=== PATIENT | female | born 1955 | race American Indian/Alaskan Native ===

== ENCOUNTER 2017-12-17 06:50 | Emergency (ER) | payer MEDICAID ==
[2017-12-17] MEDS: D50W (25GM) Vial IV ONE (07:12)
[2017-12-17 07:39] LABS: Basophils # (Auto) 0.1 K/mm3 (0.0-0.1); Basophils % (Auto) 0.5 % (0.0-1.8); Eosinophils # (Auto) 0.1 K/mm3 (0.0-0.4); Eosinophils % (Auto) 1.1 % (0.0-4.3); Hematocrit 32.3 % (30.3-42.9); Hemoglobin 10.4 gm/dl (10.1-14.3); Lymphocytes % (Auto) 25.9 % (13.4-35.0); Mean Corpuscular HGB Conc 32 % (30-34); Mean Corpuscular Hemoglobin 28 pg (28-32); Mean Corpuscular Volume 88 fl (79-97); Monocytes # (Auto) 0.8 K/mm3 (0.0-0.8); Monocytes % (Auto) 7.1 % (0.0-7.3); Platelet Count 159 K/mm3 (140-440); Red Blood Count 3.69 M/mm3 (3.65-5.03); Red Cell Distribution Width 14.5 % (13.2-15.2)
[2017-12-17 07:48] LABS: Calcium 8.7 mg/dL (8.4-10.2)
--- NOTE | 2017-12-17 07:58 | Emergency Department Report ---
ED General Adult HPI - General Chief complaint: Hypoglycemia Stated complaint: LOW BLOOD SUGAR Time Seen by Provider: 12/17/17 07:55 Source: patient, EMS Mode of arrival: Stretcher Limitations: Altered Mental Status - History of Present Illness Initial comments: Patient presents with history of low blood sugar, having been brought in by EMS , after family member reports that patient awakened family members with need for aren't to use, with symptoms of lightheadedness typical of low blood sugar. Patient is insulin-dependent diabetic, typically takes 50 units of 70/30 Levemir twice daily, and had her usual dose last evening, reports that she has not been taking her usual amount of food, primarily due to lack of appetite. She also reports that she was recently hospitalized for high blood sugar, as well as breathing difficulties, which was reported to be COPD exacerbation, at [facility] in [place], and was discharged home just 2 days ago. She has been eating fruit primarily, but has not been eating much else, and this is much left than she normally eats, but does not have any regimen for decreasing her insulin when she has decreased food intake. Past medical history significant for COPD, she has had prior use of home nebulizers, and is chronically short of breath, but has been stable since she was discharged, although with a minor residual shortness of breath. She says her heart has been checked out and was stable. She has not had any fever chills or diaphoresis, and no urinary symptoms. Patient was given intravenous glucose by EMS, with blood sugar reported in the 20s, and blood sugar was 111 on arrival, and 87 on recheck by nurse in emergency department. Patient is asymptomatic at time of examination, awake and oriented, and having no residual symptoms. She denies chest pain, has stable residual shortness of breath, no abdominal pain, no nausea or vomiting, no diaphoresis. - Related Data Previous Rx's Medication Instructions Recorded Last Taken Type Docusate Sodium [Colace] 100 mg PO BID PRN #30 capsule 04/15/14 Unknown Rx HYDROcodone/APAP 5-325 [[place] 1 each PO Q6HR PRN #20 tablet 04/15/14 Unknown Rx 5/325] Polyethylene Glycol 3350 [Miralax] 17 gm PO DAILY PRN #1 bottle 04/15/14 Unknown Rx HYDROcodone/APAP 5-325 [[place] 1 - 2 each PO Q6HR PRN #14 tablet 12/05/14 Unknown Rx 5/325] Allergies Allergy/AdvReac Type Severity Reaction Status Date / Time No Known Allergies Allergy Verified 04/15/14 15:50 ED Review of Systems ROS: Stated complaint: LOW BLOOD SUGAR Other details as noted in HPI Comment: All other systems reviewed and negative Constitutional: denies: chills, diaphoresis, fever, malaise, weakness ENT: denies: throat pain Respiratory: shortness of breath (chronic, unchanged). denies: cough, orthopnea Cardiovascular: denies: chest pain, edema, syncope Endocrine: denies: excessive sweating, flushing, intolerance to cold, intolerance to heat Gastrointestinal: denies: abdominal pain, nausea, vomiting Genitourinary: denies: urgency, dysuria, discharge Musculoskeletal: denies: back pain, joint swelling, arthralgia Skin: denies: rash, lesions Neurological: denies: headache, weakness, paresthesias Psychiatric: denies: anxiety, depression ED Past Medical Hx - Past Medical History Hx Hypertension: Yes Hx Diabetes: Yes Hx GERD: Yes Hx Asthma: Yes Hx COPD: Yes Additional medical history: sleep apnea - Surgical History Hx Cholecystectomy: Yes Additional Surgical History: c section - Social History Smoking Status: Current Every Day Smoker (1/2 pack per day) Substance Use Type: None (denies illicit drug use), Alcohol (occasional), Prescribed - Medications Home Medications: Home Medications Medication Instructions Recorded Confirmed Last Taken Type Docusate Sodium [Colace] 100 mg PO BID PRN #30 capsule 04/15/14 12/05/14 Unknown Rx HYDROcodone/APAP 5-325 [[place] 1 each PO Q6HR PRN #20 tablet 04/15/14 12/05/14 Unknown Rx 5/325] Polyethylene Glycol 3350 [Miralax] 17 gm PO DAILY PRN #1 bottle 04/15/14 Unknown Rx HYDROcodone/APAP 5-325 [[place] 1 - 2 each PO Q6HR PRN #14 tablet 12/05/14 Unknown Rx 5/325] ED Physical Exam - General Limitations: Altered Mental Status General appearance: alert, in no apparent distress - Head Head exam: Present: atraumatic - Eye Eye exam: Present: PERRL - ENT ENT exam: Present: normal exam, mucous membranes moist - Neck Neck exam: Present: normal inspection, full ROM. Absent: tenderness - Respiratory Respiratory exam: Present: normal lung sounds bilaterally. Absent: respiratory distress, wheezes, rales, rhonchi - Cardiovascular Cardiovascular Exam: Present: regular rate, normal heart sounds. Absent: systolic murmur, diastolic murmur - GI/Abdominal GI/Abdominal exam: Present: soft, normal bowel sounds. Absent: tenderness - Rectal Rectal exam: Present: deferred - Extremities Exam Extremities exam: Present: normal inspection - Neurological Exam Neurological exam: Present: alert, oriented X3, CN II-XII intact. Absent: motor sensory deficit - Psychiatric Psychiatric exam: Present: normal affect, normal mood - Skin Skin exam: Present: warm, dry ED Course Vital Signs 12/17/17 12/17/17 12/17/17 06:58 07:00 07:03 Temperature 36.4 C Pulse Rate 74 74 74 Respiratory 11 L 11 L 16 Rate Blood Pressure 170/73 170/73 O2 Sat by Pulse 99 Oximetry 12/17/17 12/17/17 12/17/17 07:16 07:30 08:38 Temperature Pulse Rate 74 76 Respiratory 11 L 13 24 Rate Blood Pressure 173/81 162/94 O2 Sat by Pulse 100 Oximetry - Reevaluation(s) Reevaluation #1: 12/17/17 09:42 Repeat glucose 89, which is unchanged, but is not declining. Patient has had snack as well as juice in emergency department. ED Medical Decision Making - Lab Data Result diagrams: 12/17/17 07:14 12/17/17 07:14 - Medical Decision Making Patient has had a hypoglycemic episode secondary to inadequate nutritional intake, while maintaining usual dose of insulin. She clearly needs to be able to decrease insulin dose when she is not getting adequate nutrition, and I will have her skip this morning's dose, and if her glucose is 150-200 at bedtime, and I will have her take one half of a dose, 25 units of 7030 insulin, and take usual doses blood sugars over 200. She should continue this by checking sugars every day, skipping insulin if her blood glucose is under 150, taking half dose in the morning for sugars between 150 and 200, then normal dose over 200, and to continue this until she can see her doctor, at which time she can discuss how to alter insulin levels or whether her insulin needs to be changed. Critical Care Time: No Critical care attestation.: If time is entered above; I have spent that time in minutes in the direct care of this critically ill patient, excluding procedure time. ED Disposition Clinical Impression: Hypoglycemia due to insulin, Diabetes mellitus Disposition: DC-01 TO HOME OR SELFCARE Is pt being admited?: No Does the pt Need Aspirin: No Condition: Stable Instructions: Diabetes Mellitus Type 2 in Adults (ED), Diabetic Hypoglycemia ( ED) Additional Instructions: We have treated you for low blood sugar today, which was caused by taking regular doses of insulin, but having decreased food intake, which leads to much insulin and her system, and causing the blood sugar to go to low. Your blood sugar is stable, and urinary stable for discharge home. If you're not eating regularly, he will need to decrease your insulin in the meantime. Skip your morning dose of insulin today, Be sure to eat regularly over the course of the day. Try to eat normal amounts of food, as your insulin dose is based on the amount of carbohydrates that you taken every day. If you don't take in adequate amounts of carbohydrates, this leads to much insulin and your system, and can drive your blood sugar too low again. Check blood glucose levels this evening, and if blood sugar is less than 150, Skip your Evening dose. If blood sugar is between 150 and 200, take one half of your insulin dose, 25 units of 70/30 R insulin If blood sugar tonight is over 200, take regular dose of insulin. Continue this with each dose until you can follow with your doctor and discuss alternative methods of controlling her blood sugar and insulin program Try to see her primary care doctor tomorrow if possible. Referrals: PRIMARY CARE [Primary Care Provider] - 3-5 Days Time of Disposition: 09:48
[2017-12-17 10:33] VITALS: BP 126/73
== END 2017-12-17 10:33 | disposition home or self-care (01) ==
LOC: ED 06:50
DX: E11.649 Type 2 diabetes mellitus with hypoglycemia without coma (principal); Z79.4 Long term (current) use of insulin; I10 Essential (primary) hypertension; K21.9 Gastro-esophageal reflux disease without esophagitis; J44.9 Chronic obstructive pulmonary disease, unspecified; F17.200 Nicotine dependence, unspecified, uncomplicated; Z90.49 Acquired absence of other specified parts of digestive tract
CPT/HCPCS: 36415; 80048; 82962; 85025; 96374

== ENCOUNTER 2018-11-09 15:22 | Inpatient (IN) | payer MEDICAID ==
[2018-11-09] MEDS ORDERED: NACL 0.9% 500 ML 500 ML IV ONE (15:37)
--- NOTE | 2018-11-09 16:09 | Emergency Department Report ---
HPI - General Time Seen by Provider: 11/09/18 15:35 - HPI HPI: 63-year-old female presents to the emergency department with a few different issues. The patient says that she is here secondary to severe generalized abdominal pain. Overall the patient says that she has pain "everywhere" but is worse today in the abdomen and the left arm. The patient's sister is currently at bedside and giving most of the information. The patient has been to [facility] and [facility] and was admitted to each over the past month secondary to his intractable pain. Patient and her sister said that they have not received any type of diagnosis. She has a past medical history of diabetes, hypertension and stage IV chronic kidney disease. The patient's sister also says that about 20 minutes prior to arrival, the patient started having slurred speech and a "twisting of her mouth." She still says that the speech is change from baseline but is improved from prior to arrival. She has not taken or received anything for her symptoms prior to arrival. ED Past Medical Hx - Past Medical History Previous Medical History?: Yes Hx Hypertension: Yes Hx Diabetes: Yes Hx GERD: Yes Hx Renal Disease: Yes (stage 4) Hx Asthma: Yes Hx COPD: Yes Additional medical history: sleep apnea - Surgical History Past Surgical History?: No Hx Cholecystectomy: Yes Additional Surgical History: c section - Social History Smoking Status: Former Smoker Substance Use Type: None - Medications Home Medications: Home Medications Medication Instructions Recorded Confirmed Last Taken Type Docusate Sodium [Colace] 100 mg PO BID PRN #30 capsule 04/15/14 12/05/14 Unknown Rx HYDROcodone/APAP 5-325 [[place] 1 each PO Q6HR PRN #20 tablet 04/15/14 12/05/14 Unknown Rx 5/325] Polyethylene Glycol 3350 [Miralax] 17 gm PO DAILY PRN #1 bottle 04/15/14 12/05/14 Unknown Rx HYDROcodone/APAP 5-325 [[place] 1 - 2 each PO Q6HR PRN #14 tablet 12/05/14 Unknown Rx 5/325] ED Review of Systems ROS: Stated complaint: ABD PAIN/SLURRED SPEECH Other details as noted in HPI Constitutional: chills, fever Eyes: denies: eye pain, vision change ENT: denies: ear pain, throat pain Respiratory: denies: cough, shortness of breath Cardiovascular: denies: chest pain, palpitations Gastrointestinal: abdominal pain. denies: vomiting Genitourinary: denies: dysuria, discharge Musculoskeletal: arthralgia, myalgia Skin: denies: rash, lesions Neurological: denies: numbness, paresthesias Physical Exam - Physical Exam Vital Signs: Vital Signs 11/09/18 15:34 Temperature 103.2 F H Pulse Rate 109 H Respiratory 15 Rate Blood Pressure 141/68 O2 Sat by Pulse 98 Oximetry Physical Exam: GENERAL: Patient is ill-appearing. HENT: Normocephalic. Atraumatic. Patient has moist mucous membranes. EYES: Extraocular motions are intact. Pupils equal reactive to light bilaterally. NECK: Supple. Trachea is midline. CHEST/LUNGS: Clear to auscultation. There is no respiratory distress noted. HEART/CARDIOVASCULAR: Regular. There is mild tachycardia. There is no murmur. ABDOMEN: Abdomen is soft. There is generalized tenderness to palpation of the abdomen. No guarding. Patient has normal bowel sounds. There is no abdominal distention. SKIN: Skin is skin is hot but dry. NEURO: The patient is awake, alert, and oriented. The patient is cooperative. The patient has no focal neurologic deficits. The patient has normal speech. MUSCULOSKELETAL: Patient appears to have some tenderness to palpation to all extremities but no obvious deformity. There is no limitation range of motion. There is no evidence of acute injury. ED Course Vital Signs 11/09/18 15:34 Temperature 103.2 F H Pulse Rate 109 H Respiratory 15 Rate Blood Pressure 141/68 O2 Sat by Pulse 98 Oximetry - Consultations Consultation #1: Just after the patient's presentation to the emergency department, and given the description of her acute slurred speech, a code stroke was called. The patient was seen by the telemedicine neurologist, Dr. Diane. The patient was seen by Dr. Diane via sheep farm worker and he felt that the patient's symptoms have resolved and that she is not a TPA candidate, but he recommends admission for brain MRI and further workup. 11/09/18 19:32 ED Medical Decision Making - Lab Data Result diagrams: 11/09/18 16:16 11/09/18 16:16 - EKG Data -: EKG Interpreted by Sd EKG shows normal: sinus rhythm, axis, intervals, QRS complexes, ST-T waves Rate: tachycardia (107 bpm) - EKG Data When compared to previous EKG there are: no significant change Interpretation: unchanged when compared t (02/16/18) - Radiology Data Radiology results: report reviewed, image reviewed interpreted by me: Abdominal x-ray shows nonspecific nonobstructive bowel gas PROCEDURE: CT ABDOMEN PELVIS WO CON TECHNIQUE: Computerized axial tomography of the abdomen and pelvis was performed without intravenous contrast. This study is performed without intravascular contrast material and its sensitivity for abdominal and pelvic pathology, including neoplasms, inflammation, abscess, free fluid, thrombosis, arterial dissection and infarction, is reduced compared with a contrast enhanced study. CT DOSE LENGTH PRODUCT: 1239.6 mGycm HISTORY: Abd pain COMPARISONS: None . FINDINGS: Visualized lower thorax: No significant abnormality. Liver: Normal size and attenuation. Spleen: Normal size and attenuation. Gallbladder and biliary system: There has been cholecystectomy. Pancreas: There is diffuse pancreatic calcification, compatible with chronic pancreatitis. There is mild pancreatic ductal dilatation. Adrenals: Normal. Kidneys: Normal. GI tract: No appendiceal inflammation. Moderate volume of stool seen in the distal colon. No bowel obstruction or inflammation . Lymph nodes and mesentery: Normal. Vasculature: Aortic atherosclerotic calcification. Bladder: Normal. Reproductive organs: Normal. Peritoneum: No free fluid. Musculoskeletal structures: There are facet arthritic changes of the lumbar spine. Other: None. IMPRESSION: Evidence of chronic pancreatitis. No acute inflammatory process is seen. No bowel obstruction. There is moderate volume of stool in the distal colon . PROCEDURE: CT HEAD/BRAIN WO CON TECHNIQUE: Computerized tomography of the head was performed without contrast material. CT DOSE LENGTH PRODUCT: 920.5 mGycm HISTORY: Stroke symptoms COMPARISONS: None . FINDINGS: There is no evidence of an acute intracranial process, intracranial hemorrhage or mass effect. The ventricles are normal size. There is atherosclerotic vascular calcification of the internal carotid arteries bilaterally and right vertebral artery at the skull base. The visualized portions of the orbits, paranasal and mastoid sinuses are unremarkable. The bony structures are unremarkable. IMPRESSION: 1. No evidence of an acute intracranial process, intracranial hemorrhage or mass effect. If there is a clinical suspicion of an acute intracranial process, MRI brain would be helpful. - Medical Decision Making This patient presented with 2 different complaints. First, the patient has some chronic generalized body pains but it is worst in the abdomen and left arm. She is tender to palpation but the abdomen is soft, nondistended, nontoxic in appearance. Abdominal x-ray was done that does not show any acute process. Patient's labs show some mild hyponatremia, mild hyperkalemia, elevated AST level and significant renal insufficiency/failure. The patient says that she is a known stage IV chronic kidney disease patient and she also has some anemia of chronic kidney disease.CT of the abdomen and pelvis without contrast was done that shows signs of chronic pancreatitis. The patient also presented after having some transient but acute slurred speech. A code stroke was called and the patient was seen by telemedicine neurology who agrees that the patient has shown some improvement or resolution and therefore does not appear to be a candidate for TPA. However she would benefit from further workup for possible TIA. Patient presents with some tachycardia and a fever. This fits the SIRS criteria but no source of infection has been found. She has been given some Tylenol for treatment of her fever and is unable to receive NSAIDs as she is non dialysis chronic kidney disease. The patient will be admitted to the hospital for further evaluation and treatment was except for admission by the hospitalist, Dr. Alvarado. - Differential Diagnosis TIA, CVA, Sepsis, COlitis, Pancreatitis Critical Care Time: No Critical care attestation.: If time is entered above; I have spent that time in minutes in the direct care of this critically ill patient, excluding procedure time. ED Disposition Clinical Impression: Slurring of speech, SIRS (systemic inflammatory response syndrome), TIA (transient ischemic attack) Renal failure (ARF), acute on chronic Qualifiers: Acute renal failure type: unspecified Chronic kidney disease stage: stage 1 Qualified Code(s): N17.9 - Acute kidney failure, unspecified Disposition: -09 OP ADMIT IP TO THIS HOSP Is pt being admited?: Yes Condition: Serious Time of Disposition: 19:52
--- NOTE | 2018-11-09 16:12 | Cat Scan Report ---
PROCEDURE: CT HEAD/BRAIN WO CON TECHNIQUE: Computerized tomography of the head was performed without contrast material. CT DOSE LENGTH PRODUCT: 920.5 mGycm HISTORY: Stroke symptoms COMPARISONS: None . FINDINGS: There is no evidence of an acute intracranial process, intracranial hemorrhage or mass effect. The ventricles are normal size. There is atherosclerotic vascular calcification of the internal carotid arteries bilaterally and righ t vertebral artery at the skull base. The visualized portions of the orbits, paranasal and mastoid sinuses are unremarkable. The bony structures are unremarkable. IMPRESSION: 1. No evidence of an acute intracranial process, intracranial hemorrhage or mass effect. If there is a clinical suspicion of an acute intracranial process, MRI brain would be helpful. The findings of absence of evidence of acute infarct or intracranial hemorrhage were relayed to Dr. Alex weaver at 4:07 PM November 09, 2018. This document is electronically signed by Elisa Nash MD., November 09 2018 04:10:13 PM ET
--- NOTE | 2018-11-09 16:22 | Emergency Department Report ---
ED Neuro Deficit HPI - General Chief Complaint: Neuro Symptoms/Deficit Stated Complaint: ABD PAIN/SLURRED SPEECH Time Seen by Provider: 11/09/18 15:35 Source: patient, family Mode of arrival: Ambulatory Limitations: Other - History of Present Illness Initial Comments: [facility] TeleNeurology Consult Services Impression: speech difficulties. Unclear of etiology, suspect toxic metabolic, but cannot r/o tia at this time Not a tpa candidate due to: resolved Does not meet LVO screening criteria (no aphasia, neglect, gaze deviation, dense hemiparesis, visual field deficits on exam); therefore, advanced imaging not recommended. Comments: [facility] contacted: [phone] [facility] at bedside: 2220 Recommendations: Activate telemetry floor Neuro checks Bedside swallow eval Dvt prophylaxis IV fluids, normal saline ASA if no contraindications Head of bed below 30 degrees inpatient neurology consultation Inpatient stroke evaluation as per Neurology/ Internal Medicine Discussed with ED MD --------- CC slurred speech History of Present Illness Patient is a 63 year old woman who comes to the hospital for pain and an episode of slurred speech on her way to the hospital. The slurred speech was noticed around 1500 and did not last long per family member. She has been having pains for the past month, but family is unaware of the cause. No focal weakness or numbness noticed. Has a 103.2 fever on the ED. Diagnostic: Ct head without contrast: no acute findings per rad read Exam: NIHSS score: Asterixis on exam 1A: Level of Consciousness - Alert; keenly responsive 0 1B: Ask Month and Age - Both Questions Right 0 1C: 'Blink Eyes' & 'Squeeze Hands' - Performs Both Tasks 0 2: Test Horizontal Extraocular Movements - Normal 0 3: Test Visual Saleh - No Visual Loss 0 4: Test Facial Palsy - Normal symmetry 0 5A: Test Left Arm Motor Drift - No Drift for 10 Seconds 0 5B: Test Right Arm Motor Drift - No Drift for 10 Seconds 0 6A: Test Left Leg Motor Drift - No Drift for 5 Seconds 0 6B: Test Right Leg Motor Drift - No Drift for 5 Seconds 0 7: Test Limb Ataxia - No Ataxia 0 8: Test Sensation - Normal; No sensory loss 0 9: Test Language/Aphasia - Normal; No aphasia 0 10: Test Dysarthria - Normal 0 11: Test Extinction/Inattention - No abnormality 0 Medical Decision Making: - Extensive number of diagnosis or management options are considered above. - Extensive amount of complex data reviewed. - High risk of complication and/or morbidity or mortality are associated with differential diagnostic considerations above. - There may be Uncertain outcome and increased probability of prolonged functional impairment or high probability of severe prolonged functional impairment associated with some of these differential diagnosis. Medical Data Reviewed: 1.Data reviewed include clinical labs, radiology, Medical Tests; 2.Tests results discussed w/performing or interpreting physician; 3.Obtaining/reviewing old medical records; 4.Obtaining case history from another source; 5.Independent review of image, tracing or specimen. Patient was informed the Neurology Consult would happen via telehealth (remote video) and consented to receiving care in this manner. - Related Data Home Medications: Previous Rx's Medication Instructions Recorded Last Taken Type Docusate Sodium [Colace] 100 mg PO BID PRN #30 capsule 04/15/14 Unknown Rx HYDROcodone/APAP 5-325 [[place] 1 each PO Q6HR PRN #20 tablet 04/15/14 Unknown Rx 5/325] Polyethylene Glycol 3350 [Miralax] 17 gm PO DAILY PRN #1 bottle 04/15/14 Unknown Rx HYDROcodone/APAP 5-325 [[place] 1 - 2 each PO Q6HR PRN #14 tablet 12/05/14 Unknown Rx 5/325] Allergies/Adverse Reactions: Allergies Allergy/AdvReac Type Severity Reaction Status Date / Time No Known Allergies Allergy Verified 04/15/14 15:50 ED Review of Systems ROS: Stated complaint: ABD PAIN/SLURRED SPEECH Other details as noted in HPI Constitutional: chills, fever Eyes: denies: eye pain, vision change ENT: denies: ear pain, throat pain Respiratory: denies: cough, shortness of breath Cardiovascular: denies: chest pain, palpitations Gastrointestinal: abdominal pain. denies: vomiting Genitourinary: denies: dysuria, discharge Musculoskeletal: arthralgia, myalgia Skin: denies: rash, lesions Neurological: denies: numbness, paresthesias ED Past Medical Hx - Past Medical History Previous Medical History?: Yes Hx Hypertension: Yes Hx Diabetes: Yes Hx GERD: Yes Hx Renal Disease: Yes (stage 4) Hx Asthma: Yes Hx COPD: Yes Additional medical history: sleep apnea - Surgical History Past Surgical History?: No Hx Cholecystectomy: Yes Additional Surgical History: c section - Social History Smoking Status: Former Smoker Substance Use Type: None - Medications Home Medications: Home Medications Medication Instructions Recorded Confirmed Last Taken Type Docusate Sodium [Colace] 100 mg PO BID PRN #30 capsule 04/15/14 12/05/14 Unknown Rx HYDROcodone/APAP 5-325 [[place] 1 each PO Q6HR PRN #20 tablet 04/15/14 12/05/14 Unknown Rx 5/325] Polyethylene Glycol 3350 [Miralax] 17 gm PO DAILY PRN #1 bottle 04/15/14 12/05/14 Unknown Rx HYDROcodone/APAP 5-325 [[place] 1 - 2 each PO Q6HR PRN #14 tablet 12/05/14 Unknown Rx 5/325] ED Neuro Physical Exam - General Limitations: Other Suspected Stroke: No ED Course Vital Signs 11/09/18 15:34 Temperature 103.2 F H Pulse Rate 109 H Respiratory 15 Rate Blood Pressure 141/68 O2 Sat by Pulse 98 Oximetry - Lab Data Lab Results 11/09/18 Range/Units 15:32 POC Glucose 157 H (70-105) Critical care attestation.: If time is entered above; I have spent that time in minutes in the direct care of this critically ill patient, excluding procedure time. ED Disposition Clinical Impression: Slurring of speech Disposition: OP ADMIT IP TO THIS HOSP Is pt being admited?: Yes Condition: Stable
[2018-11-09 16:39] LABS: INR 1.09 (0.87-1.13)
[2018-11-09 16:40] LABS: Partial Thromboplastin Time 44.5 Sec. (24.2-36.6)
[2018-11-09 16:42] LABS: Basophils % (Auto) 0.2 % (0.0-1.8); Eosinophils # (Auto) 0.2 K/mm3 (0.0-0.4); Eosinophils % (Auto) 3.7 % (0.0-4.3); Hematocrit 23.8 % (30.3-42.9); Hemoglobin 7.6 gm/dl (10.1-14.3); Lymphocytes # (Auto) 0.9 K/mm3 (1.2-5.4); Lymphocytes % (Auto) 13.2 % (13.4-35.0); Mean Corpuscular HGB Conc 32 % (30-34); Mean Corpuscular Volume 86 fl (79-97); Monocytes # (Auto) 0.4 K/mm3 (0.0-0.8); Monocytes % (Auto) 6.4 % (0.0-7.3); Platelet Count 125 K/mm3 (140-440); Red Blood Count 2.77 M/mm3 (3.65-5.03); Red Cell Distribution Width 16.7 % (13.2-15.2)
[2018-11-09 16:47] LABS: Albumin 2.6 g/dL (3.9-5); Calcium 9.1 mg/dL (8.4-10.2); Hemolysis Index 6; Thrombin Time 21.3 Sec. (15.1-19.6)
[2018-11-09 16:48] LABS: Creatine Kinase MB < 1.0 ng/mL (0.0-4.0)
[2018-11-09 16:59] LABS: Alanine Aminotransferase 14 units/L (7-56); BUN/Creatinine Ratio 10; Blood Urea Nitrogen 52 mg/dL (7-17)
[2018-11-09] MEDS ORDERED: TYLENOL PO ONE (17:38)
--- NOTE | 2018-11-09 17:51 | Cat Scan Report ---
PROCEDURE: CT ABDOMEN PELVIS WO CON TECHNIQUE: Computerized axial tomography of the abdomen and pelvis was performed without intravenous contrast. This study is performed without intravascular contrast material and its sensitivity for ab dominal and pelvic pathology, including neoplasms, inflammation, abscess, free fluid, thrombosis, art erial dissection and infarction, is reduced compared with a contrast enhanced study. CT DOSE LENGTH PRODUCT: 1239.6 mGycm HISTORY: Abd pain COMPARISONS: None . FINDINGS: Visualized lower thorax: No significant abnormality. Liver: Normal size and attenuation. Spleen: Normal size and attenuation. Gallbladder and biliary system: There has been cholecystectomy. Pancreas: There is diffuse pancreatic calcification, compatible with chronic pancreatitis. There is mild pancreatic ductal dilatation. Adrenals: Normal. Kidneys: Normal. GI tract: No appendiceal inflammation. Moderate volume of stool seen in the distal colon. No bowel o bstruction or inflammation . Lymph nodes and mesentery: Normal. Vasculature: Aortic atherosclerotic calcification. Bladder: Normal. Reproductive organs: Normal. Peritoneum: No free fluid. Musculoskeletal structures: There are facet arthritic changes of the lumbar spine. Other: None. IMPRESSION: Evidence of chronic pancreatitis. No acute inflammatory process is seen. No bowel obstruction. There is moderate volume of stool in the distal colon . This document is electronically signed by Mary Ann Valero MD., November 09 2018 05:49:26 PM ET
--- NOTE | 2018-11-09 18:54 | XRay Report ---
EXAM: XR ABDOMEN 2V HISTORY: abd pain on hold TECHNIQUE: Supine views (4 images) COMPARISON: None available. FINDINGS: Abundant fecal material is seen within the large bowel loops and approximately 7.9 cm dilated rectum in keeping with constipation and possible fecal impaction. Clinical correlation is advised. The gabriela l gas pattern is otherwise nonspecific and nonobstructive. No gross organomegaly, free intraperitoneal air, or suspicious calcifications seen. There are multipl e bilateral pelvic calcifications consistent with phleboliths. Surgical clips are seen in the right upper quadrant in keeping with prior cholecystectomy. Multilevel degenerative disease is seen in the middle and distal lumbar spine. IMPRESSION: 1. Abundant fecal material is seen within the large bowel loops and approximately 7.9 cm dilated rec roly in keeping with constipation and possible fecal impaction. Clinical correlation is advised. 2. No gross organomegaly, free intraperitoneal air, or suspicious calcifications seen. This document is electronically signed by Magi Mojica MD., November 09 2018 06:51:54 PM ET
[2018-11-09] MEDS ORDERED: COLACE PO PRN (19:32)
[2018-11-09] MEDS ORDERED: NON-FORMULARY (Polyethylene Glycol 3350 [Miralax] 17 GM) PO PRN (19:32)
[2018-11-09] MEDS ORDERED: NORCO 5/325 PO PRN (19:32)
--- NOTE | 2018-11-09 19:32 | History and Physical Report ---
History of Present Illness Date of examination: 11/09/18 Medications and Allergies Allergies Allergy/AdvReac Type Severity Reaction Status Date / Time No Known Allergies Allergy Verified 04/15/14 15:50 Home Medications Medication Instructions Recorded Confirmed Last Taken Type Docusate Sodium [Colace] 100 mg PO BID PRN #30 capsule 04/15/14 12/05/14 Unknown Rx HYDROcodone/APAP 5-325 [[place] 1 each PO Q6HR PRN #20 tablet 04/15/14 12/05/14 Unknown Rx 5/325] Polyethylene Glycol 3350 [Miralax] 17 gm PO DAILY PRN #1 bottle 04/15/14 12/05/14 Unknown Rx HYDROcodone/APAP 5-325 [[place] 1 - 2 each PO Q6HR PRN #14 tablet 12/05/14 Unknown Rx 5/325] Exam - Constitutional Vitals: Temp Pulse Resp BP Pulse Ox 100 F H 100 H 15 137/87 100 11/09/18 18:23 11/09/18 18:23 11/09/18 18:23 11/09/18 18:23 11/09/18 18:23 Results - Labs CBC & Chem 7: 11/09/18 16:16 11/09/18 16:16 Labs: Laboratory Last Values WBC 6.7 K/mm3 (4.5-11.0) 11/09/18 16:16 RBC 2.77 M/mm3 (3.65-5.03) L 11/09/18 16:16 Hgb 7.6 gm/dl (10.1-14.3) L 11/09/18 16:16 Hct 23.8 % (30.3-42.9) L 11/09/18 16:16 MCV 86 fl (79-97) 11/09/18 16:16 MCH 27 pg (28-32) L 11/09/18 16:16 MCHC 32 % (30-34) 11/09/18 16:16 RDW 16.7 % (13.2-15.2) H 11/09/18 16:16 Plt Count 125 K/mm3 (140-440) L 11/09/18 16:16 Lymph % (Auto) 13.2 % (13.4-35.0) L 11/09/18 16:16 [place] % (Auto) 6.4 % (0.0-7.3) 11/09/18 16:16 Eos % (Auto) 3.7 % (0.0-4.3) 11/09/18 16:16 Baso % (Auto) 0.2 % (0.0-1.8) 11/09/18 16:16 Lymph # 0.9 K/mm3 (1.2-5.4) L 11/09/18 16:16 [place] # 0.4 K/mm3 (0.0-0.8) 11/09/18 16:16 Eos # 0.2 K/mm3 (0.0-0.4) 11/09/18 16:16 Baso # 0.0 K/mm3 (0.0-0.1) 11/09/18 16:16 Seg Neutrophils % 76.5 % (40.0-70.0) H 11/09/18 16:16 Seg Neutrophils # 5.1 K/mm3 (1.8-7.7) 11/09/18 16:16 PT 14.8 Sec. (12.2-14.9) 11/09/18 16:16 INR 1.09 (0.87-1.13) 11/09/18 16:16 APTT 44.5 Sec. (24.2-36.6) H 11/09/18 16:16 21.3 Sec. (15.1-19.6) H 11/09/18 16:16 Sodium 130 mmol/L (137-145) L 11/09/18 16:16 Potassium 5.3 mmol/L (3.6-5.0) H 11/09/18 16:16 Chloride 103.2 mmol/L (98-107) 11/09/18 16:16 Carbon Dioxide 13 mmol/L (22-30) L 11/09/18 16:16 19 mmol/L 11/09/18 16:16 BUN 52 mg/dL (7-17) H 11/09/18 16:16 5.4 mg/dL (0.7-1.2) H 11/09/18 16:16 Estimated GFR 10 ml/min 11/09/18 16:16 10 % 11/09/18 16:16 Glucose 135 mg/dL (65-100) H 11/09/18 16:16 POC Glucose 157 (70-105) H 11/09/18 15:32 Lactic Acid 1.30 mmol/L (0.7-2.0) 11/09/18 16:16 Calcium 9.1 mg/dL (8.4-10.2) 11/09/18 16:16 0.30 mg/dL (0.1-1.2) 11/09/18 16:16 AST 68 units/L (5-40) H 11/09/18 16:16 ALT 14 units/L (7-56) 11/09/18 16:16 102 units/L (35-129) 11/09/18 16:16 19.0 umol/L (25-60) L 11/09/18 16:16 93 units/L (30-135) 11/09/18 16:16 CK-MB (CK-2) < 1.0 ng/mL (0.0-4.0) 11/09/18 16:16 CK-MB (CK-2) Rel Index 1.0 (0-4) 11/09/18 16:16 0.017 ng/mL (0.00-0.029) 11/09/18 16:16 7.6 g/dL (6.3-8.2) 11/09/18 16:16 2.6 g/dL (3.9-5) L 11/09/18 16:16 0.5 % 11/09/18 16:16 13 units/L (13-60) 11/09/18 16:16 Plasma/Serum Alcohol < 0.01 % (0-0.07) 11/09/18 16:16
[2018-11-09] MEDS ORDERED: MIRALAX 3350 PO PRN (19:38)
[2018-11-09] MEDS ORDERED: KIONEX PO ONE (19:48)
[2018-11-09] MEDS ORDERED: CALCIUM GLUCONATE 2,000 MG in NACL 0.9% 100 ML IV ONE (20:00)
[2018-11-09 20:42] LABS: % Iron Saturation 21.3 %
[2018-11-09] MEDS: HEPARIN SUB-Q SCH (22:54)
[2018-11-09] MEDS: NACL 0.9% 1000 ML 1,000 ML IV SCH (22:55)
[2018-11-09] MEDS: SODIUM CHLORIDE FLUSH SYRINGE 10 ML IV SCH (22:55)
--- NOTE | 2018-11-10 00:42 | Event Note ---
Date: 11/10/18 SHELLEY Palafox called to report pt has temp of 103.1. No evidence of leukocytosis and Lactic Acid WNL. Ordered CXR, BC, UC, and UA. Empirically started on Zosyn.
[2018-11-10] MEDS: TYLENOL PO PRN ×3 (00:52→15:17)
[2018-11-10 01:36] LABS: Bacteria,Urine 1+ /HPF (Negative); Hyaline Casts,Urine 1 /LPF
[2018-11-10 01:37] LABS: Bilirubin,Urine NEG (Negative); Blood,Urine SM (Negative); Color,Urine Yellow (Yellow); Protein,Urine >500 mg/dL (Negative); Urobilinogen,Urine < 2.0 mg/dL (<2.0)
[2018-11-10 01:40] LABS: Amphetamine Screen,Urine PRESUMPTIVE NEGATIVE; Benzodiazepines Screen,Urine PRESUMPTIVE NEGATIVE; Cannabinoid Screen,Urine PRESUMPTIVE NEGATIVE; Cocaine Screen,Urine PRESUMPTIVE NEGATIVE; Methadone Screen,Urine PRESUMPTIVE NEGATIVE; Opiate Screen,Urine PRESUMPTIVE NEGATIVE
[2018-11-10] MEDS ORDERED: ZOSYN/NS 2.25 GM/50ML 2.25 GM/50 ML BAG IV ONE (02:00)
--- NOTE | 2018-11-10 02:04 | XRay Report ---
PROCEDURE: XR CHEST ROUTINE 2V TECHNIQUE: PA and lateral chest radiographs were obtained. HISTORY: Fever unknown origin COMPARISONS: None. FINDINGS: Heart: Normal. Mediastinum/Vessels: Normal. Lungs/Pleural space: Normal. Bony thorax: No acute osseous abnormality. IMPRESSION: There is no evidence of acute cardiopulmonary process. This document is electronically signed by Ciarra Diamond DO., November 10 2018 02:02:52 AM ET
[2018-11-10] MEDS ORDERED: ZOSYN/NS 3.375GM/50ML 3.375 GM/50 ML BAG IV SCH (06:00)
[2018-11-10] MEDS: ZOSYN/NS 2.25 GM/50ML 2.25 GM/50 ML BAG IV SCH ×2 (06:20→15:11)
--- NOTE | 2018-11-10 06:25 | Event Note ---
Date: 11/09/18 See H/p in reports SIRS Anemia CKD/ESRD Rt arm numbness--Cervical radiculopathy-CT C spine and MR brain ordered
[2018-11-10] MEDS ORDERED: VANCOMYCIN PHARMACY TO DOSE IV SCH (07:00)
--- NOTE | 2018-11-10 07:08 | History and Physical Report ---
CHIEF COMPLAINT: 1. Fever. 2. Right-sided upper extremity numbness. 3. Abdominal pain. HISTORY OF PRESENT ILLNESS: A 63-year-old female with past medical history of diabetes, hypertension, gastroesophageal reflux disease, stage IV chronic kidney disease, COPD and sleep apnea, comes in for high fevers. Also right upper extremity numbness, which is intermittent. Also, abdominal pain off and on. The patient is a very poor historian. The patient states that she was admitted at [facility] for 2 weeks and had extensive workup, which was negative for acute CVA, etc. The patient is unable to give any other history. 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 As per the sister, the patient apparently has slurred speech and twisting of the mouth, but during my examination, she had a normal speech and able to answer questions. Very poor historian. No cough. No dysuria. No chills. Has high temperatures. No exacerbating or precipitating factors. PAST MEDICAL HISTORY: As mentioned, hypertension, diabetes, gastroesophageal reflux disease, chronic kidney disease, asthma, COPD, sleep apnea. PAST SURGICAL HISTORY: . SOCIAL HISTORY: Former smoker, no alcohol, no recreational drugs. FAMILY HISTORY: Hypertension. CURRENT MEDICATIONS: MiraLax and Kyle. REVIEW OF SYSTEMS: Significant for high fever, right upper extremity numbness and abdominal pain. No cough. No dysuria. A 14-point review of systems done. PHYSICAL EXAMINATION: GENERAL: Young elderly female, cooperative during examination. VITAL SIGNS: Temperature 103.2, pulse is 109, respiratory rate is 15, blood pressure 141/68. HEENT: Unremarkable. Pupils equal and reactive. NECK: Supple, no lymphadenopathy, no thyromegaly. LUNGS: Clear to auscultation and percussion. Good air entry. CARDIOVASCULAR SYSTEM: S1, S2 heard. No gallop, no murmur, no rub. Apical impulse in left fifth intercostal space in midclavicular line. ABDOMEN: Soft and benign. No hepatosplenomegaly. No guarding, no rigidity. Hernial orifices are normal. EXTREMITIES: Good pedal pulses. No pedal edema. CENTRAL NERVOUS SYSTEM: Nonfocal exam. Strength is 5/5 in all 4 extremities. Sensory system is normal. No focal deficits. SKIN: Normal. LABORATORY DATA: Significant for white count of 6700, H and H of 7.6 and 23.8, MCV is 86, MCH is low 27, RDW is 16.7. Platelet count is 125,000, slightly low. Sodium is 130, potassium is 5.3, bicarbonate is 13, BUN and creatinine is 52 and 5.4, glucose is 157. Serum iron is 36, TIBC is 169, transferrin is 128. Urine shows 7 white cells. Drug screen was essentially negative. DIAGNOSTIC DATA: Abdominal CT shows chronic pancreatitis and no bowel obstruction. Abdominal x-ray shows excessive fecal material in the colon. Head CT shows no evidence of any acute intracranial process. No intracranial hemorrhage. Chest x-ray shows no acute cardiopulmonary process. ASSESSMENT AND PLAN: 1. Systemic inflammatory response syndrome. The patient has high fever of 103 consistently. The patient started on empiric antibiotics. No focus of infection identified. There are 7 white cells in the urine. Abdominal x-ray was negative. Chest x-ray was negative. We will treat empirically with Zosyn and vancomycin. 2. Right arm numbness, probably secondary to cervical spondylosis. The patient is a very poor historian. We will get records from [place], but in the meantime, we will get CT C-spine and MRI brain. No extensive workup for stroke. 3. Chronic kidney disease, bordering on end-stage renal disease, Nephrology consult requested. The patient may end up needing dialysis. 4. Type 2 diabetes. Her hemoglobin A1c is 6.9. Will do coverage for now. 5. Constipation. Will get MiraLax 17 grams p.o. daily. 6. Deep venous thrombosis prophylaxis, heparin 5000 q. 12. In summary, the patient has systemic inflammatory response syndrome, chronic kidney disease, bordering on end-stage renal disease, high fevers and right arm numbness. Rule out cervical spondylosis and cervical radiculopathy. MRI of brain even though TIA is a remote possibility. JOB# [id number] ANNALISA/DEVAN TEJADA
[2018-11-10] MEDS ORDERED: VANCOMYCIN 1,750 MG in NACL 0.9% 500 ML 500 ML IV ONE (08:00)
[2018-11-10] MEDS: ZOFRAN IV PRN ×3 (08:17→22:43)
[2018-11-10] MEDS: DILAUDID IV PRN (08:17)
[2018-11-10 08:39] LABS: Basophils % (Auto) 0.2 % (0.0-1.8); Eosinophils # (Auto) 0.4 K/mm3 (0.0-0.4); Eosinophils % (Auto) 4.2 % (0.0-4.3); Hematocrit 21.6 % (30.3-42.9); Hemoglobin 7.2 gm/dl (10.1-14.3); Lymphocytes # (Auto) 0.8 K/mm3 (1.2-5.4); Lymphocytes % (Auto) 8.9 % (13.4-35.0); Mean Corpuscular HGB Conc 33 % (30-34); Mean Corpuscular Volume 85 fl (79-97); Monocytes # (Auto) 0.4 K/mm3 (0.0-0.8); Monocytes % (Auto) 4.3 % (0.0-7.3); Red Blood Count 2.54 M/mm3 (3.65-5.03); Red Cell Distribution Width 16.7 % (13.2-15.2)
[2018-11-10 08:42] LABS: Platelet Count 94 K/mm3 (140-440)
[2018-11-10 09:06] LABS: Calcium 8.7 mg/dL (8.4-10.2)
--- NOTE | 2018-11-10 09:44 | Consultation ---
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 CT A/P showed evidence of chronic pancreatitis, otherwise no acute findings, CT head showed no acute intracranial findings. Labs showed elevated BUN/Cr at 57/5.4mg/dl along with hyponatremia/hyperkalemia with K at 5.3 and metabolic acidosis. pt was being evaluated for future HD given progressive CKD. Renal consult is requested for management of progressive CKD and initiation of HD. Past History Past Medical History: anemia, diabetes, ESRD, hypertension, renal failure Past Surgical History: cholecystectomy, Social history: denies: smoking, alcohol abuse, prescription drug abuse, IV drug use Family history: diabetes, hypertension Medications and Allergies Allergies Allergy/AdvReac Type Severity Reaction Status Date / Time No Known Allergies Allergy Verified 04/15/14 15:50 Home Medications Medication Instructions Recorded Confirmed Last Taken Type Docusate Sodium [Colace] 100 mg PO BID PRN #30 capsule 04/15/14 12/05/14 Unknown Rx HYDROcodone/APAP 5-325 [[place] 1 each PO Q6HR PRN #20 tablet 04/15/14 12/05/14 Unknown Rx 5/325] Polyethylene Glycol 3350 [Miralax] 17 gm PO DAILY PRN #1 bottle 04/15/14 12/05/14 Unknown Rx HYDROcodone/APAP 5-325 [[place] 1 - 2 each PO Q6HR PRN #14 tablet 12/05/14 Unknown Rx 5/325] Active Meds: Active Medications Acetaminophen (Tylenol) 650 mg PO Q4H PRN PRN Reason: Pain MILD(1-3)/Fever >100.5/FLORES Last Admin: 11/10/18 00:52 Dose: 650 mg Documented by: Acetaminophen/Hydrocodone Bitart ([place] 5/325) 1 each PO Q6HR PRN PRN Reason: Pain Docusate Sodium (Colace) 100 mg PO BID PRN PRN Reason: Constipation Heparin Sodium (Porcine) (Heparin) 5,000 unit SUB-Q Q12HR [facility] Last Admin: 11/09/18 22:54 Dose: 5,000 unit Documented by: Hydromorphone HCl (Dilaudid) 0.25 mg IV Q3H PRN PRN Reason: Pain, Moderate (4-6) Last Admin: 11/10/18 08:17 Dose: 0.25 mg Documented by: Sodium Chloride (Nacl 0.9% 1000 Ml) 1,000 mls @ 75 mls/hr IV DIRECT [facility] Last Admin: 11/09/18 22:55 Dose: 75 mls/hr Documented by: Piperacillin Sod/Tazobactam Sod (Zosyn/Ns 2.25 Gm/50ml) 2.25 gm in 50 mls @ 100 mls/hr IV Q8HR [facility] Last Admin: 11/10/18 06:20 Dose: 100 mls/hr Documented by: Ondansetron HCl (Zofran) 4 mg IV Q8H PRN PRN Reason: Nausea And Vomiting Last Admin: 11/10/18 08:17 Dose: 4 mg Documented by: Polyethylene Glycol (Miralax 3350) 17 gm PO QDAY PRN PRN Reason: Constipation Sodium Chloride (Sodium Chloride Flush Syringe 10 Ml) 10 ml IV BID [facility] Last Admin: 11/09/18 22:55 Dose: 10 ml Documented by: Sodium Chloride (Sodium Chloride Flush Syringe 10 Ml) 10 ml IV PRN PRN PRN Reason: LINE FLUSH Review of Systems All systems: negative Constitutional: fatigue, weakness, malaise, poor appetite Cardiovascular: shortness of breath, dyspnea on exertion Gastrointestinal: abdominal pain, nausea, vomiting Exam - Vital Signs Vital signs: Vital Signs Pulse Resp Pulse Ox 106 H 16 99 11/09/18 15:31 11/09/18 15:31 11/09/18 15:31 - General Appearance General appearance: well-developed, appears stated age, chronically ill EENT: ATNC, PERRL, mucous membranes moist Neck: Present: neck supple Respiratory: Clear to Ascultation Heart: regular, S1S2 Gastrointestinal: Present: normoactive bowel sounds Integumentary: no rash, other (+ edema b/l LE ) Neurologic: no focal deficit, alert and oriented x3, strength 5/5, CN 3-12 intact Psychiatric: mood/affect appropriate, cooperative Results - Lab Results 11/10/18 08:05 11/10/18 08:05 Most recent lab results Calcium 8.7 mg/dL (8.4-10.2) 11/10/18 08:05 Laboratory Tests 11/09/18 11/09/18 11/09/18 15:32 16:16 16:16 PT 14.8 INR 1.09 APTT 44.5 H Thrombin Time 21.3 H POC Glucose 157 H Hemoglobin A1c Lactic Acid Iron TIBC % Saturation Transferrin Total Bilirubin 0.30 AST 68 H ALT 14 Alkaline Phosphatase 102 Ammonia Total Creatine Kinase 93 Troponin T 0.017 Total Protein 7.6 Albumin 2.6 L Urine Color Urine Turbidity Urine pH Ur Specific [place] Urine Protein Urine Glucose (UA) Urine Ketones Urine Blood Urine Nitrite Ur Reducing Substances 11/09/18 11/09/18 11/09/18 16:16 16:16 16:16 PT INR APTT Thrombin Time POC Glucose Hemoglobin A1c Lactic Acid 1.30 Iron 36 L TIBC 169 L % Saturation 21.30 Transferrin 128 L Total Bilirubin AST ALT Alkaline Phosphatase Ammonia 19.0 L Total Creatine Kinase Troponin T Total Protein Albumin Urine Color Urine Turbidity Urine pH Ur Specific [place] Urine Protein Urine Glucose (UA) Urine Ketones Urine Blood Urine Nitrite Ur Reducing Substances 11/09/18 11/10/18 11/10/18 22:00 01:08 08:10 PT INR APTT Thrombin Time POC Glucose Hemoglobin A1c 6.9 H Lactic Acid 0.80 Iron TIBC % Saturation Transferrin Total Bilirubin AST ALT Alkaline Phosphatase Ammonia Total Creatine Kinase Troponin T Total Protein Albumin Urine Color Yellow Urine Turbidity Cloudy Urine pH 5.0 Ur Specific [place] 1.016 Urine Protein >500 Urine Glucose (UA) Neg Urine Ketones Neg Urine Blood Sm Urine Nitrite Neg Ur Reducing Substances Not Reportable Assessment and Plan - Patient Problems (1) Hyperkalemia Current Visit: Yes Status: Acute Plan to address problem: secondary to advanced CKD, will initiate HD today using 2 K bath. cont 2gk renal diet. (2) ESRD (end stage renal disease) Current Visit: Yes Status: Acute Plan to address problem: progressive renal failure secondary to diabetic nephropathy/hypertensive nephrosclerosis, now with uremic complications, electrolyte imblanace and worsening acidosis. discussed benefits and risks of HD with patient, who understand and agrees to procedure. vascular surgery consulted for vascath placement (likely not a candidate for permcath given SIRS/high degree fever). Once vascular access established will initate HD. Case management to guide with outpatient HD placement. Further management depending on clinical course of the patient. (3) Type 2 diabetes mellitus with diabetic chronic kidney disease Current Visit: Yes Status: Chronic Qualifiers: Chronic kidney disease stage: stage 5, not on chronic dialysis Plan to address problem: glucose control as per primary attending (4) Hypertensive chronic kidney disease with stage 1 through stage 4 chronic kidney disease, or unspecified chronic kidney disease Current Visit: Yes Status: Acute Plan to address problem: monitor BP on pt's home BP regimen. Will adjust UF as indicated for further volume/BP control (5) Anemia in chronic illness Current Visit: Yes Status: Acute Plan to address problem: start EPO with HD for anemia of CKD (6) SIRS (systemic inflammatory response syndrome) Current Visit: Yes Status: Acute Plan to address problem: follow BCx/UCx, on empiric ABXs with vanco and zosyn.
[2018-11-10] MEDS: HEPARIN SUB-Q SCH ×3 (10:18→22:27)
[2018-11-10] MEDS: BABY ASPIRIN PO SCH (10:18)
[2018-11-10] MEDS: SODIUM CHLORIDE FLUSH SYRINGE 10 ML IV SCH (10:19)
[2018-11-10 10:21] LABS: Chol/HDL Ratio 10.5 %
[2018-11-10] MEDS ORDERED: NACL 0.9% 100 ML IV PRN (12:00)
--- NOTE | 2018-11-10 12:03 | Consultation ---
History of Present Illness - Reason for Consult Consult date: 11/10/18 Evaluation for Perma-cath Requesting physician: ROBIN HERNÁNDEZ - History of Present Illness This pt is a 63yo AAF admitted via the ER on 11/09/18 due to AMS/Slurred speech with fever. Her temp was reported as high as ~103. She apparently has CKD, and has been evaluated by Nephrology who are recommending initiation of HD. A vascular surgery consult was requested to evaluate for temporary hemodialysis catheter access. The pt is a poor historian and the history has from the medical record, and supplemented by the medical staff. Past History Past Medical History: COPD (and asthma), diabetes, GERD, hypertension, renal failure, other (MOOSE). denies: dialysis Past Surgical History: Social history: denies: smoking (h/o tobacco use), alcohol abuse, prescription drug abuse, IV drug use Family history: hypertension Medications and Allergies Allergies Allergy/AdvReac Type Severity Reaction Status Date / Time No Known Allergies Allergy Verified 04/15/14 15:50 Home Medications Medication Instructions Recorded Confirmed Last Taken Type Docusate Sodium [Colace] 100 mg PO BID PRN #30 capsule 04/15/14 12/05/14 Unknown Rx HYDROcodone/APAP 5-325 [[place] 1 each PO Q6HR PRN #20 tablet 04/15/14 12/05/14 Unknown Rx 5/325] Polyethylene Glycol 3350 [Miralax] 17 gm PO DAILY PRN #1 bottle 04/15/14 12/05/14 Unknown Rx HYDROcodone/APAP 5-325 [[place] 1 - 2 each PO Q6HR PRN #14 tablet 12/05/14 Unknown Rx 5/325] Active Meds: Active Medications Acetaminophen (Tylenol) 650 mg PO Q4H PRN PRN Reason: Pain MILD(1-3)/Fever >100.5/FLORES Last Admin: 11/10/18 10:17 Dose: 650 mg Documented by: Acetaminophen/Hydrocodone Bitart ([place] 5/325) 1 each PO Q6HR PRN PRN Reason: Pain Aspirin (Baby Aspirin) 81 mg PO QDAY PRIYA Last Admin: 11/10/18 10:18 Dose: 81 mg Documented by: Atorvastatin Calcium (Lipitor) 40 mg PO QHS PRIYA Docusate Sodium (Colace) 100 mg PO BID PRN PRN Reason: Constipation Heparin Sodium (Porcine) (Heparin) 5,000 unit SUB-Q Q12HR [facility] Last Admin: 11/10/18 10:28 Dose: Not Given Documented by: Hydromorphone HCl (Dilaudid) 0.25 mg IV Q3H PRN PRN Reason: Pain, Moderate (4-6) Last Admin: 11/10/18 08:17 Dose: 0.25 mg Documented by: Sodium Chloride (Nacl 0.9% 1000 Ml) 1,000 mls @ 75 mls/hr IV DIRECT [facility] Last Admin: 11/09/18 22:55 Dose: 75 mls/hr Documented by: Piperacillin Sod/Tazobactam Sod (Zosyn/Ns 2.25 Gm/50ml) 2.25 gm in 50 mls @ 100 mls/hr IV Q8HR [facility] Last Admin: 11/10/18 06:20 Dose: 100 mls/hr Documented by: Sodium Chloride (Nacl 0.9%) 100 mls @ 999 mls/hr IV CONSTANTINO PRN PRN Reason: Hypotension Ondansetron HCl (Zofran) 4 mg IV Q8H PRN PRN Reason: Nausea And Vomiting Last Admin: 11/10/18 08:17 Dose: 4 mg Documented by: Polyethylene Glycol (Miralax 3350) 17 gm PO QDAY PRN PRN Reason: Constipation Sodium Chloride (Sodium Chloride Flush Syringe 10 Ml) 10 ml IV BID [facility] Last Admin: 11/10/18 10:19 Dose: 10 ml Documented by: Sodium Chloride (Sodium Chloride Flush Syringe 10 Ml) 10 ml IV PRN PRN PRN Reason: LINE FLUSH Review of Systems All systems: negative Exam - Constitutional Vitals: Temp Pulse Resp BP Pulse Ox 99.7 F H 111 H 18 168/80 100 11/10/18 04:38 11/10/18 07:34 11/10/18 04:37 11/10/18 07:34 11/10/18 07:34 General appearance: Present: mild distress (rigors) - EENT Eyes: Present: EOM intact ENT: hearing intact - Neck Neck: Present: supple - Respiratory Respiratory effort: pursed lips - Cardiovascular Rhythm: other (Tachy) - Psychiatric Psychiatric: no appropriate mood/affect, no intact judgment & insight, no cooperative Results - Labs CBC & Chem 7: 11/10/18 08:05 11/10/18 08:05 Labs: Abnormal lab results 11/09/18 11/09/18 11/09/18 Range/Units 15:32 16:16 16:16 RBC 2.77 L (3.65-5.03) M/mm3 Hgb 7.6 L (10.1-14.3) gm/dl Hct 23.8 L (30.3-42.9) % MCH 27 L (28-32) pg RDW 16.7 H (13.2-15.2) % Plt Count 125 L (140-440) K/mm3 Lymph % (Auto) 13.2 L (13.4-35.0) % Lymph # 0.9 L (1.2-5.4) K/mm3 Seg Neutrophils % 76.5 H (40.0-70.0) % APTT 44.5 H (24.2-36.6) Sec. Thrombin Time 21.3 H (15.1-19.6) Sec. Sodium (137-145) mmol/L Potassium (3.6-5.0) mmol/L Carbon Dioxide (22-30) mmol/L BUN (7-17) mg/dL Creatinine (0.7-1.2) mg/dL Glucose (65-100) mg/dL POC Glucose 157 H (70-105) Hemoglobin A1c (4-6) % Iron (37-170) ug/dL TIBC (250-450) mcg/dL Transferrin (192-382) mg/dl AST (5-40) units/L Ammonia (25-60) umol/L Albumin (3.9-5) g/dL Triglycerides (2-149) mg/dL LDL Cholesterol Direct (50-130) mg/dL HDL Cholesterol (40-59) mg/dL Urine WBC (Auto) (0.0-6.0) /HPF 11/09/18 11/09/18 11/09/18 Range/Units 16:16 16:16 16:16 RBC (3.65-5.03) M/mm3 Hgb (10.1-14.3) gm/dl Hct (30.3-42.9) % MCH (28-32) pg RDW (13.2-15.2) % Plt Count (140-440) K/mm3 Lymph % (Auto) (13.4-35.0) % Lymph # (1.2-5.4) K/mm3 Seg Neutrophils % (40.0-70.0) % APTT (24.2-36.6) Sec. Thrombin Time (15.1-19.6) Sec. Sodium 130 L (137-145) mmol/L Potassium 5.3 H (3.6-5.0) mmol/L Carbon Dioxide 13 L (22-30) mmol/L BUN 52 H (7-17) mg/dL Creatinine 5.4 H (0.7-1.2) mg/dL Glucose 135 H (65-100) mg/dL POC Glucose (70-105) Hemoglobin A1c (4-6) % Iron 36 L (37-170) ug/dL TIBC 169 L (250-450) mcg/dL Transferrin 128 L (192-382) mg/dl AST 68 H (5-40) units/L Ammonia 19.0 L (25-60) umol/L Albumin 2.6 L (3.9-5) g/dL Triglycerides (2-149) mg/dL LDL Cholesterol Direct (50-130) mg/dL HDL Cholesterol (40-59) mg/dL Urine WBC (Auto) (0.0-6.0) /HPF 11/09/18 11/09/18 11/10/18 Range/Units 21:37 22:00 01:08 RBC (3.65-5.03) M/mm3 Hgb (10.1-14.3) gm/dl Hct (30.3-42.9) % MCH (28-32) pg RDW (13.2-15.2) % Plt Count (140-440) K/mm3 Lymph % (Auto) (13.4-35.0) % Lymph # (1.2-5.4) K/mm3 Seg Neutrophils % (40.0-70.0) % APTT (24.2-36.6) Sec. Thrombin Time (15.1-19.6) Sec. Sodium (137-145) mmol/L Potassium (3.6-5.0) mmol/L Carbon Dioxide (22-30) mmol/L BUN (7-17) mg/dL Creatinine (0.7-1.2) mg/dL Glucose (65-100) mg/dL POC Glucose 118 H (70-105) Hemoglobin A1c 6.9 H (4-6) % Iron (37-170) ug/dL TIBC (250-450) mcg/dL Transferrin (192-382) mg/dl AST (5-40) units/L Ammonia (25-60) umol/L Albumin (3.9-5) g/dL Triglycerides (2-149) mg/dL LDL Cholesterol Direct (50-130) mg/dL HDL Cholesterol (40-59) mg/dL Urine WBC (Auto) 7.0 H (0.0-6.0) /HPF 11/10/18 11/10/18 11/10/18 Range/Units 07:22 08:05 08:05 RBC 2.54 L (3.65-5.03) M/mm3 Hgb 7.2 L (10.1-14.3) gm/dl Hct 21.6 L (30.3-42.9) % MCH (28-32) pg RDW 16.7 H (13.2-15.2) % Plt Count 94 L (140-440) K/mm3 Lymph % (Auto) 8.9 L (13.4-35.0) % Lymph # 0.8 L (1.2-5.4) K/mm3 Seg Neutrophils % 82.4 H (40.0-70.0) % APTT (24.2-36.6) Sec. Thrombin Time (15.1-19.6) Sec. Sodium 134 L (137-145) mmol/L Potassium 5.1 H (3.6-5.0) mmol/L Carbon Dioxide 13 L (22-30) mmol/L BUN 57 H (7-17) mg/dL Creatinine 5.4 H (0.7-1.2) mg/dL Glucose 123 H (65-100) mg/dL POC Glucose 128 H (70-105) Hemoglobin A1c (4-6) % Iron (37-170) ug/dL TIBC (250-450) mcg/dL Transferrin (192-382) mg/dl AST (5-40) units/L Ammonia (25-60) umol/L Albumin (3.9-5) g/dL Triglycerides (2-149) mg/dL LDL Cholesterol Direct (50-130) mg/dL HDL Cholesterol (40-59) mg/dL Urine WBC (Auto) (0.0-6.0) /HPF 11/10/ Range/Units 08:05 RBC (3.65-5.03) M/mm3 Hgb (10.1-14.3) gm/dl Hct (30.3-42.9) % MCH (28-32) pg RDW (13.2-15.2) % Plt Count (140-440) K/mm3 Lymph % (Auto) (13.4-35.0) % Lymph # (1.2-5.4) K/mm3 Seg Neutrophils % (40.0-70.0) % APTT (24.2-36.6) Sec. Thrombin Time (15.1-19.6) Sec. Sodium (137-145) mmol/L Potassium (3.6-5.0) mmol/L Carbon Dioxide (22-30) mmol/L BUN (7-17) mg/dL Creatinine (0.7-1.2) mg/dL Glucose (65-100) mg/dL POC Glucose (70-105) Hemoglobin A1c (4-6) % Iron (37-170) ug/dL TIBC (250-450) mcg/dL Transferrin (192-382) mg/dl AST (5-40) units/L Ammonia (25-60) umol/L Albumin (3.9-5) g/dL Triglycerides 298 H (2-149) mg/dL LDL Cholesterol Direct 7 L (50-130) mg/dL HDL Cholesterol 8 L (40-59) mg/dL Urine WBC (Auto) (0.0-6.0) /HPF Assessment and Plan This pt was admitted with AMS and fever. She is noted to be in acute on chronic renal failure requiring initiation of HD per nephrology. When I went to evaluate the pt, she was confused, non-responsive, and tachy. This was a reported change from earlier this morning. Arrangements to transfer the pt to the ICU were in progress. We will attempt to contact her NOK to obtain consent for Vas cath placement. Discussed with the Hospitalist and Spot Welder. - Patient Problems (1) Renal failure (ARF), acute on chronic Current Visit: Yes Status: Acute Qualifiers: Acute renal failure type: unspecified Chronic kidney disease stage: stage 1 Qualified Code(s): N17.9 - Acute kidney failure, unspecified; N18.1 - Chronic kidney disease, stage 1 (2) Altered mental status Current Visit: Yes Status: Acute (3) COPD (chronic obstructive pulmonary disease) Current Visit: Yes Status: Acute (4) Diabetes Current Visit: No Status: Acute Qualifiers: Diabetes mellitus complication status: with kidney complications Chronic kidney disease stage: stage 3 (moderate) (5) HTN (hypertension) Current Visit: No Status: Acute Qualifiers: Hypertension type: essential hypertension Qualified Code(s): I10 - Essential (primary) hypertension
[2018-11-10] MEDS ORDERED: HEPARIN ONE ×2 (14:20→16:13)
--- NOTE | 2018-11-10 14:42 | Consultation ---
History of Present Illness - Reason for Consult Consult date: 11/10/18 Fever Requesting physician: MALIA ANGEL - History of Present Illness The patient is a 63-year-old female with insulin-requiring diabetes, hypertension, COPD who has had 2 recent hospitalizations at [facility] the month of October 2018, admitted there due to generalized r donnie, body aches as well as fevers, along with a myriad of other complaints including right upper extremity weakness, chest pain. She was seen by infectious diseases, nephrology, neurology, cardiology as well as rheumatology. CT chest showed no acute findings, CT abdomen and pelvis showed findings of chronic pancreatitis. HIV was negative, echocardiogram showed no vegetations. Extensive workup for infectious process was negative, apparently as per the ID consult at [facility] her fevers were attributed to a possible drug reaction secondary to calcitriol or tartrazine. She was subsequently discharged home with recommendations to follow-up with her nephrology. Now presented to the emergency room showed at [facility] yesterday with complaints of fever, abdominal pain and right upper extremity numbness. Again, she was noted to have high fevers up to 103F and infectious diseases was consulted. He also had some speech difficulties which apparently resolved. Was evaluated by neurology. Due to worsening creatinine, nephrology was consulted who recommended initiation of hemodialysis. She just underwent an HD catheter placement. Patient is a poor historian, currently having shaking chills due to fevers. COPD by chart review, outside record review as well as by talking to the patient's sister at bedside. Patient lives with her daughter. She has been bothered and brought up in [place]. No history of international travel. No animal or boat exposure. No recent travel within the last 6 months. No family history of any autoimmune condition. Family history history is positive for diabetes and hypertension. Review of Systems: General: + for high fevers HEENT: no new visual disturbance Respiratory: No cough, sputum, hemoptysis or shortness of breath Cardiovascular: No chest pain, syncope Gastrointestinal: No nausea, vomiting or diarrhea Genitourinary: No dysuria or hematuria. Doesnt make much urine Musculoskeletal: No new or worsening back pain or joint pain Neurologic: No headaches, seizures Hematologic: No easy bruising or bleeding Endocrine: No night sweats or acute weight loss Skin: negative for rash, jaundice Psychiatric: No suicidal or homicidal ideation Past History Past Medical History: anemia, diabetes, ESRD, hypertension, renal failure Past Surgical History: cholecystectomy, Social history: denies: smoking, alcohol abuse, prescription drug abuse, IV drug use Family history: diabetes, hypertension Medications and Allergies Allergies Allergy/AdvReac Type Severity Reaction Status Date / Time No Known Allergies Allergy Verified 04/15/14 15:50 Home Medications Medication Instructions Recorded Confirmed Last Taken Type Docusate Sodium [Colace] 100 mg PO BID PRN #30 capsule 04/15/14 12/05/14 Unknown Rx HYDROcodone/APAP 5-325 [[place] 1 each PO Q6HR PRN #20 tablet 04/15/14 12/05/14 Unknown Rx 5/325] Polyethylene Glycol 3350 [Miralax] 17 gm PO DAILY PRN #1 bottle 04/15/14 12/05/14 Unknown Rx HYDROcodone/APAP 5-325 [[place] 1 - 2 each PO Q6HR PRN #14 tablet 12/05/14 Unknown Rx 5/325] Active Meds: Active Medications Acetaminophen (Tylenol) 650 mg PO Q4H PRN PRN Reason: Pain MILD(1-3)/Fever >100.5/FLORES Last Admin: 11/10/18 10:17 Dose: 650 mg Documented by: Acetaminophen/Hydrocodone Bitart ([place] 5/325) 1 each PO Q6HR PRN PRN Reason: Pain Aspirin (Baby Aspirin) 81 mg PO QDAY [facility] Last Admin: 11/10/18 10:18 Dose: 81 mg Documented by: Atorvastatin Calcium (Lipitor) 40 mg PO QHS PRIYA Docusate Sodium (Colace) 100 mg PO BID PRN PRN Reason: Constipation Epoetin Adonis (Procrit) 10,000 unit SUB-Q [place] PRIYA Heparin Sodium (Porcine) (Heparin) 5,000 unit SUB-Q Q12HR [facility] Last Admin: 11/10/18 10:28 Dose: Not Given Documented by: Hydromorphone HCl (Dilaudid) 0.25 mg IV Q3H PRN PRN Reason: Pain, Moderate (4-6) Last Admin: 11/10/18 08:17 Dose: 0.25 mg Documented by: Sodium Chloride (Nacl 0.9% 1000 Ml) 1,000 mls @ 75 mls/hr IV DIRECT [facility] Last Admin: 11/09/18 22:55 Dose: 75 mls/hr Documented by: Piperacillin Sod/Tazobactam Sod (Zosyn/Ns 2.25 Gm/50ml) 2.25 gm in 50 mls @ 100 mls/hr IV Q8HR [facility] Last Admin: 11/10/18 06:20 Dose: 100 mls/hr Documented by: Sodium Chloride (Nacl 0.9%) 100 mls @ 999 mls/hr IV [place] PRN PRN Reason: Hypotension Ondansetron HCl (Zofran) 4 mg IV Q8H PRN PRN Reason: Nausea And Vomiting Last Admin: 11/10/18 08:17 Dose: 4 mg Documented by: Polyethylene Glycol (Miralax 3350) 17 gm PO QDAY PRN PRN Reason: Constipation Sodium Chloride (Sodium Chloride Flush Syringe 10 Ml) 10 ml IV BID [facility] Last Admin: 11/10/18 10:19 Dose: 10 ml Documented by: Sodium Chloride (Sodium Chloride Flush Syringe 10 Ml) 10 ml IV PRN PRN PRN Reason: LINE FLUSH Physical Examination - Physical Exam Narrative exam: Physical Exam: Constitutional: awake, but shaking with chills Head, Ears, Nose: Normocephalic, atraumatic. External ears, nose normal Eyes: Conjunctivae/corneas clear. No icterus. No ptosis. Neck: Supple, no meningeal signs Oral: no thrush or ulcers Cardiovascular: S1, S2 normal. Respiratory: Good air entry, clear to auscultation bilaterally GI: Soft, non-tender; bowel sounds normal. No peritoneal signs Musculoskeletal: No pedal edema, no cyanosis. Skin: No rash or abscess Hem/Lymphatic: No palpable cervical or supraclavicular nodes. No lymphangitis Psych: Mood ok. Affect normal Neurological: Awake, alert, answering basic questions but slow - Constitutional Vitals: Vital Signs Temp Pulse Resp BP Pulse Ox 103.2 F H 111 H 18 168/80 100 11/10/18 12:00 11/10/18 07:34 11/10/18 04:37 11/10/18 07:34 11/10/18 07:34 Temperature -Last 24 Hours Temperature 103.2 F Temperature 99.7 F Temperature 98.7 F Temperature 103 F Temperature 103.1 F Temperature 98.7 F Temperature 100.6 F Temperature 101.7 F Temperature 100 F Temperature 102.6 F Temperature 103.2 F Results - Labs CBC & Chem 7: 11/10/18 08:05 11/10/18 08:05 Labs: Abnormal lab results 11/09/18 11/09/18 11/09/18 Range/Units 15:32 16:16 16:16 RBC 2.77 L (3.65-5.03) M/mm3 Hgb 7.6 L (10.1-14.3) gm/dl Hct 23.8 L (30.3-42.9) % MCH 27 L (28-32) pg RDW 16.7 H (13.2-15.2) % Plt Count 125 L (140-440) K/mm3 Lymph % (Auto) 13.2 L (13.4-35.0) % Lymph # 0.9 L (1.2-5.4) K/mm3 Seg Neutrophils % 76.5 H (40.0-70.0) % APTT 44.5 H (24.2-36.6) Sec. Thrombin Time 21.3 H (15.1-19.6) Sec. Sodium (137-145) mmol/L Potassium (3.6-5.0) mmol/L Carbon Dioxide (22-30) mmol/L BUN (7-17) mg/dL Creatinine (0.7-1.2) mg/dL Glucose (65-100) mg/dL POC Glucose 157 H (70-105) Hemoglobin A1c (4-6) % Iron (37-170) ug/dL TIBC (250-450) mcg/dL Transferrin (192-382) mg/dl AST (5-40) units/L Ammonia (25-60) umol/L Albumin (3.9-5) g/dL Triglycerides (2-149) mg/dL LDL Cholesterol Direct (50-130) mg/dL HDL Cholesterol (40-59) mg/dL Urine WBC (Auto) (0.0-6.0) /HPF 11/09/18 11/09/18 11/09/18 Range/Units 16:16 16:16 16:16 RBC (3.65-5.03) M/mm3 Hgb (10.1-14.3) gm/dl Hct (30.3-42.9) % MCH (28-32) pg RDW (13.2-15.2) % Plt Count (140-440) K/mm3 Lymph % (Auto) (13.4-35.0) % Lymph # (1.2-5.4) K/mm3 Seg Neutrophils % (40.0-70.0) % APTT (24.2-36.6) Sec. Thrombin Time (15.1-19.6) Sec. Sodium 130 L (137-145) mmol/L Potassium 5.3 H (3.6-5.0) mmol/L Carbon Dioxide 13 L (22-30) mmol/L BUN 52 H (7-17) mg/dL Creatinine 5.4 H (0.7-1.2) mg/dL Glucose 135 H (65-100) mg/dL POC Glucose (70-105) Hemoglobin A1c (4-6) % Iron 36 L (37-170) ug/dL TIBC 169 L (250-450) mcg/dL Transferrin 128 L (192-382) mg/dl AST 68 H (5-40) units/L Ammonia 19.0 L (25-60) umol/L Albumin 2.6 L (3.9-5) g/dL Triglycerides (2-149) mg/dL LDL Cholesterol Direct (50-130) mg/dL HDL Cholesterol (40-59) mg/dL Urine WBC (Auto) (0.0-6.0) /HPF 11/09/18 11/09/18/10/24 Range/Units 21:37 22:00 01:08 RBC (3.65-5.03) M/mm3 Hgb (10.1-14.3) gm/dl Hct (30.3-42.9) % MCH (28-32) pg RDW (13.2-15.2) % Plt Count (140-440) K/mm3 Lymph % (Auto) (13.4-35.0) % Lymph # (1.2-5.4) K/mm3 Seg Neutrophils % (40.0-70.0) % APTT (24.2-36.6) Sec. Thrombin Time (15.1-19.6) Sec. Sodium (137-145) mmol/L Potassium (3.6-5.0) mmol/L Carbon Dioxide (22-30) mmol/L BUN (7-17) mg/dL Creatinine (0.7-1.2) mg/dL Glucose (65-100) mg/dL POC Glucose 118 H (70-105) Hemoglobin A1c 6.9 H (4-6) % Iron (37-170) ug/dL TIBC (250-450) mcg/dL Transferrin (192-382) mg/dl AST (5-40) units/L Ammonia (25-60) umol/L Albumin (3.9-5) g/dL Triglycerides (2-149) mg/dL LDL Cholesterol Direct (50-130) mg/dL HDL Cholesterol (40-59) mg/dL Urine WBC (Auto) 7.0 H (0.0-6.0) /HPF 11/10/18 11/10/18 11/10/18 Range/Units 07:22 08:05 08:05 RBC 2.54 L (3.65-5.03) M/mm3 Hgb 7.2 L (10.1-14.3) gm/dl Hct 21.6 L (30.3-42.9) % MCH (28-32) pg RDW 16.7 H (13.2-15.2) % Plt Count 94 L (140-440) K/mm3 Lymph % (Auto) 8.9 L (13.4-35.0) % Lymph # 0.8 L (1.2-5.4) K/mm3 Seg Neutrophils % 82.4 H (40.0-70.0) % APTT (24.2-36.6) Sec. Thrombin Time (15.1-19.6) Sec. Sodium 134 L (137-145) mmol/L Potassium 5.1 H (3.6-5.0) mmol/L Carbon Dioxide 13 L (22-30) mmol/L BUN 57 H (7-17) mg/dL Creatinine 5.4 H (0.7-1.2) mg/dL Glucose 123 H (65-100) mg/dL POC Glucose 128 H (70-105) Hemoglobin A1c (4-6) % Iron (37-170) ug/dL TIBC (250-450) mcg/dL Transferrin (192-382) mg/dl AST (5-40) units/L Ammonia (25-60) umol/L Albumin (3.9-5) g/dL Triglycerides (2-149) mg/dL LDL Cholesterol Direct (50-130) mg/dL HDL Cholesterol (40-59) mg/dL Urine WBC (Auto) (0.0-6.0) /HPF 11/10/18 11/10/18 Range/Units 08:05 12:05 RBC (3.65-5.03) M/mm3 Hgb (10.1-14.3) gm/dl Hct (30.3-42.9) % MCH (28-32) pg RDW (13.2-15.2) % Plt Count (140-440) K/mm3 Lymph % (Auto) (13.4-35.0) % Lymph # (1.2-5.4) K/mm3 Seg Neutrophils % (40.0-70.0) % APTT (24.2-36.6) Sec. Thrombin Time (15.1-19.6) Sec. Sodium (137-145) mmol/L Potassium (3.6-5.0) mmol/L Carbon Dioxide (22-30) mmol/L BUN (7-17) mg/dL Creatinine (0.7-1.2) mg/dL Glucose (65-100) mg/dL POC Glucose 195 H (70-105) Hemoglobin A1c (4-6) % Iron (37-170) ug/dL TIBC (250-450) mcg/dL Transferrin (192-382) mg/dl AST (5-40) units/L Ammonia (25-60) umol/L Albumin (3.9-5) g/dL Triglycerides 298 H (2-149) mg/dL LDL Cholesterol Direct 7 L (50-130) mg/dL HDL Cholesterol 8 L (40-59) mg/dL Urine WBC (Auto) (0.0-6.0) /HPF - Imaging and Cardiology Chest x-ray: report reviewed, image reviewed (Chest x-ray does not show any evidence of pneumonia.) Abdominal x-ray: report reviewed, image reviewed (X-ray abdomen shows nonspecific bowel gas pattern.) CT scan - abdomen: report reviewed, image reviewed (CT abdomen pelvis shows no evidence of pneumonia and lower lung cuts. Evidence of chronic pancreatitis.) Assessment and Plan Outside records reviewed. Cultures: 11/09/2018 blood culture: In progress 11/10/2018 blood culture: In progress A/P: 1) Sepsis / FUO: unclear etiology. Going on for the last 1 month with extensive infectious work up negative thus far at [place]. No evidence of infection on CT chest, abdomen pelvis. HIV negative. TTE negative for vegetations. Blood cultures at [place] were negative. Fevers have been quite high. No significant eosinophilia. Per records at [place], ANCA screen negative. Procalcitonin was moderately elevated: but difficult to interpret in the setting of renal failure. Leucocytosis at [place] was mainly neutrophilic. Apparently as per the ID consult at [facility] her fevers were attributed to a possible drug reaction secondary to calcitriol or tartrazine. ESR elevated at 124, CRP also elevated at 19.60. GRACE negative, RF <15. Here, she has no leucocytosis. 2) CKD4 / now ARF/ESRD: requiring dialysis. Nephrology following. 3) DM-2: insulin requiring. 4) Mild thrombocytopenia: monitor Recs: - etiology of FUO is unclear - for now, treat empirically with IV Cefepime, Vancomycin renally adjusted - will also add therapeutic Doxycycline trial - check serologies for tick borne illnesses - ?some kind of vasculitic process / autoimmune etiology is possible. discussed with Neurology - also add fungal blood culture - check ferritin Simone Bagley MD [facility] [place] [facility] C: [phone] O: [phone] F: [phone]
--- NOTE | 2018-11-10 15:18 | Operative Report ---
Operative Report Operative Report: Operative Note Pre-operative Dx: Acute on Chronic Kidney failure Post-operative Dx: Same Procedure: 1. U/sg access of the Right Femoral vein 2. Insertion of Right Femoral Vas Cath (30cm 13Fr Trialysis) Provider: Berlin Ruiz PA-C Supervising Physician: Henry Osman MD Indication: This pt is a 63yo AAF admitted with AMS and fever. She is noted to have an acute on chronic kidney failure and needs to initiate HD per her tobacco dipper. A vascular surgery consult was requested to evaluate for access. Findings: Patent Right femoral Vein. Successful placement of right femoral vas cath under U/s guidance. Anesthesia: Local Ebl: Min Complications: None Procedure: The pt was placed in the supine position in the intensive care unit. The area over the right groin was cleaned and prepped in the typical fashion. The right groin was anesthetized using 1% lidocaine. Using real time u/s guidance the right femoral vein was accessed. Dark non-pulsatile blood was witnessed from the access needle. A J-tip wire was advanced into the central circulation. Both dilators were individually advanced and subsequently removed over the wire easily. The Trialysis femoral vas cath was advanced into the central circulation to the hub. Dark blood was aspirated easily. The catheter was sewn into place with the supplied nylon suture. All three ports were flushed with saline initially and locked out with Heparin 1,000 units/ml to the stated volume. The pt tolerated the procedure without issue.
--- NOTE | 2018-11-10 15:43 | Consultation ---
Past History Past Medical History: anemia, diabetes, ESRD, hypertension, renal failure Past Surgical History: cholecystectomy, Social history: denies: smoking, alcohol abuse, prescription drug abuse, IV drug use Family history: diabetes, hypertension Medications and Allergies Allergies Allergy/AdvReac Type Severity Reaction Status Date / Time No Known Allergies Allergy Verified 04/15/14 15:50 Home Medications Medication Instructions Recorded Confirmed Last Taken Type Docusate Sodium [Colace] 100 mg PO BID PRN #30 capsule 04/15/14 12/05/14 Unknown Rx HYDROcodone/APAP 5-325 [[place] 1 each PO Q6HR PRN #20 tablet 04/15/14 12/05/14 Unknown Rx 5/325] Polyethylene Glycol 3350 [Miralax] 17 gm PO DAILY PRN #1 bottle 04/15/14 12/05/14 Unknown Rx HYDROcodone/APAP 5-325 [[place] 1 - 2 each PO Q6HR PRN #14 tablet 12/05/14 Unknown Rx 5/325] Active Meds: Active Medications Acetaminophen (Tylenol) 650 mg PO Q4H PRN PRN Reason: Pain MILD(1-3)/Fever >100.5/FLORES Last Admin: 11/10/18 15:17 Dose: 650 mg Documented by: Acetaminophen/Hydrocodone Bitart ([place] 5/325) 1 each PO Q6HR PRN PRN Reason: Pain Aspirin (Baby Aspirin) 81 mg PO QDAY [facility] Last Admin: 11/10/18 10:18 Dose: 81 mg Documented by: Atorvastatin Calcium (Lipitor) 40 mg PO QHS PRIYA Docusate Sodium (Colace) 100 mg PO BID PRN PRN Reason: Constipation Epoetin Adonis (Procrit) 10,000 unit SUB-Q CONSTANTINO PRIYA Heparin Sodium (Porcine) (Heparin) 5,000 unit SUB-Q Q12HR [facility] Last Admin: 11/10/18 10:28 Dose: Not Given Documented by: Hydromorphone HCl (Dilaudid) 0.25 mg IV Q3H PRN PRN Reason: Pain, Moderate (4-6) Last Admin: 11/10/18 08:17 Dose: 0.25 mg Documented by: Sodium Chloride (Nacl 0.9% 1000 Ml) 1,000 mls @ 75 mls/hr IV DIRECT [facility] Last Admin: 11/09/18 22:55 Dose: 75 mls/hr Documented by: Piperacillin Sod/Tazobactam Sod (Zosyn/Ns 2.25 Gm/50ml) 2.25 gm in 50 mls @ 100 mls/hr IV Q8HR [facility] Last Admin: 11/10/18 15:11 Dose: 100 mls/hr Documented by: Sodium Chloride (Nacl 0.9%) 100 mls @ 999 mls/hr IV CONSTANTINO PRN PRN Reason: Hypotension Ondansetron HCl (Zofran) 4 mg IV Q8H PRN PRN Reason: Nausea And Vomiting Last Admin: 11/10/18 13:20 Dose: 4 mg Documented by: Polyethylene Glycol (Miralax 3350) 17 gm PO QDAY PRN PRN Reason: Constipation Sodium Chloride (Sodium Chloride Flush Syringe 10 Ml) 10 ml IV BID [facility] Last Admin: 11/10/18 10:19 Dose: 10 ml Documented by: Sodium Chloride (Sodium Chloride Flush Syringe 10 Ml) 10 ml IV PRN PRN PRN Reason: LINE FLUSH Physical Examination - Vital Signs Vital Signs: Vital Signs Pulse Resp Pulse Ox 106 H 16 99 11/09/18 15:31 11/09/18 15:31 11/09/18 15:31 Results - Laboratory Findings CBC and BMP: 11/10/18 08:05 11/10/18 08:05 Abnormal Lab Findings: Abnormal Labs 11/09/18 11/09/18 11/09/18 15:32 16:16 16:16 RBC 2.77 L Hgb 7.6 L Hct 23.8 L MCH 27 L RDW 16.7 H Plt Count 125 L Lymph % (Auto) 13.2 L Lymph # 0.9 L Seg Neutrophils % 76.5 H APTT 44.5 H Thrombin Time 21.3 H Sodium Potassium Carbon Dioxide BUN Creatinine Glucose POC Glucose 157 H Hemoglobin A1c Iron TIBC Transferrin AST Ammonia Albumin Triglycerides LDL Cholesterol Direct HDL Cholesterol Urine WBC (Auto) 11/09/18 11/09/18 11/09/18 16:16 16:16 16:16 RBC Hgb Hct MCH RDW Plt Count Lymph % (Auto) Lymph # Seg Neutrophils % APTT Thrombin Time Sodium 130 L Potassium 5.3 H Carbon Dioxide 13 L BUN 52 H Creatinine 5.4 H Glucose 135 H POC Glucose Hemoglobin A1c Iron 36 L TIBC 169 L Transferrin 128 L AST 68 H Ammonia 19.0 L Albumin 2.6 L Triglycerides LDL Cholesterol Direct HDL Cholesterol Urine WBC (Auto) 11/09/18 11/09/18 11/10/18 21:37 22:00 01:08 RBC Hgb Hct MCH RDW Plt Count Lymph % (Auto) Lymph # Seg Neutrophils % APTT Thrombin Time Sodium Potassium Carbon Dioxide BUN Creatinine Glucose POC Glucose 118 H Hemoglobin A1c 6.9 H Iron TIBC Transferrin AST Ammonia Albumin Triglycerides LDL Cholesterol Direct HDL Cholesterol Urine WBC (Auto) 7.0 H 11/10/18 11/10/18 11/10/18 07:22 08:05 08:05 RBC 2.54 L Hgb 7.2 L Hct 21.6 L MCH RDW 16.7 H Plt Count 94 L Lymph % (Auto) 8.9 L Lymph # 0.8 L Seg Neutrophils % 82.4 H APTT Thrombin Time Sodium 134 L Potassium 5.1 H Carbon Dioxide 13 L BUN 57 H Creatinine 5.4 H Glucose 123 H POC Glucose 128 H Hemoglobin A1c Iron TIBC Transferrin AST Ammonia Albumin Triglycerides LDL Cholesterol Direct HDL Cholesterol Urine WBC (Auto) 11/10/18 11/10/18 08:05 12:05 RBC Hgb Hct MCH RDW Plt Count Lymph % (Auto) Lymph # Seg Neutrophils % APTT Thrombin Time Sodium Potassium Carbon Dioxide BUN Creatinine Glucose POC Glucose 195 H Hemoglobin A1c Iron TIBC Transferrin AST Ammonia Albumin Triglycerides 298 H LDL Cholesterol Direct 7 L HDL Cholesterol 8 L Urine WBC (Auto) Assessment and Plan This is a Dr. Marilyn Nugent dictating the consult report on Randi Emery. Ms. Emery is a 63-year-old female with a history of chronic kidney disease, COPD, GERD, hypertension and diabetes who came in with feve,slurred speech and n umbness on the left upper extremity on 11/09/2018. Patient was admitted with a suspicion for stroke,however workup did not indicate any evidence of acute stroke. Patient was found to have very high fever about 103F and she was also admitted in [facility] for high fever and had extensive workup which did not show any evidence of bacterial infection about a month ago. History was given by the sister who lives with the patient and the sister stated that her slurred speech was for very short period. The sister did deny any weakness of the extremities. However patient also reported discomfort in the neck, Prior to coming to the hospital. Currently she is being worked up for FUO or fever of unknown origin. Physical examination. Patient is shivering due to high fever however answers questions appropriately with the face movement or sometimes answers questions verbally.. Heart. Normal rate and rhythm Cranial nerves. All cranial nerves are within normal limits. Motor patient was noted to have tenderness in the cervical paraspinal muscles on the left side. Patient had weak left hand feeder/folder and with the limitation of examination seemed to have some weakness of the left-sided biceps and triceps muscles. Sensory. Sensory examination revealed patient had decreased sensation to pinprick on left C5-C6 and C7 dermatomes as compared to the right. Reflexes. With limitation of examination due to patient's position and lack of cooperation it seemed patient had weak left biceps,left deltoid and left triceps muscles. Impression #1 patient seems to have multiple cervical radiculopathy involving C5,C6 and C7 nerve roots contributing to her numbness on the left upper extre mity. No evidence of stroke. Recommendations. #[address] scan of the cervical spine when patient more stable #2. Further recommendation to follow after the resul t of the CT scan of the cervical spine is available.
--- NOTE | 2018-11-10 16:00 | Progress Note ---
Assessment and Plan Assessment and plan: Patient was admitted to [facility], extensive workup was done, was evaluated by neurology, ID, rheumatology and nephrology Metabolic encephalopathy, likely due to uremia -Nephrology consulted, Vas-Cath is doing and will get dialysis Upper extremity numbness - Patient is chronic symptoms that - She was previously worked up for CVA and was negative - Neurology consult placed Sepsis; fever of unknown origin; and has fever of 103 - Patient is placed on IV vancomycin cefepime and doxycycline - ID consulted ESRD on HD - Nephrology is following - Will have hemodialysis Anemia - Likely anemia of chronic illness - We'll follow H&H - Transfuse if hemoglobin is below 7 DVT prophylaxis - On heparin Disposition - Transferred to ICU History Interval history: Patient was seen and evaluated this morning, initially patient was oriented to self and place, but later the patient become more confused and transferred to ICU for close F/U. Hospitalist Physical - Physical exam Narrative exam: Not in cardiopulmonary distress. The patient appeared well nourished and normally developed. Vital signs as documented. Head exam is unremarkable. No scleral icterus . Neck is without jugular venous distension, thyromegaly, or carotid bruits. Lungs are clear to auscultation. Cardiac exam reveals regular rate and Rhythm. Abdominal exam reveals normal bowel sounds. Extremities are nonedematous. 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 - Constitutional Vitals: Temp Pulse Resp BP Pulse Ox 103.2 F H 132 H 19 143/63 99 11/10/18 12:00 11/10/18 15:31 11/10/18 15:31 11/10/18 15:31 11/10/18 15:31 General appearance: Present: mild distress (rigors) Results - Labs CBC & Chem 7: 11/10/18 08:05 11/10/18 08:05 Labs: Laboratory Last Values WBC 8.5 K/mm3 (4.5-11.0) 11/10/18 08:05 RBC 2.54 M/mm3 (3.65-5.03) L 11/10/18 08:05 Hgb 7.2 gm/dl (10.1-14.3) L 11/10/18 08:05 Hct 21.6 % (30.3-42.9) L 11/10/18 08:05 MCV 85 fl (79-97) 11/10/18 08:05 MCH 28 pg (28-32) 11/10/18 08:05 MCHC 33 % (30-34) 11/10/18 08:05 RDW 16.7 % (13.2-15.2) H 11/10/18 08:05 Plt Count 94 K/mm3 (140-440) L 11/10/18 08:05 Lymph % (Auto) 8.9 % (13.4-35.0) L 11/10/18 08:05 [place] % (Auto) 4.3 % (0.0-7.3) 11/10/18 08:05 Eos % (Auto) 4.2 % (0.0-4.3) 11/10/18 08:05 Baso % (Auto) 0.2 % (0.0-1.8) 11/10/18 08:05 Lymph # 0.8 K/mm3 (1.2-5.4) L 11/10/18 08:05 [place] # 0.4 K/mm3 (0.0-0.8) 11/10/18 08:05 Eos # 0.4 K/mm3 (0.0-0.4) 11/10/18 08:05 Baso # 0.0 K/mm3 (0.0-0.1) 11/10/18 08:05 Seg Neutrophils % 82.4 % (40.0-70.0) H 11/10/18 08:05 Seg Neutrophils # 7.0 K/mm3 (1.8-7.7) 11/10/18 08:05 PT 14.8 Sec. (12.2-14.9) 11/09/18 16:16 INR 1.09 (0.87-1.13) 11/09/18 16:16 APTT 44.5 Sec. (24.2-36.6) H 11/09/18 16:16 21.3 Sec. (15.1-19.6) H 11/09/18 16:16 Sodium 134 mmol/L (137-145) L 11/10/18 08:05 Potassium 5.1 mmol/L (3.6-5.0) H 11/10/18 08:05 Chloride 102.6 mmol/L (98-107) 11/10/18 08:05 Carbon Dioxide 13 mmol/L (22-30) L 11/10/18 08:05 24 mmol/L 11/10/18 08:05 BUN 57 mg/dL (7-17) H 11/10/18 08:05 5.4 mg/dL (0.7-1.2) H 11/10/18 08:05 Estimated GFR 10 ml/min 11/10/18 08:05 11 % 11/10/18 08:05 Glucose 123 mg/dL (65-100) H 11/10/18 08:05 POC Glucose 195 (70-105) H 11/10/18 12:05 6.9 % (4-6) H 11/09/18 22:00 Lactic Acid 0.80 mmol/L (0.7-2.0) 11/10/18 08:10 Calcium 8.7 mg/dL (8.4-10.2) 11/10/18 08:05 Iron 36 ug/dL (37-170) L 11/09/18 16:16 TIBC 169 mcg/dL (250-450) L 11/09/18 16:16 % Saturation 21.30 % 11/09/18 16:16 128 mg/dl (192-382) L 11/09/18 16:16 0.30 mg/dL (0.1-1.2) 11/09/18 16:16 AST 68 units/L (5-40) H 11/09/18 16:16 ALT 14 units/L (7-56) 11/09/18 16:16 102 units/L (35-129) 11/09/18 16:16 19.0 umol/L (25-60) L 11/09/18 16:16 93 units/L (30-135) 11/09/18 16:16 CK-MB (CK-2) < 1.0 ng/mL (0.0-4.0) 11/09/18 16:16 CK-MB (CK-2) Rel Index 1.0 (0-4) 11/09/18 16:16 0.017 ng/mL (0.00-0.029) 11/09/18 16:16 7.6 g/dL (6.3-8.2) 11/09/18 16:16 2.6 g/dL (3.9-5) L 11/09/18 16:16 0.5 % 11/09/18 16:16 Triglycerides 298 mg/dL (2-149) H 11/10/18 08:05 Cholesterol 84 mg/dL (50-199) 11/10/18 08:05 7 mg/dL (50-130) L 11/10/18 08:05 8 mg/dL (40-59) L 11/10/18 08:05 10.50 % 11/10/18 08:05 13 units/L (13-60) 11/09/18 16:16 Yellow (Yellow) 11/10/18 01:08 Cloudy (Clear) 11/10/18 01:08 5.0 (5.0-7.0) 11/10/18 01:08 Ur Specific [place] 1.016 (1.003-1.030) 11/10/18 01:08 >500 mg/dL (Negative) 11/10/18 01:08 Neg mg/dL (Negative) 11/10/18 01:08 Neg mg/dL (Negative) 11/10/18 01:08 Sm (Negative) 11/10/18 01:08 Neg (Negative) 11/10/18 01:08 Ur Reducing Substances Not Reportable 11/10/18 01:08 Neg (Negative) 11/10/18 01:08 Not Reportable 11/10/18 01:08 < 2.0 mg/dL (<2.0) 11/10/18 01:08 Ur Leukocyte Esterase Neg (Negative) 11/10/18 01:08 7.0 /HPF (0.0-6.0) H 11/10/18 01:08 6.0 /HPF (0.0-6.0) 11/10/18 01:08 U Epithel Cells (Auto) 1.0 /HPF (0-13.0) 11/10/18 01:08 1+ /HPF (Negative) 11/10/18 01:08 2+ /HPF 11/10/18 01:08 Hyaline Casts 1 /LPF 11/10/18 01:08 3+ /HPF 11/10/18 01:08 Presumptive negative 11/10/18 01:08 Presumptive negative 11/10/18 01:08 Ur Barbiturates Screen Presumptive negative 11/10/18 01:08 Ur Phencyclidine Scrn Presumptive negative 11/10/18 01:08 Ur Amphetamines Screen Presumptive negative 11/10/18 01:08 U Benzodiazepines Scrn Presumptive negative 11/10/18 01:08 Presumptive negative 11/10/18 01:08 U Marijuana (THC) Screen Presumptive negative 11/10/18 01:08 Disclamer 11/10/18 01:08 Plasma/Serum Alcohol < 0.01 % (0-0.07) 11/09/18 16:16 Active Medications - Current Medications Current Medications: Generic Name Dose Route Start Last Admin Trade Name Freq PRN Reason Stop Dose Admin Acetaminophen 650 mg 11/09/18 19:38 11/10/18 15:17 Tylenol PO 650 mg Q4H PRN Administration Pain MILD(1-3)/Fever >100.5/FLORES Acetaminophen/Hydrocodone [place] 1 each 11/09/18 19:32 [place] 5/325 PO Q6HR PRN Pain Aspirin 81 mg 11/10/18 10:00 11/10/18 10:18 Baby Aspirin PO 81 mg QDAY PRIYA Administration Atorvastatin Calcium 40 mg 11/10/18 22:00 Lipitor PO QHS PRIYA Docusate Sodium 100 mg 11/09/18 19:32 Colace PO BID PRN Constipation Epoetin Adonis 10,000 unit 11/11/18 08:00 Procrit SUB-Q [facility] Heparin Sodium (Porcine) 5,000 unit 11/09/18 22:00 11/10/18 10:28 Heparin SUB-Q Not Given Q12HR [facility] Hydromorphone HCl 0.25 mg 11/09/18 19:38 11/10/18 08:17 Dilaudid IV 0.25 mg Q3H PRN Administration Pain, Moderate (4-6) Sodium Chloride 1,000 mls @ 75 mls/hr 11/09/18 20:00 11/09/18 22:55 Nacl 0.9% 1000 Ml IV 75 mls/hr DIRECT PRIYA Administration Sodium Chloride 100 mls @ 999 mls/hr 11/10/18 12:00 Nacl 0.9% IV CONSTANTINO PRN Hypotension Cefepime HCl 1 gm in 100 mls @ 200 mls/hr 11/10/18 18:00 Maxipime/Ns 1 Gm/100 Ml IV QPM [facility] Protocol Doxycycline Hyclate 100 mg/ 250 mls @ 250 mls/hr 11/10/18 16:00 Sodium Chloride IV Q12HR [facility] Protocol Ondansetron HCl 4 mg 11/09/18 19:38 11/10/18 13:20 Zofran IV 4 mg Q8H PRN Administration Nausea And Vomiting Polyethylene Glycol 17 gm 11/09/18 19:38 Miralax 3350 PO QDAY PRN Constipation Sodium Chloride 10 ml 11/09/18 22:00 11/10/18 10:19 Sodium Chloride Flush Syringe 10 Ml IV 10 ml BID PRIYA Administration Sodium Chloride 10 ml 11/09/18 19:38 Sodium Chloride Flush Syringe 10 Ml IV PRN PRN LINE FLUSH
[2018-11-10] MEDS ORDERED: NS 0.9% IV ONE (16:13)
[2018-11-10] MEDS: DOXYCYCLINE HYCLATE 100 MG in NACL 0.9% 250ML 250 ML IV SCH ×2 (16:16→22:43)
[2018-11-10] MEDS: NACL 0.9% 1000 ML 1,000 ML IV SCH (17:36)
[2018-11-10] MEDS: MAXIPIME/NS 1 GM/100 ML 1 GM/100 ML BAG IV SCH (17:43)
[2018-11-11] MEDS: TYLENOL PR PRN ×3 (03:08→17:29)
[2018-11-11] MEDS: SODIUM CHLORIDE FLUSH SYRINGE 10 ML IV SCH ×3 (03:17→22:54)
[2018-11-11 05:29] LABS: Hemoglobin 6.2 gm/dl (10.1-14.3); Mean Corpuscular HGB Conc 32 % (30-34); Mean Corpuscular Volume 86 fl (79-97); Red Blood Count 2.26 M/mm3 (3.65-5.03); Red Cell Distribution Width 16.7 % (13.2-15.2)
[2018-11-11 05:38] LABS: Hematocrit 19.5 % (30.3-42.9); Platelet Count 68 K/mm3 (140-440)
[2018-11-11 05:50] LABS: Calcium 7.5 mg/dL (8.4-10.2)
[2018-11-11 06:47] LABS: Band Neutrophils # (Manual) 0.5 K/mm3; Basophils % (Manual) 0 % (0.0-1.8); Total Cells Counted 100
[2018-11-11 06:48] LABS: Anisocytosis 1+; Platelet Estimate Consistent w Auto
[2018-11-11] MEDS ORDERED: NACL 0.9% 500 ML 500 ML IV ONE (06:53)
[2018-11-11] MEDS: DOXYCYCLINE HYCLATE 100 MG in NACL 0.9% 250ML 250 ML IV SCH ×2 (10:08→22:52)
[2018-11-11] MEDS: NACL 0.9% 1000 ML 1,000 ML IV SCH (10:08)
[2018-11-11] MEDS: BABY ASPIRIN PO SCH (10:08)
[2018-11-11] MEDS: HEPARIN SUB-Q SCH (10:08)
[2018-11-11] MEDS ORDERED: NACL 0.9% 100 ML IV PRN ×2 (11:09→17:07)
--- NOTE | 2018-11-11 11:34 | Consultation ---
History of Present Illness - Reason for Consult Consult date: 11/11/18 Altered Mental State and Hyperkalemia Requesting physician: CHELLY CREWS - History of Present Illness 63 y/o obese female, transferred from the floor with altered mental state and worsening renal function. 1. HD per renal, had vascath placed yesterday with HD yesterday and scheduled for HD today. 2. Anemia is slightly worse this am, going to give blood with HD 3. Now has this diffuse maculopapular rash that is noted on upper arm and other extremities. No derm here. May ask surgery about biopsy 4. Also need to consider TTP with fever, anemia, thrombocytopenia, renal dysfunction and now neurologic disorder. Spoke with ID and Rheum did see her at [facility] as well. Her Ferritin is >2000 so will need to rule out HLH. We are going to consult Heme/Onc as well patient may need bone marrow. 5. Continue supportive care. Past History Past Medical History: anemia, diabetes, ESRD, hypertension, renal failure Past Surgical History: cholecystectomy, Social history: denies: smoking, alcohol abuse, prescription drug abuse, IV drug use Family history: diabetes, hypertension Medications and Allergies Allergies Allergy/AdvReac Type Severity Reaction Status Date / Time No Known Allergies Allergy Verified 04/15/14 15:50 Home Medications Medication Instructions Recorded Confirmed Last Taken Type Docusate Sodium [Colace] 100 mg PO BID PRN #30 capsule 04/15/14 12/05/14 Unknown Rx HYDROcodone/APAP 5-325 [[place] 1 each PO Q6HR PRN #20 tablet 04/15/14 12/05/14 Unknown Rx 5/325] Polyethylene Glycol 3350 [Miralax] 17 gm PO DAILY PRN #1 bottle 04/15/14 12/05/14 Unknown Rx HYDROcodone/APAP 5-325 [[place] 1 - 2 each PO Q6HR PRN #14 tablet 12/05/14 Unknown Rx 5/325] Active Meds: Active Medications Acetaminophen (Tylenol) 650 mg PO Q4H PRN PRN Reason: Pain MILD(1-3)/Fever >100.5/FLORES Last Admin: 11/10/18 15:17 Dose: 650 mg Documented by: Acetaminophen (Tylenol) [address] Q4H PRN PRN Reason: Fever >101; Mild Pain (1-3) Last Admin: 11/11/18 03:08 Dose: 650 mg Documented by: Atorvastatin Calcium (Lipitor) 40 mg PO QHS [facility] Last Admin: 11/10/18 22:28 Dose: 40 mg Documented by: Docusate Sodium (Colace) 100 mg PO BID PRN PRN Reason: Constipation Epoetin Adonis (Procrit) 10,000 unit SUB-Q [place] Hydromorphone HCl (Dilaudid) 0.25 mg IV Q3H PRN PRN Reason: Pain, Moderate (4-6) Last Admin: 11/10/18 08:17 Dose: 0.25 mg Documented by: Sodium Chloride (Nacl 0.9%) 100 mls @ 999 mls/hr IV [facility]ST[facility]INO PRN PRN Reason: Hypotension Cefepime HCl (Maxipime/Ns 1 Gm/100 Ml) 1 gm in 100 mls @ 200 mls/hr IV QPM [facility]; Protocol Last Admin: 11/10/18 17:43 Dose: 200 mls/hr Documented by: Doxycycline Hyclate 100 mg/ (Sodium Chloride) 250 mls @ 250 mls/hr IV Q12HR [facility]; Protocol Last Admin: 11/11/18 10:08 Dose: 250 mls/hr Documented by: Sodium Chloride (Nacl 0.9%) 100 mls @ 999 mls/hr IV [facility] PRN PRN Reason: Hypotension Ondansetron HCl (Zofran) 4 mg IV Q8H PRN PRN Reason: Nausea And Vomiting Last Admin: 11/10/18 22:43 Dose: 4 mg Documented by: Polyethylene Glycol (Miralax 3350) 17 gm PO QDAY PRN PRN Reason: Constipation Sodium Chloride (Sodium Chloride Flush Syringe 10 Ml) 10 ml IV BID [facility] Last Admin: 11/11/18 03:17 Dose: 10 ml Documented by: Sodium Chloride (Sodium Chloride Flush Syringe 10 Ml) 10 ml IV PRN PRN PRN Reason: LINE FLUSH Exam - Constitutional Vitals: Temp Pulse Resp BP Pulse Ox 101.3 F H 120 H 23 150/55 100 11/11/18 07:44 11/11/18 08:41 11/11/18 08:41 11/11/18 08:41 11/11/18 08:41 Results - Labs CBC & Chem 7: 11/11/18 04:31 11/11/18 04:31 Labs: Abnormal lab results 11/10/18 11/10/18 11/10/18 Range/Units 12:05 17:17 17:25 RBC (3.65-5.03) M/mm3 Hgb (10.1-14.3) gm/dl Hct (30.3-42.9) % RDW (13.2-15.2) % Plt Count (140-440) K/mm3 Seg Neuts % (Manual) (40.0-70.0) % Lymphocytes % (Manual) (13.4-35.0) % Lymphocytes # (Manual) (1.2-5.4) K/mm3 Carbon Dioxide (22-30) mmol/L BUN (7-17) mg/dL Creatinine (0.7-1.2) mg/dL Glucose (65-100) mg/dL POC Glucose 195 H 198 H (70-105) Calcium (8.4-10.2) mg/dL Ferritin > 2000.0 H (13.0-400.0) ng/mL Crossmatch 11/10/18 11/11/18 11/11/18 Range/Units 21:23 04:31 04:31 RBC 2.26 L (3.65-5.03) M/mm3 Hgb 6.2 L (10.1-14.3) gm/dl Hct 19.5 L* (30.3-42.9) % RDW 16.7 H (13.2-15.2) % Plt Count 68 L (140-440) K/mm3 Seg Neuts % (Manual) 80.0 H (40.0-70.0) % Lymphocytes % (Manual) 7.0 L (13.4-35.0) % Lymphocytes # (Manual) 0.4 L (1.2-5.4) K/mm3 Carbon Dioxide 17 L (22-30) mmol/L BUN 38 H (7-17) mg/dL Creatinine 4.4 H (0.7-1.2) mg/dL Glucose 185 H (65-100) mg/dL POC Glucose 214 H (70-105) Calcium 7.5 L (8.4-10.2) mg/dL Ferritin (13.0-400.0) ng/mL Crossmatch 11/11/18 11/11/18 Range/Units 07:27 07:29 RBC (3.65-5.03) M/mm3 Hgb (10.1-14.3) gm/dl Hct (30.3-42.9) % RDW (13.2-15.2) % Plt Count (140-440) K/mm3 Seg Neuts % (Manual) (40.0-70.0) % Lymphocytes % (Manual) (13.4-35.0) % Lymphocytes # (Manual) (1.2-5.4) K/mm3 Carbon Dioxide (22-30) mmol/L BUN (7-17) mg/dL Creatinine (0.7-1.2) mg/dL Glucose (65-100) mg/dL POC Glucose 212 H (70-105) Calcium (8.4-10.2) mg/dL Ferritin (13.0-400.0) ng/mL Crossmatch See Detail
--- NOTE | 2018-11-11 12:07 | Progress Note ---
Assessment and Plan Outside records reviewed. Cultures: 11/09/2018 blood culture: In progress 11/10/2018 blood culture: In progress Ferritin: >2000. A/P: 1) Sepsis / FUO: unclear etiology. Going on for the last 1 month with extensive infectious work up negative thus far at [place]. No evidence of infection on CT chest, abdomen pelvis. HIV negative. TTE negative for vegetations. Blood cultures at [place] were negative. Fevers have been quite high. No significant eosinophilia. Per records at [place], ANCA screen negative. Procalcitonin was moderately elevated: but difficult to interpret in the setting of renal failure. Leucocytosis at [place] was mainly neutrophilic. Apparently as per the ID consult at [facility] her fevers were attributed to a possible drug reac tion secondary to calcitriol or tartrazine. ESR elevated at 124, CRP also elevated at 19.60. GRACE negative, RF <15. Here, she has no leucocytosis. Ferritin is high. Rash + for about a month. 2) CKD4 / now ARF/ESRD: requiring dialysis. Nephrology following. 3) DM-2: insulin requiring. 4) Thrombocytopenia: worsening. Recs: - Hematology consult, discussed with Dr. Jacques on phone. Also d/w Dr. Valero. Given high ferritin, HLH and Adult Still's Disease are a possibility. Question of TTP was also raised, will send [id number]. ?may need a bone marrow biopsy - continue empirically with IV Cefepime, Vancomycin renally adjusted and therapeutic Doxycycline trial - f/u serologies for tick borne illnesses - monitor fever Will follow. Simone Bagley MD [facility] C: [phone] O: [phone] F: [phone] Subjective Date of service: 11/11/18 Interval history: Remains febrile. Getting dialysis. Faint maculopapular rash on extremities. Shaking chills + Objective - Exam Narrative Exam: Physical Exam: Constitutional: awake, but shaking with chills Head, Ears, Nose: Normocephalic, atraumatic. External ears, nose normal Eyes: Conjunctivae/corneas clear. No icterus. No ptosis. Neck: Supple, no meningeal signs Oral: no thrush or ulcers Cardiovascular: S1, S2 normal. Respiratory: Good air entry, clear to auscultation bilaterally GI: Soft, non-tender; bowel sounds normal. No peritoneal signs Musculoskeletal: No pedal edema, no cyanosis. Skin: faint maculopapular rash Hem/Lymphatic: No palpable cervical or supraclavicular nodes. No lymphangitis Psych: no agitation Neurological: Awake, alert, answering basic questions but slow - Constitutional Vitals: Vital Signs Temp Pulse Resp BP Pulse Ox 101.3 F H 128 H 21 126/83 100 11/11/18 10:45 11/11/18 11:45 11/11/18 10:45 11/11/18 11:45 11/11/18 08:41 Temperature -Last 24 Hours Temperature [Pre-Procedure] 103.2 F Temperature 101.3 F Temperature 101.3 F Temperature 102.4 F Temperature 101 F Temperature 102.9 F Temperature 102.9 F Temperature 103.2 F - Labs CBC & Chem 7: 11/11/18 04:31 11/11/18 04:31 Labs: Abnormal lab results 11/10/18 11/10/18 11/10/18 Range/Units 12:05 17:17 17:25 RBC (3.65-5.03) M/mm3 Hgb (10.1-14.3) gm/dl Hct (30.3-42.9) % RDW (13.2-15.2) % Plt Count (140-440) K/mm3 Seg Neuts % (Manual) (40.0-70.0) % Lymphocytes % (Manual) (13.4-35.0) % Lymphocytes # (Manual) (1.2-5.4) K/mm3 Carbon Dioxide (22-30) mmol/L BUN (7-17) mg/dL Creatinine (0.7-1.2) mg/dL Glucose (65-100) mg/dL POC Glucose 195 H 198 H (70-105) Calcium (8.4-10.2) mg/dL Ferritin > 2000.0 H (13.0-400.0) ng/mL Crossmatch 11/10/18 11/11/18 11/11/18 Range/Units 21:23 04:31 04:31 RBC 2.26 L (3.65-5.03) M/mm3 Hgb 6.2 L (10.1-14.3) gm/dl Hct 19.5 L* (30.3-42.9) % RDW 16.7 H (13.2-15.2) % Plt Count 68 L (140-440) K/mm3 Seg Neuts % (Manual) 80.0 H (40.0-70.0) % Lymphocytes % (Manual) 7.0 L (13.4-35.0) % Lymphocytes # (Manual) 0.4 L (1.2-5.4) K/mm3 Carbon Dioxide 17 L (22-30) mmol/L BUN 38 H (7-17) mg/dL Creatinine 4.4 H (0.7-1.2) mg/dL Glucose 185 H (65-100) mg/dL POC Glucose 214 H (70-105) Calcium 7.5 L (8.4-10.2) mg/dL Ferritin (13.0-400.0) ng/mL Crossmatch 11/11/18 11/11/18 Range/Units 07:27 07:29 RBC (3.65-5.03) M/mm3 Hgb (10.1-14.3) gm/dl Hct (30.3-42.9) % RDW (13.2-15.2) % Plt Count (140-440) K/mm3 Seg Neuts % (Manual) (40.0-70.0) % Lymphocytes % (Manual) (13.4-35.0) % Lymphocytes # (Manual) (1.2-5.4) K/mm3 Carbon Dioxide (22-30) mmol/L BUN (7-17) mg/dL Creatinine (0.7-1.2) mg/dL Glucose (65-100) mg/dL POC Glucose 212 H (70-105) Calcium (8.4-10.2) mg/dL Ferritin (13.0-400.0) ng/mL Crossmatch See Detail
[2018-11-11] MEDS: HumaLOG SUB-Q SCH ×2 (16:00→17:31)
--- NOTE | 2018-11-11 17:12 | Vascular Lab Report ---
PROCEDURE: VL CAROTID DUPLEX BILAT TECHNIQUE: Duplex Doppler ultrasound of the common, internal and external carotid arteries and the v ertebral arteries was performed bilaterally. Royal scale imaging, velocity spectral waveform analysis, and color flow Doppler were employed. HISTORY: tia COMPARISONS: None . Note: Measurement of carotid stenosis is based on flow velocity values that correlate with the [place] Symptomatic Carotid Endarterectomy Trial (NASCET) based stenosis criteria using the internal carotid artery diameter as the denominator for stenosis calculation. FINDINGS: RIGHT carotid artery: Velocities: ICA PSV: 79.5 cm/sec ICA End diastolic: 21.7 cm/sec CCA PSV: 100.9 cm/sec IC/CC rati o: 0.79 Plaque/color flow: Mild heterogeneous plaque without significant spectral broadening or abnormal col or flow . RIGHT vertebral artery: Antegrade systolic and diastolic flow LEFT carotid artery: Velocities: ICA PSV: 85.3 cm/sec ICA End diastolic: 29.6 cm/sec CCA PSV: 122.2 cm/sec IC/CC rati o: 0.7 Plaque/color flow: Mild heterogeneous plaque without significant spectral broadening or abnormal col or flow . LEFT vertebral artery: Antegrade systolic and diastolic flow. Other: 1.4 x 1.4 cm cystic lesion with internal septations which appears to be within or adjacent to the left thyroid gland, which was present on the previous study, and may represent a colloid cyst. Th ere is no internal flow. IMPRESSION: 1. RIGHT carotid: No hemodynamically significant (less than 50 percent) internal carotid artery remington nosis. 2. LEFT carotid: No hemodynamically significant (less than 50 percent) internal carotid artery sten osis. 3. Vertebral arteries: Bilaterally antegrade. This document is electronically signed by Blanca Ross MD., November 11 2018 05:10:53 PM ET
--- NOTE | 2018-11-11 17:16 | Progress Note ---
Assessment and Plan - Patient Problems (1) Hyperkalemia Current Visit: Yes Status: Acute Plan to address problem: secondary to advanced CKD, corrected with HD. cont 2gk renal diet. (2) ESRD (end stage renal disease) Current Visit: Yes Status: Acute Plan to address problem: progressive renal failure secondary to diabetic nephropathy/hypertensive nephrosclerosis, now with uremic complications, electrolyte imblanace and worsening acidosis. initiated on HD on 11/10/18. Case management to guide with outpatient HD placement. Further management depending on clinical course of the patient. (3) Type 2 diabetes mellitus with diabetic chronic kidney disease Current Visit: Yes Status: Chronic Qualifiers: Chronic kidney disease stage: stage 5, not on chronic dialysis Plan to address problem: glucose control as per primary attending (4) Hypertensive chronic kidney disease with stage 1 through stage 4 chronic kidney disease, or unspecified chronic kidney disease Current Visit: Yes Status: Acute Plan to address problem: monitor BP on pt's home BP regimen. Will adjust UF as indicated for further volume/BP control (5) Anemia in chronic illness Current Visit: Yes Status: Acute Plan to address problem: started EPO with HD for anemia of CKD (6) SIRS (systemic inflammatory response syndrome) Current Visit: Yes Status: Acute Plan to address problem: follow BCx/UCx, on empiric ABXs with vanco and zosyn. (7) Thrombocytopenia Current Visit: Yes Status: Acute Plan to address problem: likely secondary to sepsis. to rule out HUS/TTP, [id number] pending. check c3/c4. Subjective Date of service: 11/11/18 Principal diagnosis: ESRD Interval history: pt seen and examined during HD, confused, disoriented, body shaking noted in the setting of persistent fever. However hemodynamically stable. Objective - Vital Signs Vital signs: Vital Signs - 12hr 11/11/18 11/11/18 11/11/18 05:21 05:31 05:41 Temperature Pulse Rate 113 H 114 H 113 H Pulse Rate [ From Monitor] Respiratory 21 23 14 Rate Blood Pressure 100/32 105/66 105/66 O2 Sat by Pulse 97 97 99 Oximetry O2 Sat by Pulse Oximetry [ Anterior Bilateral Throughout] 11/11/18 11/11/18 11/11/18 05:51 06:01 06:11 Temperature Pulse Rate 109 H 114 H 118 H Pulse Rate [ From Monitor] Respiratory 27 H 15 18 Rate Blood Pressure 105/66 108/67 108/67 O2 Sat by Pulse 97 100 97 Oximetry O2 Sat by Pulse Oximetry [ Anterior Bilateral Throughout] 11/11/18 11/11/18 11/11/18 06:21 06:31 06:41 Temperature Pulse Rate 118 H 120 H 119 H Pulse Rate [ From Monitor] Respiratory 23 15 17 Rate Blood Pressure 108/67 99/57 99/57 O2 Sat by Pulse 97 94 96 Oximetry O2 Sat by Pulse Oximetry [ Anterior Bilateral Throughout] 11/11/18 11/11/18 11/11/18 06:51 07:01 07:11 Temperature Pulse Rate 119 H 116 H 124 H Pulse Rate [ From Monitor] Respiratory 26 H 18 15 Rate Blood Pressure 99/57 99/57 119/53 O2 Sat by Pulse 97 95 98 Oximetry O2 Sat by Pulse Oximetry [ Anterior Bilateral Throughout] 11/11/18 11/11/18 11/11/18 07:21 07:31 07:41 Temperature Pulse Rate 120 H 122 H 124 H Pulse Rate [ From Monitor] Respiratory 20 18 13 Rate Blood Pressure 119/53 119/53 148/66 O2 Sat by Pulse 99 98 95 Oximetry O2 Sat by Pulse Oximetry [ Anterior Bilateral Throughout] 11/11/18 11/11/18 11/11/18 07:44 07:51 08:01 Temperature 101.3 F H Pulse Rate 119 H 118 H Pulse Rate [ From Monitor] Respiratory 22 16 Rate Blood Pressure 148/66 103/41 O2 Sat by Pulse 98 97 Oximetry O2 Sat by Pulse Oximetry [ Anterior Bilateral Throughout] 11/11/18 11/11/18 11/11/18 08:11 08:15 08:21 Temperature Pulse Rate 116 H 123 H Pulse Rate [ 118 H From Monitor] Respiratory 29 H 22 Rate Blood Pressure 103/41 103/41 O2 Sat by Pulse 99 99 Oximetry O2 Sat by Pulse Oximetry [ Anterior Bilateral Throughout] 11/11/18 11/11/18 11/11/18 08:31 08:41 08:51 Temperature Pulse Rate 119 H 120 H 120 H Pulse Rate [ From Monitor] Respiratory 25 H 23 23 Rate Blood Pressure 150/55 150/55 150/55 O2 Sat by Pulse 99 100 97 Oximetry O2 Sat by Pulse Oximetry [ Anterior Bilateral Throughout] 11/11/18 11/11/18 11/11/18 09:00 09:11 09:21 Temperature Pulse Rate 118 H 122 H 121 H Pulse Rate [ From Monitor] Respiratory 22 22 14 Rate Blood Pressure 138/52 138/52 138/52 O2 Sat by Pulse 97 100 100 Oximetry O2 Sat by Pulse Oximetry [ Anterior Bilateral Throughout] 11/11/18 11/11/18 11/11/18 09:30 09:41 09:51 Temperature Pulse Rate 117 H 118 H 122 H Pulse Rate [ From Monitor] Respiratory 18 11 L 18 Rate Blood Pressure 144/59 144/59 144/59 O2 Sat by Pulse 98 100 99 Oximetry O2 Sat by Pulse Oximetry [ Anterior Bilateral Throughout] 11/11/18 11/11/18 11/11/18 10:01 10:11 10:21 Temperature Pulse Rate 121 H 122 H 121 H Pulse Rate [ From Monitor] Respiratory 22 21 15 Rate Blood Pressure 149/68 149/68 149/68 O2 Sat by Pulse 96 97 98 Oximetry O2 Sat by Pulse Oximetry [ Anterior Bilateral Throughout] 11/11/18 11/11/18 11/11/18 10:30 10:41 10:45 Temperature 101.3 F H Pulse Rate 121 H 122 H 124 H Pulse Rate [ From Monitor] Respiratory 23 17 21 Rate Blood Pressure 125/52 125/52 131/67 O2 Sat by Pulse 99 99 Oximetry O2 Sat by Pulse Oximetry [ Anterior Bilateral Throughout] 11/11/18 11/11/18 11/11/18 10:51 11:00 11:11 Temperature Pulse Rate 121 H 122 H 127 H Pulse Rate [ From Monitor] Respiratory 22 24 18 Rate Blood Pressure 126/54 131/67 125/52 O2 Sat by Pulse 98 88 91 Oximetry O2 Sat by Pulse Oximetry [ Anterior Bilateral Throughout] 11/11/18 11/11/18 11/11/18 11:15 11:21 11:31 Temperature Pulse Rate 129 H 135 H 130 H Pulse Rate [ From Monitor] Respiratory 19 19 Rate Blood Pressure 135/65 135/65 127/84 O2 Sat by Pulse 97 77 L Oximetry O2 Sat by Pulse Oximetry [ Anterior Bilateral Throughout] 11/11/18 11/11/18 11/11/18 11:41 11:45 11:51 Temperature Pulse Rate 130 H 128 H 128 H Pulse Rate [ From Monitor] Respiratory 17 25 H Rate Blood Pressure 127/84 126/83 126/83 O2 Sat by Pulse 90 87 Oximetry O2 Sat by Pulse Oximetry [ Anterior Bilateral Throughout] 11/11/18 11/11/18 11/11/18 12:00 12:01 12:07 Temperature 100.7 F H 101.2 F H Pulse Rate 128 H 127 H 128 H Pulse Rate [ From Monitor] Respiratory 21 17 Rate Blood Pressure 92/47 126/83 92/47 O2 Sat by Pulse 98 95 Oximetry O2 Sat by Pulse Oximetry [ Anterior Bilateral Throughout] 11/11/18 11/11/18 11/11/18 12:10 12:11 12:16 Temperature Pulse Rate 132 H 127 H Pulse Rate [ 130 H From Monitor] Respiratory 13 Rate Blood Pressure 127/84 113/88 O2 Sat by Pulse 96 Oximetry O2 Sat by Pulse Oximetry [ Anterior Bilateral Throughout] 11/11/18 11/11/18 11/11/18 12:17 12:21 12:22 Temperature 101.2 F H 101.3 F H Pulse Rate 127 H 125 H 129 H Pulse Rate [ From Monitor] Respiratory 17 16 17 Rate Blood Pressure 113/88 113/88 106/74 O2 Sat by Pulse 98 94 96 Oximetry O2 Sat by Pulse Oximetry [ Anterior Bilateral Throughout] 11/11/18 11/11/18 11/11/18 12:30 12:31 12:32 Temperature 100.5 F H Pulse Rate 127 H 126 H 129 H Pulse Rate [ From Monitor] Respiratory 18 12 Rate Blood Pressure 106/74 106/74 106/74 O2 Sat by Pulse 94 96 Oximetry O2 Sat by Pulse Oximetry [ Anterior Bilateral Throughout] 11/11/18 11/11/18 11/11/18 12:38 12:41 12:43 Temperature 100.4 F H Pulse Rate 127 H 132 H 128 H Pulse Rate [ From Monitor] Respiratory 20 15 Rate Blood Pressure 125/49 106/74 106/74 O2 Sat by Pulse 100 45 L Oximetry O2 Sat by Pulse Oximetry [ Anterior Bilateral Throughout] 11/11/18 11/11/18 11/11/18 12:51 12:53 12:58 Temperature 100.4 F H Pulse Rate 123 H 125 H 126 H Pulse Rate [ From Monitor] Respiratory 20 19 Rate Blood Pressure 125/49 127/66 125/49 O2 Sat by Pulse 99 100 Oximetry O2 Sat by Pulse Oximetry [ Anterior Bilateral Throughout] 11/11/18 11/11/18 11/11/18 13:01 13:11 13:14 Temperature Pulse Rate 127 H 123 H 127 H Pulse Rate [ From Monitor] Respiratory 19 14 Rate Blood Pressure 127/106 127/106 127/66 O2 Sat by Pulse 96 99 Oximetry O2 Sat by Pulse Oximetry [ Anterior Bilateral Throughout] 11/11/18 11/11/18 11/11/18 13:21 13:31 13:41 Temperature Pulse Rate 126 H 131 H 123 H Pulse Rate [ From Monitor] Respiratory 20 17 20 Rate Blood Pressure 127/106 94/62 94/62 O2 Sat by Pulse Oximetry O2 Sat by Pulse Oximetry [ Anterior Bilateral Throughout] 11/11/18 11/11/18 11/11/18 13:48 13:51 14:00 Temperature Pulse Rate 128 H 126 H 125 H Pulse Rate [ From Monitor] Respiratory 22 Rate Blood Pressure 124/74 124/74 132/84 O2 Sat by Pulse Oximetry O2 Sat by Pulse Oximetry [ Anterior Bilateral Throughout] 11/11/18 11/11/18 11/11/18 14:01 14:11 14:17 Temperature 100.7 F H Pulse Rate 122 H 124 H 126 H Pulse Rate [ From Monitor] Respiratory 23 21 22 Rate Blood Pressure 132/84 132/84 125/65 O2 Sat by Pulse 99 Oximetry O2 Sat by Pulse 94 Oximetry [ Anterior Bilateral Throughout] 11/11/18 11/11/18 11/11/18 14:21 14:31 14:40 Temperature Pulse Rate 123 H 124 H 121 H Pulse Rate [ From Monitor] Respiratory 22 21 23 Rate Blood Pressure 125/65 125/65 127/84 O2 Sat by Pulse 91 86 97 Oximetry O2 Sat by Pulse Oximetry [ Anterior Bilateral Throughout] 11/11/18 11/11/18 11/11/18 14:51 15:01 15:11 Temperature Pulse Rate 120 H 122 H 122 H Pulse Rate [ From Monitor] Respiratory 22 19 21 Rate Blood Pressure 129/61 147/69 135/66 O2 Sat by Pulse 91 100 Oximetry O2 Sat by Pulse Oximetry [ Anterior Bilateral Throughout] 11/11/18 11/11/18 15:21 15:54 Temperature 102.3 F H Pulse Rate 123 H Pulse Rate [ From Monitor] Respiratory 22 Rate Blood Pressure 149/72 O2 Sat by Pulse 96 Oximetry O2 Sat by Pulse Oximetry [ Anterior Bilateral Throughout] - General Appearance General appearance: well-developed, appears stated age, chronically ill EENT: ATNC, PERRL, mucous membranes moist Neck: no JVD Respiratory: Present: Clear to Ascultation Cardiology: regular, S1S2 Gastrointestinal: normoactive bowel sounds Integumentary: no rash, other (+ edema b/l LE ) Neurologic: confused, disoriented - Lab 11/11/18 04:31 11/11/18 04:31 Most recent lab results Calcium 7.5 mg/dL (8.4-10.2) L 11/11/18 04:31 Medications & Allergies - Medications Allergies/Adverse Reactions: Allergies No Known Allergies Allergy (Verified 04/15/14 15:50) Home Medications: Home Medications Medication Instructions Recorded Confirmed Last Taken Type Docusate Sodium [Colace] 100 mg PO BID PRN #30 capsule 04/15/14 12/05/14 Unknown Rx HYDROcodone/APAP 5-325 [[place] 1 each PO Q6HR PRN #20 tablet 04/15/14 12/05/14 Un known Rx 5/325] Polyethylene Glycol 3350 [Miralax] 17 gm PO DAILY PRN #1 bottle 04/15/14 Unknown Rx HYDROcodone/APAP 5-325 [[place] 1 - 2 each PO Q6HR PRN #14 tablet 12/05/14 Unknown Rx 5/325] Atorvastatin [Lipitor Tab] 20 mg PO QHS 11/11/18 11/11/18 Unknown History Gabapentin [Neurontin] 300 mg PO TID PRN 11/11/18 11/11/18 Unknown History Nystatin [Nystatin SUSP] 5 ml PO QID 11/11/18 11/11/18 Unknown History Pantoprazole [Protonix] 40 mg PO QDAY 11/11/18 11/11/18 Unknown History Promethazine [Phenergan] 25 mg PO Q6HR PRN 11/11/18 11/11/18 Unknown History Sodium Bicarbonate 325 mg PO BID 11/11/18 11/11/18 Unknown History amLODIPine 10 mg PO DAILY 11/11/18 11/11/18 Unknown History Active Medications: Generic Name Dose Route Start Last Admin Trade Name Freq PRN Reason Stop Dose Admin Acetaminophen 650 mg 11/09/18 19:38 11/10/18 15:17 Tylenol PO 650 mg Q4H PRN Administration Pain MILD(1-3)/Fever >100.5/FLORES Acetaminophen 650 mg 11/11/18 00:04 11/11/18 03:08 Tylenol NC 650 mg Q4H PRN Administration Fever >101; Mild Pain (1-3) Atorvastatin Calcium 40 mg 11/10/18 22:00 11/10/18 22:28 Lipitor PO 40 mg QHS PRIYA Administration Docusate Sodium 100 mg 11/09/18 19:32 Colace PO BID PRN Constipation Epoetin Adonis 10,000 unit 11/11/18 08:00 Procrit SUB-Q CONSTANTINO PRIYA Hydromorphone HCl 0.25 mg 11/09/18 19:38 11/10/18 08:17 Dilaudid IV 0.25 mg Q3H PRN Administration Pain, Moderate (4-6) Sodium Chloride 100 mls @ 999 mls/hr 11/10/18 12:00 Nacl 0.9% IV CONSTANTINO PRN Hypotension Cefepime HCl 1 gm in 100 mls @ 200 mls/hr 11/10/18 18:00 11/10/18 17:43 Maxipime/Ns 1 Gm/100 Ml IV 200 mls/hr QPM PRIYA Administration Protocol Doxycycline Hyclate 100 mg/ 250 mls @ 250 mls/hr 11/10/18 16:00 11/11/18 10:08 Sodium Chloride IV 250 mls/hr Q12HR PRIYA Administration Protocol Sodium Chloride 100 mls @ 999 mls/hr 11/11/18 11:09 Nacl 0.9% IV CONSTANTINO PRN Hypotension Insulin Human Lispro 0 unit 11/11/18 15:00 Humalog SUB-Q Q6HR [facility] Protocol Ondansetron HCl 4 mg 11/09/18 19:38 11/10/18 22:43 Zofran IV 4 mg Q8H PRN Administration Nausea And Vomiting Polyethylene Glycol 17 gm 11/09/18 19:38 Miralax 3350 PO QDAY PRN Constipation Sodium Chloride 10 ml 11/09/18 22:00 11/11/18 03:17 Sodium Chloride Flush Syringe 10 Ml IV 10 ml BID PRIYA Administration Sodium Chloride 10 ml 11/09/18 19:38 Sodium Chloride Flush Syringe 10 Ml IV PRN PRN LINE FLUSH
[2018-11-11] MEDS: MAXIPIME/NS 1 GM/100 ML 1 GM/100 ML BAG IV SCH (17:26)
--- NOTE | 2018-11-11 17:57 | Progress Note ---
Assessment and Plan Assessment and plan: Patient was admitted to [facility], extensive workup was done, was evaluated by neurology, ID, rheumatology and nephrology Metabolic encephalopathy, likely due to uremia -Nephrology consulted, Vas-Cath is doing and will get dialysis Upper extremity numbness - Patient is chronic symptoms that - She was previously worked up for CVA and was negative - Neurology consult appreciated Sepsis; fever of unknown origin; and has fever of 103 - Patient is placed on IV vancomycin cefepime and doxycycline - Patient is still febrile at cardiac - ID consulted ESRD on HD - Nephrology is following - Will have hemodialysis Severe Anemia - Hemoglobin this morning was 5.9 and was transfused 2 units of blood - Post transfusion H&H DVT prophylaxis - On heparin Disposition -Continue ICU care The high probability of a clinically significant, sudden or life threatening deterioration of the [renal, neurology, hematology] system(s) required my full and direct attention, intervention and personal management. The aggregate critical care time was [32] minutes. This time is in addition to time spent performing reported procedures but includes the following: [x] Data Review and interpretation [x] Patient assessment and monitoring of vital signs [x] Documentation [x] Medication orders and management History Interval history: Patient was seen and evaluated this morning, initially patient was confused. Patient was febrile and tachycardic. Hospitalist Physical - Physical exam Narrative exam: Not in cardiopulmonary distress. The patient appeared well nourished and normally developed. Vital signs as documented. Head exam is unremarkable. No scleral icterus . Neck is without jugular venous distension, thyromegaly, or carotid bruits. Lungs are clear to auscultation. Cardiac exam reveals regular rate and Rhythm. Abdominal exam reveals normal bowel sounds. Extremities are nonedematous. LACE MENDER: Confused. - Constitutional Vitals: Temp Pulse Resp BP Pulse Ox 102.3 F H 123 H 22 149/72 96 11/11/18 15:54 11/11/18 15:21 11/11/18 15:21 11/11/18 15:21 11/11/18 15:21 General appearance: Present: mild distress (rigors) Results - Labs CBC & Chem 7: 11/11/18 04:31 11/11/18 04:31 Labs: Laboratory Last Values WBC 5.5 K/mm3 (4.5-11.0) 11/11/18 04:31 RBC 2.26 M/mm3 (3.65-5.03) L 11/11/18 04:31 Hgb 6.2 gm/dl (10.1-14.3) L 11/11/18 04:31 Hct 19.5 % (30.3-42.9) L* 11/11/18 04:31 MCV 86 fl (79-97) 11/11/18 04:31 MCH 28 pg (28-32) 11/11/18 04:31 MCHC 32 % (30-34) 11/11/18 04:31 RDW 16.7 % (13.2-15.2) H 11/11/18 04:31 Plt Count 68 K/mm3 (140-440) L 11/11/18 04:31 Lymph % (Auto) 8.9 % (13.4-35.0) L 11/10/18 08:05 [place] % (Auto) 4.3 % (0.0-7.3) 11/10/18 08:05 Eos % (Auto) 4.2 % (0.0-4.3) 11/10/18 08:05 Baso % (Auto) 0.2 % (0.0-1.8) 11/10/18 08:05 Lymph # 0.8 K/mm3 (1.2-5.4) L 11/10/18 08:05 [place] # 0.4 K/mm3 (0.0-0.8) 11/10/18 08:05 Eos # 0.4 K/mm3 (0.0-0.4) 11/10/18 08:05 Baso # 0.0 K/mm3 (0.0-0.1) 11/10/18 08:05 Add Manual Diff Complete 11/11/18 04:31 Total Counted 100 11/11/18 04:31 Seg Neutrophils % 82.4 % (40.0-70.0) H 11/10/18 08:05 Seg Neuts % (Manual) 80.0 % (40.0-70.0) H 11/11/18 04:31 9.0 % 11/11/18 04:31 7.0 % (13.4-35.0) L 11/11/18 04:31 Reactive Lymphs % (Man) 0 % 11/11/18 04:31 2.0 % (0.0-7.3) 11/11/18 04:31 1.0 % (0.0-4.3) 11/11/18 04:31 0 % (0.0-1.8) 11/11/18 04:31 1.0 % 11/11/18 04:31 0 % 11/11/18 04:31 0 % 11/11/18 04:31 0 % 11/11/18 04:31 Nucleated RBC % Not Reportable 11/11/18 04:31 Seg Neutrophils # 7.0 K/mm3 (1.8-7.7) 11/10/18 08:05 Seg Neutrophils # Man 4.4 K/mm3 (1.8-7.7) 11/11/18 04:31 Band Neutrophils # 0.5 K/mm3 11/11/18 04:31 0.4 K/mm3 (1.2-5.4) L 11/11/18 04:31 Abs React Lymphs (Man) 0.0 K/mm3 11/11/18 04:31 0.1 K/mm3 (0.0-0.8) 11/11/18 04:31 0.1 K/mm3 (0.0-0.4) 11/11/18 04:31 0.0 K/mm3 (0.0-0.1) 11/11/18 04:31 0.1 K/mm3 11/11/18 04:31 0.0 K/mm3 11/11/18 04:31 0.0 K/mm3 11/11/18 04:31 Blast Cells # 0.0 K/mm3 11/11/18 04:31 WBC Morphology Not Reportable 11/11/18 04:31 Hypersegmented Neuts Not Reportable 11/11/18 04:31 Hyposegmented Neuts Not Reportable 11/11/18 04:31 Hypogranular Neuts Not Reportable 11/11/18 04:31 Not Reportable 11/11/18 04:31 Not Reportable 11/11/18 04:31 Not Reportable 11/11/18 04:31 Not Reportable 11/11/18 04:31 Not Reportable 11/11/18 04:31 Not Reportable 11/11/18 04:31 Consistent w auto 11/11/18 04:31 Not Reportable 11/11/18 04:31 Plt Clumps, EDTA Not Reportable 11/11/18 04:31 Not Reportable 11/11/18 04:31 Not Reportable 11/11/18 04:31 Not Reportable 11/11/18 04:31 Plt Morphology Comment Not Reportable 11/11/18 04:31 RBC Morphology Not Reportable 11/11/18 04:31 Dimorphic RBCs Not Reportable 11/11/18 04:31 Not Reportable 11/11/18 04:31 Not Reportable 11/11/18 04:31 Not Reportable 11/11/18 04:31 1+ 11/11/18 04:31 Not Reportable 11/11/18 04:31 Not Reportable 11/11/18 04:31 Not Reportable 11/11/18 04:31 Not Reportable 11/11/18 04:31 Not Reportable 11/11/18 04:31 Not Reportable 11/11/18 04:31 Not Reportable 11/11/18 04:31 Not Reportable 11/11/18 04:31 Not Reportable 11/11/18 04:31 Not Reportable 11/11/18 04:31 Not Reportable 11/11/18 04:31 Not Reportable 11/11/18 04:31 Not Reportable 11/11/18 04:31 Not Reportable 11/11/18 04:31 Not Reportable 11/11/18 04:31 Acanthocytes (Spur) Not Reportable 11/11/18 04:31 Rouleaux Not Reportable 11/11/18 04:31 Not Reportable 11/11/18 04:31 Not Reportable 11/11/18 04:31 Not Reportable 11/11/18 04:31 Not Reportable 11/11/18 04:31 Hem Pathologist Commnt No 11/11/18 04:31 PT 14.8 Sec. (12.2-14.9) 11/09/18 16:16 INR 1.09 (0.87-1.13) 11/09/18 16:16 APTT 44.5 Sec. (24.2-36.6) H 11/09/18 16:16 21.3 Sec. (15.1-19.6) H 11/09/18 16:16 Sodium 140 mmol/L (137-145) 11/11/18 04:31 Potassium 4.0 mmol/L (3.6-5.0) D 11/11/18 04:31 Chloride 105.4 mmol/L (98-107) 11/11/18 04:31 Carbon Dioxide 17 mmol/L (22-30) L 11/11/18 04:31 22 mmol/L 11/11/18 04:31 BUN 38 mg/dL (7-17) H 11/11/18 04:31 4.4 mg/dL (0.7-1.2) H 11/11/18 04:31 Estimated GFR 12 ml/min 11/11/18 04:31 9 % 11/11/18 04:31 Glucose 185 mg/dL (65-100) H 11/11/18 04:31 POC Glucose 199 (70-105) H 11/11/18 17:18 6.9 % (4-6) H 11/09/18 22:00 Lactic Acid 0.80 mmol/L (0.7-2.0) 11/10/18 08:10 Calcium 7.5 mg/dL (8.4-10.2) L 11/11/18 04:31 Iron 36 ug/dL (37-170) L 11/09/18 16:16 TIBC 169 mcg/dL (250-450) L 11/09/18 16:16 % Saturation 21.30 % 11/09/18 16:16 128 mg/dl (192-382) L 11/09/18 16:16 > 2000.0 ng/mL (13.0-400.0) H 11/10/18 17:17 0.30 mg/dL (0.1-1.2) 11/09/18 16:16 AST 68 units/L (5-40) H 11/09/18 16:16 ALT 14 units/L (7-56) 11/09/18 16:16 102 units/L (35-129) 11/09/18 16:16 19.0 umol/L (25-60) L 11/09/18 16:16 93 units/L (30-135) 11/09/18 16:16 CK-MB (CK-2) < 1.0 ng/mL (0.0-4.0) 11/09/18 16:16 CK-MB (CK-2) Rel Index 1.0 (0-4) 11/09/18 16:16 0.017 ng/mL (0.00-0.029) 11/09/18 16:16 7.6 g/dL (6.3-8.2) 11/09/18 16:16 2.6 g/dL (3.9-5) L 11/09/18 16:16 0.5 % 11/09/18 16:16 Triglycerides 298 mg/dL (2-149) H 11/10/18 08:05 Cholesterol 84 mg/dL (50-199) 11/10/18 08:05 7 mg/dL (50-130) L 11/10/18 08:05 8 mg/dL (40-59) L 11/10/18 08:05 10.50 % 11/10/18 08:05 13 units/L (13-60) 11/09/18 16:16 Yellow (Yellow) 11/10/18 01:08 Cloudy (Clear) 11/10/18 01:08 5.0 (5.0-7.0) 11/10/18 01:08 Ur Specific [place] 1.016 (1.003-1.030) 11/10/18 01:08 >500 mg/dL (Negative) 11/10/18 01:08 Neg mg/dL (Negative) 11/10/18 01:08 Neg mg/dL (Negative) 11/10/18 01:08 Sm (Negative) 11/10/18 01:08 Neg (Negative) 11/10/18 01:08 Ur Reducing Substances Not Reportable 11/10/18 01:08 Neg (Negative) 11/10/18 01:08 Not Reportable 11/10/18 01:08 < 2.0 mg/dL (<2.0) 11/10/18 01:08 Ur Leukocyte Esterase Neg (Negative) 11/10/18 01:08 7.0 /HPF (0.0-6.0) H 11/10/18 01:08 6.0 /HPF (0.0-6.0) 11/10/18 01:08 U Epithel Cells (Auto) 1.0 /HPF (0-13.0) 11/10/18 01:08 1+ /HPF (Negative) 11/10/18 01:08 2+ /HPF 11/10/18 01:08 Hyaline Casts 1 /LPF 11/10/18 01:08 3+ /HPF 11/10/18 01:08 Presumptive negative 11/10/18 01:08 Presumptive negative 11/10/18 01:08 Ur Barbiturates Screen Presumptive negative 11/10/18 01:08 Ur Phencyclidine Scrn Presumptive negative 11/10/18 01:08 Ur Amphetamines Screen Presumptive negative 11/10/18 01:08 U Benzodiazepines Scrn Presumptive negative 11/10/18 01:08 Presumptive negative 11/10/18 01:08 U Marijuana (THC) Screen Presumptive negative 11/10/18 01:08 Disclamer 11/10/18 01:08 Plasma/Serum Alcohol < 0.01 % (0-0.07) 11/09/18 16:16 Blood Type A POSITIVE 11/11/18 07:29 Antibody Screen TNR 11/11/18 07:29 QUIANA Antibody Screen Negative 11/11/18 07:29 Crossmatch See Detail 11/11/18 07:29 Active Medications - Current Medications Current Medications: Generic Name Dose Route Start Last Admin Trade Name Freq PRN Reason Stop Dose Admin Acetaminophen 650 mg 11/09/18 19:38 11/10/18 15:17 Tylenol PO 650 mg Q4H PRN Administration Pain MILD(1-3)/Fever >100.5/FLORES Acetaminophen 650 mg 11/11/18 00:04 11/11/18 17:29 Tylenol [place] 650 mg Q4H PRN Administration Fever >101; Mild Pain (1-3) Atorvastatin Calcium 40 mg 11/10/18 22:00 11/10/18 22:28 Lipitor PO 40 mg QHS PRIYA Administration Docusate Sodium 100 mg 11/09/18 19:32 Colace PO BID PRN Constipation Epoetin Adonis 10,000 unit 11/11/18 08:00 Procrit SUB-Q CONSTANTINO PRIYA Hydromorphone HCl 0.25 mg 11/09/18 19:38 11/10/18 08:17 Dilaudid IV 0.25 mg Q3H PRN Administration Pain, Moderate (4-6) Sodium Chloride 100 mls @ 999 mls/hr 11/10/18 12:00 Nacl 0.9% IV CONSTANTINO PRN Hypotension Cefepime HCl 1 gm in 100 mls @ 200 mls/hr 11/10/18 18:00 11/11/18 17:26 Maxipime/Ns 1 Gm/100 Ml IV 200 mls/hr QPM [facility] Administration Protocol Doxycycline Hyclate 100 mg/ 250 mls @ 250 mls/hr 11/10/18 16:00 11/11/18 10:08 Sodium Chloride IV 250 mls/hr Q12HR [facility] Administration Protocol Sodium Chloride 100 mls @ 999 mls/hr 11/11/18 11:09 Nacl 0.9% IV CONSTANTINO PRN Hypotension Insulin Human Lispro 0 unit 11/11/18 15:00 11/11/18 17:31 Humalog SUB-Q Not Given Q6HR [facility] Protocol Ondansetron HCl 4 mg 11/09/18 19:38 11/10/18 22:43 Zofran IV 4 mg Q8H PRN Administration Nausea And Vomiting Polyethylene Glycol 17 gm 11/09/18 19:38 Miralax 3350 PO QDAY PRN Constipation Sodium Chloride 10 ml 11/09/18 22:00 11/11/18 17:30 Sodium Chloride Flush Syringe 10 Ml IV 10 ml BID PRIYA Administration Sodium Chloride 10 ml 11/09/18 19:38 Sodium Chloride Flush Syringe 10 Ml IV PRN PRN LINE FLUSH
[2018-11-11 20:28] LABS: Hematocrit 25.8 % (30.3-42.9); Hemoglobin 8.6 gm/dl (10.1-14.3)
[2018-11-11] MEDS: DILAUDID IV PRN (22:52)
[2018-11-12] MEDS: HumaLOG SUB-Q SCH ×3 (00:38→13:05)
[2018-11-12] MEDS: DILAUDID IV PRN (03:04)
[2018-11-12 05:14] LABS: Basophils % (Auto) 0.5 % (0.0-1.8); Eosinophils # (Auto) 0.1 K/mm3 (0.0-0.4); Eosinophils % (Auto) 2.1 % (0.0-4.3); Hematocrit 25.4 % (30.3-42.9); Hemoglobin 8.5 gm/dl (10.1-14.3); Lymphocytes # (Auto) 0.9 K/mm3 (1.2-5.4); Lymphocytes % (Auto) 15.9 % (13.4-35.0); Mean Corpuscular HGB Conc 33 % (30-34); Mean Corpuscular Volume 85 fl (79-97); Monocytes # (Auto) 0.4 K/mm3 (0.0-0.8); Monocytes % (Auto) 7.4 % (0.0-7.3); Red Blood Count 3.01 M/mm3 (3.65-5.03); Red Cell Distribution Width 15.7 % (13.2-15.2)
[2018-11-12 05:19] LABS: Platelet Count 55 K/mm3 (140-440)
[2018-11-12 05:41] LABS: Calcium 6.6 mg/dL (8.4-10.2)
--- NOTE | 2018-11-12 09:34 | Progress Note ---
Assessment and Plan 63 y/o female with worsening renal function now HD dependent, altered mental state, fevers of unknown origin and anemia. 1. As stated in ID note from yesterday, several thoughts now about unique disease, AOSD, HLH as well as TTP. Await Heme eval and recs. 2. Patient with persistent diarrhea and questionable coffee ground emesis. Had CT on arrival but without contrast. Nursing will attempt DH again today and if so, would like to obtain CT abdomen pelvis with contrast (PO and IV). Continue NPO status 3. HD per renal 4. Agree with ID with empiric abx therapy 5. Follow up send out labs. 6. Patient does not currently meet ICU criteria. Discussed this with primary team and have asked for transfer. If she does have any of the above diagnosis and requires higher level of care we can transfer back. Suggest step down. Subjective Date of service: 11/12/18 Principal diagnosis: ESRD Interval history: Patient remains on room air. Still not responsive but awake (nonverbal). Hemodynamically stable. had HD on yesterday and tolerated well. Still continues to spike fevers. Objective - Constitutional Vitals: Vital Signs - 12hr 11/11/18 11/11/18 11/11/18 21:30 21:41 21:51 Temperature Pulse Rate 117 H 116 H 114 H Pulse Rate [ From Monitor] Pulse Rate [ Right Radial] Respiratory 23 20 24 Rate Blood Pressure 130/58 130/58 130/58 O2 Sat by Pulse 89 100 98 Oximetry 11/11/18 11/11/18 11/11/18 22:00 22:11 22:21 Temperature Pulse Rate 116 H 115 H 117 H Pulse Rate [ From Monitor] Pulse Rate [ Right Radial] Respiratory 22 20 21 Rate Blood Pressure 136/75 136/75 136/75 O2 Sat by Pulse 94 97 97 Oximetry 11/11/18 11/11/18 11/11/18 22:30 22:41 22:51 Temperature Pulse Rate 115 H 114 H 113 H Pulse Rate [ From Monitor] Pulse Rate [ Right Radial] Respiratory 22 26 H 23 Rate Blood Pressure 142/70 142/70 142/70 O2 Sat by Pulse 93 97 99 Oximetry 11/11/18 11/11/18 11/11/18 23:00 23:11 23:16 Temperature 102 F H Pulse Rate 113 H 113 H Pulse Rate [ From Monitor] Pulse Rate [ Right Radial] Respiratory 24 22 Rate Blood Pressure 130/64 130/64 O2 Sat by Pulse 92 96 Oximetry 11/11/18 11/11/18 11/11/18 23:21 23:31 23:41 Temperature Pulse Rate 114 H 114 H 115 H Pulse Rate [ From Monitor] Pulse Rate [ Right Radial] Respiratory 24 20 22 Rate Blood Pressure 130/64 100/53 100/53 O2 Sat by Pulse 96 94 97 Oximetry 11/11/18 11/11/18 11/12/18 23:47 23:51 00:00 Temperature Pulse Rate 114 H 114 H 114 H Pulse Rate [ 116 H From Monitor] Pulse Rate [ 116 H Right Radial] Respiratory 19 22 22 Rate Blood Pressure 100/53 100/53 106/61 O2 Sat by Pulse 94 96 95 Oximetry 11/12/18 11/12/18 11/12/18 00:11 00:21 00:30 Temperature Pulse Rate 113 H 114 H 116 H Pulse Rate [ From Monitor] Pulse Rate [ Right Radial] Respiratory 24 24 22 Rate Blood Pressure 106/61 100/53 122/65 O2 Sat by Pulse 100 97 96 Oximetry 11/12/18 11/12/18 11/12/18 00:41 00:51 01:01 Temperature Pulse Rate 114 H 114 H 115 H Pulse Rate [ From Monitor] Pulse Rate [ Right Radial] Respiratory 21 25 H 22 Rate Blood Pressure 122/65 122/65 130/58 O2 Sat by Pulse 98 97 93 Oximetry 11/12/18 11/12/18 11/12/18 01:11 01:21 01:30 Temperature Pulse Rate 116 H 117 H 118 H Pulse Rate [ From Monitor] Pulse Rate [ Right Radial] Respiratory 23 11 L 16 Rate Blood Pressure 130/58 130/58 138/66 O2 Sat by Pulse 97 96 99 Oximetry 11/12/18 11/12/18 11/12/18 01:41 01:51 02:01 Temperature Pulse Rate 112 H 113 H 111 H Pulse Rate [ From Monitor] Pulse Rate [ Right Radial] Respiratory 21 20 24 Rate Blood Pressure 138/66 138/66 114/90 O2 Sat by Pulse 100 99 100 Oximetry 11/12/18 11/12/18 11/12/18 02:10 02:21 02:30 Temperature Pulse Rate 112 H 114 H 114 H Pulse Rate [ From Monitor] Pulse Rate [ Right Radial] Respiratory 22 22 17 Rate Blood Pressure 114/90 114/90 131/66 O2 Sat by Pulse 98 96 94 Oximetry 11/12/18 11/12/18 11/12/18 02:40 02:50 03:01 Temperature Pulse Rate 111 H 113 H 110 H Pulse Rate [ From Monitor] Pulse Rate [ Right Radial] Respiratory 21 16 24 Rate Blood Pressure 131/66 131/66 136/101 O2 Sat by Pulse 97 100 92 Oximetry 11/12/18 11/12/18 11/12/18 03:11 03:20 03:35 Temperature Pulse Rate 110 H 110 H 116 H Pulse Rate [ From Monitor] Pulse Rate [ Right Radial] Respiratory 20 19 16 Rate Blood Pressure 136/101 136/101 136/101 O2 Sat by Pulse 98 99 98 Oximetry 11/12/18 11/12/18 11/12/18 03:41 03:51 04:00 Temperature 101.5 F H Pulse Rate 114 H 117 H 118 H Pulse Rate [ 112 H From Monitor] Pulse Rate [ 112 H Right Radial] Respiratory 26 H 22 17 Rate Blood Pressure 136/101 148/76 140/81 O2 Sat by Pulse 100 96 95 Oximetry 11/12/18 11/12/18 11/12/18 04:11 04:21 04:30 Temperature Pulse Rate 117 H 113 H 113 H Pulse Rate [ From Monitor] Pulse Rate [ Right Radial] Respiratory 16 19 15 Rate Blood Pressure 140/81 140/81 162/78 O2 Sat by Pulse 90 99 100 Oximetry 11/12/18 11/12/18 11/12/18 04:41 04:51 05:00 Temperature Pulse Rate 114 H 110 H 114 H Pulse Rate [ From Monitor] Pulse Rate [ Right Radial] Respiratory 18 15 20 Rate Blood Pressure 162/78 162/78 153/72 O2 Sat by Pulse 90 100 Oximetry 11/12/18 11/12/18 11/12/18 05:11 05:21 05:30 Temperature Pulse Rate 108 H 114 H 116 H Pulse Rate [ From Monitor] Pulse Rate [ Right Radial] Respiratory 20 21 22 Rate Blood Pressure 153/72 153/72 157/66 O2 Sat by Pulse 99 86 Oximetry 11/12/18 11/12/18 11/12/18 05:41 05:51 06:00 Temperature Pulse Rate 113 H 109 H 112 H Pulse Rate [ From Monitor] Pulse Rate [ Right Radial] Respiratory 15 18 15 Rate Blood Pressure 157/66 157/66 147/78 O2 Sat by Pulse Oximetry 11/12/18 11/12/18 11/12/18 06:11 06:21 06:30 Temperature Pulse Rate 106 H 110 H 109 H Pulse Rate [ From Monitor] Pulse Rate [ Right Radial] Respiratory 20 18 26 H Rate Blood Pressure 147/78 147/78 145/72 O2 Sat by Pulse 100 100 98 Oximetry 11/12/18 11/12/18 11/12/18 06:41 06:51 07:00 Temperature Pulse Rate 108 H 104 H 107 H Pulse Rate [ From Monitor] Pulse Rate [ Right Radial] Respiratory 17 19 14 Rate Blood Pressure 145/72 145/72 141/72 O2 Sat by Pulse 100 Oximetry 11/12/18 11/12/18 11/12/18 07:11 07:21 07:30 Temperature Pulse Rate 107 H 111 H 107 H Pulse Rate [ From Monitor] Pulse Rate [ Right Radial] Respiratory 18 25 H 25 H Rate Blood Pressure 141/72 141/72 152/75 O2 Sat by Pulse 97 96 Oximetry 11/12/18 11/12/18 11/12/18 07:41 07:51 08:00 Temperature Pulse Rate 109 H 110 H 110 H Pulse Rate [ From Monitor] Pulse Rate [ Right Radial] Respiratory 19 25 H 14 Rate Blood Pressure 152/75 152/75 155/75 O2 Sat by Pulse 100 95 94 Oximetry 11/12/18 11/12/18 11/12/18 08:11 08:21 08:31 Temperature Pulse Rate 108 H 107 H 107 H Pulse Rate [ From Monitor] Pulse Rate [ Right Radial] Respiratory 14 17 16 Rate Blood Pressure 155/75 155/75 164/75 O2 Sat by Pulse 92 100 98 Oximetry 11/12/18 11/12/18 11/12/18 08:41 08:51 09:01 Temperature Pulse Rate 109 H 104 H 107 H Pulse Rate [ From Monitor] Pulse Rate [ Right Radial] Respiratory 17 21 16 Rate Blood Pressure 164/75 164/75 158/77 O2 Sat by Pulse 96 99 97 Oximetry 11/12/18 09:11 Temperature Pulse Rate 105 H Pulse Rate [ From Monitor] Pulse Rate [ Right Radial] Respiratory 13 Rate Blood Pressure 164/75 O2 Sat by Pulse Oximetry General appearance: Present: no acute distress, well-nourished, obese, disheveled - EENT ENT: hearing intact - Neck Neck: supple, normal ROM - Respiratory Respiratory effort: normal Respiratory: bilateral: CTA - Breasts Breasts: deferred - Cardiovascular Rhythm: regular Heart Sounds: Present: S1 & S2 Extremities: No edema - Gastrointestinal General gastrointestinal: Present: soft, non-tender Rectal Exam: deferred - Genitourinary Female genitourinary: deferred - Integumentary Integumentary: rash (maculopapular rash nonblanching) - Musculoskeletal Musculoskeletal: strength equal bilaterally - Neurologic Neurologic: other (unable to assess as patient will not follow commands) - Labs CBC & Chem 7: 11/12/18 04:45 11/12/18 04:45 Labs: Abnormal lab results 11/11/18 11/11/18 11/11/18 Range/Units 07:29 12:42 15:25 RBC (3.65-5.03) M/mm3 Hgb (10.1-14.3) gm/dl Hct (30.3-42.9) % RDW (13.2-15.2) % Plt Count (140-440) K/mm3 [place] % (Auto) (0.0-7.3) % Lymph # (1.2-5.4) K/mm3 Seg Neutrophils % (40.0-70.0) % Potassium (3.6-5.0) mmol/L BUN (7-17) mg/dL Creatinine (0.7-1.2) mg/dL Glucose (65-100) mg/dL POC Glucose 211 H 186 H (70-105) Calcium (8.4-10.2) mg/dL Crossmatch See Detail 11/11/18 11/11/18 11/11/18 Range/Units 17:18 19:55 21:31 RBC (3.65-5.03) M/mm3 Hgb 8.6 L (10.1-14.3) gm/dl Hct 25.8 L D (30.3-42.9) % RDW (13.2-15.2) % Plt Count (140-440) K/mm3 [place] % (Auto) (0.0-7.3) % Lymph # (1.2-5.4) K/mm3 Seg Neutrophils % (40.0-70.0) % Potassium (3.6-5.0) mmol/L BUN (7-17) mg/dL Creatinine (0.7-1.2) mg/dL Glucose (65-100) mg/dL POC Glucose 199 H 169 H (70-105) Calcium (8.4-10.2) mg/dL Crossmatch 11/12/18 11/12/18 Range/Units 04:45 04:45 RBC 3.01 L (3.65-5.03) M/mm3 Hgb 8.5 L (10.1-14.3) gm/dl Hct 25.4 L (30.3-42.9) % RDW 15.7 H (13.2-15.2) % Plt Count 55 L (140-440) K/mm3 [place] % (Auto) 7.4 H (0.0-7.3) % Lymph # 0.9 L (1.2-5.4) K/mm3 Seg Neutrophils % 74.1 H (40.0-70.0) % Potassium 3.5 L (3.6-5.0) mmol/L BUN 32 H (7-17) mg/dL Creatinine 4.4 H (0.7-1.2) mg/dL Glucose 161 H (65-100) mg/dL POC Glucose (70-105) Calcium 6.6 L (8.4-10.2) mg/dL Crossmatch Medications & Allergies - Medications Allergies/Adverse Reactions: Allergies No Known Allergies Allergy (Verified 04/15/14 15:50) Home Medications: Home Medications Medication Instructions Recorded Confirmed Last Taken Type Docusate Sodium [Colace] 100 mg PO BID PRN #30 capsule 04/15/14 12/05/14 Unknown Rx HYDROcodone/APAP 5-325 [[place] 1 each PO Q6HR PRN #20 tablet 04/15/14 12/05/14 Unknown Rx 5/325] Polyethylene Glycol 3350 [Miralax] 17 gm PO DAILY PRN #1 bottle 04/15/14 12/05/14 Unknown Rx HYDROcodone/APAP 5-325 [[place] 1 - 2 each PO Q6HR PRN #14 tablet 12/05/14 Unknown Rx 5/325] Atorvastatin [Lipitor Tab] 20 mg PO QHS 11/11/18 11/11/18 Unknown History Gabapentin [Neurontin] 300 mg PO TID PRN 11/11/18 11/11/18 Unknown History Nystatin [Nystatin SUSP] 5 ml PO QID 11/11/18 11/11/18 Unknown History Pantoprazole [Protonix] 40 mg PO QDAY 11/11/18 11/11/18 Unknown History Promethazine [Phenergan] 25 mg PO Q6HR PRN 11/11/18 11/11/18 Unknown History Sodium Bicarbonate 325 mg PO BID 11/11/18 11/11/18 Unknown History amLODIPine 10 mg PO DAILY 11/11/18 11/11/18 Unknown History Active Medications: Generic Name Dose Route Start Last Admin Trade Name Freq PRN Reason Stop Dose Admin Acetaminophen 650 mg 11/09/18 19:38 11/10/18 15:17 Tylenol PO 650 mg Q4H PRN Administration Pain MILD(1-3)/Fever >100.5/FLORES Acetaminophen 650 mg 11/11/18 00:04 11/11/18 17:29 Tylenol [place] 650 mg Q4H PRN Administration Fever >101; Mild Pain (1-3) Atorvastatin Calcium 40 mg 11/10/18 22:00 11/11/18 22:53 Lipitor PO Not Given QHS PRIYA Docusate Sodium 100 mg 11/09/18 19:32 Colace PO BID PRN Constipation Epoetin Adonis 10,000 unit 11/11/18 08:00 Procrit SUB-Q CONSTANTINO PRIYA Hydromorphone HCl 0.25 mg 11/09/18 19:38 11/12/18 03:04 Dilaudid IV 0.25 mg Q3H PRN Administration Pain, Moderate (4-6) Cefepime HCl 1 gm in 100 mls @ 200 mls/hr 11/10/18 18:00 11/11/18 17:26 Maxipime/Ns 1 Gm/100 Ml IV 200 mls/hr QPM PRIYA Administration Protocol Doxycycline Hyclate 100 mg/ 250 mls @ 250 mls/hr 11/10/18 16:00 11/11/18 22:52 Sodium Chloride IV 250 mls/hr Q12HR PRIYA Administration Protocol Sodium Chloride 100 mls @ 999 mls/hr 11/11/18 11:09 Nacl 0.9% IV CONSTANTINO PRN Hypotension Insulin Human Lispro 0 unit 11/11/18 15:00 11/12/18 06:21 Humalog SUB-Q Not Given Q6HR [facility] Protocol Ondansetron HCl 4 mg 11/09/18 19:38 11/10/18 22:43 Zofran IV 4 mg Q8H PRN Administration Nausea And Vomiting Polyethylene Glycol 17 gm 11/09/18 19:38 Miralax 3350 PO QDAY PRN Constipation Sodium Chloride 10 ml 11/09/18 22:00 11/11/18 22:54 Sodium Chloride Flush Syringe 10 Ml IV 10 ml BID PRIYA Administration Sodium Chloride 10 ml 11/09/18 19:38 Sodium Chloride Flush Syringe 10 Ml IV PRN PRN LINE FLUSH
[2018-11-12] MEDS: DOXYCYCLINE HYCLATE 100 MG in NACL 0.9% 250ML 250 ML IV SCH ×2 (09:55→22:24)
[2018-11-12] MEDS: SODIUM CHLORIDE FLUSH SYRINGE 10 ML IV SCH ×2 (09:58→22:32)
--- NOTE | 2018-11-12 10:57 | XRay Report ---
KUB: 11/12/18 10:12 CLINICAL: Feeding tube placement. FINDINGS: A feeding tube has been placed since the 11/09/18 exam. The tube is curled in the stomach with the tip directed toward the EG junction. Status post cholecystectomy and extensive pancreatic calcifications. Normal gas pattern. IMPRESSION: Satisfactory placement of the feeding tube in the stomach. I would expect the tube tip to advance to more distal position without further manipulation.
--- NOTE | 2018-11-12 11:37 | Progress Note ---
Assessment and Plan Outside records reviewed. Cultures: 11/09/2018 blood culture: no growth thus far 11/10/2018 blood culture: no growth thus far 11/10/2018 Fungal blood culture: in progress 11/10/2018 urine culture: no growth Ferritin: >2000. A/P: 1) Sepsis / FUO: unclear etiology. Going on for the last 1 month with extensive infectious work up negative thus far at [place]. No evidence of infection on CT chest, abdomen pelvis. HIV negative. TTE negative for vegetations. Blood cultures at [place] were negative. Fevers have been quite high. No significant eosinophilia. Per records at [place], ANCA screen negative. Procalcitonin was moderately elevated: but difficult to interpret in the setting of renal failure. Leucocytosis at [place] was mainly neutrophilic. Apparently as per the ID consult at [facility] her fevers were attributed to a possible drug reaction secondary to calcitriol or tartrazine. ESR elevated at 124, CRP also elevated at 19.60. GRACE negative, RF <15. Here, she has no leucocytosis. Ferritin is high. Rash + for about a month. 2) CKD4 / now ARF/ESRD: requiring dialysis. Nephrology following. 3) DM-2: insulin requiring. 4) Anemia, thrombocytopenia: worsening. Awaiting hematology consult. Recs: - Awaiting hematology consult. Given high ferritin, HLH and Adult Still's Disease are a possibility. Question of TTP was also raised, f/u [id number]. ?may need a bone marrow biopsy - continue empirically with IV Cefepime, Vancomycin renally adjusted and therapeutic Doxycycline trial - f/u serologies for tick borne illnesses - monitor fever Dr. Robert glynn tomorrow. MD [facility] C: [phone] O: [phone] F: [phone] Subjective Date of service: 11/12/18 Principal diagnosis: ESRD Interval history: Still febrile. confused. got transfusions for anemia. Sister at bedside. Objective - Exam Narrative Exam: Physical Exam: Constitutional: drowsy but can be awakened Head, Ears, Nose: Normocephalic, atraumatic. External ears, nose normal Eyes: Conjunctivae/corneas clear. No icterus. No ptosis. Neck: Supple, no meningeal signs Oral: no thrush or ulcers Cardiovascular: S1, S2 normal. Respiratory: Good air entry, clear to auscultation bilaterally GI: Soft, non-tender; bowel sounds normal. No peritoneal signs Musculoskeletal: No pedal edema, no cyanosis. Skin: faint maculopapular rash Hem/Lymphatic: No palpable cervical or supraclavicular nodes. No lymphangitis Psych: no agitation Neurological: drowsy but can be awakened - Constitutional Vitals: Vital Signs Temp Pulse Resp BP Pulse Ox 101.5 F H 105 H 13 164/75 97 11/12/18 04:00 11/12/18 09:11 11/12/18 09:11 11/12/18 09:11 11/12/18 09:01 Temperature -Last 24 Hours Temperature 101.5 F Temperature 102 F Temperature 98.3 F Temperature 102.3 F Temperature 100.7 F Temperature 100.4 F Temperature 100.4 F Temperature 100.5 F Temperature 101.3 F Temperature 101.2 F Temperature 101.2 F Temperature 100.7 F - Labs CBC & Chem 7: 11/12/18 04:45 11/12/18 04:45 Labs: Abnormal lab results 11/11/18 11/11/18 11/11/18 Range/Units 07:29 12:42 15:25 RBC (3.65-5.03) M/mm3 Hgb (10.1-14.3) gm/dl Hct (30.3-42.9) % RDW (13.2-15.2) % Plt Count (140-440) K/mm3 [place] % (Auto) (0.0-7.3) % Lymph # (1.2-5.4) K/mm3 Seg Neutrophils % (40.0-70.0) % Potassium (3.6-5.0) mmol/L BUN (7-17) mg/dL Creatinine (0.7-1.2) mg/dL Glucose (65-100) mg/dL POC Glucose 211 H 186 H (70-105) Calcium (8.4-10.2) mg/dL Crossmatch See Detail 11/11/18 11/11/18 11/11/18 Range/Units 17:18 19:55 21:31 RBC (3.65-5.03) M/mm3 Hgb 8.6 L (10.1-14.3) gm/dl Hct 25.8 L D (30.3-42.9) % RDW (13.2-15.2) % Plt Count (140-440) K/mm3 [place] % (Auto) (0.0-7.3) % Lymph # (1.2-5.4) K/mm3 Seg Neutrophils % (40.0-70.0) % Potassium (3.6-5.0) mmol/L BUN (7-17) mg/dL Creatinine (0.7-1.2) mg/dL Glucose (65-100) mg/dL POC Glucose 199 H 169 H (70-105) Calcium (8.4-10.2) mg/dL Crossmatch 11/12/18 11/12/18 11/12/18 Range/Units 04:45 04:45 09:34 RBC 3.01 L (3.65-5.03) M/mm3 Hgb 8.5 L (10.1-14.3) gm/dl Hct 25.4 L (30.3-42.9) % RDW 15.7 H (13.2-15.2) % Plt Count 55 L (140-440) K/mm3 [place] % (Auto) 7.4 H (0.0-7.3) % Lymph # 0.9 L (1.2-5.4) K/mm3 Seg Neutrophils % 74.1 H (40.0-70.0) % Potassium 3.5 L (3.6-5.0) mmol/L BUN 32 H (7-17) mg/dL Creatinine 4.4 H (0.7-1.2) mg/dL Glucose 161 H (65-100) mg/dL POC Glucose 161 H (70-105) Calcium 6.6 L (8.4-10.2) mg/dL Crossmatch
--- NOTE | 2018-11-12 13:11 | Progress Note ---
Assessment and Plan Assessment and plan: Patient was admitted to [facility], extensive workup was done, was evaluated by neurology, ID, rheumatology and nephrology Metabolic encephalopathy, likely due to uremia -Nephrology consulted, Vas-Cath is doing and will get dialysis Upper extremity numbness - Patient is chronic symptoms that - She was previously worked up for CVA and was negative - Neurology consult appreciated Sepsis; fever of unknown origin; and has fever of 103 - Patient is placed on IV vancomycin cefepime and doxycycline - Patient is still febrile at cardiac - ID consult appreciated ?Still disease - Patient has fever, rash and high ferritin level TTP - Thrombocytopenia, fever, confusion and anemia - Hematology is consulted ESRD on HD - Nephrology is following - Will have hemodialysis Severe Anemia - Hemoglobin was 5.9 and was transfused 2 units of blood and post transfusion Hgb is 8 Thrombocytopenia - Due to subjective DVT prophylaxis - SCDs because of severe thrombocytopenia Disposition -Transferred to MICU The high probability of a clinically significant, sudden or life threatening deterioration of the [renal, neurology, hematology] system(s) required my full and direct attention, intervention and personal management. The aggregate critical care time was [32] minutes. This time is in addition to time spent performing reported procedures but includes the following: [x] Data Review and interpretation [x] Patient assessment and monitoring of vital signs [x] Documentation [x] Medication orders and management History Interval history: Patient was seen and evaluated this morning, patient was confused, persistently tachycardic and febrile. Hospitalist Physical - Physical exam Narrative exam: Not in cardiopulmonary distress. The patient appeared well nourished and normally developed. Vital signs as documented. Head exam is unremarkable. No scleral icterus . Neck is without jugular venous distension, thyromegaly, or carotid bruits. Lungs are clear to auscultation. Cardiac exam reveals regular rate and Rhythm. Abdominal exam reveals normal bowel sounds. Extremities are nonedematous. PROJECT INTERN: Confused. - Constitutional Vitals: Temp Pulse Resp BP Pulse Ox 101.5 F H 97 H 20 140/73 100 11/12/18 04:00 11/12/18 13:00 11/12/18 13:00 11/12/18 13:00 11/12/18 13:00 General appearance: Present: no acute distress, well-nourished, obese, dish eveled Results - Labs CBC & Chem 7: 11/12/18 04:45 11/12/18 04:45 Labs: Laboratory Last Values WBC 5.8 K/mm3 (4.5-11.0) 11/12/18 04:45 RBC 3.01 M/mm3 (3.65-5.03) L 11/12/18 04:45 Hgb 8.5 gm/dl (10.1-14.3) L 11/12/18 04:45 Hct 25.4 % (30.3-42.9) L 11/12/18 04:45 MCV 85 fl (79-97) 11/12/18 04:45 MCH 28 pg (28-32) 11/12/18 04:45 MCHC 33 % (30-34) 11/12/18 04:45 RDW 15.7 % (13.2-15.2) H 11/12/18 04:45 Plt Count 55 K/mm3 (140-440) L 11/12/18 04:45 Lymph % (Auto) 15.9 % (13.4-35.0) 11/12/18 04:45 [place] % (Auto) 7.4 % (0.0-7.3) H 11/12/18 04:45 Eos % (Auto) 2.1 % (0.0-4.3) 11/12/18 04:45 Baso % (Auto) 0.5 % (0.0-1.8) 11/12/18 04:45 Lymph # 0.9 K/mm3 (1.2-5.4) L 11/12/18 04:45 [place] # 0.4 K/mm3 (0.0-0.8) 11/12/18 04:45 Eos # 0.1 K/mm3 (0.0-0.4) 11/12/18 04:45 Baso # 0.0 K/mm3 (0.0-0.1) 11/12/18 04:45 Add Manual Diff Complete 11/11/18 04:31 Total Counted 100 11/11/18 04:31 Seg Neutrophils % 74.1 % (40.0-70.0) H 11/12/18 04:45 Seg Neuts % (Manual) 80.0 % (40.0-70.0) H 11/11/18 04:31 9.0 % 11/11/18 04:31 7.0 % (13.4-35.0) L 11/11/18 04:31 Reactive Lymphs % (Man) 0 % 11/11/18 04:31 2.0 % (0.0-7.3) 11/11/18 04:31 1.0 % (0.0-4.3) 11/11/18 04:31 0 % (0.0-1.8) 11/11/18 04:31 1.0 % 11/11/18 04:31 0 % 11/11/18 04:31 0 % 11/11/18 04:31 0 % 11/11/18 04:31 Nucleated RBC % Not Reportable 11/11/18 04:31 Seg Neutrophils # 4.3 K/mm3 (1.8-7.7) 11/12/18 04:45 Seg Neutrophils # Man 4.4 K/mm3 (1.8-7.7) 11/11/18 04:31 Band Neutrophils # 0.5 K/mm3 11/11/18 04:31 0.4 K/mm3 (1.2-5.4) L 11/11/18 04:31 Abs React Lymphs (Man) 0.0 K/mm3 11/11/18 04:31 0.1 K/mm3 (0.0-0.8) 11/11/18 04:31 0.1 K/mm3 (0.0-0.4) 11/11/18 04:31 0.0 K/mm3 (0.0-0.1) 11/11/18 04:31 0.1 K/mm3 11/11/18 04:31 0.0 K/mm3 11/11/18 04:31 0.0 K/mm3 11/11/18 04:31 Blast Cells # 0.0 K/mm3 11/11/18 04:31 WBC Morphology Not Reportable 11/11/18 04:31 Hypersegmented Neuts Not Reportable 11/11/18 04:31 Hyposegmented Neuts Not Reportable 11/11/18 04:31 Hypogranular Neuts Not Reportable 11/11/18 04:31 Not Reportable 11/11/18 04:31 Not Reportable 11/11/18 04:31 Not Reportable 11/11/18 04:31 Not Reportable 11/11/18 04:31 Not Reportable 11/11/18 04:31 Not Reportable 11/11/18 04:31 Consistent w auto 11/11/18 04:31 Not Reportable 11/11/18 04:31 Plt Clumps, EDTA Not Reportable 11/11/18 04:31 Not Reportable 11/11/18 04:31 Not Reportable 11/11/18 04:31 Not Reportable 11/11/18 04:31 Plt Morphology Comment Not Reportable 11/11/18 04:31 RBC Morphology Not Reportable 11/11/18 04:31 Dimorphic RBCs Not Reportable 11/11/18 04:31 Not Reportable 11/11/18 04:31 Not Reportable 11/11/18 04:31 Not Reportable 11/11/18 04:31 1+ 11/11/18 04:31 Not Reportable 11/11/18 04:31 Not Reportable 11/11/18 04:31 Not Reportable 11/11/18 04:31 Not Reportable 11/11/18 04:31 Not Reportable 11/11/18 04:31 Not Reportable 11/11/18 04:31 Not Reportable 11/11/18 04:31 Not Reportable 11/11/18 04:31 Not Reportable 11/11/18 04:31 Not Reportable 11/11/18 04:31 Not Reportable 11/11/18 04:31 Not Reportable 11/11/18 04:31 Not Reportable 11/11/18 04:31 Not Reportable 11/11/18 04:31 Not Reportable 11/11/18 04:31 Acanthocytes (Spur) Not Reportable 11/11/18 04:31 Rouleaux Not Reportable 11/11/18 04:31 Not Reportable 11/11/18 04:31 Not Reportable 11/11/18 04:31 Not Reportable 11/11/18 04:31 Not Reportable 11/11/18 04:31 Hem Pathologist Commnt No 11/11/18 04:31 PT 14.8 Sec. (12.2-14.9) 11/09/18 16:16 INR 1.09 (0.87-1.13) 11/09/18 16:16 APTT 44.5 Sec. (24.2-36.6) H 11/09/18 16:16 21.3 Sec. (15.1-19.6) H 11/09/18 16:16 Sodium 141 mmol/L (137-145) 11/12/18 04:45 Potassium 3.5 mmol/L (3.6-5.0) L 11/12/18 04:45 Chloride 101.6 mmol/L (98-107) 11/12/18 04:45 Carbon Dioxide 22 mmol/L (22-30) 11/12/18 04:45 21 mmol/L 11/12/18 04:45 BUN 32 mg/dL (7-17) H 11/12/18 04:45 4.4 mg/dL (0.7-1.2) H 11/12/18 04:45 Estimated GFR 12 ml/min 11/12/18 04:45 7 % 11/12/18 04:45 Glucose 161 mg/dL (65-100) H 11/12/18 04:45 POC Glucose 183 (70-105) H 11/12/18 12:47 6.9 % (4-6) H 11/09/18 22:00 Lactic Acid 0.80 mmol/L (0.7-2.0) 11/10/18 08:10 Calcium 6.6 mg/dL (8.4-10.2) L 11/12/18 04:45 Iron 36 ug/dL (37-170) L 11/09/18 16:16 TIBC 169 mcg/dL (250-450) L 11/09/18 16:16 % Saturation 21.30 % 11/09/18 16:16 128 mg/dl (192-382) L 11/09/18 16:16 > 2000.0 ng/mL (13.0-400.0) H 11/10/18 17:17 0.30 mg/dL (0.1-1.2) 11/09/18 16:16 AST 68 units/L (5-40) H 11/09/18 16:16 ALT 14 units/L (7-56) 11/09/18 16:16 102 units/L (35-129) 11/09/18 16:16 19.0 umol/L (25-60) L 11/09/18 16:16 93 units/L (30-135) 11/09/18 16:16 CK-MB (CK-2) < 1.0 ng/mL (0.0-4.0) 11/09/18 16:16 CK-MB (CK-2) Rel Index 1.0 (0-4) 11/09/18 16:16 0.017 ng/mL (0.00-0.029) 11/09/18 16:16 7.6 g/dL (6.3-8.2) 11/09/18 16:16 2.6 g/dL (3.9-5) L 11/09/18 16:16 0.5 % 11/09/18 16:16 Triglycerides 298 mg/dL (2-149) H 11/10/18 08:05 Cholesterol 84 mg/dL (50-199) 11/10/18 08:05 7 mg/dL (50-130) L 11/10/18 08:05 8 mg/dL (40-59) L 11/10/18 08:05 10.50 % 11/10/18 08:05 13 units/L (13-60) 11/09/18 16:16 Yellow (Yellow) 11/10/18 01:08 Cloudy (Clear) 11/10/18 01:08 5.0 (5.0-7.0) 11/10/18 01:08 Ur Specific [place] 1.016 (1.003-1.030) 11/10/18 01:08 >500 mg/dL (Negative) 11/10/18 01:08 Neg mg/dL (Negative) 11/10/18 01:08 Neg mg/dL (Negative) 11/10/18 01:08 Sm (Negative) 11/10/18 01:08 Neg (Negative) 11/10/18 01:08 Ur Reducing Substances Not Reportable 11/10/18 01:08 Neg (Negative) 11/10/18 01:08 Not Reportable 11/10/18 01:08 < 2.0 mg/dL (<2.0) 11/10/18 01:08 Ur Leukocyte Esterase Neg (Negative) 11/10/18 01:08 7.0 /HPF (0.0-6.0) H 11/10/18 01:08 6.0 /HPF (0.0-6.0) 11/10/18 01:08 U Epithel Cells (Auto) 1.0 /HPF (0-13.0) 11/10/18 01:08 1+ /HPF (Negative) 11/10/18 01:08 2+ /HPF 11/10/18 01:08 Hyaline Casts 1 /LPF 11/10/18 01:08 3+ /HPF 11/10/18 01:08 Random Vancomycin 12.3 ug/mL (0-40.0) 11/12/18 04:45 Presumptive negative 11/10/18 01:08 Presumptive negative 11/10/18 01:08 Ur Barbiturates Screen Presumptive negative 11/10/18 01:08 Ur Phencyclidine Scrn Presumptive negative 11/10/18 01:08 Ur Amphetamines Screen Presumptive negative 11/10/18 01:08 U Benzodiazepines Scrn Presumptive negative 11/10/18 01:08 Presumptive negative 11/10/18 01:08 U Marijuana (THC) Screen Presumptive negative 11/10/18 01:08 Disclamer 11/10/18 01:08 Plasma/Serum Alcohol < 0.01 % (0-0.07) 11/09/18 16:16 Blood Type A POSITIVE 11/11/18 07:29 Antibody Screen TNR 11/11/18 07:29 QUIANA Antibody Screen Negative 11/11/18 07:29 Crossmatch See Detail 11/11/18 07:29 Active Medications - Current Medications Current Medications: Generic Name Dose Route Start Last Admin Trade Name Freq PRN Reason Stop Dose Admin Acetaminophen 650 mg 11/09/18 19:38 11/10/18 15:17 Tylenol PO 650 mg Q4H PRN Administration Pain MILD(1-3)/Fever >100.5/FLORES Acetaminophen 650 mg 11/11/18 00:04 11/11/18 17:[address] 650 mg Q4H PRN Administration Fever >101; Mild Pain (1-3) Atorvastatin Calcium 40 mg 11/10/18 22:00 11/11/18 22:53 Lipitor PO Not Given QHS PRIYA Docusate Sodium 100 mg 11/09/18 19:32 Colace PO BID PRN Constipation Epoetin Adonis 10,000 unit 11/11/18 08:00 Procrit SUB-Q CONSTANTINO PRIYA Hydromorphone HCl 0.25 mg 11/09/18 19:38 11/12/18 03:04 Dilaudid IV 0.25 mg Q3H PRN Administration Pain, Moderate (4-6) Cefepime HCl 1 gm in 100 mls @ 200 mls/hr 11/10/18 18:00 11/11/18 17:26 Maxipime/Ns 1 Gm/100 Ml IV 200 mls/hr QPM PRIYA Administration Protocol Doxycycline Hyclate 100 mg/ 250 mls @ 250 mls/hr 11/10/18 16:00 11/12/18 09:55 Sodium Chloride IV 250 mls/hr Q12HR PRIYA Administration Protocol Sodium Chloride 100 mls @ 999 mls/hr 11/11/18 11:09 Nacl 0.9% IV CONSTANTINO PRN Hypotension Insulin Human Lispro 0 unit 11/11/18 15:00 11/12/18 13:05 Humalog SUB-Q 2 unit Q6HR PRIYA Administration Protocol Ondansetron HCl 4 mg 11/09/18 19:38 11/10/18 22:43 Zofran IV 4 mg Q8H PRN Administration Nausea And Vomiting Polyethylene Glycol 17 gm 11/09/18 19:38 Miralax 3350 PO QDAY PRN Constipation Sodium Chloride 10 ml 11/09/18 22:00 11/12/18 09:58 Sodium Chloride Flush Syringe 10 Ml IV 10 ml BID PRIYA Administration Sodium Chloride 10 ml 11/09/18 19:38 Sodium Chloride Flush Syringe 10 Ml IV PRN PRN LINE FLUSH
--- NOTE | 2018-11-12 14:53 | Progress Note ---
Assessment and Plan - Patient Problems (1) Hyperkalemia Current Visit: Yes Status: Acute Plan to address problem: secondary to advanced CKD, corrected with HD. cont 2gk renal diet. (2) ESRD (end stage renal disease) Current Visit: Yes Status: Acute Plan to address problem: progressive renal failure secondary to diabetic nephropathy/hypertensive nephrosclerosis, now with uremic complications, electrolyte imblanace and worsening acidosis. initiated on HD on 11/10/18, cont HD on TTS schedule. Case management to guide with outpatient HD placement. Further management depending on clinical course of the patient. (3) Type 2 diabetes mellitus with diabetic chronic kidney disease Current Visit: Yes Status: Chronic Qualifiers: Chronic kidney disease stage: stage 5, not on chronic dialysis Plan to address problem: glucose control as per primary attending (4) Hypertensive chronic kidney disease with stage 1 through stage 4 chronic kidney disease, or unspecified chronic kidney disease Current Visit: Yes Status: Acute Plan to address problem: monitor BP on pt's home BP regimen. Will adjust UF as indicated for further volume/BP control (5) Anemia in chronic illness Current Visit: Yes Status: Acute Plan to address problem: s/p 2PRBC transfusion Hb improved to 8.5, started EPO with HD for anemia of CKD (6) SIRS (systemic inflammatory response syndrome) Current Visit: Yes Status: Acute Plan to address problem: follow BCx/UCx, on empiric ABXs with vanco and zosyn. still dz/TTP on differential, follow ID recommendations. (7) Thrombocytopenia Current Visit: Yes Status: Acute Plan to address problem: likely secondary to sepsis. to rule out HUS/TTP, [id number] pending. Subjective Date of service: 11/12/18 Principal diagnosis: ESRD Interval history: pt seen and examined in the CCU, pt remains lethargic, confused, disoriented. in no acute respiratory distress. Objective - Vital Signs Vital signs: Vital Signs - 12hr 11/12/18 11/12/18 11/12/18 03:01 03:11 03:20 Temperature Pulse Rate 110 H 110 H 110 H Pulse Rate [ Apical] Pulse Rate [ From Monitor] Pulse Rate [ Right Radial] Respiratory 24 20 19 Rate Blood Pressure 136/101 136/101 136/101 O2 Sat by Pulse 92 98 99 Oximetry 11/12/18 11/12/18 11/12/18 03:35 03:41 03:51 Temperature Pulse Rate 116 H 114 H 117 H Pulse Rate [ Apical] Pulse Rate [ From Monitor] Pulse Rate [ Right Radial] Respiratory 16 26 H 22 Rate Blood Pressure 136/101 136/101 148/76 O2 Sat by Pulse 98 100 96 Oximetry 11/12/18 11/12/18 11/12/18 04:00 04:11 04:21 Temperature 101.5 F H Pulse Rate 118 H 117 H 113 H Pulse Rate [ Apical] Pulse Rate [ 112 H From Monitor] Pulse Rate [ 112 H Right Radial] Respiratory 17 16 19 Rate Blood Pressure 140/81 140/81 140/81 O2 Sat by Pulse 95 90 99 Oximetry 11/12/18 11/12/18 11/12/18 04:30 04:41 04:51 Temperature Pulse Rate 113 H 114 H 110 H Pulse Rate [ Apical] Pulse Rate [ From Monitor] Pulse Rate [ Right Radial] Respiratory 15 18 15 Rate Blood Pressure 162/78 162/78 162/78 O2 Sat by Pulse 100 90 Oximetry 11/12/18 11/12/18 11/12/18 05:00 05:11 05:21 Temperature Pulse Rate 114 H 108 H 114 H Pulse Rate [ Apical] Pulse Rate [ From Monitor] Pulse Rate [ Right Radial] Respiratory 20 20 21 Rate Blood Pressure 153/72 153/72 153/72 O2 Sat by Pulse 100 99 86 Oximetry 11/12/18 11/12/18 11/12/18 05:30 05:41 05:51 Temperature Pulse Rate 116 H 113 H 109 H Pulse Rate [ Apical] Pulse Rate [ From Monitor] Pulse Rate [ Right Radial] Respiratory 22 15 18 Rate Blood Pressure 157/66 157/66 157/66 O2 Sat by Pulse Oximetry 11/12/18 11/12/18 11/12/18 06:00 06:11 06:21 Temperature Pulse Rate 112 H 106 H 110 H Pulse Rate [ Apical] Pulse Rate [ From Monitor] Pulse Rate [ Right Radial] Respiratory 15 20 18 Rate Blood Pressure 147/78 147/78 147/78 O2 Sat by Pulse 100 100 Oximetry 11/12/18 11/12/18 11/12/18 06:30 06:41 06:51 Temperature Pulse Rate 109 H 108 H 104 H Pulse Rate [ Apical] Pulse Rate [ From Monitor] Pulse Rate [ Right Radial] Respiratory 26 H 17 19 Rate Blood Pressure 145/72 145/72 145/72 O2 Sat by Pulse 98 100 Oximetry 11/12/18 11/12/18 11/12/18 07:00 07:11 07:21 Temperature Pulse Rate 107 H 107 H 111 H Pulse Rate [ Apical] Pulse Rate [ From Monitor] Pulse Rate [ Right Radial] Respiratory 14 18 25 H Rate Blood Pressure 141/72 141/72 141/72 O2 Sat by Pulse 97 Oximetry 11/12/18 11/12/18 11/12/18 07:30 07:41 07:51 Temperature Pulse Rate 107 H 109 H 110 H Pulse Rate [ Apical] Pulse Rate [ From Monitor] Pulse Rate [ Right Radial] Respiratory 25 H 19 25 H Rate Blood Pressure 152/75 152/75 152/75 O2 Sat by Pulse 96 100 95 Oximetry 11/12/18 11/12/18 11/12/18 08:00 08:11 08:21 Temperature Pulse Rate 110 H 108 H 107 H Pulse Rate [ 110 H Apical] Pulse Rate [ 110 H From Monitor] Pulse Rate [ Right Radial] Respiratory 14 14 17 Rate Blood Pressure 155/75 155/75 155/75 O2 Sat by Pulse 100 92 100 Oximetry 11/12/18 11/12/18 11/12/18 08:31 08:41 08:51 Temperature Pulse Rate 107 H 109 H 104 H Pulse Rate [ Apical] Pulse Rate [ From Monitor] Pulse Rate [ Right Radial] Respiratory 16 17 21 Rate Blood Pressure 164/75 164/75 164/75 O2 Sat by Pulse 98 96 99 Oximetry 11/12/18 11/12/18 11/12/18 09:01 09:11 09:21 Temperature Pulse Rate 107 H 105 H 107 H Pulse Rate [ Apical] Pulse Rate [ From Monitor] Pulse Rate [ Right Radial] Respiratory 16 13 22 Rate Blood Pressure 158/77 164/75 164/75 O2 Sat by Pulse 97 100 Oximetry 11/12/18 11/12/18 11/12/18 09:31 09:41 09:51 Temperature Pulse Rate 106 H 108 H 108 H Pulse Rate [ Apical] Pulse Rate [ From Monitor] Pulse Rate [ Right Radial] Respiratory 19 19 25 H Rate Blood Pressure 154/76 158/77 158/77 O2 Sat by Pulse 96 100 98 Oximetry 11/12/18 11/12/18 11/12/18 10:00 10:01 10:11 Temperature Pulse Rate 102 H 105 H 105 H Pulse Rate [ Apical] Pulse Rate [ From Monitor] Pulse Rate [ Right Radial] Respiratory 24 22 Rate Blood Pressure 158/77 154/76 O2 Sat by Pulse 98 Oximetry 11/12/18 11/12/18 11/12/18 10:21 10:30 10:41 Temperature Pulse Rate 105 H 106 H 107 H Pulse Rate [ Apical] Pulse Rate [ From Monitor] Pulse Rate [ Right Radial] Respiratory 20 19 25 H Rate Blood Pressure 154/76 152/83 152/83 O2 Sat by Pulse 80 L Oximetry 11/12/18 11/12/18 11/12/18 10:51 11:01 11:11 Temperature Pulse Rate 105 H 105 H 105 H Pulse Rate [ Apical] Pulse Rate [ From Monitor] Pulse Rate [ Right Radial] Respiratory 25 H 21 25 H Rate Blood Pressure 152/83 149/76 149/76 O2 Sat by Pulse 95 99 100 Oximetry 11/12/18 11/12/18 11/12/18 11:21 11:31 11:41 Temperature Pulse Rate 106 H 105 H 107 H Pulse Rate [ Apical] Pulse Rate [ From Monitor] Pulse Rate [ Right Radial] Respiratory 19 20 20 Rate Blood Pressure 149/76 155/77 155/77 O2 Sat by Pulse 100 100 97 Oximetry 11/12/18 11/12/18 11/12/18 11:51 12:00 12:01 Temperature Pulse Rate 105 H 103 H Pulse Rate [ 96 H Apical] Pulse Rate [ 96 H From Monitor] Pulse Rate [ Right Radial] Respiratory 18 14 20 Rate Blood Pressure 155/77 157/70 O2 Sat by Pulse 100 100 99 Oximetry 11/12/18 11/12/18 11/12/18 12:11 12:21 12:31 Temperature Pulse Rate 102 H 101 H 105 H Pulse Rate [ Apical] Pulse Rate [ From Monitor] Pulse Rate [ Right Radial] Respiratory 20 19 21 Rate Blood Pressure 155/77 155/77 137/80 O2 Sat by Pulse 100 97 98 Oximetry 11/12/18 11/12/18 11/12/18 12:41 12:51 13:00 Temperature Pulse Rate 101 H 105 H 97 H Pulse Rate [ Apical] Pulse Rate [ From Monitor] Pulse Rate [ Right Radial] Respiratory 18 24 20 Rate Blood Pressure 137/80 137/80 140/73 O2 Sat by Pulse 100 99 100 Oximetry - General Appearance General appearance: well-developed, appears stated age, chronically ill EENT: ATNC, PERRL, mucous membranes moist Neck: no JVD Respiratory: Present: Clear to Ascultation Cardiology: regular, S1S2 Gastrointestinal: normoactive bowel sounds Integumentary: no rash, other (+ edema b/l LE ) Neurologic: confused, disoriented - Lab 11/12/18 04:45 11/12/18 04:45 Most recent lab results Calcium 6.6 mg/dL (8.4-10.2) L 11/12/18 04:45 Medications & Allergies - Medications Allergies/Adverse Reactions: Allergies No Known Allergies Allergy (Verified 04/15/14 15:50) Home Medications: Home Medications Medication Instructions Recorded Confirmed Last Taken Type Docusate Sodium [Colace] 100 mg PO BID PRN #30 capsule 04/15/14 12/05/14 Unknown Rx HYDROcodone/APAP 5-325 [[place] 1 each PO Q6HR PRN #20 tablet 04/15/14 12/05/14 Unknown Rx 5/325] Polyethylene Glycol 3350 [Miralax] 17 gm PO DAILY PRN #1 bottle 04/15/14 12/05/14 Unknown Rx HYDROcodone/APAP 5-325 [[place] 1 - 2 each PO Q6HR PRN #14 tablet 12/05/14 Unknown Rx 5/325] Atorvastatin [Lipitor Tab] 20 mg PO QHS 11/11/18 11/11/18 Unknown History Gabapentin [Neurontin] 300 mg PO TID PRN 11/11/18 11/11/18 Unknown History Nystatin [Nystatin SUSP] 5 ml PO QID 11/11/18 11/11/18 Unknown History Pantoprazole [Protonix] 40 mg PO QDAY 11/11/18 11/11/18 Unknown History Promethazine [Phenergan] 25 mg PO Q6HR PRN 11/11/18 11/11/18 Unknown History Sodium Bicarbonate 325 mg PO BID 11/11/18 11/11/18 Unknown History amLODIPine 10 mg PO DAILY 11/11/18 11/11/18 Unknown History Active Medications: Generic Name Dose Route Start Last Admin Trade Name Freq PRN Reason Stop Dose Admin Acetaminophen 650 mg 11/09/18 19:38 11/10/18 15:17 Tylenol PO 650 mg Q4H PRN Administration Pain MILD(1-3)/Fever >100.5/FLORES Acetaminophen 650 mg 11/11/18 00:04 11/11/18 17:29 Tylenol [place] 650 mg Q4H PRN Administration Fever >101; Mild Pain (1-3) Atorvastatin Calcium 40 mg 11/10/18 22:00 11/11/18 22:53 Lipitor PO Not Given QHS [facility] Docusate Sodium 100 mg 11/09/18 19:32 Colace PO BID PRN Constipation Epoetin Adonis 10,000 unit 11/11/18 08:00 Procrit SUB-Q CONSTANTINO PRIYA Hydromorphone HCl 0.25 mg 11/09/18 19:38 11/12/18 03:04 Dilaudid IV 0.25 mg Q3H PRN Administration Pain, Moderate (4-6) Cefepime HCl 1 gm in 100 mls @ 200 mls/hr 11/10/18 18:00 11/11/18 17:26 Maxipime/Ns 1 Gm/100 Ml IV 200 mls/hr QPM PRIYA Administration Protocol Doxycycline Hyclate 100 mg/ 250 mls @ 250 mls/hr 11/10/18 16:00 11/12/18 09:55 Sodium Chloride IV 250 mls/hr Q12HR [facility] Administration Protocol Sodium Chloride 100 mls @ 999 mls/hr 11/11/18 11:09 Nacl 0.9% IV CONSTANTINO PRN Hypotension Insulin Human Lispro 0 unit 11/12/18 18:00 Humalog SUB-Q Q6HR [facility] Protocol Ondansetron HCl 4 mg 11/09/18 19:38 11/10/18 22:43 Zofran IV 4 mg Q8H PRN Administration Nausea And Vomiting Polyethylene Glycol 17 gm 11/09/18 19:38 Miralax 3350 PO QDAY PRN Constipation Sodium Chloride 10 ml 11/09/18 22:00 11/12/18 09:58 Sodium Chloride Flush Syringe 10 Ml IV 10 ml BID PRIYA Administration Sodium Chloride 10 ml 11/09/18 19:38 Sodium Chloride Flush Syringe 10 Ml IV PRN PRN LINE FLUSH
--- NOTE | 2018-11-12 16:57 | Event Note ---
Date: 11/12/18 [id number]
[2018-11-13 05:25] LABS: Basophils # (Auto) 0.1 K/mm3 (0.0-0.1); Basophils % (Auto) 1.1 % (0.0-1.8); Eosinophils # (Auto) 0.3 K/mm3 (0.0-0.4); Eosinophils % (Auto) 3.7 % (0.0-4.3); Hemoglobin 8.7 gm/dl (10.1-14.3); Lymphocytes # (Auto) 1.5 K/mm3 (1.2-5.4); Lymphocytes % (Auto) 19.3 % (13.4-35.0); Mean Corpuscular HGB Conc 33 % (30-34); Mean Corpuscular Volume 85 fl (79-97); Monocytes # (Auto) 0.8 K/mm3 (0.0-0.8); Monocytes % (Auto) 10.4 % (0.0-7.3); Red Blood Count 3.07 M/mm3 (3.65-5.03); Red Cell Distribution Width 16.2 % (13.2-15.2)
[2018-11-13 05:43] LABS: Calcium 6.5 mg/dL (8.4-10.2)
[2018-11-13] MEDS: HumaLOG SUB-Q SCH ×5 (06:00→18:00)
[2018-11-13 06:46] LABS: Platelet Count 45 K/mm3 (140-440)
--- NOTE | 2018-11-13 07:35 | Progress Note ---
Assessment and Plan - Patient Problems (1) Hyperkalemia Current Visit: Yes Status: Acute Plan to address problem: Potassium improved postdialysis and is actually low today. We will dialyze on a high potassium bath. (2) ESRD (end stage renal disease) Current Visit: Yes Status: Acute Plan to address problem: Hemodialysis today and then continue on a Thursday, and Thursday schedule (3) Hypertensive chronic kidney disease with stage 1 through stage 4 chronic kidney disease, or unspecified chronic kidney disease Current Visit: Yes Status: Acute Plan to address problem: Follow-up blood pressure on current medications (4) SIRS (systemic inflammatory response syndrome) Current Visit: Yes Status: Acute Plan to address problem: Fever of undetermined origin. Being followed up by infectious disease. (5) Thrombocytopenia Current Visit: Yes Status: Acute Plan to address problem: Etiology uncertain. [id number] pending. Hematology has been consulted. (6) Anemia in chronic illness Current Visit: Yes Status: Acute Plan to address problem: Give Erythropoetin on dialysis and follow-up hemoglobin (7) Type 2 diabetes mellitus with diabetic chronic kidney disease Current Visit: Yes Status: Chronic Qualifiers: Chronic kidney disease stage: stage 5, not on chronic dialysis Plan to address problem: Blood sugar management by primary attending Subjective Date of service: 11/13/18 Principal diagnosis: ESRD Interval history: Patient seen lying in bed. She is confused. No family at bedside Objective - Exam Narrative Exam: Middle-aged -[place] female lying in bed in no acute distress HEENT: NCAT, pink oral mucous membrane Neck: Supple, no venous distention CVS: S1S2 RRR with no murmur, rub or gallop Chest: Faint rhonchi Abdomen: Protuberant, soft, nontender, no organomegaly, bowel sounds are present Extremities: No edema Neuro: Drowsy, awakens but not answering questions and following commands - Vital Signs Vital signs: Vital Signs - 12hr 11/12/18 11/12/18 11/12/18 19:40 19:41 19:51 Temperature 98.9 F Pulse Rate 97 H 97 H Respiratory 24 21 Rate Blood Pressure 147/72 147/72 O2 Sat by Pulse 100 100 Oximetry 11/12/18 11/12/18 11/12/18 20:00 20:11 20:21 Temperature Pulse Rate 96 H 97 H 96 H Respiratory 14 19 23 Rate Blood Pressure 136/70 136/70 147/72 O2 Sat by Pulse 100 100 100 Oximetry 11/12/18 11/12/18 11/12/18 20:30 20:41 20:51 Temperature Pulse Rate 94 H 99 H 96 H Respiratory 36 H 19 22 Rate Blood Pressure 127/63 127/63 127/63 O2 Sat by Pulse 100 100 100 Oximetry 11/12/18 11/12/18 11/12/18 21:01 21:11 21:20 Temperature Pulse Rate 93 H 97 H 98 H Respiratory 13 26 H 21 Rate Blood Pressure 139/67 139/67 139/67 O2 Sat by Pulse 100 100 100 Oximetry 11/12/18 11/12/18 11/12/18 21:30 21:40 21:50 Temperature Pulse Rate 94 H 94 H 95 H Respiratory 18 22 18 Rate Blood Pressure 125/68 139/67 139/67 O2 Sat by Pulse 100 100 100 Oximetry 11/12/18 11/12/18 11/12/18 22:00 22:10 22:20 Temperature Pulse Rate 98 H 96 H 92 H Respiratory 15 20 22 Rate Blood Pressure 138/69 125/68 125/68 O2 Sat by Pulse 97 93 90 Oximetry 11/12/18 11/12/18 11/12/18 22:30 22:40 22:50 Temperature Pulse Rate 92 H 92 H 89 Respiratory 18 13 16 Rate Blood Pressure 135/69 135/69 138/69 O2 Sat by Pulse 99 89 92 Oximetry 11/12/18 11/12/18 11/12/18 23:00 23:09 23:10 Temperature 98.1 F Pulse Rate 92 H 89 Respiratory 13 14 Rate Blood Pressure 142/77 142/77 O2 Sat by Pulse 93 93 Oximetry 11/12/18 11/12/18 11/12/18 23:20 23:30 23:40 Temperature Pulse Rate 92 H 93 H 91 H Respiratory 22 22 18 Rate Blood Pressure 135/69 135/69 153/72 O2 Sat by Pulse 92 93 100 Oximetry 11/12/18 11/13/18 11/13/18 23:50 00:00 00:10 Temperature Pulse Rate 92 H 91 H 92 H Respiratory 17 20 19 Rate Blood Pressure 142/77 149/74 149/74 O2 Sat by Pulse 91 94 94 Oximetry 11/13/18 11/13/18 11/13/18 00:20 00:30 00:40 Temperature Pulse Rate 92 H 91 H 88 Respiratory 17 20 13 Rate Blood Pressure 153/72 153/75 153/75 O2 Sat by Pulse 99 100 100 Oximetry 11/13/18 11/13/18 11/13/18 00:50 01:00 01:10 Temperature Pulse Rate 85 89 89 Respiratory 13 13 17 Rate Blood Pressure 153/75 148/78 148/78 O2 Sat by Pulse 100 97 100 Oximetry 11/13/18 11/13/18 11/13/18 01:20 01:30 01:40 Temperature Pulse Rate 91 H 89 94 H Respiratory 17 14 9 L Rate Blood Pressure 148/78 150/78 150/78 O2 Sat by Pulse 93 100 100 Oximetry 11/13/18 11/13/18 11/13/18 01:50 02:00 02:10 Temperature Pulse Rate 89 88 88 Respiratory 19 18 17 Rate Blood Pressure 150/78 146/75 146/75 O2 Sat by Pulse Oximetry 11/13/18 11/13/18 11/13/18 02:20 02:30 02:40 Temperature Pulse Rate 85 91 H 87 Respiratory 15 20 18 Rate Blood Pressure 150/78 159/78 159/78 O2 Sat by Pulse Oximetry 11/13/18 11/13/18 11/13/18 02:50 03:00 03:10 Temperature Pulse Rate 87 87 90 Respiratory 18 13 10 L Rate Blood Pressure 146/75 159/78 146/84 O2 Sat by Pulse 100 100 Oximetry 11/13/18 11/13/18 11/13/18 03:20 03:30 03:40 Temperature Pulse Rate 84 88 82 Respiratory 19 13 13 Rate Blood Pressure 159/78 152/79 152/79 O2 Sat by Pulse 100 99 100 Oximetry 11/13/18 11/13/18 11/13/18 03:46 03:50 04:00 Temperature 98.8 F Pulse Rate 85 87 Respiratory 16 13 Rate Blood Pressure 152/79 151/81 O2 Sat by Pulse 100 100 Oximetry 11/13/18 11/13/18 11/13/18 04:10 04:20 04:30 Temperature Pulse Rate 87 87 85 Respiratory 17 16 16 Rate Blood Pressure 151/81 151/81 142/72 O2 Sat by Pulse 100 100 100 Oximetry 11/13/18 11/13/18 11/13/18 04:40 04:50 05:00 Temperature Pulse Rate 85 86 85 Respiratory 16 15 18 Rate Blood Pressure 142/72 151/81 142/72 O2 Sat by Pulse 100 100 100 Oximetry 11/13/18 11/13/18 11/13/18 05:10 05:20 05:30 Temperature Pulse Rate 83 83 86 Respiratory 19 18 15 Rate Blood Pressure 156/81 156/81 156/81 O2 Sat by Pulse 100 100 100 Oximetry 11/13/18 11/13/18 11/13/18 05:40 05:50 06:00 Temperature Pulse Rate 87 79 84 Respiratory 14 18 16 Rate Blood Pressure 146/82 146/82 156/81 O2 Sat by Pulse 100 100 100 Oximetry - Lab 11/13/18 04:33 11/13/18 04:33 Most recent lab results Calcium 6.5 mg/dL (8.4-10.2) L 11/13/18 04:33 Medications & Allergies - Medications Allergies/Adverse Reactions: Allergies No Known Allergies Allergy (Verified 04/15/14 15:50) Home Medications: Home Medications Medication Instructions Recorded Confirmed Last Taken Type Docusate Sodium [Colace] 100 mg PO BID PRN #30 capsule 04/15/14 12/05/14 Unknown Rx HYDROcodone/APAP 5-325 [[place] 1 each PO Q6HR PRN #20 tablet 04/15/14 12/05/14 Unknown Rx 5/325] Polyethylene Glycol 3350 [Miralax] 17 gm PO DAILY PRN #1 bottle 04/15/14 12/05/14 Unknown Rx HYDROcodone/APAP 5-325 [[place] 1 - 2 each PO Q6HR PRN #14 tablet 12/05/14 Unknown Rx 5/325] Atorvastatin [Lipitor Tab] 20 mg PO QHS 11/11/18 11/11/18 Unknown History Gabapentin [Neurontin] 300 mg PO TID PRN 11/11/18 11/11/18 Unknown History Nystatin [Nystatin SUSP] 5 ml PO QID 11/11/18 11/11/18 Unknown History Pantoprazole [Protonix] 40 mg PO QDAY 11/11/18 11/11/18 Unknown History Promethazine [Phenergan] 25 mg PO Q6HR PRN 11/11/18 11/11/18 Unknown History Sodium Bicarbonate 325 mg PO BID 11/11/18 11/11/18 Unknown History amLODIPine 10 mg PO DAILY 11/11/18 11/11/18 Unknown History Active Medications: Generic Name Dose Route Start Last Admin Trade Name Freq PRN Reason Stop Dose Admin Acetaminophen 650 mg 11/09/18 19:38 11/10/18 15:17 Tylenol PO 650 mg Q4H PRN Administration Pain MILD(1-3)/Fever >100.5/FLORES Acetaminophen 650 mg 11/11/18 00:04 11/11/18 17:29 Tylenol [place] 650 mg Q4H PRN Administration Fever >101; Mild Pain (1-3) Atorvastatin Calcium 40 mg 11/10/18 22:00 11/12/18 22:32 Lipitor PO Not Given QHS PRIYA Docusate Sodium 100 mg 11/09/18 19:32 Colace PO BID PRN Constipation Epoetin Adonis 10,000 unit 11/11/18 08:00 Procrit SUB-Q CONSTANTINO PRIYA Hydromorphone HCl 0.25 mg 11/09/18 19:38 11/12/18 03:04 Dilaudid IV 0.25 mg Q3H PRN Administration Pain, Moderate (4-6) Cefepime HCl 1 gm in 100 mls @ 200 mls/hr 11/10/18 18:00 11/11/18 17:26 Maxipime/Ns 1 Gm/100 Ml IV 200 mls/hr QPM PRIYA Administration Protocol Doxycycline Hyclate 100 mg/ 250 mls @ 250 mls/hr 11/10/18 16:00 11/12/18 22:24 Sodium Chloride IV 250 mls/hr Q12HR PRIYA Administration Protocol Sodium Chloride 100 mls @ 999 mls/hr 11/11/18 11:09 Nacl 0.9% IV CONSTANTINO PRN Hypotension Insulin Human Lispro 0 unit 11/12/18 18:00 Humalog SUB-Q Q6HR PRIYA Protocol Ondansetron HCl 4 mg 11/09/18 19:38 11/10/18 22:43 Zofran IV 4 mg Q8H PRN Administration Nausea And Vomiting Polyethylene Glycol 17 gm 11/09/18 19:38 Miralax 3350 PO QDAY PRN Constipation Sodium Chloride 10 ml 11/09/18 22:00 11/12/18 22:32 Sodium Chloride Flush Syringe 10 Ml IV 10 ml BID PRIYA Administration Sodium Chloride 10 ml 11/09/18 19:38 Sodium Chloride Flush Syringe 10 Ml IV PRN PRN LINE FLUSH
[2018-11-13] MEDS: MAXIPIME/NS 1 GM/100 ML 1 GM/100 ML BAG IV SCH ×2 (08:24→18:00)
[2018-11-13] MEDS: DILAUDID IV PRN ×2 (09:24→14:05)
[2018-11-13] MEDS: APRESOLINE IV PRN ×2 (09:24→14:05)
[2018-11-13] MEDS: DOXYCYCLINE HYCLATE 100 MG in NACL 0.9% 250ML 250 ML IV SCH ×2 (09:29→23:57)
[2018-11-13] MEDS: SODIUM CHLORIDE FLUSH SYRINGE 10 ML IV SCH (09:30)
--- NOTE | 2018-11-13 13:52 | Progress Note ---
Assessment and Plan Assessment and plan: The patient is a 63-year-old female with insulin-requiring diabetes, hypertension, COPD who has had 2 recent hospitalizations at [facility] and [facility] in the month of October 2018, admitted there due to generalized rash, body aches as well as fevers, along with a myriad of other complaints in cluding right upper extremity weakness, chest pain. She was seen by infectious diseases, nephrology, neurology, cardiology as well as rheumatology. CT chest showed no acute findings, CT abdomen and pelvis showed findings of chronic pancreatitis. HIV was negative, echocardiogram showed no vegetations. Extensive workup for infectious process was negative, apparently as per the ID consult at [facility] her fevers were attributed to a possible drug reaction secondary to calcitriol or tartrazine. She was subsequently discharged home with recommendations to follow-up with her nephrology. Now presented to the emergency room showed at [facility] yesterday with complaints of fever, abdominal pain and right upper extremity numbness. Again, she was noted to have high fevers up to 103F. she also had some speech difficulties which apparently resolved. Was evaluated by neurology. Due to worsening creatinine, nephrology was consulted who recommended initiation of hemodialysis. Patient is a poor historian, currently having shaking chills due to fevers. Metabolic encephalopathy, likely due to uremia -Nephrology consulted, and currently on dialysis Upper extremity numbness - Patient had similar problems previously, worked up for CVA and was negative - Neurology consult appreciated Sepsis; fever of unknown origin; and has fever of 103 - Patient is placed on IV vancomycin cefepime and doxycycline - Patient's fever subsided - ID consult appreciated ?Still disease - Patient has fever, rash and high ferritin level TTP - Thrombocytopenia, fever, confusion and anemia - Hematology is consulted ESRD on HD - Nephrology is following Severe Anemia - transfused 2 units of blood and hemoglobin is stable Thrombocytopenia - Due to above DVT prophylaxis - SCDs because of severe thrombocytopenia Disposition - Transfer to the floor History Interval history: Patient was seen and evaluated this morning, patient was confused, she said she is hungry and wants to eat. She said yes when asked if she has abdominal pain. Hospitalist Physical - Physical exam Narrative exam: Not in cardiopulmonary distress. The patient appeared well nourished and normally developed. Vital signs as documented. Head exam is unremarkable. No scleral icterus . Neck is without jugular venous distension, thyromegaly, or carotid bruits. Lungs are clear to auscultation. Cardiac exam reveals regular rate and Rhythm. Abdominal exam reveals normal bowel sounds. Extremities are nonedematous. 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 stated her name asked to eat . - Constitutional Vitals: Temp Pulse Resp BP Pulse Ox 98.1 F 88 14 179/81 100 11/13/18 12:00 11/13/18 13:00 11/13/18 13:00 11/13/18 13:00 11/13/18 13:00 General appearance: Present: no acute distress, well-nourished, obese, disheveled Results - Labs CBC & Chem 7: 11/13/18 04:33 11/13/18 04:33 Labs: Laboratory Last Values WBC 7.6 K/mm3 (4.5-11.0) 11/13/18 04:33 RBC 3.07 M/mm3 (3.65-5.03) L 11/13/18 04:33 Hgb 8.7 gm/dl (10.1-14.3) L 11/13/18 04:33 Hct 26.0 % (30.3-42.9) L 11/13/18 04:33 MCV 85 fl (79-97) 11/13/18 04:33 MCH 28 pg (28-32) 11/13/18 04:33 MCHC 33 % (30-34) 11/13/18 04:33 RDW 16.2 % (13.2-15.2) H 11/13/18 04:33 Plt Count 45 K/mm3 (140-440) L 11/13/18 04:33 Lymph % (Auto) 19.3 % (13.4-35.0) 11/13/18 04:33 [place] % (Auto) 10.4 % (0.0-7.3) H 11/13/18 04:33 Eos % (Auto) 3.7 % (0.0-4.3) 11/13/18 04:33 Baso % (Auto) 1.1 % (0.0-1.8) 11/13/18 04:33 Lymph # 1.5 K/mm3 (1.2-5.4) 11/13/18 04:33 [place] # 0.8 K/mm3 (0.0-0.8) 11/13/18 04:33 Eos # 0.3 K/mm3 (0.0-0.4) 11/13/18 04:33 Baso # 0.1 K/mm3 (0.0-0.1) 11/13/18 04:33 Add Manual Diff Complete 11/11/18 04:31 Total Counted 100 11/11/18 04:31 Seg Neutrophils % 65.5 % (40.0-70.0) 11/13/18 04:33 Seg Neuts % (Manual) 80.0 % (40.0-70.0) H 11/11/18 04:31 9.0 % 11/11/18 04:31 7.0 % (13.4-35.0) L 11/11/18 04:31 Reactive Lymphs % (Man) 0 % 11/11/18 04:31 2.0 % (0.0-7.3) 11/11/18 04:31 1.0 % (0.0-4.3) 11/11/18 04:31 0 % (0.0-1.8) 11/11/18 04:31 1.0 % 11/11/18 04:31 0 % 11/11/18 04:31 0 % 11/11/18 04:31 0 % 11/11/18 04:31 Nucleated RBC % Not Reportable 11/11/18 04:31 Seg Neutrophils # 5.0 K/mm3 (1.8-7.7) 11/13/18 04:33 Seg Neutrophils # Man 4.4 K/mm3 (1.8-7.7) 11/11/18 04:31 Band Neutrophils # 0.5 K/mm3 11/11/18 04:31 0.4 K/mm3 (1.2-5.4) L 11/11/18 04:31 Abs React Lymphs (Man) 0.0 K/mm3 11/11/18 04:31 0.1 K/mm3 (0.0-0.8) 11/11/18 04:31 0.1 K/mm3 (0.0-0.4) 11/11/18 04:31 0.0 K/mm3 (0.0-0.1) 11/11/18 04:31 0.1 K/mm3 11/11/18 04:31 0.0 K/mm3 11/11/18 04:31 0.0 K/mm3 11/11/18 04:31 Blast Cells # 0.0 K/mm3 11/11/18 04:31 WBC Morphology Not Reportable 11/11/18 04:31 Hypersegmented Neuts Not Reportable 11/11/18 04:31 Hyposegmented Neuts Not Reportable 11/11/18 04:31 Hypogranular Neuts Not Reportable 11/11/18 04:31 Not Reportable 11/11/18 04:31 Not Reportable 11/11/18 04:31 Not Reportable 11/11/18 04:31 Not Reportable 11/11/18 04:31 Not Reportable 11/11/18 04:31 Not Reportable 11/11/18 04:31 Consistent w auto 11/11/18 04:31 Not Reportable 11/11/18 04:31 Plt Clumps, EDTA Not Reportable 11/11/18 04:31 Not Reportable 11/11/18 04:31 Not Reportable 11/11/18 04:31 Not Reportable 11/11/18 04:31 Plt Morphology Comment Not Reportable 11/11/18 04:31 RBC Morphology Not Reportable 11/11/18 04:31 Dimorphic RBCs Not Reportable 11/11/18 04:31 Not Reportable 11/11/18 04:31 Not Reportable 11/11/18 04:31 Not Reportable 11/11/18 04:31 1+ 11/11/18 04:31 Not Reportable 11/11/18 04:31 Not Reportable 11/11/18 04:31 Not Reportable 11/11/18 04:31 Not Reportable 11/11/18 04:31 Not Reportable 11/11/18 04:31 Not Reportable 11/11/18 04:31 Not Reportable 11/11/18 04:31 Not Reportable 11/11/18 04:31 Not Reportable 11/11/18 04:31 Not Reportable 11/11/18 04:31 Not Reportable 11/11/18 04:31 Not Reportable 11/11/18 04:31 Not Reportable 11/11/18 04:31 Not Reportable 11/11/18 04:31 Not Reportable 11/11/18 04:31 Acanthocytes (Spur) Not Reportable 11/11/18 04:31 Rouleaux Not Reportable 11/11/18 04:31 Not Reportable 11/11/18 04:31 Not Reportable 11/11/18 04:31 Not Reportable 11/11/18 04:31 Not Reportable 11/11/18 04:31 Hem Pathologist Commnt No 11/11/18 04:31 PT 14.8 Sec. (12.2-14.9) 11/09/18 16:16 INR 1.09 (0.87-1.13) 11/09/18 16:16 APTT 44.5 Sec. (24.2-36.6) H 11/09/18 16:16 21.3 Sec. (15.1-19.6) H 11/09/18 16:16 Sodium 143 mmol/L (137-145) 11/13/18 04:33 Potassium 3.4 mmol/L (3.6-5.0) L 11/13/18 04:33 Chloride 105.5 mmol/L (98-107) 11/13/18 04:33 Carbon Dioxide 21 mmol/L (22-30) L 11/13/18 04:33 20 mmol/L 11/13/18 04:33 BUN 54 mg/dL (7-17) H 11/13/18 04:33 6.6 mg/dL (0.7-1.2) H 11/13/18 04:33 Estimated GFR 8 ml/min 11/13/18 04:33 8 % 11/13/18 04:33 Glucose 125 mg/dL (65-100) H 11/13/18 04:33 POC Glucose 265 (70-105) H 11/13/18 11:31 6.9 % (4-6) H 11/09/18 22:00 Lactic Acid 0.80 mmol/L (0.7-2.0) 11/10/18 08:10 Calcium 6.5 mg/dL (8.4-10.2) L 11/13/18 04:33 Iron 36 ug/dL (37-170) L 11/09/18 16:16 TIBC 169 mcg/dL (250-450) L 11/09/18 16:16 % Saturation 21.30 % 11/09/18 16:16 128 mg/dl (192-382) L 11/09/18 16:16 > 2000.0 ng/mL (13.0-400.0) H 11/10/18 17:17 0.30 mg/dL (0.1-1.2) 11/09/18 16:16 AST 68 units/L (5-40) H 11/09/18 16:16 ALT 14 units/L (7-56) 11/09/18 16:16 102 units/L (35-129) 11/09/18 16:16 19.0 umol/L (25-60) L 11/09/18 16:16 93 units/L (30-135) 11/09/18 16:16 CK-MB (CK-2) < 1.0 ng/mL (0.0-4.0) 11/09/18 16:16 CK-MB (CK-2) Rel Index 1.0 (0-4) 11/09/18 16:16 0.017 ng/mL (0.00-0.029) 11/09/18 16:16 7.6 g/dL (6.3-8.2) 11/09/18 16:16 2.6 g/dL (3.9-5) L 11/09/18 16:16 0.5 % 11/09/18 16:16 Triglycerides 298 mg/dL (2-149) H 11/10/18 08:05 Cholesterol 84 mg/dL (50-199) 11/10/18 08:05 7 mg/dL (50-130) L 11/10/18 08:05 8 mg/dL (40-59) L 11/10/18 08:05 10.50 % 11/10/18 08:05 13 units/L (13-60) 11/09/18 16:16 Vitamin B12 1628 pg/mL (211-911) H 11/13/18 04:33 Yellow (Yellow) 11/10/18 01:08 Cloudy (Clear) 11/10/18 01:08 5.0 (5.0-7.0) 11/10/18 01:08 Ur Specific [place] 1.016 (1.003-1.030) 11/10/18 01:08 >500 mg/dL (Negative) 11/10/18 01:08 Neg mg/dL (Negative) 11/10/18 01:08 Neg mg/dL (Negative) 11/10/18 01:08 Sm (Negative) 11/10/18 01:08 Neg (Negative) 11/10/18 01:08 Ur Reducing Substances Not Reportable 11/10/18 01:08 Neg (Negative) 11/10/18 01:08 Not Reportable 11/10/18 01:08 < 2.0 mg/dL (<2.0) 11/10/18 01:08 Ur Leukocyte Esterase Neg (Negative) 11/10/18 01:08 7.0 /HPF (0.0-6.0) H 11/10/18 01:08 6.0 /HPF (0.0-6.0) 11/10/18 01:08 U Epithel Cells (Auto) 1.0 /HPF (0-13.0) 11/10/18 01:08 1+ /HPF (Negative) 11/10/18 01:08 2+ /HPF 11/10/18 01:08 Hyaline Casts 1 /LPF 11/10/18 01:08 3+ /HPF 11/10/18 01:08 Random Vancomycin 12.3 ug/mL (0-40.0) 11/12/18 04:45 Presumptive negative 11/10/18 01:08 Presumptive negative 11/10/18 01:08 Ur Barbiturates Screen Presumptive negative 11/10/18 01:08 Ur Phencyclidine Scrn Presumptive negative 11/10/18 01:08 Ur Amphetamines Screen Presumptive negative 11/10/18 01:08 U Benzodiazepines Scrn Presumptive negative 11/10/18 01:08 Presumptive negative 11/10/18 01:08 U Marijuana (THC) Screen Presumptive negative 11/10/18 01:08 Disclamer 11/10/18 01:08 Plasma/Serum Alcohol < 0.01 % (0-0.07) 11/09/18 16:16 Blood Type A POSITIVE 11/11/18 07:29 Antibody Screen TNR 11/11/18 07:29 QUIANA Antibody Screen Negative 11/11/18 07:29 Crossmatch See Detail 11/11/18 07:29 Active Medications - Current Medications Current Medications: Generic Name Dose Route Start Last Admin Trade Name Freq PRN Reason Stop Dose Admin Acetaminophen 650 mg 11/09/18 19:38 11/10/18 15:17 Tylenol PO 650 mg Q4H PRN Administration Pain MILD(1-3)/Fever >100.5/FLORES Acetaminophen 650 mg 11/11/18 00:04 11/11/18 17:29 Tylenol [place] 650 mg Q4H PRN Administration Fever >101; Mild Pain (1-3) Atorvastatin Calcium 40 mg 11/10/18 22:00 11/12/18 22:32 Lipitor PO Not Given QHS [facility] Docusate Sodium 100 mg 11/09/18 19:32 Colace PO BID PRN Constipation Epoetin Adon[place] 10,000 unit 11/11/18 08:00 Procrit SUB-Q [place] [facility] Hydralazine HCl 10 mg 11/13/18 08:56 11/13/18 09:24 Apresoline IV 10 mg Q4H PRN Administration BP > 160/105 Hydromorphone HCl 0.25 mg 11/09/18 19:38 11/13/18 09:24 Dilaudid IV 0.25 mg Q3H PRN Administration Pain, Moderate (4-6) Cefepime HCl 1 gm in 100 mls @ 200 mls/hr 11/10/18 18:00 11/13/18 08:24 Maxipime/Ns 1 Gm/100 Ml IV Not Given QPM [facility] Protocol Doxycycline Hyclate 100 mg/ 250 mls @ 250 mls/hr 11/10/18 16:00 11/13/18 09:29 Sodium Chloride IV 250 mls/hr Q12HR [facility] Administration Protocol Sodium Chloride 100 mls @ 999 mls/hr 11/11/18 11:09 Nacl 0.9% IV CONSTANTINO PRN Hypotension Insulin Human Lispro 0 unit 11/12/18 18:00 11/13/18 11:56 Humalog SUB-Q 4 unit Q6HR [facility] Administration Protocol Ondansetron HCl 4 mg 11/09/18 19:38 11/10/18 22:43 Zofran IV 4 mg Q8H PRN Administration Nausea And Vomiting Polyethylene Glycol 17 gm 11/09/18 19:38 Miralax 3350 PO QDAY PRN Constipation Sodium Chloride 10 ml 11/09/18 22:00 11/13/18 09:30 Sodium Chloride Flush Syringe 10 Ml IV Not Given BID [facility] Sodium Chloride 10 ml 11/09/18 19:38 Sodium Chloride Flush Syringe 10 Ml IV PRN PRN LINE FLUSH
--- NOTE | 2018-11-13 13:59 | Progress Note ---
Assessment and Plan 63 y/o female with worsening renal function now HD dependent, altered mental state, fevers of unknown origin and anemia. 1. As stated in ID note from yesterday, several thoughts now about unique disease, AOSD, HLH as well as TTP. Heme has seen but note not up yet. 2. Patient with persistent diarrhea and questionable coffee ground emesis. Had CT on arrival but without contrast. Nursing will attempt DH again today and if so, would like to obtain CT abdomen pelvis with contrast (PO and IV). HgB has been stable and now mentals are slightly better. Can hold on CT/ABD/PELV but would continue feeds via DH until mental state is more clear. 3. HD per renal 4. Agree with ID with empiric abx therapy 5. Follow up send out labs. 6. Patient does not currently meet ICU criteria. Discussed this with primary team and have asked for transfer. If she does have any of the above diagnosis and requires higher level of care we can transfer back. Will change transfer order to Med/Surge Subjective Date of service: 11/13/18 Principal diagnosis: ESRD Interval history: More awake today. Can answer some questions and give some appropriate answers. DH in place. BP's have been elevated Objective - Constitutional Vitals: Vital Signs - 12hr 11/13/18 11/13/18 11/13/18 02:00 02:10 02:20 Temperature Pulse Rate 88 88 85 Pulse Rate [ Apical] Pulse Rate [ From Monitor] Respiratory 18 17 15 Rate Blood Pressure 146/75 146/75 150/78 O2 Sat by Pulse Oximetry 11/13/18 11/13/18 11/13/18 02:30 02:40 02:50 Temperature Pulse Rate 91 H 87 87 Pulse Rate [ Apical] Pulse Rate [ From Monitor] Respiratory 20 18 18 Rate Blood Pressure 159/78 159/78 146/75 O2 Sat by Pulse Oximetry 11/13/18 11/13/18 11/13/18 03:00 03:10 03:20 Temperature Pulse Rate 87 90 84 Pulse Rate [ Apical] Pulse Rate [ From Monitor] Respiratory 13 10 L 19 Rate Blood Pressure 159/78 146/84 159/78 O2 Sat by Pulse 100 100 100 Oximetry 11/13/18 11/13/18 11/13/18 03:30 03:40 03:46 Temperature 98.8 F Pulse Rate 88 82 Pulse Rate [ Apical] Pulse Rate [ From Monitor] Respiratory 13 13 Rate Blood Pressure 152/79 152/79 O2 Sat by Pulse 99 100 Oximetry 11/13/18 11/13/18 11/13/18 03:50 04:00 04:10 Temperature Pulse Rate 85 87 87 Pulse Rate [ Apical] Pulse Rate [ From Monitor] Respiratory 16 13 17 Rate Blood Pressure 152/79 151/81 151/81 O2 Sat by Pulse 100 100 100 Oximetry 11/13/18 11/13/18 11/13/18 04:20 04:30 04:40 Temperature Pulse Rate 87 85 85 Pulse Rate [ Apical] Pulse Rate [ From Monitor] Respiratory 16 16 16 Rate Blood Pressure 151/81 142/72 142/72 O2 Sat by Pulse 100 100 100 Oximetry 11/13/18 11/13/18 11/13/18 04:50 05:00 05:10 Temperature Pulse Rate 86 85 83 Pulse Rate [ Apical] Pulse Rate [ From Monitor] Respiratory 15 18 19 Rate Blood Pressure 151/81 142/72 156/81 O2 Sat by Pulse 100 100 100 Oximetry 11/13/18 11/13/18 11/13/18 05:20 05:30 05:40 Temperature Pulse Rate 83 86 87 Pulse Rate [ Apical] Pulse Rate [ From Monitor] Respiratory 18 15 14 Rate Blood Pressure 156/81 156/81 146/82 O2 Sat by Pulse 100 100 100 Oximetry 11/13/18 11/13/18 11/13/18 05:50 06:00 06:10 Temperature Pulse Rate 79 84 85 Pulse Rate [ Apical] Pulse Rate [ From Monitor] Respiratory 18 16 13 Rate Blood Pressure 146/82 156/81 160/80 O2 Sat by Pulse 100 100 100 Oximetry 11/13/18 11/13/18 11/13/18 06:20 06:30 06:40 Temperature Pulse Rate 81 86 87 Pulse Rate [ Apical] Pulse Rate [ From Monitor] Respiratory 12 13 15 Rate Blood Pressure 160/80 161/88 161/88 O2 Sat by Pulse 100 100 100 Oximetry 11/13/18 11/13/18 11/13/18 06:50 07:00 07:10 Temperature Pulse Rate 88 84 81 Pulse Rate [ Apical] Pulse Rate [ From Monitor] Respiratory 13 13 20 Rate Blood Pressure 161/88 156/87 156/87 O2 Sat by Pulse 100 100 100 Oximetry 11/13/18 11/13/18 11/13/18 07:20 07:30 07:40 Temperature Pulse Rate 83 89 84 Pulse Rate [ Apical] Pulse Rate [ From Monitor] Respiratory 19 14 13 Rate Blood Pressure 156/87 159/85 159/85 O2 Sat by Pulse 98 100 99 Oximetry 11/13/18 11/13/18 11/13/18 07:50 08:00 08:10 Temperature 97.3 F L Pulse Rate 86 82 85 Pulse Rate [ Apical] Pulse Rate [ 82 From Monitor] Respiratory 14 16 16 Rate Blood Pressure 159/85 165/82 165/82 O2 Sat by Pulse 100 100 100 Oximetry 11/13/18 11/13/18 11/13/18 08:20 08:30 08:40 Temperature Pulse Rate 84 81 83 Pulse Rate [ Apical] Pulse Rate [ From Monitor] Respiratory 19 17 15 Rate Blood Pressure 165/82 175/76 175/76 O2 Sat by Pulse 100 100 100 Oximetry 11/13/18 11/13/18 11/13/18 08:50 09:00 09:10 Temperature Pulse Rate 82 83 85 Pulse Rate [ Apical] Pulse Rate [ From Monitor] Respiratory 16 18 15 Rate Blood Pressure 175/76 182/99 182/99 O2 Sat by Pulse 99 89 100 Oximetry 11/13/18 11/13/18 11/13/18 09:20 09:24 09:30 Temperature Pulse Rate 86 87 88 Pulse Rate [ Apical] Pulse Rate [ From Monitor] Respiratory 19 16 15 Rate Blood Pressure 182/99 182/99 167/83 O2 Sat by Pulse 97 100 Oximetry 11/13/18 11/13/18 11/13/18 09:40 09:50 09:54 Temperature Pulse Rate 91 H 89 Pulse Rate [ Apical] Pulse Rate [ From Monitor] Respiratory 16 15 16 Rate Blood Pressure 167/83 167/83 O2 Sat by Pulse 100 Oximetry 11/13/18 11/13/18 11/13/18 10:00 10:10 10:20 Temperature Pulse Rate 91 H 90 90 Pulse Rate [ Apical] Pulse Rate [ From Monitor] Respiratory 17 15 15 Rate Blood Pressure 177/84 177/84 177/84 O2 Sat by Pulse 100 100 100 Oximetry 11/13/18 11/13/18 11/13/18 10:30 10:40 10:50 Temperature Pulse Rate 87 91 H 92 H Pulse Rate [ Apical] Pulse Rate [ From Monitor] Respiratory 16 17 15 Rate Blood Pressure 179/83 179/83 179/83 O2 Sat by Pulse 100 100 100 Oximetry 11/13/18 11/13/18 11/13/18 11:00 11:10 11:20 Temperature Pulse Rate 91 H 89 89 Pulse Rate [ Apical] Pulse Rate [ From Monitor] Respiratory 15 15 15 Rate Blood Pressure 166/82 166/82 166/82 O2 Sat by Pulse 100 100 100 Oximetry 11/13/18 11/13/18 11/13/18 11:30 11:40 11:50 Temperature Pulse Rate 89 95 H 88 Pulse Rate [ Apical] Pulse Rate [ From Monitor] Respiratory 15 17 15 Rate Blood Pressure 166/78 166/78 166/78 O2 Sat by Pulse 100 100 100 Oximetry 11/13/18 11/13/18 11/13/18 12:00 12:10 12:20 Temperature 98.1 F Pulse Rate 88 88 90 Pulse Rate [ 88 Apical] Pulse Rate [ 88 From Monitor] Respiratory 16 16 18 Rate Blood Pressure 159/81 159/81 159/81 O2 Sat by Pulse 98 100 100 Oximetry 11/13/18 11/13/18 11/13/18 12:30 12:40 12:50 Temperature Pulse Rate 89 87 87 Pulse Rate [ Apical] Pulse Rate [ From Monitor] Respiratory 17 16 15 Rate Blood Pressure 173/80 173/80 173/80 O2 Sat by Pulse 100 100 100 Oximetry 11/13/18 13:00 Temperature Pulse Rate 88 Pulse Rate [ Apical] Pulse Rate [ From Monitor] Respiratory 14 Rate Blood Pressure 179/81 O2 Sat by Pulse 100 Oximetry - Labs CBC & Chem 7: 11/13/18 04:33 11/13/18 04:33 Labs: Abnormal lab results 11/12/18 11/13/18 11/13/18 Range/Units 23:53 04:33 04:33 RBC 3.07 L (3.65-5.03) M/mm3 Hgb 8.7 L (10.1-14.3) gm/dl Hct 26.0 L (30.3-42.9) % RDW 16.2 H (13.2-15.2) % Plt Count 45 L (140-440) K/mm3 [place] % (Auto) 10.4 H (0.0-7.3) % Potassium 3.4 L (3.6-5.0) mmol/L Carbon Dioxide 21 L (22-30) mmol/L BUN 54 H (7-17) mg/dL Creatinine 6.6 H (0.7-1.2) mg/dL Glucose 125 H (65-100) mg/dL POC Glucose 134 H (70-105) Calcium 6.5 L (8.4-10.2) mg/dL Vitamin B12 (211-911) pg/mL 11/13/18 11/13/18 11/13/18 Range/Units 04:33 05:31 11:31 RBC (3.65-5.03) M/mm3 Hgb (10.1-14.3) gm/dl Hct (30.3-42.9) % RDW (13.2-15.2) % Plt Count (140-440) K/mm3 [place] % (Auto) (0.0-7.3) % Potassium (3.6-5.0) mmol/L Carbon Dioxide (22-30) mmol/L BUN (7-17) mg/dL Creatinine (0.7-1.2) mg/dL Glucose (65-100) mg/dL POC Glucose 151 H 265 H (70-105) Calcium (8.4-10.2) mg/dL Vitamin B12 1628 H (211-911) pg/mL Medications & Allergies - Medications Allergies/Adverse Reactions: Allergies No Known Allergies Allergy (Verified 04/15/14 15:50) Home Medications: Home Medications Medication Instructions Recorded Confirmed Last Taken Type Docusate Sodium [Colace] 100 mg PO BID PRN #30 capsule 04/15/14 12/05/14 Unknown Rx HYDROcodone/APAP 5-325 [[place] 1 each PO Q6HR PRN #20 tablet 04/15/14 12/05/14 Unknown Rx 5/325] Polyethylene Glycol 3350 [Miralax] 17 gm PO DAILY PRN #1 bottle 04/15/14 12/05/14 Unknown Rx HYDROcodone/APAP 5-325 [[place] 1 - 2 each PO Q6HR PRN #14 tablet 12/05/14 Unknown Rx 5/325] Atorvastatin [Lipitor Tab] 20 mg PO QHS 11/11/18 11/11/18 Unknown History Gabapentin [Neurontin] 300 mg PO TID PRN 11/11/18 11/11/18 Unknown History Nystatin [Nystatin SUSP] 5 ml PO QID 11/11/18 11/11/18 Unknown History Pantoprazole [Protonix] 40 mg PO QDAY 11/11/18 11/11/18 Unknown History Promethazine [Phenergan] 25 mg PO Q6HR PRN 11/11/18 11/11/18 Unknown History Sodium Bicarbonate 325 mg PO BID 11/11/18 11/11/18 Unknown History amLODIPine 10 mg PO DAILY 11/11/18 11/11/18 Unknown History Active Medications: Generic Name Dose Route Start Last Admin Trade Name Freq PRN Reason Stop Dose Admin Acetaminophen 650 mg 11/09/18 19:38 11/10/18 15:17 Tylenol PO 650 mg Q4H PRN Administration Pain MILD(1-3)/Fever >100.5/FLORES Acetaminophen 650 mg 11/11/18 00:04 11/11/18 17:29 Tylenol [place] 650 mg Q4H PRN Administration Fever >101; Mild Pain (1-3) Atorvastatin Calcium 40 mg 11/10/18 22:00 11/12/18 22:32 Lipitor PO Not Given QHS [facility] Docusate Sodium 100 mg 11/09/18 19:32 Colace PO BID PRN Constipation Epoetin Adonis 10,000 unit 11/11/18 08:00 Procrit SUB-Q CONSTANTINO [facility] Hydralazine HCl 10 mg 11/13/18 08:56 11/13/18 09:24 Apresoline IV 10 mg Q4H PRN Administration BP > 160/105 Hydromorphone HCl 0.25 mg 11/09/18 19:38 11/13/18 09:24 Dilaudid IV 0.25 mg Q3H PRN Administration Pain, Moderate (4-6) Cefepime HCl 1 gm in 100 mls @ 200 mls/hr 11/10/18 18:00 11/13/18 08:24 Maxipime/Ns 1 Gm/100 Ml IV Not Given QPM [facility] Protocol Doxycycline Hyclate 100 mg/ 250 mls @ 250 mls/hr 11/10/18 16:00 11/13/18 09:29 Sodium Chloride IV 250 mls/hr Q12HR [facility] Administration Protocol Sodium Chloride 100 mls @ 999 mls/hr 11/11/18 11:09 Nacl 0.9% IV CONSTANTINO PRN Hypotension Insulin Human Lispro 0 unit 11/12/18 18:00 11/13/18 11:56 Humalog SUB-Q 4 unit Q6HR [facility] Administration Protocol Ondansetron HCl 4 mg 11/09/18 19:38 11/10/18 22:43 Zofran IV 4 mg Q8H PRN Administration Nausea And Vomiting Polyethylene Glycol 17 gm 11/09/18 19:38 Miralax 3350 PO QDAY PRN Constipation Sodium Chloride 10 ml 11/09/18 22:00 11/13/18 09:30 Sodium Chloride Flush Syringe 10 Ml IV Not Given BID [facility] Sodium Chloride 10 ml 11/09/18 19:38 Sodium Chloride Flush Syringe 10 Ml IV PRN PRN LINE FLUSH
[2018-11-13] MEDS ORDERED: SODIUM BICARBONATE FEEDTUBE PRN (15:36)
[2018-11-13] MEDS ORDERED: SIMPLE SYRUP FEEDTUBE PRN ×2 (15:36)
[2018-11-13] MEDS ORDERED: PANCREAZE DR 10,500 UNIT FEEDTUBE PRN (15:36)
[2018-11-13] MEDS ORDERED: NACL 0.9 (PRIMING MACHINE ONLY DIALYSIS) MC ONE (19:36)
--- NOTE | 2018-11-13 19:46 | Consultation ---
REFERRED BY: Dr. Simone Bagley. REASON FOR CONSULTATION: Thrombocytopenia and anemia, TTP versus HLH or other causes. HISTORY OF PRESENT ILLNESS: I saw the patient, a 63-year-old female, in the ICU. The patient's son was present. The patient has been to [facility] in the month of October and was admitted there because of rash, body ache and fever. As per the information for the fever issues, the patient had extensive evaluation by ID team. The patient was also seen by the Nephrology, Neurology, Cardiology as well as Rheumatology. The patient has had CT abdomen and pelvis, which showed suggestive of chronic pancreatitis. HIV test was negative. Echocardiogram did not show any vegetation. The fever was attributed to possible drug reaction either secondary to calcitriol or tartrazine. She was discharged with a recommendation to follow up with Nephrology. She came to the hospital because of fever, abdominal pain and right upper extremity numbness. For the high fever, ID was consulted and because of anemia and thrombocytopenia hematology has been consulted. There is a question if this is TTP or HLH or other etiology. For the renal impairment, hemodialysis was suggested. The rash is predominant in the forearms, but at this time it is becoming faint. During this admission, lab test showed ferritin to be high. The patient has had transfusion, the hemoglobin was 6.2 at one time. REVIEW OF SYSTEMS: Not reliable as patient is a poor historian. PAST MEDICAL HISTORY: Anemia, diabetes, ESRD, hypertension, renal impairment. PAST SURGICAL HISTORY: Cholecystectomy and . SOCIAL HISTORY: No history of smoking or alcohol usage. FAMILY HISTORY: Diabetes, hypertension. ALLERGIES: None. HOME MEDICATIONS: Include Colace, hydrocodone, PEG. ALLERGIES: None. MEDICATIONS: At this time include atorvastatin, cefepime, Procrit, Dilaudid, insulin. PHYSICAL EXAMINATION: VITAL SIGNS: Temperature 98.9, pulse 96, respirations 17, BP 147/72. HEENT: Pallor present, no icterus. NECK: No neck lymph nodes. Dialysis catheter in groin. HEART: S1, S2. LUNGS: Clear to auscultation anteriorly. ABDOMEN: Soft, rash in forearm with some dryness and skin peeling. LABORATORY DATA: White cell 5, hemoglobin 8.5, MCV 85, platelet 55. At admission, platelet was 100. At one time, hemoglobin was 6.2 and transfusion was given. Potassium 3.5, creatinine 4.4, calcium 6.6, bilirubin not elevated. RADIOLOGY: Abdomen and pelvis CT, evidence of chronic pancreatitis. ASSESSMENT: Fever, rash, anemia, thrombocytopenia. The patient's bilirubin is not elevated. We will do LDH. Ferritin is elevated, that may be secondary to fever or inflammation. It was suspected that calcitriol or tartrazine may have a role in drug allergy. She was extensively investigated at [facility] and [facility]. History of fever, history of abdominal pain. Radiology mentioned chronic pancreatitis. As per the information, extensive investigation for fever has been done including echocardiogram, which was negative. Renal impairment, on hemodialysis. I discussed with pathologist regarding the smear, which shows bandemia. For HLH, bone marrow biopsy may help. The patient's white cell count is not low. [id number] has been ordered to evaluate for TTP in view of anemia and renal impairment; however, the smear did not have significant schistocytes. We will follow the trend and review. At this time based on information, the fever it appears that may not be infective in etiology, drug reaction is still a possibility. We will discuss with other specialists. JOB# [id number] ALEX/DEVAN
[2018-11-13] MEDS: PROCRIT SUB-Q SCH (19:50)
[2018-11-14] MEDS: SODIUM CHLORIDE FLUSH SYRINGE 10 ML IV SCH ×3 (00:06→22:00)
[2018-11-14] MEDS: DILAUDID IV PRN ×2 (00:23→18:17)
[2018-11-14] MEDS: SODIUM CHLORIDE FLUSH SYRINGE 10 ML IV PRN (00:26)
[2018-11-14 05:26] LABS: Hematocrit 25.3 % (30.3-42.9); Hemoglobin 8.6 gm/dl (10.1-14.3); Mean Corpuscular HGB Conc 34 % (30-34); Mean Corpuscular Volume 84 fl (79-97); Red Blood Count 3.03 M/mm3 (3.65-5.03); Red Cell Distribution Width 16.1 % (13.2-15.2)
[2018-11-14 05:27] LABS: Platelet Count 40 K/mm3 (140-440)
[2018-11-14 05:45] LABS: Calcium 6.8 mg/dL (8.4-10.2)
[2018-11-14] MEDS: HumaLOG SUB-Q SCH ×4 (06:00→17:28)
[2018-11-14 06:20] LABS: Basophils % (Manual) 0 % (0.0-1.8); Total Cells Counted 100
[2018-11-14 06:21] LABS: Anisocytosis 1+; Large Platelets 1+; Platelet Estimate Appe; Poikilocytosis 1+
--- NOTE | 2018-11-14 08:33 | Hem/Onc Progress Note ---
Assessment and Plan # Fever, rash, anemia, thrombocytopenia. # The patient's bilirubin is not elevated. We will do LDH. Ferritin is elevated, that may be secondary to fever or inflammation. It was suspected that calcitriol or tartrazine may have a role in drug allergy. She was extensively investigated at [facility] and [facility]. # History of fever, history of abdominal pain. Radiology mentioned chronic pancreatitis. # As per the information, extensive investigation for fever has been done including echocardiogram, which was negative. # Renal impairment, on hemodialysis. # I had discussed with pathologist regarding the smear, which shows bandemia. For HLH, bone marrow biopsy may help. The patient's white cell count is not low. # [id number] has been ordered to evaluate for TTP in view of anemia and renal impairment; however, the smear did not have significant schistocytes. We will follow the trend and review. At this time based on information, the fever it appears that may not be infective in etiology, drug reaction is still a possibility. We will discuss with other specialists. 11/14 [facility] thursday - d/w pt - d/w RN reg same. plt lower - transfusion support as needed - Patient Problems (1) Thrombocytopenia Current Visit: Yes Status: Acute Subjective Date of service: 11/14/18 Principal diagnosis: anemia - low plt Interval history: transferred to medical floor Objective - Constitutional Vitals: Last Vital Signs Temp 98.4 F 11/14/18 05:12 Pulse 86 11/14/18 08:00 Resp 20 11/14/18 05:12 BP 121/73 11/14/18 05:12 Pulse Ox 99 11/14/18 05:12 Pain Intensity (0-10): denies any pain General appearance: no acute distress Performance status: 4-completely disabled - EENT Eyes: EOM intact ENT: hearing intact Lymph node exam: negative cervical - Respiratory Respiratory effort: Positive: normal Respiratory: bilateral: diminished - Cardiovascular Heart Sounds: Present: S1 & S2 Extremities: normal temperature - Gastrointestinal General gastrointestinal: Present: soft, non-tender Rectal Exam: deferred - Genitourinary Female genitourinary: Present: deferred - Integumentary Integumentary: warm, rash (dry scaly rash - peeling of skin) - Musculoskeletal Musculoskeletal: generalized weakness - Labs Lab Results: Laboratory Results - last 24 hr 11/13/18 11/13/18 11/14/18 04:33 11:31 00:11 WBC RBC Hgb Hct MCV MCH MCHC RDW Plt Count Add Manual Diff Total Counted Seg Neuts % (Manual) Band Neutrophils % Lymphocytes % (Manual) Reactive Lymphs % (Man) Monocytes % (Manual) Eosinophils % (Manual) Basophils % (Manual) Metamyelocytes % Myelocytes % Promyelocytes % Blast Cells % Nucleated RBC % Seg Neutrophils # Man Band Neutrophils # Lymphocytes # (Manual) Abs React Lymphs (Man) Monocytes # (Manual) Eosinophils # (Manual) Basophils # (Manual) Metamyelocytes # Myelocytes # Promyelocytes # Blast Cells # WBC Morphology Hypersegmented Neuts Hyposegmented Neuts Hypogranular Neuts Smudge Cells Toxic Granulation Toxic Vacuolation Dohle Bodies Pelger-Huet Anomaly Page Rods Platelet Estimate Clumped Platelets Plt Clumps, EDTA Large Platelets Giant Platelets Platelet Satelliting Plt Morphology Comment RBC Morphology Dimorphic RBCs Polychromasia Hypochromasia Poikilocytosis Anisocytosis Microcytosis Macrocytosis Spherocytes Pappenheimer Bodies Sickle Cells Target Cells Tear Drop Cells Ovalocytes Helmet Cells [place] Bodies [place] Rings [place]oenc[place] Cells Bite Cells Crenated Cell Elliptocytes Acanthocytes (Spur) Rouleaux Hemoglobin C Crystals Schistocytes Malaria parasites Edilberto Bodies Hem Pathologist Commnt Sodium Potassium Chloride Carbon Dioxide Anion Gap BUN Creatinine Estimated GFR BUN/Creatinine Ratio Glucose POC Glucose 265 H 151 H Calcium Folate 9.97 11/14/18 11/14/18 11/14/18 05:10 05:10 06:12 WBC 7.4 RBC 3.03 L Hgb 8.6 L Hct 25.3 L MCV 84 MCH 29 MCHC 34 RDW 16.1 H Plt Count 40 L Add Manual Diff Complete Total Counted 100 Seg Neuts % (Manual) 71.0 H Band Neutrophils % 0 Lymphocytes % (Manual) 16.0 Reactive Lymphs % (Man) 0 Monocytes % (Manual) 10.0 H Eosinophils % (Manual) 3.0 Basophils % (Manual) 0 Metamyelocytes % 0 Myelocytes % 0 Promyelocytes % 0 Blast Cells % 0 Nucleated RBC % Not Reportable Seg Neutrophils # Man 5.3 Band Neutrophils # 0.0 Lymphocytes # (Manual) 1.2 Abs React Lymphs (Man) 0.0 Monocytes # (Manual) 0.7 Eosinophils # (Manual) 0.2 Basophils # (Manual) 0.0 Metamyelocytes # 0.0 Myelocytes # 0.0 Promyelocytes # 0.0 Blast Cells # 0.0 WBC Morphology Not Reportable Hypersegmented Neuts Not Reportable Hyposegmented Neuts Not Reportable Hypogranular Neuts Not Reportable Smudge Cells Not Reportable Toxic Granulation Not Reportable Toxic Vacuolation Not Reportable Dohle Bodies Not Reportable Pelger-Huet Anomaly Not Reportable Page Rods Not Reportable Platelet Estimate Appe Clumped Platelets Not Reportable Plt Clumps, EDTA Not Reportable Large Platelets 1+ Giant Platelets Not Reportable Platelet Satelliting Not Reportable Plt Morphology Comment Not Reportable RBC Morphology Not Reportable Dimorphic RBCs Not Reportable Polychromasia Not Reportable Hypochromasia Not Reportable Poikilocytosis 1+ Anisocytosis 1+ Microcytosis Not Reportable Macrocytosis Not Reportable Spherocytes Not Reportable Pappenheimer Bodies Not Reportable Sickle Cells Not Reportable Target Cells Not Reportable Tear Drop Cells Not Reportable Ovalocytes Not Reportable Helmet Cells Not Reportable [place] Bodies Not Reportable [place] Rings Not Reportable [place] Cells Not Reportable Bite Cells Not Reportable Crenated Cell Not Reportable Elliptocytes Not Reportable Acanthocytes (Spur) Not Reportable Rouleaux Not Reportable Hemoglobin C Crystals Not Reportable Schistocytes Not Reportable Malaria parasites Not Reportable Edilberto Bodies Not Reportable Hem Pathologist Commnt No Sodium 139 Potassium 3.3 L Chloride 96.4 L Carbon Dioxide 24 Anion Gap 22 BUN 29 H Creatinine 4.3 H Estimated GFR 13 BUN/Creatinine Ratio 7 Glucose 131 H POC Glucose 147 H Calcium 6.8 L Folate 11/14/18 08:01 WBC RBC Hgb Hct MCV MCH MCHC RDW Plt Count Add Manual Diff Total Counted Seg Neuts % (Manual) Band Neutrophils % Lymphocytes % (Manual) Reactive Lymphs % (Man) Monocytes % (Manual) Eosinophils % (Manual) Basophils % (Manual) Metamyelocytes % Myelocytes % Promyelocytes % Blast Cells % Nucleated RBC % Seg Neutrophils # Man Band Neutrophils # Lymphocytes # (Manual) Abs React Lymphs (Man) Monocytes # (Manual) Eosinophils # (Manual) Basophils # (Manual) Metamyelocytes # Myelocytes # Promyelocytes # Blast Cells # WBC Morphology Hypersegmented Neuts Hyposegmented Neuts Hypogranular Neuts Smudge Cells Toxic Granulation Toxic Vacuolation Dohle Bodies Pelger-Huet Anomaly Page Rods Platelet Estimate Clumped Platelets Plt Clumps, EDTA Large Platelets Giant Platelets Platelet Satelliting Plt Morphology Comment RBC Morphology Dimorphic RBCs Polychromasia Hypochromasia Poikilocytosis Anisocytosis Microcytosis Macrocytosis Spherocytes Pappenheimer Bodies Sickle Cells Target Cells Tear Drop Cells Ovalocytes Helmet Cells [place] Bodies [place] Rings Karis Cells Bite Cells Crenated Cell Elliptocytes Acanthocytes (Spur) Rouleaux Hemoglobin C Crystals Schistocytes Malaria parasites Edilberto Bodies Hem Pathologist Commnt Sodium Potassium Chloride Carbon Dioxide Anion Gap BUN Creatinine Estimated GFR BUN/Creatinine Ratio Glucose POC Glucose 134 H Calcium Folate Medications & Allergies - Medications Allergies/Adverse Reactions: Allergies No Known Allergies Allergy (Verified 04/15/14 15:50) Home Medications: Home Medications Medication Instructions Recorded Confirmed Last Taken Type Docusate Sodium [Colace] 100 mg PO BID PRN #30 capsule 04/15/14 12/05/14 Unknown Rx HYDROcodone/APAP 5-325 [[place] 1 each PO Q6HR PRN #20 tablet 04/15/14 12/05/14 Unknown Rx 5/325] Polyethylene Glycol 3350 [Miralax] 17 gm PO DAILY PRN #1 bottle 04/15/14 12/05/14 Unknown Rx HYDROcodone/APAP 5-325 [[place] 1 - 2 each PO Q6HR PRN #14 tablet 12/05/14 Unknown Rx 5/325] Atorvastatin [Lipitor Tab] 20 mg PO QHS 11/11/18 11/11/18 Unknown History Gabapentin [Neurontin] 300 mg PO TID PRN 11/11/18 11/11/18 Unknown History Nystatin [Nystatin SUSP] 5 ml PO QID 11/11/18 11/11/18 Unknown History Pantoprazole [Protonix] 40 mg PO QDAY 11/11/18 11/11/18 Unknown History Promethazine [Phenergan] 25 mg PO Q6HR PRN 11/11/18 11/11/18 Unknown History Sodium Bicarbonate 325 mg PO BID 11/11/18 11/11/18 Unknown History amLODIPine 10 mg PO DAILY 11/11/18 11/11/18 Unknown History Active Medications: Generic Name Dose Route Start Last Admin Trade Name Freq PRN Reason Stop Dose Admin Acetaminophen 650 mg 11/09/18 19:38 11/10/18 15:17 Tylenol PO 650 mg Q4H PRN Administration Pain MILD(1-3)/Fever >100.5/FLORES Acetaminophen 650 mg 11/11/18 00:04 11/11/18 17:29 Tylenol [place] 650 mg Q4H PRN Administration Fever >101; Mild Pain (1-3) Lipase/Protease/Amylase 1 each 11/13/18 15:[address] 10,500 Unit FEEDTUBE PRN PRN For Clogged Feeding Tube Atorvastatin Calcium 40 mg 11/10/18 22:00 11/14/18 00:11 Lipitor PO 40 mg QHS PRIYA Administration Docusate Sodium 100 mg 11/09/18 19:32 Colace PO BID PRN Constipation Epoetin Adonis 10,000 unit 11/11/18 08:00 11/13/18 19:50 Procrit SUB-Q 10,000 unit CONSTANTINO PRIYA Administration Hydralazine HCl 10 mg 11/13/18 08:56 11/13/18 14:05 Apresoline IV 10 mg Q4H PRN Administration BP > 160/105 Hydromorphone HCl 0.25 mg 11/09/18 19:38 11/14/18 00:23 Dilaudid IV 0.25 mg Q3H PRN Administration Pain, Moderate (4-6) Cefepime HCl 1 gm in 100 mls @ 200 mls/hr 11/10/18 18:00 11/13/18 18:00 Maxipime/Ns 1 Gm/100 Ml IV Not Given QPM [facility] Protocol Doxycycline Hyclate 100 mg/ 250 mls @ 250 mls/hr 11/10/18 16:00 11/13/18 23:57 Sodium Chloride IV 250 mls/hr Q12HR PRIYA Administration Protocol Sodium Chloride 100 mls @ 999 mls/hr 11/11/18 11:09 Nacl 0.9% IV CONSTANTINO PRN Hypotension Insulin Human Lispro 0 unit 11/12/18 18:00 11/14/18 06:00 Humalog SUB-Q Not Given Q6HR [facility] Protocol Ondansetron HCl 4 mg 11/09/18 19:38 11/10/18 22:43 Zofran IV 4 mg Q8H PRN Administration Nausea And Vomiting Polyethylene Glycol 17 gm 11/09/18 19:38 Miralax 3350 PO QDAY PRN Constipation Simple Syrup 15 ml 11/13/18 15:36 Simple Syrup FEEDTUBE PRN PRN Hypoglycemia Simple Syrup 30 ml 11/13/18 15:36 Simple Syrup FEEDTUBE PRN PRN Hypoglycemia Sodium Bicarbonate 325 mg 11/13/18 15:36 Sodium Bicarbonate FEEDTUBE PRN PRN For Clogged Feeding Tube Sodium Chloride 10 ml 11/09/18 22:00 11/14/18 00:06 Sodium Chloride Flush Syringe 10 Ml IV 10 ml BID PRIYA Administration Sodium Chloride 10 ml 11/09/18 19:38 11/14/18 00:26 Sodium Chloride Flush Syringe 10 Ml IV 10 ml PRN PRN Administration LINE FLUSH
--- NOTE | 2018-11-14 08:49 | Progress Note ---
Assessment and Plan Assessment and plan: The patient is a 63-year-old female with insulin-requiring diabetes, hypertension, COPD who has had 2 recent hospitalizations at [facility] and [facility] in the month of October 2018, admitted there due to generalized rash, body aches as well as fevers, along with a myriad of other complaints i ncluding right upper extremity weakness, chest pain. She was seen by infectious diseases, nephrology, neurology, cardiology as well as rheumatology. CT chest showed no acute findings, CT abdomen and pelvis showed findings of chronic pancreatitis. HIV was negative, echocardiogram showed no vegetations. Extensive workup for infectious process was negative, apparently as per the ID consult at [facility] her fevers were attributed to a possible drug reaction secondary to calcitriol or tartrazine. She was subsequently discharged home with recommendations to follow-up with her nephrology. Now presented to the emergency room showed at [facility] yesterday with complaints of fever, abdominal pain and right upper extremity numbness. Again, she was noted to have high fevers up to 103F. she also had some speech difficulties which apparently resolved. Was evaluated by neurology. Due to worsening creatinine, nephrology was consulted who recommended initiation of hemodialysis. Patient is a poor historian, currently having shaking chills due to fevers. Metabolic encephalopathy, likely due to uremia -Nephrology consulted, and currently on dialysis Upper extremity numbness - Patient had similar problems previously, worked up for CVA and was negative - Neurology consult appreciated Sepsis; fever of unknown origin; and has fever of 103 cont abx per ID ?Still disease - Patient has fever, rash and high ferritin level TTP - Thrombocytopenia, fever, confusion and anemia - Hematology is consulted ESRD on HD - Nephrology is following Severe Anemia - transfused 2 units of blood and hemoglobin is stable Thrombocytopenia - Due to above DVT prophylaxis - SCDs because of severe thrombocytopenia Disposition - Transfer to the floor History Interval history: Review of systems Constitutional: No fevers, no malaise, no joint pains CVS: No chest pain, no orthopnea, no dyspnea on exertion, no pedal edema GI: No abdominal pain, no diarrhea, no vomiting, no constipation Respiratory: No shortness of breath, no wheezing, no coughing Hospitalist Physical - Physical exam Narrative exam: General.: Appears well, no distress, nontoxic HEENT: Moist mucous membranes, extraocular muscles intact, no lymphadenopathy Neck: supple Cardiac: S1-S2 heard Lungs: clear to auscultation bilaterally Abdomen: soft , nontender, nondistended, bowel sounds positive Extremities: no edema clubbing or cyanosis Skin: no rash or lesions Neurologic: no gross focal deficits Psych: calm, and cooperative - Constitutional Vitals: Temp Pulse Resp BP Pulse Ox 98.4 F 86 20 121/73 99 11/14/18 05:12 11/14/18 08:39 11/14/18 05:12 11/14/18 05:12 11/14/18 05:12 General appearance: Present: no acute distress, well-nourished, obese, disheve led Results - Labs CBC & Chem 7: 11/20/18 04:25 11/21/18 05:20 Labs: Laboratory Last Values WBC 7.4 K/mm3 (4.5-11.0) 11/14/18 05:10 RBC 3.03 M/mm3 (3.65-5.03) L 11/14/18 05:10 Hgb 8.6 gm/dl (10.1-14.3) L 11/14/18 05:10 Hct 25.3 % (30.3-42.9) L 11/14/18 05:10 MCV 84 fl (79-97) 11/14/18 05:10 MCH 29 pg (28-32) 11/14/18 05:10 MCHC 34 % (30-34) 11/14/18 05:10 RDW 16.1 % (13.2-15.2) H 11/14/18 05:10 Plt Count 40 K/mm3 (140-440) L 11/14/18 05:10 Lymph % (Auto) 19.3 % (13.4-35.0) 11/13/18 04:33 Metcalfe % (Auto) 10.4 % (0.0-7.3) H 11/13/18 04:33 Eos % (Auto) 3.7 % (0.0-4.3) 11/13/18 04:33 Baso % (Auto) 1.1 % (0.0-1.8) 11/13/18 04:33 Lymph # 1.5 K/mm3 (1.2-5.4) 11/13/18 04:33 Metcalfe # 0.8 K/mm3 (0.0-0.8) 11/13/18 04:33 Eos # 0.3 K/mm3 (0.0-0.4) 11/13/18 04:33 Baso # 0.1 K/mm3 (0.0-0.1) 11/13/18 04:33 Add Manual Diff Complete 11/14/18 05:10 Total Counted 100 11/14/18 05:10 Seg Neutrophils % 65.5 % (40.0-70.0) 11/13/18 04:33 Seg Neuts % (Manual) 71.0 % (40.0-70.0) H 11/14/18 05:10 0 % 11/14/18 05:10 16.0 % (13.4-35.0) 11/14/18 05:10 Reactive Lymphs % (Man) 0 % 11/14/18 05:10 10.0 % (0.0-7.3) H 11/14/18 05:10 3.0 % (0.0-4.3) 11/14/18 05:10 0 % (0.0-1.8) 11/14/18 05:10 0 % 11/14/18 05:10 0 % 11/14/18 05:10 0 % 11/14/18 05:10 0 % 11/14/18 05:10 Nucleated RBC % Not Reportable 11/14/18 05:10 Seg Neutrophils # 5.0 K/mm3 (1.8-7.7) 11/13/18 04:33 Seg Neutrophils # Man 5.3 K/mm3 (1.8-7.7) 11/14/18 05:10 Band Neutrophils # 0.0 K/mm3 11/14/18 05:10 1.2 K/mm3 (1.2-5.4) 11/14/18 05:10 Abs React Lymphs (Man) 0.0 K/mm3 11/14/18 05:10 0.7 K/mm3 (0.0-0.8) 11/14/18 05:10 0.2 K/mm3 (0.0-0.4) 11/14/18 05:10 0.0 K/mm3 (0.0-0.1) 11/14/18 05:10 0.0 K/mm3 11/14/18 05:10 0.0 K/mm3 11/14/18 05:10 0.0 K/mm3 11/14/18 05:10 Blast Cells # 0.0 K/mm3 11/14/18 05:10 WBC Morphology Not Reportable 11/14/18 05:10 Hypersegmented Neuts Not Reportable 11/14/18 05:10 Hyposegmented Neuts Not Reportable 11/14/18 05:10 Hypogranular Neuts Not Reportable 11/14/18 05:10 Not Reportable 11/14/18 05:10 Not Reportable 11/14/18 05:10 Not Reportable 11/14/18 05:10 Not Reportable 11/14/18 05:10 Not Reportable 11/14/18 05:10 Not Reportable 11/14/18 05:10 Appe 11/14/18 05:10 Not Reportable 11/14/18 05:10 Plt Clumps, EDTA Not Reportable 11/14/18 05:10 1+ 11/14/18 05:10 Not Reportable 11/14/18 05:10 Not Reportable 11/14/18 05:10 Plt Morphology Comment Not Reportable 11/14/18 05:10 RBC Morphology Not Reportable 11/14/18 05:10 Dimorphic RBCs Not Reportable 11/14/18 05:10 Not Reportable 11/14/18 05:10 Not Reportable 11/14/18 05:10 1+ 11/14/18 05:10 1+ 11/14/18 05:10 Not Reportable 11/14/18 05:10 Not Reportable 11/14/18 05:10 Not Reportable 11/14/18 05:10 Not Reportable 11/14/18 05:10 Not Reportable 11/14/18 05:10 Not Reportable 11/14/18 05:10 Not Reportable 11/14/18 05:10 Not Reportable 11/14/18 05:10 Not Reportable 11/14/18 05:10 Not Reportable 11/14/18 05:10 Not Reportable 11/14/18 05:10 Not Reportable 11/14/18 05:10 Not Reportable 11/14/18 05:10 Not Reportable 11/14/18 05:10 Not Reportable 11/14/18 05:10 Acanthocytes (Spur) Not Reportable 11/14/18 05:10 Rouleaux Not Reportable 11/14/18 05:10 Not Reportable 11/14/18 05:10 Not Reportable 11/14/18 05:10 Not Reportable 11/14/18 05:10 Not Reportable 11/14/18 05:10 Hem Pathologist Commnt No 11/14/18 05:10 PT 14.8 Sec. (12.2-14.9) 11/09/18 16:16 INR 1.09 (0.87-1.13) 11/09/18 16:16 APTT 44.5 Sec. (24.2-36.6) H 11/09/18 16:16 21.3 Sec. (15.1-19.6) H 11/09/18 16:16 Sodium 139 mmol/L (137-145) 11/14/18 05:10 Potassium 3.3 mmol/L (3.6-5.0) L 11/14/18 05:10 Chloride 96.4 mmol/L (98-107) L 11/14/18 05:10 Carbon Dioxide 24 mmol/L (22-30) 11/14/18 05:10 22 mmol/L 11/14/18 05:10 BUN 29 mg/dL (7-17) H 11/14/18 05:10 4.3 mg/dL (0.7-1.2) H 11/14/18 05:10 Estimated GFR 13 ml/min 11/14/18 05:10 7 % 11/14/18 05:10 Glucose 131 mg/dL (65-100) H 11/14/18 05:10 POC Glucose 134 (70-105) H 11/14/18 08:01 6.9 % (4-6) H 11/09/18 22:00 Lactic Acid 0.80 mmol/L (0.7-2.0) 11/10/18 08:10 Calcium 6.8 mg/dL (8.4-10.2) L 11/14/18 05:10 Iron 36 ug/dL (37-170) L 11/09/18 16:16 TIBC 169 mcg/dL (250-450) L 11/09/18 16:16 % Saturation 21.30 % 11/09/18 16:16 128 mg/dl (192-382) L 11/09/18 16:16 > 2000.0 ng/mL (13.0-400.0) H 11/10/18 17:17 0.30 mg/dL (0.1-1.2) 11/09/18 16:16 AST 68 units/L (5-40) H 11/09/18 16:16 ALT 14 units/L (7-56) 11/09/18 16:16 102 units/L (35-129) 11/09/18 16:16 19.0 umol/L (25-60) L 11/09/18 16:16 93 units/L (30-135) 11/09/18 16:16 CK-MB (CK-2) < 1.0 ng/mL (0.0-4.0) 11/09/18 16:16 CK-MB (CK-2) Rel Index 1.0 (0-4) 11/09/18 16:16 0.017 ng/mL (0.00-0.029) 11/09/18 16:16 7.6 g/dL (6.3-8.2) 11/09/18 16:16 2.6 g/dL (3.9-5) L 11/09/18 16:16 0.5 % 11/09/18 16:16 Triglycerides 298 mg/dL (2-149) H 11/10/18 08:05 Cholesterol 84 mg/dL (50-199) 11/10/18 08:05 7 mg/dL (50-130) L 11/10/18 08:05 8 mg/dL (40-59) L 11/10/18 08:05 10.50 % 11/10/18 08:05 13 units/L (13-60) 11/09/18 16:16 Vitamin B12 1628 pg/mL (211-911) H 11/13/18 04:33 9.97 ng/mL (7.3-26.0) 11/13/18 04:33 Yellow (Yellow) 11/10/18 01:08 Cloudy (Clear) 11/10/18 01:08 5.0 (5.0-7.0) 11/10/18 01:08 Ur Specific Glen 1.016 (1.003-1.030) 11/10/18 01:08 >500 mg/dL (Negative) 11/10/18 01:08 Neg mg/dL (Negative) 11/10/18 01:08 Neg mg/dL (Negative) 11/10/18 01:08 Sm (Negative) 11/10/18 01:08 Neg (Negative) 11/10/18 01:08 Ur Reducing Substances Not Reportable 11/10/18 01:08 Neg (Negative) 11/10/18 01:08 Not Reportable 11/10/18 01:08 < 2.0 mg/dL (<2.0) 11/10/18 01:08 Ur Leukocyte Esterase Neg (Negative) 11/10/18 01:08 7.0 /HPF (0.0-6.0) H 11/10/18 01:08 6.0 /HPF (0.0-6.0) 11/10/18 01:08 U Epithel Cells (Auto) 1.0 /HPF (0-13.0) 11/10/18 01:08 1+ /HPF (Negative) 11/10/18 01:08 2+ /HPF 11/10/18 01:08 Hyaline Casts 1 /LPF 11/10/18 01:08 3+ /HPF 11/10/18 01:08 Random Vancomycin 12.3 ug/mL (0-40.0) 11/12/18 04:45 Presumptive negative 11/10/18 01:08 Presumptive negative 11/10/18 01:08 Ur Barbiturates Screen Presumptive negative 11/10/18 01:08 Ur Phencyclidine Scrn Presumptive negative 11/10/18 01:08 Ur Amphetamines Screen Presumptive negative 11/10/18 01:08 U Benzodiazepines Scrn Presumptive negative 11/10/18 01:08 Presumptive negative 11/10/18 01:08 U Marijuana (THC) Screen Presumptive negative 11/10/18 01:08 Disclamer 11/10/18 01:08 Plasma/Serum Alcohol < 0.01 % (0-0.07) 11/09/18 16:16 Blood Type A POSITIVE 11/11/18 07:29 Antibody Screen TNR 11/11/18 07:29 QUIANA Antibody Screen Negative 11/11/18 07:29 Crossmatch See Detail 11/11/18 07:29 Active Medications - Current Medications Current Medications: Generic Name Dose Route Start Last Admin Trade Name Freq PRN Reason Stop Dose Admin Acetaminophen 650 mg 11/09/18 19:38 11/10/18 15:17 Tylenol PO 650 mg Q4H PRN Administration Pain MILD(1-3)/Fever >100.5/FLORES Acetaminophen 650 mg 11/11/18 00:04 11/11/18 17:29 Tylenol AL 650 mg Q4H PRN Administration Fever >101; Mild Pain (1-3) Lipase/Protease/Amylase 1 each 11/13/18 15:[address] 10,500 Unit FEEDTUBE PRN PRN For Clogged Feeding Tube Atorvastatin Calcium 40 mg 11/10/18 22:00 11/14/18 00:11 Lipitor PO 40 mg QHS PRIYA Administration Docusate Sodium 100 mg 11/09/18 19:32 Colace PO BID PRN Constipation Epoetin Adonis 10,000 unit 11/11/18 08:00 11/13/18 19:50 Procrit SUB-Q 10,000 unit CONSTANTINO PRIYA Administration Hydralazine HCl 10 mg 11/13/18 08:56 11/13/18 14:05 Apresoline IV 10 mg Q4H PRN Administration BP > 160/105 Hydromorphone HCl 0.25 mg 11/09/18 19:38 11/14/18 00:23 Dilaudid IV 0.25 mg Q3H PRN Administration Pain, Moderate (4-6) Cefepime HCl 1 gm in 100 mls @ 200 mls/hr 11/10/18 18:00 11/13/18 18:00 Maxipime/Ns 1 Gm/100 Ml IV Not Given QPM [facility] Protocol Doxycycline Hyclate 100 mg/ 250 mls @ 250 mls/hr 11/10/18 16:00 11/13/18 23:57 Sodium Chloride IV 250 mls/hr Q12HR PRIYA Administration Protocol Sodium Chloride 100 mls @ 999 mls/hr 11/11/18 11:09 Nacl 0.9% IV CONSTANTINO PRN Hypotension Insulin Human Lispro 0 unit 11/12/18 18:00 11/14/18 06:00 Humalog SUB-Q Not Given Q6HR [facility] Protocol Ondansetron HCl 4 mg 11/09/18 19:38 11/10/18 22:43 Zofran IV 4 mg Q8H PRN Administration Nausea And Vomiting Polyethylene Glycol 17 gm 11/09/18 19:38 Miralax 3350 PO QDAY PRN Constipation Simple Syrup 15 ml 11/13/18 15:36 Simple Syrup FEEDTUBE PRN PRN Hypoglycemia Simple Syrup 30 ml 11/13/18 15:36 Simple Syrup FEEDTUBE PRN PRN Hypoglycemia Sodium Bicarbonate 325 mg 11/13/18 15:36 Sodium Bicarbonate FEEDTUBE PRN PRN For Clogged Feeding Tube Sodium Chloride 10 ml 11/09/18 22:00 11/14/18 00:06 Sodium Chloride Flush Syringe 10 Ml IV 10 ml BID PRIYA Administration Sodium Chloride 10 ml 11/09/18 19:38 11/14/18 00:26 Sodium Chloride Flush Syringe 10 Ml IV 10 ml PRN PRN Administration LINE FLUSH Nutrition/Malnutrition Assess - Dietary Evaluation Nutrition/Malnutrition Findings: Nutrition Notes Start: 11/13/18 15:25 Freq: Status: Active Protocol: Document 11/13/18 15:25 RM (Rec: 11/13/18 15:36 RM [id number]) Nutrition Notes Need for Assessment generated from: MD Order Initial or Follow up Assessment Current Diagnosis COPD,Diabetes,Sepsis Other Pertinent Diagnosis ESRD on HD, metabolic encephalopathy,GERD Current Diet Renal Labs/Tests Reviewed Pertinent Medications Reviewed Height 5 ft 6 in Weight 83.2 kg [place] Body Weight (kg) 59.09 BMI 29.6 Subjective/Other Information Consulted for TF recommendation. NG tube in place. Pt nurse stated that pt has been eating bites of her meals. Burn Absent Trauma Absent #1 Nutrition Diagnosis Inadequate oral intake Etiology metabolic encephalopathy As Evidenced by Signs and Symptoms pt nurse statement that pt is eating bites of her meals Is patient on ventilator? No Is Patient Ambulatory and/or Out of Bed No REE-([facility]-confined to bed) 1701.360 Calculation Used for Recommendations [facility] Additional Notes Protein Needs: 100-166g (1.2- 2g/kg) Fluid Needs: 1 ml/kcal Nutrition Intervention Nutrition Support: Vital 1.2 at 60 ml/hr. Water flush of 100 mls q 4 hrs . Kcal 1,728 Protein (gm) 108 Fluid (mL) 1,168 Goal #1 TF tolerance Goal #2 Meet at least 75% of calorie and protein needs via TF Anticipated Discharge Needs: Unable to determine at this time Follow-Up By: 11/15/18 Additional Comments Follow for TF tolerance, renal labs
--- NOTE | 2018-11-14 09:00 | Progress Note ---
Assessment and Plan Cultures: 11/09/2018 blood culture: no growth thus far 11/10/2018 blood culture: no growth thus far 11/10/2018 Fungal blood culture: in progress 11/10/2018 urine culture: no growth Ferritin: >2000. A/P: 1) Sepsis / FUO: unclear etiology. Improving. No fever in >24 hours, Going on for the last 1 month with extensive infectious work up negative thus far at [place]. No evidence of infection on CT chest, abdomen pelvis. HIV negative. TTE negative for vegetations. Blood cultures at [place] were negative. Fevers have been quite high. No significant eosinophilia. Per records at [place], ANCA screen negative. Procalcitonin was moderately elevated: but difficult to interpret in the setting of renal failure. Leucocytosis at [place] was mainly neutrophilic. Apparently as per the ID consult at [facility] her fevers were attributed to a possible drug reaction secondary to calcitriol or tartrazine. ESR elevated at 124, CRP also elevated at 19.60. GRACE negative, RF <15. Here, she has no leucocytosis. Ferritin is high. Rash + for about a month. 2) CKD4 / now ARF/ESRD: requiring dialysis. Nephrology following. 3) DM-2: insulin requiring. 4) Anemia, thrombocytopenia: worsening. Hematology to trend and review ADAMT13 to evaluate for TTP. ?bone marrow biopsy? - Dr. Jacques following. Recs: - continue empirically with IV Cefepime, Vancomycin renally adjusted and therapeutic Doxycycline trial, D5 - f/u serologies for tick borne illnesses - monitor fever -may want to consider LP for continued confusion Marcy Gonsalves NP [facility] M: [phone] O:[phone] Subjective Date of service: 11/14/18 Principal diagnosis: ESRD Interval history: Patient seen and examined. Asleep, easy to arouse but confusion continuing. No acute distress observed. no fever. Objective - Exam Narrative Exam: Constitutional: Asleep, easy to arouse. No acute distress Head, Ears, Nose: Normocephalic, atraumatic. External ears, nose normal Eyes: Conjunctivae/corneas clear. No icterus. No ptosis. Neck: Supple, no meningeal signs Oral: no thrush or ulcers Cardiovascular: S1, S2 normal. Respiratory: Good air entry, clear to auscultation bilaterally GI: Soft, non-tender; bowel sounds normal. No peritoneal signs Musculoskeletal: No pedal edema, no cyanosis. Skin: faint maculopapular rash Hem/Lymphatic: No palpable cervical or supraclavicular nodes. No lymphangitis Psych: no agitation, calm Neurological: Awake, alert, follows simple commands slowly. - Constitutional Vitals: Vital Signs Temp Pulse Resp BP Pulse Ox 98.4 F 86 20 121/73 99 11/14/18 05:12 11/14/18 08:39 11/14/18 05:12 11/14/18 05:12 11/14/18 05:12 Temperature -Last 24 Hours Temperature 98.4 F Temperature 97.3 F Temperature 97.8 F Temperature 97.9 F Temperature 97.9 F Temperature 97.9 F Temperature 98.1 F Temperature 98.1 F - Labs CBC & Chem 7: 11/14/18 05:10 11/14/18 05:10 Labs: Abnormal lab results 11/13/18 11/14/18 11/14/18 Range/Units 11:31 00:11 05:10 RBC 3.03 L (3.65-5.03) M/mm3 Hgb 8.6 L (10.1-14.3) gm/dl Hct 25.3 L (30.3-42.9) % RDW 16.1 H (13.2-15.2) % Plt Count 40 L (140-440) K/mm3 Seg Neuts % (Manual) 71.0 H (40.0-70.0) % Monocytes % (Manual) 10.0 H (0.0-7.3) % Potassium (3.6-5.0) mmol/L Chloride (98-107) mmol/L BUN (7-17) mg/dL Creatinine (0.7-1.2) mg/dL Glucose (65-100) mg/dL POC Glucose 265 H 151 H (70-105) Calcium (8.4-10.2) mg/dL 11/14/18 11/14/18 11/14/18 Range/Units 05:10 06:12 08:01 RBC (3.65-5.03) M/mm3 Hgb (10.1-14.3) gm/dl Hct (30.3-42.9) % RDW (13.2-15.2) % Plt Count (140-440) K/mm3 Seg Neuts % (Manual) (40.0-70.0) % Monocytes % (Manual) (0.0-7.3) % Potassium 3.3 L (3.6-5.0) mmol/L Chloride 96.4 L (98-107) mmol/L BUN 29 H (7-17) mg/dL Creatinine 4.3 H (0.7-1.2) mg/dL Glucose 131 H (65-100) mg/dL POC Glucose 147 H 134 H (70-105) Calcium 6.8 L (8.4-10.2) mg/dL
--- NOTE | 2018-11-14 09:06 | Progress Note ---
Assessment and Plan Cultures: 11/09/2018 blood culture: no growth thus far 11/10/2018 blood culture: no growth thus far 11/10/2018 Fungal blood culture: in progress 11/10/2018 urine culture: no growth Ferritin: >2000. A/P: 1) Sepsis / FUO: unclear etiology. Going on for the last 1 month with extensive infectious work up negative thus far at [place]. No evidence of infection on CT chest, abdomen pelvis. HIV negative. TTE negative for vegetations. Blood cultures at [place] were negative. Fevers have been quite high. No significant eosinophilia. Per records at [place], ANCA screen negative. Procalcitonin was moderately elevated: but difficult to interpret in the setting of renal failure. Leucocytosis at [place] was mainly neutrophilic. Apparently as per the ID consult at [facility] her fevers were attributed to a possible drug reaction secondary to calcitriol or tartrazine. ESR elevated at 124, CRP also elevated at 19.60. GRACE negative, RF <15. Here, she has no leucocytosis. Ferritin is high. Rash + for about a month. 2) CKD4 / now ARF/ESRD: requiring dialysis. Nephrology following. 3) DM-2: insulin requiring. 4) Anemia, thrombocytopenia: worsening. Awaiting hematology consult. Recs: - Awaiting hematology consult. Given high ferritin, HLH and Adult Still's Disease are a possibility. Question of TTP was also raised, f/u ADAMSTS-[id number]. ?may need a bone marrow biopsy - continue empirically with IV Cefepime, Vancomycin renally adjusted and therapeutic Doxycycline trial - f/u serologies for tick borne illnesses - monitor fever [facility] M: [phone] O:[phone] Subjective Date of service: 11/14/18 Principal diagnosis: ESRD Objective - Constitutional Vitals: Vital Signs Temp Pulse Resp BP Pulse Ox 98.4 F 86 20 121/73 99 11/14/18 05:12 11/14/18 08:39 11/14/18 05:12 11/14/18 05:12 11/14/18 05:12 Temperature -Last 24 Hours Temperature 98.4 F Temperature 97.3 F Temperature 97.8 F Temperature 97.9 F Temperature 97.9 F Temperature 97.9 F Temperature 98.1 F Temperature 98.1 F - Labs CBC & Chem 7: 11/14/18 05:10 11/14/18 05:10 Labs: Abnormal lab results 11/13/18 11/14/18 11/14/18 Range/Units 11:31 00:11 05:10 RBC 3.03 L (3.65-5.03) M/mm3 Hgb 8.6 L (10.1-14.3) gm/dl Hct 25.3 L (30.3-42.9) % RDW 16.1 H (13.2-15.2) % Plt Count 40 L (140-440) K/mm3 Seg Neuts % (Manual) 71.0 H (40.0-70.0) % Monocytes % (Manual) 10.0 H (0.0-7.3) % Potassium (3.6-5.0) mmol/L Chloride (98-107) mmol/L BUN (7-17) mg/dL Creatinine (0.7-1.2) mg/dL Glucose (65-100) mg/dL POC Glucose 265 H 151 H (70-105) Calcium (8.4-10.2) mg/dL 11/14/18 11/14/18 11/14/18 Range/Units 05:10 06:12 08:01 RBC (3.65-5.03) M/mm3 Hgb (10.1-14.3) gm/dl Hct (30.3-42.9) % RDW (13.2-15.2) % Plt Count (140-440) K/mm3 Seg Neuts % (Manual) (40.0-70.0) % Monocytes % (Manual) (0.0-7.3) % Potassium 3.3 L (3.6-5.0) mmol/L Chloride 96.4 L (98-107) mmol/L BUN 29 H (7-17) mg/dL Creatinine 4.3 H (0.7-1.2) mg/dL Glucose 131 H (65-100) mg/dL POC Glucose 147 H 134 H (70-105) Calcium 6.8 L (8.4-10.2) mg/dL
[2018-11-14] MEDS: DOXYCYCLINE HYCLATE 100 MG in NACL 0.9% 250ML 250 ML IV SCH ×2 (09:51→23:11)
--- NOTE | 2018-11-14 12:24 | Progress Note ---
Assessment and Plan - Patient Problems (1) Hyperkalemia Current Visit: Yes Status: Acute Plan to address problem: Potassium improved postdialysis and is actually low today. We'll give potassium supplement (2) ESRD (end stage renal disease) Current Visit: Yes Status: Acute Plan to address problem: Hemodialysis today and then continue on a Thursday, and Thursday schedule (3) Hypertensive chronic kidney disease with stage 1 through stage 4 chronic kidney disease, or unspecified chronic kidney disease Current Visit: Yes Status: Acute Plan to address problem: Follow-up blood pressure on current medications (4) SIRS (systemic inflammatory response syndrome) Current Visit: Yes Status: Acute Plan to address problem: Fever of undetermined origin. Being followed up by infectious disease. (5) Thrombocytopenia Current Visit: Yes Status: Acute Plan to address problem: Etiology uncertain. ADAMSTS-13 pending. Hematology has been consulted. (6) Anemia in chronic illness Current Visit: Yes Status: Acute Plan to address problem: Give Erythropoetin on dialysis and follow-up hemoglobin (7) Type 2 diabetes mellitus with diabetic chronic kidney disease Current Visit: Yes Status: Chronic Qualifiers: Chronic kidney disease stage: stage 5, not on chronic dialysis Plan to address problem: Blood sugar management by primary attending Subjective Date of service: 11/14/18 Principal diagnosis: ESRD Interval history: Patient seen lying in bed. She is less confused. She recognizes me. No family at bedside Objective - Exam Narrative Exam: Middle-aged -Guinean female lying in bed in no acute distress HEENT: NCAT, pink oral mucous membrane Neck: Supple, no venous distention CVS: S1S2 RRR with no murmur, rub or gallop Chest: Faint rhonchi Abdomen: Protuberant, soft, nontender, no organomegaly, bowel sounds are present Extremities: No edema Neuro: Awake, hemiparesis, slurred speech - Vital Signs Vital signs: Vital Signs - 12hr 11/14/18 11/14/18 11/14/18 05:12 08:00 08:39 Temperature 98.4 F Pulse Rate 90 86 Pulse Rate [ 86 From Monitor] Respiratory 20 Rate Blood Pressure 121/73 O2 Sat by Pulse 99 Oximetry 11/14/18 11:34 Temperature 98.5 F Pulse Rate 89 Pulse Rate [ From Monitor] Respiratory 20 Rate Blood Pressure 140/75 O2 Sat by Pulse 100 Oximetry - Lab 11/14/18 05:10 11/14/18 05:10 Most recent lab results Calcium 6.8 mg/dL (8.4-10.2) L 11/14/18 05:10 Medications & Allergies - Medications Allergies/Adverse Reactions: Allergies No Known Allergies Allergy (Verified 04/15/14 15:50) Home Medications: Home Medications Medication Instructions Recorded Confirmed Last Taken Type Docusate Sodium [Colace] 100 mg PO BID PRN #30 capsule 04/15/14 12/05/14 Unknown Rx HYDROcodone/APAP 5-325 [[place] 1 each PO Q6HR PRN #20 tablet 04/15/14 12/05/14 Unknown Rx 5/325] Polyethylene Glycol 3350 [Miralax] 17 gm PO DAILY PRN #1 bottle 04/15/14 12/05/14 Unknown Rx HYDROcodone/APAP 5-325 [[place] 1 - 2 each PO Q6HR PRN #14 tablet 12/05/14 Unknown Rx 5/325] Atorvastatin [Lipitor Tab] 20 mg PO QHS 11/11/18 11/11/18 Unknown History Gabapentin [Neurontin] 300 mg PO TID PRN 11/11/18 11/11/18 Unknown History Nystatin [Nystatin SUSP] 5 ml PO QID 11/11/18 11/11/18 Unknown History Pantoprazole [Protonix] 40 mg PO QDAY 11/11/18 11/11/18 Unknown History Promethazine [Phenergan] 25 mg PO Q6HR PRN 11/11/18 11/11/18 Unknown History Sodium Bicarbonate 325 mg PO BID 11/11/18 11/11/18 Unknown History amLODIPine 10 mg PO DAILY 11/11/18 11/11/18 Unknown History Active Medications: Generic Name Dose Route Start Last Admin Trade Name Freq PRN Reason Stop Dose Admin Acetaminophen 650 mg 11/09/18 19:38 11/10/18 15:17 Tylenol PO 650 mg Q4H PRN Administration Pain MILD(1-3)/Fever >100.5/FLORES Acetaminophen 650 mg 11/11/18 00:04 11/11/18 17:29 Tylenol [place] 650 mg Q4H PRN Administration Fever >101; Mild Pain (1-3) Lipase/Protease/Amylase 1 each 11/13/18 15:36 Pancreazcharly [place] 10,500 Unit FEEDTUBE PRN PRN For Clogged Feeding Tube Atorvastatin Calcium 40 mg 11/10/18 22:00 11/14/18 00:11 Lipitor PO 40 mg QHS PRIYA Administration Docusate Sodium 100 mg 11/09/18 19:32 Colace PO BID PRN Constipation Epoetin Adonis 10,000 unit 11/11/18 08:00 11/13/18 19:50 Procrit SUB-Q 10,000 unit CONSTANTINO PRIYA Administration Hydralazine HCl 10 mg 11/13/18 08:56 11/13/18 14:05 Apresoline IV 10 mg Q4H PRN Administration BP > 160/105 Hydromorphone HCl 0.25 mg 11/09/18 19:38 11/14/18 00:23 Dilaudid IV 0.25 mg Q3H PRN Administration Pain, Moderate (4-6) Cefepime HCl 1 gm in 100 mls @ 200 mls/hr 11/10/18 18:00 11/13/18 18:00 Maxipime/Ns 1 Gm/100 Ml IV Not Given QPM [facility] Protocol Doxycycline Hyclate 100 mg/ 250 mls @ 250 mls/hr 11/10/18 16:00 11/14/18 09:51 Sodium Chloride IV 250 mls/hr Q12HR PRIYA Administration Protocol Sodium Chloride 100 mls @ 999 mls/hr 11/11/18 11:09 Nacl 0.9% IV CONSTANTINO PRN Hypotension Vancomycin HCl 1 gm in 250 mls @ 167.007 mls/hr 11/14/18 14:00 Vancomycin/Ns 1 Gm/250 Ml IV 11/14/18 15:29 ONCE ONE Vancomycin HCl 1 gm in 250 mls @ 166.667 mls/hr 11/14/18 14:00 Vancomycin/Ns 1 Gm/250 Ml IV 11/14/18 15:29 ONCE ONE Insulin Human Lispro 0 unit 11/12/18 18:00 11/14/18 06:00 Humalog SUB-Q Not Given Q6HR [facility] Protocol Ondansetron HCl 4 mg 11/09/18 19:38 11/10/18 22:43 Zofran IV 4 mg Q8H PRN Administration Nausea And Vomiting Polyethylene Glycol 17 gm 11/09/18 19:38 Miralax 3350 PO QDAY PRN Constipation Simple Syrup 15 ml 11/13/18 15:36 Simple Syrup FEEDTUBE PRN PRN Hypoglycemia Simple Syrup 30 ml 11/13/18 15:36 Simple Syrup FEEDTUBE PRN PRN Hypoglycemia Sodium Bicarbonate 325 mg 11/13/18 15:36 Sodium Bicarbonate FEEDTUBE PRN PRN For Clogged Feeding Tube Sodium Chloride 10 ml 11/09/18 22:00 11/14/18 09:52 Sodium Chloride Flush Syringe 10 Ml IV 10 ml BID PRIYA Administration Sodium Chloride 10 ml 11/09/18 19:38 11/14/18 00:26 Sodium Chloride Flush Syringe 10 Ml IV 10 ml PRN PRN Administration LINE FLUSH
[2018-11-14 13:33] LABS: Hepatitis B Surface Antigen Non-Reactive (Negative); Hepatitis C Virus Antibody Non-Reactive (NonReactive)
[2018-11-14] MEDS ORDERED: VANCOMYCIN/NS 1 GM/250 ML 1 GM/250 ML BAG IV ONE ×2 (14:00)
[2018-11-14] MEDS: MAXIPIME/NS 1 GM/100 ML 1 GM/100 ML BAG IV SCH (17:27)
[2018-11-15] MEDS: DILAUDID IV PRN (01:04)
[2018-11-15] MEDS: HumaLOG SUB-Q SCH ×4 (02:13→19:54)
[2018-11-15] MEDS: ZOFRAN IV PRN (06:48)
[2018-11-15] MEDS: SODIUM CHLORIDE FLUSH SYRINGE 10 ML IV PRN (06:50)
--- NOTE | 2018-11-15 08:12 | Progress Note ---
Assessment and Plan - Patient Problems (1) Hyperkalemia Current Visit: Yes Status: Acute Plan to address problem: Potassium improved postdialysis. Labs pending this morning. (2) ESRD (end stage renal disease) Current Visit: Yes Status: Acute Plan to address problem: Hemodialysis on a Thursday, and Thursday schedule (3) Hypertensive chronic kidney disease with stage 1 through stage 4 chronic kidney disease, or unspecified chronic kidney disease Current Visit: Yes Status: Acute Plan to address problem: Follow-up blood pressure on current medications (4) SIRS (systemic inflammatory response syndrome) Current Visit: Yes Status: Acute Plan to address problem: Fever of undetermined origin. Being followed up by infectious disease. (5) Thrombocytopenia Current Visit: Yes Status: Acute Plan to address problem: Etiology uncertain. ADAMSTS-13 pending. Hematology has been consulted. (6) Anemia in chronic illness Current Visit: Yes Status: Acute Plan to address problem: Give Erythropoetin on dialysis and follow-up hemoglobin (7) Type 2 diabetes mellitus with diabetic chronic kidney disease Current Visit: Yes Status: Chronic Qualifiers: Chronic kidney disease stage: stage 5, not on chronic dialysis Plan to address problem: Blood sugar management by primary attending Subjective Date of service: 11/15/18 Principal diagnosis: anemia - low plt Interval history: Patient seen lying in bed. She has no complaints this morning. She feels b pati. "I haven't seen you in a long time". She does not recall seeing me yesterday or the day before. No family at bedside Objective - Exam Narrative Exam: Middle-aged -Latvian female lying in bed in no acute distress HEENT: NCAT, pink oral mucous membrane Neck: Supple, no venous distention CVS: S1S2 RRR with no murmur, rub or gallop Chest: Faint rhonchi Abdomen: Protuberant, soft, nontender, no organomegaly, bowel sounds are present Extremities: No edema Neuro: Awake, hemiparesis, slurred speech, speaking more - Vital Signs Vital signs: Vital Signs - 12hr 11/14/18 11/14/18 11/15/18 22:00 22:01 05:24 Temperature 97.4 F L 97.5 F L Pulse Rate 84 84 Pulse Rate [ 84 Right Radial] Respiratory 20 20 24 Rate Blood Pressure 152/79 165/81 O2 Sat by Pulse 98 98 98 Oximetry - Lab 11/14/18 05:10 11/14/18 05:10 Most recent lab results Calcium 6.8 mg/dL (8.4-10.2) L 11/14/18 05:10 Medications & Allergies - Medications Allergies/Adverse Reactions: Allergies No Known Allergies Allergy (Verified 04/15/14 15:50) Home Medications: Home Medications Medication Instructions Recorded Confirmed Last Taken Type Docusate Sodium [Colace] 100 mg PO BID PRN #30 capsule 04/15/14 12/05/14 Unknown Rx HYDROcodone/APAP 5-325 [[place] 1 each PO Q6HR PRN #20 tablet 04/15/14 12/05/14 Unknown Rx 5/325] Polyethylene Glycol 3350 [Miralax] 17 gm PO DAILY PRN #1 bottle 04/15/14 12/05/14 Unknown Rx HYDROcodone/APAP 5-325 [[place] 1 - 2 each PO Q6HR PRN #14 tablet 12/05/14 Unknown Rx 5/325] Atorvastatin [Lipitor Tab] 20 mg PO QHS 11/11/18 11/11/18 Unknown History Gabapentin [Neurontin] 300 mg PO TID PRN 11/11/18 11/11/18 Unknown History Nystatin [Nystatin SUSP] 5 ml PO QID 11/11/18 11/11/18 Unknown History Pantoprazole [Protonix] 40 mg PO QDAY 11/11/18 11/11/18 Unknown History Promethazine [Phenergan] 25 mg PO Q6HR PRN 11/11/18 11/11/18 Unknown History Sodium Bicarbonate 325 mg PO BID 11/11/18 11/11/18 Unknown History amLODIPine 10 mg PO DAILY 11/11/18 11/11/18 Unknown History Active Medications: Generic Name Dose Route Start Last Admin Trade Name Freq PRN Reason Stop Dose Admin Acetaminophen 650 mg 11/09/18 19:38 11/10/18 15:17 Tylenol PO 650 mg Q4H PRN Administration Pain MILD(1-3)/Fever >100.5/FLORES Acetaminophen 650 mg 11/11/18 00:04 11/11/18 17:29 Tylenol [place] 650 mg Q4H PRN Administration Fever >101; Mild Pain (1-3) Lipase/Protease/Amylase 1 each 11/13/18 15:36 Pancrepema [place] 10,500 Unit FEEDTUBE PRN PRN For Clogged Feeding Tube Atorvastatin Calcium 40 mg 11/10/18 22:00 11/14/18 23:11 Lipitor PO 40 mg QHS PRIYA Administration Docusate Sodium 100 mg 11/09/18 19:32 Colace PO BID PRN Constipation Epoetin [place]on[place] 10,000 unit 11/11/18 08:00 11/13/18 19:50 Procrit SUB-Q 10,000 unit CONSTANTINO PRIYA Administration Hydralazine HCl 10 mg 11/13/18 08:56 11/13/18 14:05 Apresoline IV 10 mg Q4H PRN Administration BP > 160/105 Hydromorphone HCl 0.25 mg 11/09/18 19:38 11/15/18 01:04 Dilaudid IV 0.25 mg Q3H PRN Administration Pain, Moderate (4-6) Cefepime HCl 1 gm in 100 mls @ 200 mls/hr 11/10/18 18:00 11/14/18 17:27 Maxipime/Ns 1 Gm/100 Ml IV 200 mls/hr QPM PRIYA Administration Protocol Doxycycline Hyclate 100 mg/ 250 mls @ 250 mls/hr 11/10/18 16:00 11/14/18 23:11 Sodium Chloride IV 250 mls/hr Q12HR PRIYA Administration Protocol Sodium Chloride 100 mls @ 999 mls/hr 11/11/18 11:09 Nacl 0.9% IV CONSTANTINO PRN Hypotension Insulin Human Lispro 0 unit 11/12/18 18:00 11/15/18 06:48 Humalog SUB-Q 3 unit Q6HR PRIYA Administration Protocol Ondansetron HCl 4 mg 11/09/18 19:38 11/15/18 06:48 Zofran IV 4 mg Q8H PRN Administration Nausea And Vomiting Polyethylene Glycol 17 gm 11/09/18 19:38 Miralax 3350 PO QDAY PRN Constipation Simple Syrup 15 ml 11/13/18 15:36 Simple Syrup FEEDTUBE PRN PRN Hypoglycemia Simple Syrup 30 ml 11/13/18 15:36 Simple Syrup FEEDTUBE PRN PRN Hypoglycemia Sodium Bicarbonate 325 mg 11/13/18 15:36 Sodium Bicarbonate FEEDTUBE PRN PRN For Clogged Feeding Tube Sodium Chloride 10 ml 11/09/18 22:00 11/14/18 22:00 Sodium Chloride Flush Syringe 10 Ml IV 10 ml BID PRIYA Administration Sodium Chloride 10 ml 11/09/18 19:38 11/15/18 06:50 Sodium Chloride Flush Syringe 10 Ml IV 10 ml PRN PRN Administration LINE FLUSH
--- NOTE | 2018-11-15 08:19 | Hem/Onc Progress Note ---
Assessment and Plan # Fever, rash, anemia, thrombocytopenia. # The patient's bilirubin is not elevated. We will do LDH. Ferritin is elevated, that may be secondary to fever or inflammation. It was suspected that calcitriol or tartrazine may have a role in drug allergy. She was extensively investigated at [facility] and [facility]. # History of fever, history of abdominal pain. Radiology mentioned chronic pancreatitis. # As per the information, extensive investigation for fever has been done including echocardiogram, which was negative. # Renal impairment, on hemodialysis. # I had discussed with pathologist regarding the smear, which shows bandemia. For HLH, bone marrow biopsy may help. The patient's white cell count is not low. # [id number] has been ordered to evaluate for TTP in view of anemia and renal impairment; however, the smear did not have significant schistocytes. We will follow the trend and review. At this time based on information, the fever it appears that may not be infective in etiology, drug reaction is still a possibility. We will discuss with other specialists. 11/15 d/w pt reg BMBX plt lower - transfusion support as needed more awake rash - drying out on the hands - Patient Problems (1) Thrombocytopenia Current Visit: Yes Status: Acute Subjective Date of service: 11/15/18 Principal diagnosis: low plt Interval history: pt more awake Objective - Constitutional Vitals: Last Vital Signs Temp 97.5 F L 11/15/18 05:24 Pulse 84 11/15/18 05:24 Resp 24 11/15/18 05:24 BP 165/81 11/15/18 05:24 Pulse Ox 98 11/15/18 05:24 Pain Intensity (0-10): denies any pain General appearance: no acute distress Performance status: 4-completely disabled - EENT Eyes: EOM intact ENT: hearing intact Lymph node exam: negative cervical - Neck Neck: normal ROM - Respiratory Respiratory effort: Positive: normal Respiratory: bilateral: CTA (anteriorly) - Cardiovascular Heart Sounds: Present: S1 & S2 Extremities: normal temperature - Gastrointestinal General gastrointestinal: Present: soft, non-tender Rectal Exam: deferred - Genitourinary Female genitourinary: Present: deferred - Integumentary Integumentary: warm - Musculoskeletal Musculoskeletal: generalized weakness - Neurologic Neurologic: moves all extremities - Labs Lab Results: Laboratory Results - last 24 hr 11/13/18 11/14/18 11/14/18 21:02 11:20 16:39 POC Glucose 162 H 153 H Hepatitis A IgM Ab Non-reactive Hep Bs Antigen Non-reactive Hep B Core IgM Ab Non-reactive Hepatitis C Antibody Non-reactive 11/14/18 11/15/18 21:17 06:14 POC Glucose 166 H 233 H Hepatitis A IgM Ab Hep Bs Antigen Hep B Core IgM Ab Hepatitis C Antibody Medications & Allergies - Medications Allergies/Adverse Reactions: Allergies No Known Allergies Allergy (Verified 04/15/14 15:50) Home Medications: Home Medications Medication Instructions Recorded Confirmed Last Taken Type Docusate Sodium [Colace] 100 mg PO BID PRN #30 capsule 04/15/14 12/05/14 Unknown Rx HYDROcodone/APAP 5-325 [[place] 1 each PO Q6HR PRN #20 tablet 04/15/14 12/05/14 Unknown Rx 5/325] Polyethylene Glycol 3350 [Miralax] 17 gm PO DAILY PRN #1 bottle 04/15/14 12/05/14 Unknown Rx HYDROcodone/APAP 5-325 [[place] 1 - 2 each PO Q6HR PRN #14 tablet 12/05/14 Unknown Rx 5/325] Atorvastatin [Lipitor Tab] 20 mg PO QHS 11/11/18 11/11/18 Unknown History Gabapentin [Neurontin] 300 mg PO TID PRN 11/11/18 11/11/18 Unknown History Nystatin [Nystatin SUSP] 5 ml PO QID 11/11/18 11/11/18 Unknown History Pantoprazole [Protonix] 40 mg PO QDAY 11/11/18 11/11/18 Unknown History Promethazine [Phenergan] 25 mg PO Q6HR PRN 11/11/18 11/11/18 Unknown History Sodium Bicarbonate 325 mg PO BID 11/11/18 11/11/18 Unknown History amLODIPine 10 mg PO DAILY 11/11/18 11/11/18 Unknown History Active Medications: Generic Name Dose Route Start Last Admin Trade Name Freq PRN Reason Stop Dose Admin Acetaminophen 650 mg 11/09/18 19:38 11/10/18 15:17 Tylenol PO 650 mg Q4H PRN Administration Pain MILD(1-3)/Fever >100.5/FLORES Acetaminophen 650 mg 11/11/18 00:04 11/11/18 17:29 Tylenol [place] 650 mg Q4H PRN Administration Fever >101; Mild Pain (1-3) Lipase/Protease/Amylase 1 each 11/13/18 15:36 Pancrepema [place] 10,500 Unit FEEDTUBE PRN PRN For Clogged Feeding Tube Atorvastatin Calcium 40 mg 11/10/18 22:00 11/14/18 23:11 Lipitor PO 40 mg QHS PRIYA Administration Docusate Sodium 100 mg 11/09/18 19:32 Colace PO BID PRN Constipation Epoetin Adonis 10,000 unit 11/11/18 08:00 11/13/18 19:50 Procrit SUB-Q 10,000 unit CONSTANTINO PRIYA Administration Hydralazine HCl 10 mg 11/13/18 08:56 11/13/18 14:05 Apresoline IV 10 mg Q4H PRN Administration BP > 160/105 Hydromorphone HCl 0.25 mg 11/09/18 19:38 11/15/18 01:04 Dilaudid IV 0.25 mg Q3H PRN Administration Pain, Moderate (4-6) Cefepime HCl 1 gm in 100 mls @ 200 mls/hr 11/10/18 18:00 11/14/18 17:27 Maxipime/Ns 1 Gm/100 Ml IV 200 mls/hr QPM PRIYA Administration Protocol Doxycycline Hyclate 100 mg/ 250 mls @ 250 mls/hr 11/10/18 16:00 11/14/18 23:11 Sodium Chloride IV 250 mls/hr Q12HR PRIYA Administration Protocol Sodium Chloride 100 mls @ 999 mls/hr 11/11/18 11:09 Nacl 0.9% IV CONSTANTINO PRN Hypotension Insulin Human Lispro 0 unit 11/12/18 18:00 11/15/18 06:48 Humalog SUB-Q 3 unit Q6HR PRIYA Administration Protocol Ondansetron HCl 4 mg 11/09/18 19:38 11/15/18 06:48 Zofran IV 4 mg Q8H PRN Administration Nausea And Vomiting Polyethylene Glycol 17 gm 11/09/18 19:38 Miralax 3350 PO QDAY PRN Constipation Simple Syrup 15 ml 11/13/18 15:36 Simple Syrup FEEDTUBE PRN PRN Hypoglycemia Simple Syrup 30 ml 11/13/18 15:36 Simple Syrup FEEDTUBE PRN PRN Hypoglycemia Sodium Bicarbonate 325 mg 11/13/18 15:36 Sodium Bicarbonate FEEDTUBE PRN PRN For Clogged Feeding Tube Sodium Chloride 10 ml 11/09/18 22:00 11/14/18 22:00 Sodium Chloride Flush Syringe 10 Ml IV 10 ml BID PRIYA Administration Sodium Chloride 10 ml 11/09/18 19:38 11/15/18 06:50 Sodium Chloride Flush Syringe 10 Ml IV 10 ml PRN PRN Administration LINE FLUSH
[2018-11-15 10:11] LABS: Basophils # (Auto) 0.1 K/mm3 (0.0-0.1); Basophils % (Auto) 0.7 % (0.0-1.8); Eosinophils # (Auto) 0.4 K/mm3 (0.0-0.4); Eosinophils % (Auto) 3.9 % (0.0-4.3); Hematocrit 25.8 % (30.3-42.9); Hemoglobin 8.5 gm/dl (10.1-14.3); Lymphocytes # (Auto) 2.5 K/mm3 (1.2-5.4); Lymphocytes % (Auto) 26.8 % (13.4-35.0); Mean Corpuscular HGB Conc 33 % (30-34); Mean Corpuscular Volume 84 fl (79-97); Monocytes # (Auto) 1.5 K/mm3 (0.0-0.8); Monocytes % (Auto) 15.9 % (0.0-7.3); Red Blood Count 3.06 M/mm3 (3.65-5.03); Red Cell Distribution Width 16.1 % (13.2-15.2)
[2018-11-15 10:16] LABS: Albumin 2.3 g/dL (3.9-5); Calcium 6.5 mg/dL (8.4-10.2)
--- NOTE | 2018-11-15 10:25 | Progress Note ---
Assessment and Plan Cultures: 11/09/2018 blood culture: no growth thus far 11/10/2018 blood culture: no growth thus far 11/10/2018 Fungal blood culture: in progress 11/10/2018 urine culture: no growth Ferritin: >2000. A/P: 1) Sepsis / FUO: unclear etiology. Resolved. No fever in >48 hours, Going on for the last 1 month with extensive infectious work up negative thus far at [place]. No evidence of infection on CT chest, abdomen pelvis. HIV negative. TTE negative for vegetations. Blood cultures at [facility] were negative. Fevers have been quite high. No significant eosinophilia. Per records at [facility], ANCA screen negative. Procalcitonin was moderately elevated: but difficult to interpret in the setting of renal failure. Leucocytosis at [place] was mainly neutrophilic. Apparently as per the ID consult at [facility] her fevers were attributed to a possible drug reaction secondary to calcitriol or tartrazine. ESR elevated at 124, CRP also elevated at 19.60. GRACE negative, RF <15. Here, she has no leucocytosis. Ferritin is high. Rash + for about a month. 2) CKD4 / now ARF/ESRD: requiring dialysis. Nephrology following. Right femoral vascath. 3) DM-2: insulin requiring. 4) Anemia, thrombocytopenia: worsening. Hematology to trend and review ADAMT13 to evaluate for TTP. ?bone marrow biopsy? - Dr. Jacques following. Recs: - Discontinue IV Cefepime, Vancomycin -Continue Doxycycline trial, D6 -f/u serologies for tick borne illnesses -Abdominal ultrasound ordered, elevated LFT's [facility] M: [id number] O:[phone] Subjective Date of service: 11/15/18 Principal diagnosis: anemia - low plt Interval history: Patient seen and examined. Awake. Alert. Reports no acute distress. Following simple commands. No fever. Objective - Exam Narrative Exam: Constitutional: Awake. Alert. No acute distress Head, Ears, Nose: Normocephalic, atraumatic. External ears, nose normal Eyes: Conjunctivae/corneas clear. No icterus. No ptosis. Neck: Supple, no meningeal signs Oral: no thrush or ulcers Cardiovascular: S1, S2 normal. Respiratory: Good air entry, clear to auscultation bilaterally GI: Soft, non-tender; bowel sounds normal. No peritoneal signs Musculoskeletal: No pedal edema, no cyanosis. Skin: faint maculopapular rash Hem/Lymphatic: No palpable cervical or supraclavicular nodes. No lymphangitis Psych: no agitation, calm Neurological: Awake, alert, following commands. Lines: Right femoral Trialysis catheter - Constitutional Vitals: Vital Signs Temp Pulse Resp BP Pulse Ox 97.5 F L 84 24 165/81 98 11/15/18 05:24 11/15/18 05:24 11/15/18 05:24 11/15/18 05:24 11/15/18 05:24 Temperature -Last 24 Hours Temperature 97.5 F Temperature 97.4 F Temperature 97.8 F Temperature 98.5 F - Labs CBC & Chem 7: 11/15/18 09:31 11/15/18 09:31 Labs: Abnormal lab results 11/14/18 11/14/18 11/14/18 Range/Units 11:20 16:39 21:17 RBC (3.65-5.03) M/mm3 Hgb (10.1-14.3) gm/dl Hct (30.3-42.9) % RDW (13.2-15.2) % [place] % (Auto) (0.0-7.3) % [place] # (0.0-0.8) K/mm3 Potassium (3.6-5.0) mmol/L BUN (7-17) mg/dL Creatinine (0.7-1.2) mg/dL Glucose (65-100) mg/dL POC Glucose 162 H 153 H 166 H (70-105) Calcium (8.4-10.2) mg/dL AST (5-40) units/L ALT (7-56) units/L Alkaline Phosphatase (35-129) units/L Total Protein (6.3-8.2) g/dL Albumin (3.9-5) g/dL 11/15/18 11/15/18 11/15/18 Range/Units 06:14 09:31 09:31 RBC 3.06 L (3.65-5.03) M/mm3 Hgb 8.5 L (10.1-14.3) gm/dl Hct 25.8 L (30.3-42.9) % RDW 16.1 H (13.2-15.2) % [place] % (Auto) 15.9 H (0.0-7.3) % [place] # 1.5 H (0.0-0.8) K/mm3 Potassium 2.9 L* (3.6-5.0) mmol/L BUN 46 H (7-17) mg/dL Creatinine 6.5 H D (0.7-1.2) mg/dL Glucose 171 H (65-100) mg/dL POC Glucose 233 H (70-105) Calcium 6.5 L (8.4-10.2) mg/dL AST 213 H (5-40) units/L ALT 78 H (7-56) units/L Alkaline Phosphatase 173 H (35-129) units/L Total Protein 5.9 L (6.3-8.2) g/dL Albumin 2.3 L (3.9-5) g/dL
[2018-11-15 11:06] LABS: Platelet Count 50 K/mm3 (140-440)
[2018-11-15] MEDS: DOXYCYCLINE HYCLATE 100 MG in NACL 0.9% 250ML 250 ML IV SCH (12:31)
[2018-11-15] MEDS: SODIUM CHLORIDE FLUSH SYRINGE 10 ML IV SCH (12:32)
[2018-11-15] MEDS: KCL 40 MEQ in NACL 0.45% 500 ML IV SCH (14:10)
--- NOTE | 2018-11-15 14:38 | Progress Note ---
Assessment and Plan Assessment and plan: The patient is a 63-year-old female with insulin-requiring diabetes, hypertension, COPD who has had 2 recent hospitalizations at [facility] and [facility] in the month of October 2018, admitted there due to generalized rash, body aches as well as fevers, along with a myriad of other complaints i ncluding right upper extremity weakness, chest pain. She was seen by infectious diseases, nephrology, neurology, cardiology as well as rheumatology. CT chest showed no acute findings, CT abdomen and pelvis showed findings of chronic pancreatitis. HIV was negative, echocardiogram showed no vegetations. Extensive workup for infectious process was negative, apparently as per the ID consult at [facility] her fevers were attributed to a possible drug reaction secondary to calcitriol or tartrazine. She was subsequently discharged home with recommendations to follow-up with her nephrology. Now presented to the emergency room showed at [facility] yesterday with complaints of fever, abdominal pain and right upper extremity numbness. Again, she was noted to have high fevers up to 103F. she also had some speech difficulties which apparently resolved. Was evaluated by neurology. Due to worsening creatinine, nephrology was consulted who recommended initiation of hemodialysis. Metabolic encephalopathy, likely due to uremia -Nephrology consulted, and currently on dialysis Upper extremity numbness - Patient had similar problems previously, worked up for CVA and was negative - Neurology consult appreciated Sepsis; fever of unknown origin; and has fever of 103 cont abx per ID ?Still disease - Patient has fever, rash and high ferritin level TTP? - Thrombocytopenia, fever, confusion and anemia - Hematology is consulted, bm bx recommended ESRD on HD - Nephrology is following Severe Anemia - transfused 2 units of blood and hemoglobin is stable Thrombocytopenia - Due to above DVT prophylaxis - SCDs because of severe thrombocytopenia Disposition - Transfer to the floor History Interval history: Review of systems Constitutional: No fevers, no malaise, no joint pains CVS: No chest pain, no orthopnea, no dyspnea on exertion, no pedal edema GI: No abdominal pain, no diarrhea, no vomiting, no constipation Respiratory: No shortness of breath, no wheezing, no coughing Hospitalist Physical - Physical exam Narrative exam: General.: Appears well, no distress, nontoxic HEENT: Moist mucous membranes, extraocular muscles intact, no lymphadenopathy Neck: supple Cardiac: S1-S2 heard Lungs: clear to auscultation bilaterally Abdomen: soft , nontender, nondistended, bowel sounds positive Extremities: no edema clubbing or cyanosis Skin: no rash or lesions Neurologic: no gross focal deficits Psych: calm, and cooperative - Constitutional Vitals: Temp Pulse Resp BP Pulse Ox 98.5 F 79 20 146/80 100 11/15/18 11:47 11/15/18 11:47 11/15/18 11:47 11/15/18 11:47 11/15/18 11:47 General appearance: Present: no acute distress, well-nourished, obese, disheveled Results - Labs CBC & Chem 7: 11/20/18 04:25 11/21/18 05:20 Labs: Laboratory Last Values WBC 9.3 K/mm3 (4.5-11.0) 11/15/18 09:31 RBC 3.06 M/mm3 (3.65-5.03) L 11/15/18 09:31 Hgb 8.5 gm/dl (10.1-14.3) L 11/15/18 09:31 Hct 25.8 % (30.3-42.9) L 11/15/18 09:31 MCV 84 fl (79-97) 11/15/18 09:31 MCH 28 pg (28-32) 11/15/18 09:31 MCHC 33 % (30-34) 11/15/18 09:31 RDW 16.1 % (13.2-15.2) H 11/15/18 09:31 Plt Count 50 K/mm3 (140-440) L 11/15/18 09:31 Lymph % (Auto) 26.8 % (13.4-35.0) 11/15/18 09:31 [place] % (Auto) 15.9 % (0.0-7.3) H 11/15/18 09:31 Eos % (Auto) 3.9 % (0.0-4.3) 11/15/18 09:31 Baso % (Auto) 0.7 % (0.0-1.8) 11/15/18 09:31 Lymph # 2.5 K/mm3 (1.2-5.4) 11/15/18 09:31 [place] # 1.5 K/mm3 (0.0-0.8) H 11/15/18 09:31 Eos # 0.4 K/mm3 (0.0-0.4) 11/15/18 09:31 Baso # 0.1 K/mm3 (0.0-0.1) 11/15/18 09:31 Add Manual Diff Complete 11/14/18 05:10 Total Counted 100 11/14/18 05:10 Seg Neutrophils % 52.7 % (40.0-70.0) 11/15/18 09:31 Seg Neuts % (Manual) 71.0 % (40.0-70.0) H 11/14/18 05:10 0 % 11/14/18 05:10 16.0 % (13.4-35.0) 11/14/18 05:10 Reactive Lymphs % (Man) 0 % 11/14/18 05:10 10.0 % (0.0-7.3) H 11/14/18 05:10 3.0 % (0.0-4.3) 11/14/18 05:10 0 % (0.0-1.8) 11/14/18 05:10 0 % 11/14/18 05:10 0 % 11/14/18 05:10 0 % 11/14/18 05:10 0 % 11/14/18 05:10 Nucleated RBC % Not Reportable 11/14/18 05:10 Seg Neutrophils # 4.9 K/mm3 (1.8-7.7) 11/15/18 09:31 Seg Neutrophils # Man 5.3 K/mm3 (1.8-7.7) 11/14/18 05:10 Band Neutrophils # 0.0 K/mm3 11/14/18 05:10 1.2 K/mm3 (1.2-5.4) 11/14/18 05:10 Abs React Lymphs (Man) 0.0 K/mm3 11/14/18 05:10 0.7 K/mm3 (0.0-0.8) 11/14/18 05:10 0.2 K/mm3 (0.0-0.4) 11/14/18 05:10 0.0 K/mm3 (0.0-0.1) 11/14/18 05:10 0.0 K/mm3 11/14/18 05:10 0.0 K/mm3 11/14/18 05:10 0.0 K/mm3 11/14/18 05:10 Blast Cells # 0.0 K/mm3 11/14/18 05:10 WBC Morphology Not Reportable 11/14/18 05:10 Hypersegmented Neuts Not Reportable 11/14/18 05:10 Hyposegmented Neuts Not Reportable 11/14/18 05:10 Hypogranular Neuts Not Reportable 11/14/18 05:10 Not Reportable 11/14/18 05:10 Not Reportable 11/14/18 05:10 Not Reportable 11/14/18 05:10 Not Reportable 11/14/18 05:10 Not Reportable 11/14/18 05:10 Not Reportable 11/14/18 05:10 Appe 11/14/18 05:10 Not Reportable 11/14/18 05:10 Plt Clumps, EDTA Not Reportable 11/14/18 05:10 1+ 11/14/18 05:10 Not Reportable 11/14/18 05:10 Not Reportable 11/14/18 05:10 Plt Morphology Comment Not Reportable 11/14/18 05:10 RBC Morphology Not Reportable 11/14/18 05:10 Dimorphic RBCs Not Reportable 11/14/18 05:10 Not Reportable 11/14/18 05:10 Not Reportable 11/14/18 05:10 1+ 11/14/18 05:10 1+ 11/14/18 05:10 Not Reportable 11/14/18 05:10 Not Reportable 11/14/18 05:10 Not Reportable 11/14/18 05:10 Not Reportable 11/14/18 05:10 Not Reportable 11/14/18 05:10 Not Reportable 11/14/18 05:10 Not Reportable 11/14/18 05:10 Not Reportable 11/14/18 05:10 Not Reportable 11/14/18 05:10 Not Reportable 11/14/18 05:10 Not Reportable 11/14/18 05:10 Not Reportable 11/14/18 05:10 Not Reportable 11/14/18 05:10 Not Reportable 11/14/18 05:10 Not Reportable 11/14/18 05:10 Acanthocytes (Spur) Not Reportable 11/14/18 05:10 Rouleaux Not Reportable 11/14/18 05:10 Not Reportable 11/14/18 05:10 Not Reportable 11/14/18 05:10 Not Reportable 11/14/18 05:10 Not Reportable 11/14/18 05:10 Hem Pathologist Commnt No 11/14/18 05:10 PT 14.8 Sec. (12.2-14.9) 11/09/18 16:16 INR 1.09 (0.87-1.13) 11/09/18 16:16 APTT 44.5 Sec. (24.2-36.6) H 11/09/18 16:16 21.3 Sec. (15.1-19.6) H 11/09/18 16:16 Sodium 140 mmol/L (137-145) 11/15/18 09:31 Potassium 2.9 mmol/L (3.6-5.0) L* 11/15/18 09:31 Chloride 98.6 mmol/L (98-107) 11/15/18 09:31 Carbon Dioxide 23 mmol/L (22-30) 11/15/18 09:31 21 mmol/L 11/15/18 09:31 BUN 46 mg/dL (7-17) H 11/15/18 09:31 6.5 mg/dL (0.7-1.2) H D 11/15/18 09:31 Estimated GFR 8 ml/min 11/15/18 09:31 7 % 11/15/18 09:31 Glucose 171 mg/dL (65-100) H 11/15/18 09:31 POC Glucose 174 (70-105) H 11/15/18 11:55 6.9 % (4-6) H 11/09/18 22:00 Lactic Acid 0.80 mmol/L (0.7-2.0) 11/10/18 08:10 Calcium 6.5 mg/dL (8.4-10.2) L 11/15/18 09:31 Magnesium 1.60 mg/dL (1.7-2.3) L 11/15/18 09:31 Iron 36 ug/dL (37-170) L 11/09/18 16:16 TIBC 169 mcg/dL (250-450) L 11/09/18 16:16 % Saturation 21.30 % 11/09/18 16:16 128 mg/dl (192-382) L 11/09/18 16:16 > 2000.0 ng/mL (13.0-400.0) H 11/10/18 17:17 0.30 mg/dL (0.1-1.2) 11/15/18 09:31 AST 213 units/L (5-40) H 11/15/18 09:31 ALT 78 units/L (7-56) H 11/15/18 09:31 173 units/L (35-129) H 11/15/18 09:31 19.0 umol/L (25-60) L 11/09/18 16:16 93 units/L (30-135) 11/09/18 16:16 CK-MB (CK-2) < 1.0 ng/mL (0.0-4.0) 11/09/18 16:16 CK-MB (CK-2) Rel Index 1.0 (0-4) 11/09/18 16:16 0.017 ng/mL (0.00-0.029) 11/09/18 16:16 5.9 g/dL (6.3-8.2) L 11/15/18 09:31 2.3 g/dL (3.9-5) L 11/15/18 09:31 0.6 % 11/15/18 09:31 Triglycerides 298 mg/dL (2-149) H 11/10/18 08:05 Cholesterol 84 mg/dL (50-199) 11/10/18 08:05 7 mg/dL (50-130) L 11/10/18 08:05 8 mg/dL (40-59) L 11/10/18 08:05 10.50 % 11/10/18 08:05 13 units/L (13-60) 11/09/18 16:16 Vitamin B12 1628 pg/mL (211-911) H 11/13/18 04:33 9.97 ng/mL (7.3-26.0) 11/13/18 04:33 Yellow (Yellow) 11/10/18 01:08 Cloudy (Clear) 11/10/18 01:08 5.0 (5.0-7.0) 11/10/18 01:08 Ur Specific [place] 1.016 (1.003-1.030) 11/10/18 01:08 >500 mg/dL (Negative) 11/10/18 01:08 Neg mg/dL (Negative) 11/10/18 01:08 Neg mg/dL (Negative) 11/10/18 01:08 Sm (Negative) 11/10/18 01:08 Neg (Negative) 11/10/18 01:08 Ur Reducing Substances Not Reportable 11/10/18 01:08 Neg (Negative) 11/10/18 01:08 Not Reportable 11/10/18 01:08 < 2.0 mg/dL (<2.0) 11/10/18 01:08 Ur Leukocyte Esterase Neg (Negative) 11/10/18 01:08 7.0 /HPF (0.0-6.0) H 11/10/18 01:08 6.0 /HPF (0.0-6.0) 11/10/18 01:08 U Epithel Cells (Auto) 1.0 /HPF (0-13.0) 11/10/18 01:08 1+ /HPF (Negative) 11/10/18 01:08 2+ /HPF 11/10/18 01:08 Hyaline Casts 1 /LPF 11/10/18 01:08 3+ /HPF 11/10/18 01:08 Random Vancomycin 12.3 ug/mL (0-40.0) 11/12/18 04:45 Presumptive negative 11/10/18 01:08 Presumptive negative 11/10/18 01:08 Ur Barbiturates Screen Presumptive negative 11/10/18 01:08 Ur Phencyclidine Scrn Presumptive negative 11/10/18 01:08 Ur Amphetamines Screen Presumptive negative 11/10/18 01:08 U Benzodiazepines Scrn Presumptive negative 11/10/18 01:08 Presumptive negative 11/10/18 01:08 U Marijuana (THC) Screen Presumptive negative 11/10/18 01:08 Disclamer 11/10/18 01:08 Plasma/Serum Alcohol < 0.01 % (0-0.07) 11/09/18 16:16 Hepatitis A IgM Ab Non-reactive (NonReactive) 11/13/18 21:02 Hep Bs Antigen Non-reactive (Negative) 11/13/18 21:02 Hep B Core IgM Ab Non-reactive (NonReactive) 11/13/18 21:02 Non-reactive (NonReactive) 11/13/18 21:02 Blood Type A POSITIVE 11/11/18 07:29 Antibody Screen TNR 11/11/18 07:29 QUIANA Antibody Screen Negative 11/11/18 07:29 Crossmatch See Detail 11/11/18 07:29 Active Medications - Current Medications Current Medications: Generic Name Dose Route Start Last Admin Trade Name Freq PRN Reason Stop Dose Admin Acetaminophen 650 mg 11/09/18 19:38 11/10/18 15:17 Tylenol PO 650 mg Q4H PRN Administration Pain MILD(1-3)/Fever >100.5/FLORES Acetaminophen 650 mg 11/11/18 00:04 11/11/18 17:29 Tylenol [place] 650 mg Q4H PRN Administration Fever >101; Mild Pain (1-3) Lipase/Protease/Amylase 1 each 11/13/18 15:[address] 10,500 Unit FEEDTUBE PRN PRN For Clogged Feeding Tube Atorvastatin Calcium 40 mg 11/10/18 22:00 11/14/18 23:11 Lipitor PO 40 mg QHS PRIYA Administration Docusate Sodium 100 mg 11/09/18 19:32 Colace PO BID PRN Constipation Epoetin Adonis 10,000 unit 11/11/18 08:00 11/13/18 19:50 Procrit SUB-Q 10,000 unit CONSTANTINO PRIYA Administration Hydralazine HCl 10 mg 11/13/18 08:56 11/13/18 14:05 Apresoline IV 10 mg Q4H PRN Administration BP > 160/105 Hydromorphone HCl 0.25 mg 11/09/18 19:38 11/15/18 01:04 Dilaudid IV 0.25 mg Q3H PRN Administration Pain, Moderate (4-6) Doxycycline Hyclate 100 mg/ 250 mls @ 250 mls/hr 11/10/18 16:00 11/15/18 12:31 Sodium Chloride IV 250 mls/hr Q12HR PRIYA Administration Protocol Sodium Chloride 100 mls @ 999 mls/hr 11/11/18 11:09 Nacl 0.9% IV CONSTANTINO PRN Hypotension Potassium Chloride 40 meq/ 520 mls @ 125 mls/hr 11/15/18 12:30 11/15/18 14:10 Sodium Chloride IV 11/17/18 16:40 125 mls/hr DIRECT PRIYA Administration Magnesium Sulfate 4 gm in 100 mls @ 25 mls/hr 11/15/18 14:35 Magnesium Sulfate 4gm/100ml IV 11/15/18 18:34 ONCE ONE Insulin Human Lispro 0 unit 11/12/18 18:00 11/15/18 13:30 Humalog SUB-Q Not Given Q6HR [facility] Protocol Ondansetron HCl 4 mg 11/09/18 19:38 11/15/18 06:48 Zofran IV 4 mg Q8H PRN Administration Nausea And Vomiting Polyethylene Glycol 17 gm 11/09/18 19:38 Miralax 3350 PO QDAY PRN Constipation Simple Syrup 15 ml 11/13/18 15:36 Simple Syrup FEEDTUBE PRN PRN Hypoglycemia Simple Syrup 30 ml 11/13/18 15:36 Simple Syrup FEEDTUBE PRN PRN Hypoglycemia Sodium Bicarbonate 325 mg 11/13/18 15:36 Sodium Bicarbonate FEEDTUBE PRN PRN For Clogged Feeding Tube Sodium Chloride 10 ml 11/09/18 22:00 11/15/18 12:32 Sodium Chloride Flush Syringe 10 Ml IV 10 ml BID PRIYA Administration Sodium Chloride 10 ml 11/09/18 19:38 11/15/18 06:50 Sodium Chloride Flush Syringe 10 Ml IV 10 ml PRN PRN Administration LINE FLUSH Nutrition/Malnutrition Assess - Dietary Evaluation Nutrition/Malnutrition Findings: Nutrition Notes Start: 11/13/18 15:25 Freq: Status: Active Protocol: Document 11/13/18 15:25 RM (Rec: 11/13/18 15:36 RM [id number]) Nutrition Notes Need for Assessment generated from: MD Order Initial or Follow up Assessment Current Diagnosis COPD,Diabetes,Sepsis Other Pertinent Diagnosis ESRD on HD, metabolic encephalopathy,GERD Current Diet Renal Labs/Tests Reviewed Pertinent Medications Reviewed Height 5 ft 6 in Weight 83.2 kg [place] Body Weight (kg) 59.09 BMI 29.6 Subjective/Other Information Consulted for TF recommendation. NG tube in place. Pt nurse stated that pt has been eating bites of her meals. Burn Absent Trauma Absent #1 Nutrition Diagnosis Inadequate oral intake Etiology metabolic encephalopathy As Evidenced by Signs and Symptoms pt nurse statement that pt is eating bites of her meals Is patient on ventilator? No Is Patient Ambulatory and/or Out of Bed No REE-([facility] [place]-confined to bed) 1701.360 Calculation Used for Recommendations [facility] Additional Notes Protein Needs: 100-166g (1.2- 2g/kg) Fluid Needs: 1 ml/kcal Nutrition Intervention Nutrition Support: Vital 1.2 at 60 ml/hr. Water flush of 100 mls q 4 hrs . Kcal 1,728 Protein (gm) 108 Fluid (mL) 1,168 Goal #1 TF tolerance Goal #2 Meet at least 75% of calorie and protein needs via TF Anticipated Discharge Needs: Unable to determine at this time Follow-Up By: 11/15/18 Additional Comments Follow for TF tolerance, renal labs
[2018-11-15] MEDS ORDERED: MAGNESIUM SULFATE 4GM/100ML 4 GM/100 ML BAG IV ONE (15:30)
--- NOTE | 2018-11-15 20:44 | Ultrasound Report ---
PROCEDURE: US ABDOMEN LIMITED TECHNIQUE: Ultrasound of the right upper quadrant was performed. Image documentation and measurement s were obtained. HISTORY: Elevated LFTs COMPARISONS: Prior CT scan abdomen and pelvis 11/09/2018 FINDINGS: Gallbladder is surgically absent. No discrete liver lesions are seen. There is no ascites. Visualized proximal aorta show no evidence of aneurysm. Visualized inferior vena cava is unremarkable. The righ t kidney is visualized and appears diffusely echogenic suggesting chronic renal parenchymal disease. No hydronephrosis or discrete masses are identified. Common bile duct is mildly dilated measuring 8.6 mm which is often seen after cholecystectomy. Intrah epatic ducts do not appear to be distended. Pancreatic duct appears mildly dilated. This also appear to be present on the CT scan the abdomen and pelvis 11/09/2018. On the CT scan of the pancreas showed d iffuse coarse calcifications and a dilated pancreatic duct suggesting chronic pancreatitis. IMPRESSION: Prior cholecystectomy. Common bile duct mildly prominent as described off and seen after cholecystect adriel. Intrahepatic ducts are not distended. The liver showed no focal abnormalities. No ascites is seen. Right kidney appears echogenic suggesting chronic renal parenchymal disease. Pancreatic duct appears mildly dilated as described above suggesting chronic pancreatitis.. This document is electronically signed by Lauro Diamond MD., November 15 2018 08:43:03 PM ET
[2018-11-16] MEDS: DOXYCYCLINE HYCLATE 100 MG in NACL 0.9% 250ML 250 ML IV SCH ×2 (00:55→09:53)
[2018-11-16] MEDS: SODIUM CHLORIDE FLUSH SYRINGE 10 ML IV SCH ×2 (00:56→09:57)
[2018-11-16] MEDS: HumaLOG SUB-Q SCH ×4 (01:01→19:49)
[2018-11-16] MEDS: KCL 40 MEQ in NACL 0.45% 500 ML IV SCH (06:41)
--- NOTE | 2018-11-16 08:03 | Hem/Onc Progress Note ---
Assessment and Plan # Fever, rash, anemia, thrombocytopenia. # The patient's bilirubin is not elevated. LDH. Ferritin is elevated, that may be secondary to fever or inflammation. It was suspected that calcitriol or tartrazine may have a role in drug allergy. She was extensively investigated at [facility] and [facility]. # History of fever, history of abdominal pain. Radiology mentioned chronic pancreatitis. # As per the information, extensive investigation for fever has been done including echocardiogram, which was negative. # Renal impairment, on hemodialysis. # I had discussed with pathologist regarding the smear, which shows bandemia. For HLH, bone marrow biopsy may help. The patient's white cell count is not low. # [id number] has been ordered to evaluate for TTP in view of anemia and renal impairment; however, the smear did not have significant schistocytes. We will follow the trend and review. At this time based on information, the fever it appears that may not be infective in etiology, drug reaction is still a possibility. We will discuss with other specialists. 11/16 d/w pt reg BMBX - one of the differential is HLH for plt - transfusion support as needed more awake rash - drying out on the arms - Patient Problems (1) Thrombocytopenia Current Visit: Yes Status: Acute Subjective Date of service: 11/16/18 Principal diagnosis: low plt Interval history: pt more awake\ due BMBx today Objective - Constitutional Vitals: Last Vital Signs Temp 98.2 F 11/16/18 05:45 Pulse 80 11/16/18 05:45 Resp 20 11/16/18 05:45 BP 138/72 11/16/18 05:45 Pulse Ox 100 11/16/18 05:45 Pain Intensity (0-10): denies any pain General appearance: no acute distress Performance status: 4-completely disabled - EENT Eyes: EOM intact ENT: hearing intact Lymph node exam: negative cervical - Neck Neck: normal ROM - Respiratory Respiratory effort: Positive: normal Respiratory: bilateral: CTA - Cardiovascular Heart Sounds: Present: S1 & S2 Extremities: normal temperature Extremity abnormal: other (drying rash) - Gastrointestinal General gastrointestinal: Present: soft, non-tender Rectal Exam: deferred - Genitourinary Female genitourinary: Present: deferred - Integumentary Integumentary: warm - Musculoskeletal Musculoskeletal: generalized weakness - Neurologic Neurologic: moves all extremities - Labs Lab Results: Laboratory Results - last 24 hr 11/11/18 11/12/18 11/12/18 07:29 04:45 04:45 WBC RBC Hgb Hct MCV MCH MCHC RDW Plt Count Lymph % (Auto) [place] % (Auto) Eos % (Auto) Baso % (Auto) Lymph # [place] # Eos # Baso # Seg Neutrophils % Seg Neutrophils # Sodium Potassium Chloride Carbon Dioxide Anion Gap BUN Creatinine Estimated GFR BUN/Creatinine Ratio Glucose POC Glucose Calcium Magnesium Total Bilirubin AST ALT Alkaline Phosphatase Total Protein Albumin Albumin/Globulin Ratio Complement C3 161 Complement C4 57 Miscellaneous Test Flexitest 1 11/12/18 11/15/18 11/15/18 10:45 07:44 09:31 WBC 9.3 RBC 3.06 L Hgb 8.5 L Hct 25.8 L MCV 84 MCH 28 MCHC 33 RDW 16.1 H Plt Count 50 L Lymph % (Auto) 26.8 [place] % (Auto) 15.9 H Eos % (Auto) 3.9 Baso % (Auto) 0.7 Lymph # 2.5 [place] # 1.5 H Eos # 0.4 Baso # 0.1 Seg Neutrophils % 52.7 Seg Neutrophils # 4.9 Sodium Potassium Chloride Carbon Dioxide Anion Gap BUN Creatinine Estimated GFR BUN/Creatinine Ratio Glucose POC Glucose 219 H Calcium Magnesium Total Bilirubin AST ALT Alkaline Phosphatase Total Protein Albumin Albumin/Globulin Ratio Complement C3 Complement C4 Miscellaneous Test Flexitest 1 H 11/15/18 11/15/18 11/15/18 09:31 09:31 11:55 WBC RBC Hgb Hct MCV MCH MCHC RDW Plt Count Lymph % (Auto) [place] % (Auto) Eos % (Auto) Baso % (Auto) Lymph # [place] # Eos # Baso # Seg Neutrophils % Seg Neutrophils # Sodium 140 Potassium 2.9 L* Chloride 98.6 Carbon Dioxide 23 Anion Gap 21 BUN 46 H Creatinine 6.5 H D Estimated GFR 8 BUN/Creatinine Ratio 7 Glucose 171 H POC Glucose 174 H Calcium 6.5 L Magnesium 1.60 L Total Bilirubin 0.30 AST 213 H ALT 78 H Alkaline Phosphatase 173 H Total Protein 5.9 L Albumin 2.3 L Albumin/Globulin Ratio 0.6 Complement C3 Complement C4 Miscellaneous Test 11/15/18 11/16/18 11/16/18 16:53 00:42 06:23 WBC RBC Hgb Hct MCV MCH MCHC RDW Plt Count Lymph % (Auto) [place] % (Auto) Eos % (Auto) Baso % (Auto) Lymph # [place] # Eos # Baso # Seg Neutrophils % Seg Neutrophils # Sodium Potassium Chloride Carbon Dioxide Anion Gap BUN Creatinine Estimated GFR BUN/Creatinine Ratio Glucose POC Glucose 235 H 158 H 177 H Calcium Magnesium Total Bilirubin AST ALT Alkaline Phosphatase Total Protein Albumin Albumin/Globulin Ratio Complement C3 Complement C4 Miscellaneous Test Medications & Allergies - Medications Allergies/Adverse Reactions: Allergies No Known Allergies Allergy (Verified 04/15/14 15:50) Home Medications: Home Medications Medication Instructions Recorded Confirmed Last Taken Type Docusate Sodium [Colace] 100 mg PO BID PRN #30 capsule 04/15/14 12/05/14 Unknown Rx HYDROcodone/APAP 5-325 [[place] 1 each PO Q6HR PRN #20 tablet 04/15/14 12/05/14 Unknown Rx 5/325] Polyethylene Glycol 3350 [Miralax] 17 gm PO DAILY PRN #1 bottle 04/15/14 12/05/14 Unknown Rx HYDROcodone/APAP 5-325 [[place] 1 - 2 each PO Q6HR PRN #14 tablet 12/05/14 Unknown Rx 5/325] Atorvastatin [Lipitor Tab] 20 mg PO QHS 11/11/18 11/11/18 Unknown History Gabapentin [Neurontin] 300 mg PO TID PRN 11/11/18 11/11/18 Unknown History Nystatin [Nystatin SUSP] 5 ml PO QID 11/11/18 11/11/18 Unknown History Pantoprazole [Protonix] 40 mg PO QDAY 11/11/18 11/11/18 Unknown History Promethazine [Phenergan] 25 mg PO Q6HR PRN 11/11/18 11/11/18 Unknown History Sodium Bicarbonate 325 mg PO BID 11/11/18 11/11/18 Unknown History amLODIPine 10 mg PO DAILY 11/11/18 11/11/18 Unknown History Active Medications: Generic Name Dose Route Start Last Admin Trade Name Freq PRN Reason Stop Dose Admin Acetaminophen 650 mg 11/09/18 19:38 11/10/18 15:17 Tylenol PO 650 mg Q4H PRN Administration Pain MILD(1-3)/Fever >100.5/FLORES Acetaminophen 650 mg 11/11/18 00:04 11/11/18 17:29 Tylenol [place] 650 mg Q4H PRN Administration Fever >101; Mild Pain (1-3) Lipase/Protease/Amylase 1 each 11/13/18 15:36 Pancrepema [place] 10,500 Unit FEEDTUBE PRN PRN For Clogged Feeding Tube Atorvastatin Calcium 40 mg 11/10/18 22:00 11/16/18 00:55 Lipitor PO 40 mg QHS PRIYA Administration Docusate Sodium 100 mg 11/09/18 19:32 Colace PO BID PRN Constipation Epoetin Adonis 10,000 unit 11/11/18 08:00 11/13/18 19:50 Procrit SUB-Q 10,000 unit CONSTANTINO PRIYA Administration Hydralazine HCl 10 mg 11/13/18 08:56 11/13/18 14:05 Apresoline IV 10 mg Q4H PRN Administration BP > 160/105 Hydromorphone HCl 0.25 mg 11/09/18 19:38 11/15/18 01:04 Dilaudid IV 0.25 mg Q3H PRN Administration Pain, Moderate (4-6) Doxycycline Hyclate 100 mg/ 250 mls @ 250 mls/hr 11/10/18 16:00 11/16/18 00:55 Sodium Chloride IV 250 mls/hr Q12HR PRIYA Administration Protocol Sodium Chloride 100 mls @ 999 mls/hr 11/11/18 11:09 Nacl 0.9% IV CONSTANTINO PRN Hypotension Potassium Chloride 40 meq/ 520 mls @ 125 mls/hr 11/15/18 12:30 11/16/18 06:41 Sodium Chloride IV 11/17/18 16:40 125 mls/hr DIRECT PRIYA Administration Insulin Human Lispro 0 unit 11/12/18 18:00 11/16/18 06:42 Humalog SUB-Q 2 unit Q6HR PRIYA Administration Protocol Ondansetron HCl 4 mg 11/09/18 19:38 11/15/18 06:48 Zofran IV 4 mg Q8H PRN Administration Nausea And Vomiting Polyethylene Glycol 17 gm 11/09/18 19:38 Miralax 3350 PO QDAY PRN Constipation Simple Syrup 15 ml 11/13/18 15:36 Simple Syrup FEEDTUBE PRN PRN Hypoglycemia Simple Syrup 30 ml 11/13/18 15:36 Simple Syrup FEEDTUBE PRN PRN Hypoglycemia Sodium Bicarbonate 325 mg 11/13/18 15:36 Sodium Bicarbonate FEEDTUBE PRN PRN For Clogged Feeding Tube Sodium Chloride 10 ml 11/09/18 22:00 11/16/18 00:56 Sodium Chloride Flush Syringe 10 Ml IV 10 ml BID PRIYA Administration Sodium Chloride 10 ml 11/09/18 19:38 11/15/18 06:50 Sodium Chloride Flush Syringe 10 Ml IV 10 ml PRN PRN Administration LINE FLUSH
[2018-11-16 08:17] LABS: Hematocrit 23.6 % (30.3-42.9); Hemoglobin 7.9 gm/dl (10.1-14.3); Mean Corpuscular HGB Conc 33 % (30-34); Mean Corpuscular Volume 85 fl (79-97); Red Cell Distribution Width 16.4 % (13.2-15.2)
[2018-11-16 08:18] LABS: Platelet Count 71 K/mm3 (140-440)
[2018-11-16 08:28] LABS: Calcium 6.5 mg/dL (8.4-10.2)
[2018-11-16 09:04] LABS: Basophils # (Auto) 0.1 K/mm3 (0.0-0.1); Eosinophils # (Auto) 0.3 K/mm3 (0.0-0.4); Eosinophils % (Auto) 2.5 % (0.0-4.3); Monocytes # (Auto) 1.7 K/mm3 (0.0-0.8)
--- NOTE | 2018-11-16 10:40 | Progress Note ---
Assessment and Plan Cultures: 11/09/2018 blood culture: no growth thus far 11/10/2018 blood culture: no growth thus far 11/10/2018 Fungal blood culture: in progress 11/10/2018 urine culture: no growth Ferritin: >2000. A/P: 1) Sepsis / FUO: unclear etiology. Resolved. No fever in >48 hours, Going on for the last 1 month with extensive infectious work up negative thus far at [facility]. No evidence of infection on CT chest, abdomen pelvis. HIV negative. TTE negative for vegetations. Blood cultures at [facility] were negative. Fevers have been quite high. No significant eosinophilia. Per records at [facility], ANCA screen negative. Procalcitonin was moderately elevated: but difficult to interpret in the setting of renal failure. Leucocytosis at [facility] was mainly neutrophilic. Apparently as per the ID consult at [facility] her fevers were attributed to a possible drug reaction secondary to calcitriol or tartrazine. ESR elevated at 124, CRP also elevated at 19.60. GRACE negative, RF <15. Here, she has no leucocytosis. Ferritin is high. Rash + for about a month. 2) CKD4 / now ARF/ESRD: requiring dialysis. Nephrology following. Right femoral vascath. 3) DM-2: insulin requiring. 4) Anemia, thrombocytopenia: worsening. Hematology to trend and review ADAMT13 to evaluate for TTP. ?bone marrow biopsy? - Dr. Jacques following. 5) Elevated LFT's: Abdominal US findings showed no focal abnormalities in the liver. No ascities seen. Pancreatic duct appears mildly dilated suggesting chronic pancreatitis.. Recs: -Continue Doxycycline trial, D7 -f/u serologies for tick borne illnesses [facility] M: [id number] O:[phone] Subjective Date of service: 11/16/18 Principal diagnosis: low plt Interval history: Patient seen and examined. Awake. Alert. Sitting up in bed eating. Reports no generalized pain or weakness. Objective - Exam Narrative Exam: Constitutional: Awake. Alert. No acute distress Head, Ears, Nose: Normocephalic, atraumatic. External ears, nose normal Eyes: Conjunctivae/corneas clear. No icterus. No ptosis. Neck: Supple, no meningeal signs Oral: no thrush or ulcers Cardiovascular: S1, S2 normal. Respiratory: Good air entry, clear to auscultation bilaterally GI: Soft, non-tender; bowel sounds normal. No peritoneal signs Musculoskeletal: No pedal edema, no cyanosis. Skin: faint maculopapular rash Hem/Lymphatic: No palpable cervical or supraclavicular nodes. No lymphangitis Psych: no agitation, calm Neurological: Awake, alert, following commands. Lines: Right femoral Trialysis catheter - Constitutional Vitals: Vital Signs Temp Pulse Resp BP Pulse Ox 98.2 F 80 20 138/72 100 11/16/18 05:45 11/16/18 05:45 11/16/18 05:45 11/16/18 05:45 11/16/18 05:45 Temperature -Last 24 Hours Temperature 98.2 F Temperature 98.3 F Temperature 97.9 F Temperature 98.5 F - Labs CBC & Chem 7: 11/16/18 07:43 11/16/18 07:43 Labs: Abnormal lab results 11/12/18 11/15/18 11/15/18 Range/Units 10:45 07:44 09:31 RBC (3.65-5.03) M/mm3 Hgb (10.1-14.3) gm/dl Hct (30.3-42.9) % RDW (13.2-15.2) % Plt Count 50 L (140-440) K/mm3 [place] # (0.0-0.8) K/mm3 BUN (7-17) mg/dL Creatinine (0.7-1.2) mg/dL Glucose (65-100) mg/dL POC Glucose 219 H (70-105) Calcium (8.4-10.2) mg/dL Magnesium (1.7-2.3) mg/dL Miscellaneous Test Flexitest 1 H 11/15/18 11/15/18 11/15/18 Range/Units 09:31 11:55 16:53 RBC (3.65-5.03) M/mm3 Hgb (10.1-14.3) gm/dl Hct (30.3-42.9) % RDW (13.2-15.2) % Plt Count (140-440) K/mm3 [place] # (0.0-0.8) K/mm3 BUN (7-17) mg/dL Creatinine (0.7-1.2) mg/dL Glucose (65-100) mg/dL POC Glucose 174 H 235 H (70-105) Calcium (8.4-10.2) mg/dL Magnesium 1.60 L (1.7-2.3) mg/dL Miscellaneous Test 11/16/18 11/16/18 11/16/18 Range/Units 00:42 06:23 07:43 RBC 2.80 L (3.65-5.03) M/mm3 Hgb 7.9 L (10.1-14.3) gm/dl Hct 23.6 L (30.3-42.9) % RDW 16.4 H (13.2-15.2) % Plt Count 71 L (140-440) K/mm3 [place] # 1.7 H (0.0-0.8) K/mm3 BUN (7-17) mg/dL Creatinine (0.7-1.2) mg/dL Glucose (65-100) mg/dL POC Glucose 158 H 177 H (70-105) Calcium (8.4-10.2) mg/dL Magnesium (1.7-2.3) mg/dL Miscellaneous Test 11/16/18 Range/Units 07:43 RBC (3.65-5.03) M/mm3 Hgb (10.1-14.3) gm/dl Hct (30.3-42.9) % RDW (13.2-15.2) % Plt Count (140-440) K/mm3 [place] # (0.0-0.8) K/mm3 BUN 53 H (7-17) mg/dL Creatinine 7.6 H (0.7-1.2) mg/dL Glucose 144 H (65-100) mg/dL POC Glucose (70-105) Calcium 6.5 L (8.4-10.2) mg/dL Magnesium (1.7-2.3) mg/dL Miscellaneous Test
--- NOTE | 2018-11-16 11:50 | Progress Note ---
Assessment and Plan Assessment and plan: The patient is a 63-year-old female with insulin-requiring diabetes, hypertension, COPD who has had [address] [facility] and [facility] in the month of October 2018, admitted there due to generalized rash, body aches as well as fevers, along with a myriad of other complaints i ncluding right upper extremity weakness, chest pain. She was seen by infectious diseases, nephrology, neurology, cardiology as well as rheumatology. CT chest showed no acute findings, CT abdomen and pelvis showed findings of chronic pancreatitis. HIV was negative, echocardiogram showed no vegetations. Extensive workup for infectious process was negative, apparently as per the ID consult at [facility] her fevers were attributed to a possible drug reaction secondary to calcitriol or tartrazine. She was subsequently discharged home with recommendations to follow-up with her nephrology. Now presented to the emergency room showed at [facility] yesterday with complaints of fever, abdominal pain and right upper extremity numbness. Again, she was noted to have high fevers up to 103F. she also had some speech difficulties which apparently resolved. Was evaluated by neurology. Due to worsening creatinine, nephrology was consulted who recommended initiation of hemodialysis. Patient is a poor historian, currently having shaking chills due to fevers. Metabolic encephalopathy, likely due to uremia -Nephrology consulted, and currently on dialysis Upper extremity numbness - Patient had similar problems previously, worked up for CVA and was negative - Neurology consult appreciated Sepsis; fever of unknown origin; and has fever of 103 cont abx per ID ?Still disease - Patient has fever, rash and high ferritin level TTP? - Thrombocytopenia, fever, confusion and anemia - Hematology is consulted, bm bx recommended ESRD on HD - Nephrology is following Severe Anemia - transfused 2 units of blood and hemoglobin is stable Thrombocytopenia - Due to above DVT prophylaxis - SCDs because of severe thrombocytopenia Disposition - Transfer to the floor History Interval history: Review of systems Constitutional: No fevers, no malaise, no joint pains CVS: No chest pain, no orthopnea, no dyspnea on exertion, no pedal edema GI: No abdominal pain, no diarrhea, no vomiting, no constipation Respiratory: No shortness of breath, no wheezing, no coughing Hospitalist Physical - Physical exam Narrative exam: General.: Appears well, no distress, nontoxic HEENT: Moist mucous membranes, extraocular muscles intact, no lymphadenopathy Neck: supple Cardiac: S1-S2 heard Lungs: clear to auscultation bilaterally Abdomen: soft , nontender, nondistended, bowel sounds positive Extremities: no edema clubbing or cyanosis Skin: no rash or lesions Neurologic: no gross focal deficits Psych: calm, and cooperative - Constitutional Vitals: Temp Pulse Resp BP Pulse Ox 98.2 F 80 20 138/72 100 11/16/18 05:45 11/16/18 05:45 11/16/18 05:45 11/16/18 05:45 11/16/18 05:45 General appearance: Present: no acute distress, well-nourished, obese, disheveled Results - Labs CBC & Chem 7: 11/20/18 04:25 11/21/18 05:20 Labs: Laboratory Last Values WBC 10.0 K/mm3 (4.5-11.0) 11/16/18 07:43 RBC 2.80 M/mm3 (3.65-5.03) L 11/16/18 07:43 Hgb 7.9 gm/dl (10.1-14.3) L 11/16/18 07:43 Hct 23.6 % (30.3-42.9) L 11/16/18 07:43 MCV 85 fl (79-97) 11/16/18 07:43 MCH 28 pg (28-32) 11/16/18 07:43 MCHC 33 % (30-34) 11/16/18 07:43 RDW 16.4 % (13.2-15.2) H 11/16/18 07:43 Plt Count 71 K/mm3 (140-440) L 11/16/18 07:43 Lymph % (Auto) 26.8 % (13.4-35.0) 11/15/18 09:31 [place] % (Auto) Dental Laboratory Technician 11/16/18 07:43 Eos % (Auto) 2.5 % (0.0-4.3) 11/16/18 07:43 Baso % (Auto) 0.7 % (0.0-1.8) 11/15/18 09:31 Lymph # 2.5 K/mm3 (1.2-5.4) 11/15/18 09:31 [place] # 1.7 K/mm3 (0.0-0.8) H 11/16/18 07:43 Eos # 0.3 K/mm3 (0.0-0.4) 11/16/18 07:43 Baso # 0.1 K/mm3 (0.0-0.1) 11/16/18 07:43 Add Manual Diff Complete 11/14/18 05:10 Total Counted 100 11/14/18 05:10 Seg Neutrophils % 54.9 % (40.0-70.0) 11/16/18 07:43 Seg Neuts % (Manual) 71.0 % (40.0-70.0) H 11/14/18 05:10 0 % 11/14/18 05:10 16.0 % (13.4-35.0) 11/14/18 05:10 Reactive Lymphs % (Man) 0 % 11/14/18 05:10 10.0 % (0.0-7.3) H 11/14/18 05:10 3.0 % (0.0-4.3) 11/14/18 05:10 0 % (0.0-1.8) 11/14/18 05:10 0 % 11/14/18 05:10 0 % 11/14/18 05:10 0 % 11/14/18 05:10 0 % 11/14/18 05:10 Nucleated RBC % Not Reportable 11/14/18 05:10 Seg Neutrophils # 5.7 K/mm3 (1.8-7.7) 11/16/18 07:43 Seg Neutrophils # Man 5.3 K/mm3 (1.8-7.7) 11/14/18 05:10 Band Neutrophils # 0.0 K/mm3 11/14/18 05:10 1.2 K/mm3 (1.2-5.4) 11/14/18 05:10 Abs React Lymphs (Man) 0.0 K/mm3 11/14/18 05:10 0.7 K/mm3 (0.0-0.8) 11/14/18 05:10 0.2 K/mm3 (0.0-0.4) 11/14/18 05:10 0.0 K/mm3 (0.0-0.1) 11/14/18 05:10 0.0 K/mm3 11/14/18 05:10 0.0 K/mm3 11/14/18 05:10 0.0 K/mm3 11/14/18 05:10 Blast Cells # 0.0 K/mm3 11/14/18 05:10 WBC Morphology Not Reportable 11/14/18 05:10 Hypersegmented Neuts Not Reportable 11/14/18 05:10 Hyposegmented Neuts Not Reportable 11/14/18 05:10 Hypogranular Neuts Not Reportable 11/14/18 05:10 Not Reportable 11/14/18 05:10 Not Reportable 11/14/18 05:10 Not Reportable 11/14/18 05:10 Not Reportable 11/14/18 05:10 Not Reportable 11/14/18 05:10 Not Reportable 11/14/18 05:10 Appe 11/14/18 05:10 Not Reportable 11/14/18 05:10 Plt Clumps, EDTA Not Reportable 11/14/18 05:10 1+ 11/14/18 05:10 Not Reportable 11/14/18 05:10 Not Reportable 11/14/18 05:10 Plt Morphology Comment Not Reportable 11/14/18 05:10 RBC Morphology Not Reportable 11/14/18 05:10 Dimorphic RBCs Not Reportable 11/14/18 05:10 Not Reportable 11/14/18 05:10 Not Reportable 11/14/18 05:10 1+ 11/14/18 05:10 1+ 11/14/18 05:10 Not Reportable 11/14/18 05:10 Not Reportable 11/14/18 05:10 Not Reportable 11/14/18 05:10 Not Reportable 11/14/18 05:10 Not Reportable 11/14/18 05:10 Not Reportable 11/14/18 05:10 Not Reportable 11/14/18 05:10 Not Reportable 11/14/18 05:10 Not Reportable 11/14/18 05:10 Not Reportable 11/14/18 05:10 Not Reportable 11/14/18 05:10 Not Reportable 11/14/18 05:10 Not Reportable 11/14/18 05:10 Not Reportable 11/14/18 05:10 Not Reportable 11/14/18 05:10 Acanthocytes (Spur) Not Reportable 11/14/18 05:10 Rouleaux Not Reportable 11/14/18 05:10 Not Reportable 11/14/18 05:10 Not Reportable 11/14/18 05:10 Not Reportable 11/14/18 05:10 Not Reportable 11/14/18 05:10 Hem Pathologist Commnt No 11/14/18 05:10 PT 14.8 Sec. (12.2-14.9) 11/09/18 16:16 INR 1.09 (0.87-1.13) 11/09/18 16:16 APTT 44.5 Sec. (24.2-36.6) H 11/09/18 16:16 21.3 Sec. (15.1-19.6) H 11/09/18 16:16 Sodium 137 mmol/L (137-145) 11/16/18 07:43 Potassium 3.7 mmol/L (3.6-5.0) D 11/16/18 07:43 Chloride 100.4 mmol/L (98-107) 11/16/18 07:43 Carbon Dioxide 22 mmol/L (22-30) 11/16/18 07:43 18 mmol/L 11/16/18 07:43 BUN 53 mg/dL (7-17) H 11/16/18 07:43 7.6 mg/dL (0.7-1.2) H 11/16/18 07:43 Estimated GFR 7 ml/min 11/16/18 07:43 7 % 11/16/18 07:43 Glucose 144 mg/dL (65-100) H 11/16/18 07:43 POC Glucose 177 (70-105) H 11/16/18 06:23 6.9 % (4-6) H 11/09/18 22:00 Lactic Acid 0.80 mmol/L (0.7-2.0) 11/10/18 08:10 Calcium 6.5 mg/dL (8.4-10.2) L 11/16/18 07:43 Magnesium 2.20 mg/dL (1.7-2.3) 11/16/18 07:43 Iron 36 ug/dL (37-170) L 11/09/18 16:16 TIBC 169 mcg/dL (250-450) L 11/09/18 16:16 % Saturation 21.30 % 11/09/18 16:16 128 mg/dl (192-382) L 11/09/18 16:16 > 2000.0 ng/mL (13.0-400.0) H 11/10/18 17:17 0.30 mg/dL (0.1-1.2) 11/15/18 09:31 AST 213 units/L (5-40) H 11/15/18 09:31 ALT 78 units/L (7-56) H 11/15/18 09:31 173 units/L (35-129) H 11/15/18 09:31 19.0 umol/L (25-60) L 11/09/18 16:16 93 units/L (30-135) 11/09/18 16:16 CK-MB (CK-2) < 1.0 ng/mL (0.0-4.0) 11/09/18 16:16 CK-MB (CK-2) Rel Index 1.0 (0-4) 11/09/18 16:16 0.017 ng/mL (0.00-0.029) 11/09/18 16:16 5.9 g/dL (6.3-8.2) L 11/15/18 09:31 2.3 g/dL (3.9-5) L 11/15/18 09:31 0.6 % 11/15/18 09:31 Triglycerides 298 mg/dL (2-149) H 11/10/18 08:05 Cholesterol 84 mg/dL (50-199) 11/10/18 08:05 7 mg/dL (50-130) L 11/10/18 08:05 8 mg/dL (40-59) L 11/10/18 08:05 10.50 % 11/10/18 08:05 13 units/L (13-60) 11/09/18 16:16 Vitamin B12 1628 pg/mL (211-911) H 11/13/18 04:33 9.97 ng/mL (7.3-26.0) 11/13/18 04:33 Yellow (Yellow) 11/10/18 01:08 Cloudy (Clear) 11/10/18 01:08 5.0 (5.0-7.0) 11/10/18 01:08 Ur Specific [place] 1.016 (1.003-1.030) 11/10/18 01:08 >500 mg/dL (Negative) 11/10/18 01:08 Neg mg/dL (Negative) 11/10/18 01:08 Neg mg/dL (Negative) 11/10/18 01:08 Sm (Negative) 11/10/18 01:08 Neg (Negative) 11/10/18 01:08 Ur Reducing Substances Not Reportable 11/10/18 01:08 Neg (Negative) 11/10/18 01:08 Not Reportable 11/10/18 01:08 < 2.0 mg/dL (<2.0) 11/10/18 01:08 Ur Leukocyte Esterase Neg (Negative) 11/10/18 01:08 7.0 /HPF (0.0-6.0) H 11/10/18 01:08 6.0 /HPF (0.0-6.0) 11/10/18 01:08 U Epithel Cells (Auto) 1.0 /HPF (0-13.0) 11/10/18 01:08 1+ /HPF (Negative) 11/10/18 01:08 2+ /HPF 11/10/18 01:08 Hyaline Casts 1 /LPF 11/10/18 01:08 3+ /HPF 11/10/18 01:08 Random Vancomycin 12.3 ug/mL (0-40.0) 11/12/18 04:45 Presumptive negative 11/10/18 01:08 Presumptive negative 11/10/18 01:08 Ur Barbiturates Screen Presumptive negative 11/10/18 01:08 Ur Phencyclidine Scrn Presumptive negative 11/10/18 01:08 Ur Amphetamines Screen Presumptive negative 11/10/18 01:08 U Benzodiazepines Scrn Presumptive negative 11/10/18 01:08 Presumptive negative 11/10/18 01:08 U Marijuana (THC) Screen Presumptive negative 11/10/18 01:08 Disclamer 11/10/18 01:08 Plasma/Serum Alcohol < 0.01 % (0-0.07) 11/09/18 16:16 161 mg/dL (83-193) 11/12/18 04:45 57 mg/dL (15-57) 11/12/18 04:45 Hepatitis A IgM Ab Non-reactive (NonReactive) 11/13/18 21:02 Hep Bs Antigen Non-reactive (Negative) 11/13/18 21:02 Hep B Core IgM Ab Non-reactive (NonReactive) 11/13/18 21:02 Non-reactive (NonReactive) 11/13/18 21:02 Flexitest 1 H 11/12/18 10:45 Blood Type A POSITIVE 11/11/18 07:29 Antibody Screen TNR 11/11/18 07:29 QUIANA Antibody Screen Negative 11/11/18 07:29 Crossmatch See Detail 11/11/18 07:29 Active Medications - Current Medications Current Medications: Generic Name Dose Route Start Last Admin Trade Name Freq PRN Reason Stop Dose Admin Acetaminophen 650 mg 11/09/18 19:38 11/10/18 15:17 Tylenol PO 650 mg Q4H PRN Administration Pain MILD(1-3)/Fever >100.5/FLORES Acetaminophen 650 mg 11/11/18 00:04 11/11/18 17:29 Tylenol [place] 650 mg Q4H PRN Administration Fever >101; Mild Pain (1-3) Lipase/Protease/Amylase 1 each 11/13/18 15:[address] 10,500 Unit FEEDTUBE PRN PRN For Clogged Feeding Tube Atorvastatin Calcium 40 mg 11/10/18 22:00 11/16/18 00:55 Lipitor PO 40 mg QHS PRIYA Administration Docusate Sodium 100 mg 11/09/18 19:32 Colace PO BID PRN Constipation Epoetin Adonis 10,000 unit 11/11/18 08:00 11/13/18 19:50 Procrit SUB-Q 10,000 unit CONSTANTINO PRIYA Administration Hydralazine HCl 10 mg 11/13/18 08:56 11/13/18 14:05 Apresoline IV 10 mg Q4H PRN Administration BP > 160/105 Hydromorphone HCl 0.25 mg 11/09/18 19:38 11/15/18 01:04 Dilaudid IV 0.25 mg Q3H PRN Administration Pain, Moderate (4-6) Doxycycline Hyclate 100 mg/ 250 mls @ 250 mls/hr 11/10/18 16:00 11/16/18 09:53 Sodium Chloride IV 250 mls/hr Q12HR PRIYA Administration Protocol Sodium Chloride 100 mls @ 999 mls/hr 11/11/18 11:09 Nacl 0.9% IV CONSTANTINO PRN Hypotension Potassium Chloride 40 meq/ 520 mls @ 125 mls/hr 11/15/18 12:30 11/16/18 06:41 Sodium Chloride IV 11/17/18 16:40 125 mls/hr DIRECT PRIYA Administration Insulin Human Lispro 0 unit 11/12/18 18:00 11/16/18 06:42 Humalog SUB-Q 2 unit Q6HR PRIYA Administration Protocol Ondansetron HCl 4 mg 11/09/18 19:38 11/15/18 06:48 Zofran IV 4 mg Q8H PRN Administration Nausea And Vomiting Polyethylene Glycol 17 gm 11/09/18 19:38 Miralax 3350 PO QDAY PRN Constipation Simple Syrup 15 ml 11/13/18 15:36 Simple Syrup FEEDTUBE PRN PRN Hypoglycemia Simple Syrup 30 ml 11/13/18 15:36 Simple Syrup FEEDTUBE PRN PRN Hypoglycemia Sodium Bicarbonate 325 mg 11/13/18 15:36 Sodium Bicarbonate FEEDTUBE PRN PRN For Clogged Feeding Tube Sodium Chloride 10 ml 11/09/18 22:00 11/16/18 09:57 Sodium Chloride Flush Syringe 10 Ml IV 10 ml BID PRIYA Administration Sodium Chloride 10 ml 11/09/18 19:38 11/15/18 06:50 Sodium Chloride Flush Syringe 10 Ml IV 10 ml PRN PRN Administration LINE FLUSH Nutrition/Malnutrition Assess - Dietary Evaluation Nutrition/Malnutrition Findings: Nutrition Notes Start: 11/13/18 15:25 Freq: Status: Active Protocol: Document 11/15/18 14:54 OH (Rec: 11/15/18 15:14 OH [id number]) Nutrition Notes Initial or Follow up Reassessment Current Diagnosis COPD,Diabetes,Sepsis Other Pertinent Diagnosis ESRD on HD, metabolic encephalopathy,GERD Current Diet Renal Labs/Tests Ca 6.5 K+ 2.9 Alb 2.3 Cr 6.5 hgba1c 6.9 Height 5 ft 6 in Weight 87.7 kg Ona Body Weight (kg) 59.09 BMI 31.1 Intake Prior to Admission Poor Weight Status Overweight Subjective/Other Information f/u: Pt. lying in bed. Sister in room w/pt. Per sister pt has vas cath in R femoral artery. Due to past hx of high fevers pt referred to undergo bone biopsy. Pt. w/NG tube taped to forehead. Per sister she is to have an evaluation to advance her diet. ST notes indicate mech soft diet recommendations w/thin liquids . Percent of energy/protein needs met: 25/25% Burn Absent Trauma Absent Current % PO Poor (25-49%) Minimum of two criteria Yes Energy Intake (severe) < or equal to 50% Estimated Energy Requirement > or equal to 5 days Protein-Calorie Malnutrition Severe #2 Nutrition Diagnosis Food and nutrition-related knowledge deficit Etiology no prior stage 5 CKD diet education As Evidenced by Signs and Symptoms questions raised regarding low K+ fruits-vegetables/ processed-sodium rich foods #1 Nutrition Diagnosis Inadequate oral intake Etiology poor appetite As Evidenced by Signs and Symptoms <25% po intake of kcal/PRO needs Is patient on ventilator? No Is Patient Ambulatory and/or Out of Bed No REE-([place]-confined to bed) 1755.300 Kcal/Kg value to use for calculation 20 Approximate Energy Requirements Using 1754 kcal/Kg Calculation Used for Recommendations Kcal/kg Additional Notes IBW 59 KGS 1.2-1.4 g/kg/IBW 71-83 G/PRO/D 1000 ML/DAY FLUID Nutrition Intervention Change Diet Order: Mech soft with thin liquids Add Supplement/Snack (indicate name/kcal nepro q daily /protein ) Provides kCal: 425 Provides Protein (gm) 19 Teaching Recipient Family,Primary Caregiver Learning Readiness Good Teaching Methods Discussion,Handout Response to Teaching Verbalize understanding Education Handouts Provided Provided pt w/information about ESRD and dietary recommendations. Rev high vs low K+ rich foods. Enc sister (whom she lives with) to reduce all fast food/processed /packaged foods such as ferraro/ sausage/etc. Sister verbalized understanding. Educ sister that patient would be attending [facility] 3 d/wk to remove toxins along with fluids that kidneys are unable to process. Spoke with sister that SW and pulp refiner operator assistance would be provided at dialysis facility for further education/questions. Barriers to Learning Physical,Age related,Emotional ,Financial,Environmental, Social Patient aware of follow up options Yes Goal #1 Diet advancement to mech soft w/thin liquids; d/c TF Goal #2 Meet >75% PRO/KCAL needs through po intake Follow-Up By: 11/17/18 Additional Comments F/u advancement/toleration of diet and ONS
[2018-11-16] MEDS ORDERED: VERSED IV ONE ×2 (12:23→13:30)
[2018-11-16] MEDS ORDERED: SUBLIMAZE ONE (12:24)
[2018-11-16] MEDS ORDERED: SUBLIMAZE IV ONE (13:30)
[2018-11-16 14:06] LABS: Total Cells Counted 100
[2018-11-16 14:07] LABS: Anisocytosis Few; Basophils % (Manual) 0 % (0.0-1.8); Platelet Estimate Consistent w Auto; Target Cells Rare
--- NOTE | 2018-11-16 14:11 | Cat Scan Report ---
CT BIOPSY BONE MARROW: HISTORY: Anemia, thrombocytopenia anemia, HLH. DESCRIPTION OF PROCEDURE: Informed consent was obtained. Sterile technique was utilized. Conscious sedation was accomplished with Versed and fentanyl. The patient was sedated for 15 minutes. Independent cardiorespiratory monitoring by RN. Intra-observer time of [address] guidance, an introducer needle was advanced into the left posterior iliac bone. 4 aspirations and one 11-gauge bone core was obtained. Pathology was present to handle the sample. The patient tolerated the procedure without difficulty. IMPRESSION: Successful CT-guided bone marrow biopsy.
[2018-11-16] MEDS: DILAUDID IV PRN (15:37)
[2018-11-16] MEDS ORDERED: NACL 0.9 (PRIMING MACHINE ONLY DIALYSIS) MC ONE (18:10)
[2018-11-16] MEDS: PROCRIT SUB-Q SCH (19:00)
--- NOTE | 2018-11-16 19:40 | Progress Note ---
Assessment and Plan - Patient Problems (1) Hyperkalemia Current Visit: Yes Status: Acute Plan to address problem: Potassium improved postdialysis. Discontinue potassium infusion. Follow-up potassium tomorrow. I discussed with the Registered nurse (2) ESRD (end stage renal disease) Current Visit: Yes Status: Acute Plan to address problem: Hemodialysis on a Thursday, and Thursday schedule (3) Hypertensive chronic kidney disease with stage 1 through stage 4 chronic kidney disease, or unspecified chronic kidney disease Current Visit: Yes Status: Acute Plan to address problem: Follow-up blood pressure on current medications (4) SIRS (systemic inflammatory response syndrome) Current Visit: Yes Status: Acute Plan to address problem: Fever of undetermined origin. Being followed up by infectious disease. (5) Thrombocytopenia Current Visit: Yes Status: Acute Plan to address problem: Etiology uncertain. ADAMSTS-13 pending. Hematology has been consulted. (6) Anemia in chronic illness Current Visit: Yes Status: Acute Plan to address problem: Give Erythropoetin on dialysis and follow-up hemoglobin (7) Type 2 diabetes mellitus with diabetic chronic kidney disease Current Visit: Yes Status: Chronic Qualifiers: Chronic kidney disease stage: stage 5, not on chronic dialysis Plan to address problem: Blood sugar management by primary attending Subjective Date of service: 11/16/18 Principal diagnosis: low plt Interval history: Patient seen lying in bed. She has no complaints this evening. She feels better. She looks better Objective - Exam Narrative Exam: Middle-aged -[place] female lying in bed in no acute distress HEENT: NCAT, pink oral mucous membrane Neck: Supple, no venous distention CVS: S1S2 RRR with no murmur, rub or gallop Chest: Faint rhonchi Abdomen: Protuberant, soft, nontender, no organomegaly, bowel sounds are present Extremities: No edema Neuro: Awake, hemiparesis, slurred speech, speaking more - Vital Signs Vital signs: Vital Signs - 12hr 11/16/18 11/16/18 11/16/18 12:38 12:50 12:55 Temperature Pulse Rate Pulse Rate [ 79 78 Intra-Procedure ] Pulse Rate [ Post-Procedure] Pulse Rate [Pre 79 -Procedure] Respiratory Rate Respiratory 15 16 Rate [Intra- Procedure] Respiratory Rate [Post- Procedure] Respiratory 16 Rate [Pre- Procedure] Blood Pressure Blood Pressure 147/76 135/65 [Intra- Procedure] Blood Pressure [Post-Procedure ] Blood Pressure 146/72 [Pre-Procedure] O2 Sat by Pulse Oximetry O2 Sat by Pulse 100 100 Oximetry [ Intra-Procedure ] O2 Sat by Pulse Oximetry [Post -Procedure] O2 Sat by Pulse 100 Oximetry [Pre- Procedure] 11/16/18 11/16/18 11/16/18 13:00 13:03 13:05 Temperature Pulse Rate Pulse Rate [ 79 80 Intra-Procedure ] Pulse Rate [ 81 Post-Procedure] Pulse Rate [Pre -Procedure] Respiratory Rate Respiratory 15 15 Rate [Intra- Procedure] Respiratory 15 Rate [Post- Procedure] Respiratory Rate [Pre- Procedure] Blood Pressure Blood Pressure 120/72 121/72 [Intra- Procedure] Blood Pressure 126/69 [Post-Procedure ] Blood Pressure [Pre-Procedure] O2 Sat by Pulse Oximetry O2 Sat by Pulse 100 100 Oximetry [ Intra-Procedure ] O2 Sat by Pulse 100 Oximetry [Post -Procedure] O2 Sat by Pulse Oximetry [Pre- Procedure] 11/16/18 11/16/18 11/16/18 13:17 13:30 15:14 Temperature 98.5 F Pulse Rate 85 Pulse Rate [ Intra-Procedure ] Pulse Rate [ 78 81 Post-Procedure] Pulse Rate [Pre -Procedure] Respiratory 20 Rate Respiratory Rate [Intra- Procedure] Respiratory 14 14 Rate [Post- Procedure] Respiratory Rate [Pre- Procedure] Blood Pressure 148/72 Blood Pressure [Intra- Procedure] Blood Pressure 136/69 139/71 [Post-Procedure ] Blood Pressure [Pre-Procedure] O2 Sat by Pulse 100 Oximetry O2 Sat by Pulse Oximetry [ Intra-Procedure ] O2 Sat by Pulse 100 100 Oximetry [Post -Procedure] O2 Sat by Pulse Oximetry [Pre- Procedure] - Lab 11/16/18 07:43 11/16/18 07:43 Most recent lab results Calcium 6.5 mg/dL (8.4-10.2) L 11/16/18 07:43 Magnesium 2.20 mg/dL (1.7-2.3) 11/16/18 07:43 Medications & Allergies - Medications Allergies/Adverse Reactions: Allergies No Known Allergies Allergy (Verified 04/15/14 15:50) Home Medications: Home Medications Medication Instructions Recorded Confirmed Last Taken Type Docusate Sodium [Colace] 100 mg PO BID PRN #30 capsule 04/15/14 12/05/14 Unknown Rx HYDROcodone/APAP 5-325 [[place] 1 each PO Q6HR PRN #20 tablet 04/15/14 12/05/14 Unknown Rx 5/325] Polyethylene Glycol 3350 [Miralax] 17 gm PO DAILY PRN #1 bottle 04/15/14 12/05/14 Unknown Rx HYDROcodone/APAP 5-325 [[place] 1 - 2 each PO Q6HR PRN #14 tablet 12/05/14 Unknown Rx 5/325] Atorvastatin [Lipitor Tab] 20 mg PO QHS 11/11/18 11/11/18 Unknown History Gabapentin [Neurontin] 300 mg PO TID PRN 11/11/18 11/11/18 Unknown History Nystatin [Nystatin SUSP] 5 ml PO QID 11/11/18 11/11/18 Unknown History Pantoprazole [Protonix] 40 mg PO QDAY 11/11/18 11/11/18 Unknown History Promethazine [Phenergan] 25 mg PO Q6HR PRN 11/11/18 11/11/18 Unknown History Sodium Bicarbonate 325 mg PO BID 11/11/18 11/11/18 Unknown History amLODIPine 10 mg PO DAILY 11/11/18 11/11/18 Unknown History Active Medications: Generic Name Dose Route Start Last Admin Trade Name Freq PRN Reason Stop Dose Admin Acetaminophen 650 mg 11/09/18 19:38 11/10/18 15:17 Tylenol PO 650 mg Q4H PRN Administration Pain MILD(1-3)/Fever >100.5/FLORES Acetaminophen 650 mg 11/11/18 00:04 11/11/18 17:29 Tylenol [place] 650 mg Q4H PRN Administration Fever >101; Mild Pain (1-3) Lipase/Protease/Amylase 1 each 11/13/18 15:[address] 10,500 Unit FEEDTUBE PRN PRN For Clogged Feeding Tube Atorvastatin Calcium 40 mg 11/10/18 22:00 11/16/18 00:55 Lipitor PO 40 mg QHS PRIYA Administration Docusate Sodium 100 mg 11/09/18 19:32 Colace PO BID PRN Constipation Epoetin Adonis 10,000 unit 11/11/18 08:00 11/16/18 19:00 Procrit SUB-Q 10,000 unit CONSTANTINO PRIYA Administration Hydralazine HCl 10 mg 11/13/18 08:56 11/13/18 14:05 Apresoline IV 10 mg Q4H PRN Administration BP > 160/105 Hydromorphone HCl 0.25 mg 11/09/18 19:38 11/16/18 15:37 Dilaudid IV 0.25 mg Q3H PRN Administration Pain, Moderate (4-6) Sodium Chloride 100 mls @ 999 mls/hr 11/11/18 11:09 Nacl 0.9% IV CONSTANTINO PRN Hypotension Potassium Chloride 40 meq/ 520 mls @ 125 mls/hr 11/15/18 12:30 11/16/18 06:41 Sodium Chloride IV 11/17/18 16:40 125 mls/hr DIRECT PRIYA Administration Insulin Human Lispro 0 unit 11/16/18 22:00 Humalog SUB-Q ACHS [facility] Protocol Ondansetron HCl 4 mg 11/09/18 19:38 11/15/18 06:48 Zofran IV 4 mg Q8H PRN Administration Nausea And Vomiting Polyethylene Glycol 17 gm 11/09/18 19:38 Miralax 3350 PO QDAY PRN Constipation Simple Syrup 15 ml 11/13/18 15:36 Simple Syrup FEEDTUBE PRN PRN Hypoglycemia Simple Syrup 30 ml 11/13/18 15:36 Simple Syrup FEEDTUBE PRN PRN Hypoglycemia Sodium Bicarbonate 325 mg 11/13/18 15:36 Sodium Bicarbonate FEEDTUBE PRN PRN For Clogged Feeding Tube Sodium Chloride 10 ml 11/09/18 22:00 11/16/18 09:57 Sodium Chloride Flush Syringe 10 Ml IV 10 ml BID PRIYA Administration Sodium Chloride 10 ml 11/09/18 19:38 11/15/18 06:50 Sodium Chloride Flush Syringe 10 Ml IV 10 ml PRN PRN Administration LINE FLUSH
[2018-11-17] MEDS: HumaLOG SUB-Q SCH ×5 (05:08→22:44)
[2018-11-17] MEDS: SODIUM CHLORIDE FLUSH SYRINGE 10 ML IV SCH ×3 (05:09→22:44)
--- NOTE | 2018-11-17 07:28 | Hem/Onc Progress Note ---
Assessment and Plan # Fever, rash, anemia, thrombocytopenia. # The patient's bilirubin is not elevated. LDH. Ferritin is elevated, that may be secondary to fever or inflammation. It was suspected that calcitriol or tartrazine may have a role in drug allergy. She was extensively investigated at [facility] and [facility]. # History of fever, history of abdominal pain. Radiology mentioned chronic pancreatitis. # As per the information, extensive investigation for fever has been done including echocardiogram, which was negative. # Renal impairment, on hemodialysis. # I had discussed with pathologist regarding the smear, which shows bandemia. For HLH, bone marrow biopsy may help. The patient's white cell count is not low. # [id number] has been ordered to evaluate for TTP in view of anemia and renal impairment; however, the smear did not have significant schistocytes. We will follow the trend and review. At this time based on information, the fever it appears that may not be infective in etiology, drug reaction is still a possibility. We will discuss with other specialists. 11/17 s/p BMBX - one of the differential is HLH for plt - transfusion support as needed more awake rash - drying out on the arms we will await bmbx report - Patient Problems (1) Thrombocytopenia Current Visit: Yes Status: Acute Subjective Date of service: 11/17/18 Principal diagnosis: low plt Interval history: pt had bmbx Objective - Constitutional Vitals: Last Vital Signs Temp 97.6 F 11/17/18 05:22 Pulse 82 11/17/18 05:22 Resp 20 11/17/18 05:22 BP 170/80 11/17/18 05:22 Pulse Ox 100 11/17/18 05:22 Pain Intensity (0-10): denies any pain General appearance: no acute distress Performance status: 4-completely disabled - EENT Eyes: EOM intact ENT: hearing intact Lymph node exam: negative cervical - Neck Neck: normal ROM - Respiratory Respiratory effort: Positive: normal Respiratory: bilateral: CTA (anteriorly) - Cardiovascular Heart Sounds: Present: S1 & S2 Extremities: normal temperature - Gastrointestinal General gastrointestinal: Present: soft, non-tender Rectal Exam: deferred - Genitourinary Female genitourinary: Present: deferred - Integumentary Integumentary: warm - Musculoskeletal Musculoskeletal: generalized weakness - Neurologic Neurologic: moves all extremities - Labs Lab Results: Laboratory Results - last 24 hr 11/11/18 11/16/18 11/16/18 07:29 07:43 07:43 WBC 10.0 RBC 2.80 L Hgb 7.9 L Hct 23.6 L MCV 85 MCH 28 MCHC 33 RDW 16.4 H Plt Count 71 L [place] % (Auto) Smooth Stucco Resurfacer Eos % (Auto) 2.5 [place] # 1.7 H Eos # 0.3 Baso # 0.1 Add Manual Diff Complete Total Counted 100 Seg Neutrophils % 54.9 Seg Neuts % (Manual) 75.0 H Band Neutrophils % 0 Lymphocytes % (Manual) 16.0 Reactive Lymphs % (Man) 0 Monocytes % (Manual) 6.0 Eosinophils % (Manual) 1.0 Basophils % (Manual) 0 Metamyelocytes % 2.0 Myelocytes % 0 Promyelocytes % 0 Blast Cells % 0 Nucleated RBC % Not Reportable Seg Neutrophils # 5.7 Seg Neutrophils # Man 7.5 Band Neutrophils # 0.0 Lymphocytes # (Manual) 1.6 Abs React Lymphs (Man) 0.0 Monocytes # (Manual) 0.6 Eosinophils # (Manual) 0.1 Basophils # (Manual) 0.0 Metamyelocytes # 0.2 Myelocytes # 0.0 Promyelocytes # 0.0 Blast Cells # 0.0 WBC Morphology Not Reportable Hypersegmented Neuts Not Reportable Hyposegmented Neuts Not Reportable Hypogranular Neuts Not Reportable Smudge Cells Not Reportable Toxic Granulation Not Reportable Toxic Vacuolation Not Reportable Dohle Bodies Not Reportable Pelger-Huet Anomaly Not Reportable Page Rods Not Reportable Platelet Estimate Consistent w auto Clumped Platelets Not Reportable Plt Clumps, EDTA Not Reportable Large Platelets Not Reportable Giant Platelets Not Reportable Platelet Satelliting Not Reportable Plt Morphology Comment Not Reportable RBC Morphology Not Reportable Dimorphic RBCs Not Reportable Polychromasia Not Reportable Hypochromasia Not Reportable Poikilocytosis Not Reportable Anisocytosis Few Microcytosis Not Reportable Macrocytosis Not Reportable Spherocytes Not Reportable Pappenheimer Bodies Not Reportable Sickle Cells Not Reportable Target Cells Rare Tear Drop Cells Not Reportable Ovalocytes Not Reportable Helmet Cells Not Reportable Pierce-Avis Bodies Not Reportable [place] Rings Not Reportable Karis Cells Not Reportable Bite Cells Not Reportable Crenated Cell Not Reportable Elliptocytes Not Reportable Acanthocytes (Spur) Not Reportable Rouleaux Not Reportable Hemoglobin C Crystals Not Reportable Schistocytes Not Reportable Malaria parasites Not Reportable Edilberto Bodies Not Reportable Hem Pathologist Commnt No Sodium 137 Potassium 3.7 D Chloride 100.4 Carbon Dioxide 22 Anion Gap 18 BUN 53 H Creatinine 7.6 H Estimated GFR 7 BUN/Creatinine Ratio 7 Glucose 144 H POC Glucose Calcium 6.5 L Magnesium 2.20 Miscellaneous Test Flexitest 1 11/16/18 11/17/18 11/17/18 12:03 00:30 05:26 WBC RBC Hgb Hct MCV MCH MCHC RDW Plt Count [place] % (Auto) Eos % (Auto) [place] # Eos # Baso # Add Manual Diff Total Counted Seg Neutrophils % Seg Neuts % (Manual) Band Neutrophils % Lymphocytes % (Manual) Reactive Lymphs % (Man) Monocytes % (Manual) Eosinophils % (Manual) Basophils % (Manual) Metamyelocytes % Myelocytes % Promyelocytes % Blast Cells % Nucleated RBC % Seg Neutrophils # Seg Neutrophils # Man Band Neutrophils # Lymphocytes # (Manual) Abs React Lymphs (Man) Monocytes # (Manual) Eosinophils # (Manual) Basophils # (Manual) Metamyelocytes # Myelocytes # Promyelocytes # Blast Cells # WBC Morphology Hypersegmented Neuts Hyposegmented Neuts Hypogranular Neuts Smudge Cells Toxic Granulation Toxic Vacuolation Dohle Bodies Pelger-Huet Anomaly Page Rods Platelet Estimate Clumped Platelets Plt Clumps, EDTA Large Platelets Giant Platelets Platelet Satelliting Plt Morphology Comment RBC Morphology Dimorphic RBCs Polychromasia Hypochromasia Poikilocytosis Anisocytosis Microcytosis Macrocytosis Spherocytes Pappenheimer Bodies Sickle Cells Target Cells Tear Drop Cells Ovalocytes Helmet Cells Pierce-Avis Bodies [place] Rings Karis Cells Bite Cells Crenated Cell Elliptocytes Acanthocytes (Spur) Rouleaux Hemoglobin C Crystals Schistocytes Malaria parasites Edilberto Bodies Hem Pathologist Commnt Sodium Potassium Chloride Carbon Dioxide Anion Gap BUN Creatinine Estimated GFR BUN/Creatinine Ratio Glucose POC Glucose 152 H 203 H 216 H Calcium Magnesium Miscellaneous Test 11/17/18 05:58 WBC RBC Hgb Hct MCV MCH MCHC RDW Plt Count [place] % (Auto) Eos % (Auto) [place] # Eos # Baso # Add Manual Diff Total Counted Seg Neutrophils % Seg Neuts % (Manual) Band Neutrophils % Lymphocytes % (Manual) Reactive Lymphs % (Man) Monocytes % (Manual) Eosinophils % (Manual) Basophils % (Manual) Metamyelocytes % Myelocytes % Promyelocytes % Blast Cells % Nucleated RBC % Seg Neutrophils # Seg Neutrophils # Man Band Neutrophils # Lymphocytes # (Manual) Abs React Lymphs (Man) Monocytes # (Manual) Eosinophils # (Manual) Basophils # (Manual) Metamyelocytes # Myelocytes # Promyelocytes # Blast Cells # WBC Morphology Hypersegmented Neuts Hyposegmented Neuts Hypogranular Neuts Smudge Cells Toxic Granulation Toxic Vacuolation Dohle Bodies Pelger-Huet Anomaly Page Rods Platelet Estimate Clumped Platelets Plt Clumps, EDTA Large Platelets Giant Platelets Platelet Satelliting Plt Morphology Comment RBC Morphology Dimorphic RBCs Polychromasia Hypochromasia Poikilocytosis Anisocytosis Microcytosis Macrocytosis Spherocytes Pappenheimer Bodies Sickle Cells Target Cells Tear Drop Cells Ovalocytes Helmet Cells Pierce-Avis Bodies [place] Rings [place] Cells Bite Cells Crenated Cell Elliptocytes Acanthocytes (Spur) Rouleaux Hemoglobin C Crystals Schistocytes Malaria parasites Edilberto Bodies Hem Pathologist Commnt Sodium 139 Potassium 3.5 L Chloride 99.5 Carbon Dioxide 26 Anion Gap 17 BUN 29 H Creatinine 5.6 H Estimated GFR 9 BUN/Creatinine Ratio 5 Glucose 202 H POC Glucose Calcium 7.0 L Magnesium 1.80 Miscellaneous Test Medications & Allergies - Medications Allergies/Adverse Reactions: Allergies No Known Allergies Allergy (Verified 04/15/14 15:50) Home Medications: Home Medications Medication Instructions Recorded Confirmed Last Taken Type Docusate Sodium [Colace] 100 mg PO BID PRN #30 capsule 04/15/14 11/18/18 Unknown Rx HYDROcodone/APAP 5-325 [[place] 1 each PO Q6HR PRN #20 tablet 04/15/14 11/18/18 Unknown Rx 5/325] Polyethylene Glycol 3350 [Miralax] 17 gm PO DAILY PRN #1 bottle 04/15/14 11/18/18 Unknown Rx HYDROcodone/APAP 5-325 [[place] 1 - 2 each PO Q6HR PRN #14 tablet 12/05/14 11/18/18 Unknown Rx 5/325] Atorvastatin [Lipitor Tab] 20 mg PO QHS 11/11/18 11/11/18 Unknown History Gabapentin [Neurontin] 300 mg PO TID PRN 11/11/18 11/11/18 Unknown History Nystatin [Nystatin SUSP] 5 ml PO QID 11/11/18 11/11/18 Unknown History Pantoprazole [Protonix] 40 mg PO QDAY 11/11/18 11/11/18 Unknown History Promethazine [Phenergan] 25 mg PO Q6HR PRN 11/11/18 11/11/18 Unknown History Sodium Bicarbonate 325 mg PO BID 11/11/18 11/11/18 Unknown History amLODIPine 10 mg PO DAILY 11/11/18 11/11/18 Unknown History Active Medications: Generic Name Dose Route Start Last Admin Trade Name Freq PRN Reason Stop Dose Admin Acetaminophen 650 mg 11/09/18 19:38 11/10/18 15:17 Tylenol PO 650 mg Q4H PRN Administration Pain MILD(1-3)/Fever >100.5/FLORES Acetaminophen 650 mg 11/11/18 00:04 11/11/18 17:29 Tylenol [place] 650 mg Q4H PRN Administration Fever >101; Mild Pain (1-3) Lipase/Protease/Amylase 1 each 11/13/18 15:[address] 10,500 Unit FEEDTUBE PRN PRN For Clogged Feeding Tube Atorvastatin Calcium 40 mg 11/10/18 22:00 11/17/18 05:09 Lipitor PO Not Given QHS PRIYA Docusate Sodium 100 mg 11/09/18 19:32 Colace PO BID PRN Constipation Epoetin Adonis 10,000 unit 11/11/18 08:00 11/16/18 19:00 Procrit SUB-Q 10,000 unit CONSTANTINO PRIYA Administration Hydralazine HCl 10 mg 11/13/18 08:56 11/13/18 14:05 Apresoline IV 10 mg Q4H PRN Administration BP > 160/105 Hydromorphone HCl 0.25 mg 11/09/18 19:38 11/16/18 15:37 Dilaudid IV 0.25 mg Q3H PRN Administration Pain, Moderate (4-6) Sodium Chloride 100 mls @ 999 mls/hr 11/11/18 11:09 Nacl 0.9% IV CONSTANTINO PRN Hypotension Insulin Human Lispro 0 unit 11/16/18 22:00 11/17/18 05:08 Humalog SUB-Q Not Given ACHS [facility] Protocol Ondansetron HCl 4 mg 11/09/18 19:38 11/15/18 06:48 Zofran IV 4 mg Q8H PRN Administration Nausea And Vomiting Polyethylene Glycol 17 gm 11/09/18 19:38 Miralax 3350 PO QDAY PRN Constipation Simple Syrup 15 ml 11/13/18 15:36 Simple Syrup FEEDTUBE PRN PRN Hypoglycemia Simple Syrup 30 ml 11/13/18 15:36 Simple Syrup FEEDTUBE PRN PRN Hypoglycemia Sodium Bicarbonate 325 mg 11/13/18 15:36 Sodium Bicarbonate FEEDTUBE PRN PRN For Clogged Feeding Tube Sodium Chloride 10 ml 11/09/18 22:00 11/17/18 05:09 Sodium Chloride Flush Syringe 10 Ml IV Not Given BID [facility] Sodium Chloride 10 ml 11/09/18 19:38 11/15/18 06:50 Sodium Chloride Flush Syringe 10 Ml IV 10 ml PRN PRN Administration LINE FLUSH
--- NOTE | 2018-11-17 09:55 | Magnetic Resonance Report ---
MRI BRAIN WITHOUT CONTRAST: 11/17/18 CLINICAL: TIA TECHNIQUE: Axial diffusion, T1, T2, gradient echo T2*, coronal and axial FLAIR and sagittal T1 sequences on a 1.5 Ramandeep magnet. FINDINGS: The ventricles and sulci are slightly enlarged for age. No restricted diffusion. Subtle bilateral multifocal tiny white matter hyperintensities on FLAIR and T2 No mass or mass effect. Bilateral basal ganglia hypointensities on the gradient echo sequence consistent with benign calcifications. No chronic microbleeds on the gradient echo sequence. No hemorrhage, edema or extra-axial collection. Normal pituitary and optic chiasm. The brainstem and cerebellum are normal. Intact vascular flow voids. Normal sinuses. The orbits, and soft tissues are normal. Normal calvarium and skull base. IMPRESSION: 1. No evidence of acute/subacute infarct or hemorrhage. 2. Mild global cortical atrophy and mild chronic white matter microangiopathy.
--- NOTE | 2018-11-17 10:21 | Progress Note ---
Assessment and Plan Cultures: 11/09/2018 blood culture: no growth thus far 11/10/2018 blood culture: no growth thus far 11/10/2018 Fungal blood culture: in progress 11/10/2018 urine culture: no growth 11/16/2018 Bone marrow: no growth Ferritin: >2000. A/P: 1) Sepsis / FUO: unclear etiology. Resolved. No fever in >48 hours, Going on for the last 1 month with extensive infectious work up negative thus far at [place]. No evidence of infection on CT chest, abdomen pelvis. HIV negative. TTE negative for vegetations. Blood cultures at [place] were negative. Fevers have been quite high. No significant eosinophilia. Per records at [place], ANCA screen negative. Procalcitonin was moderately elevated: but difficult to interpret in the setting of renal failure. Leucocytosis at [place] was mainly neutrophilic. Apparently as per the ID consult at [facility] her fevers were attributed to a possible drug reaction secondary to calcitriol or tartrazine. ESR elevated at 124, CRP also elevated at 19.60. GRACE negative, RF <15. Here, she has no leucocytosis. Ferritin is high. Rash + for about a month. 2) CKD4 / now ARF/ESRD: requiring dialysis. Nephrology following. Right femoral vascath. 3) DM-2: insulin requiring. 4) Anemia, thrombocytopenia: worsening. Hematology to trend and review ADAMT13 to evaluate for TTP. ?bone marrow biopsy? - Dr. Jacques following. 5) Elevated LFT's: Abdominal US findings showed no focal abnormalities in the liver. No ascities seen. Pancreatic duct appears mildly dilated suggesting chronic pancreatitis.. Recs: - Discontinue Doxycycline -monitor off antibiotics [facility] M: [id number] O:[phone] Subjective Date of service: 11/17/18 Principal diagnosis: low plt Interval history: Patient seen and examined. Awake. Alert. laying in bed. no generalized pain or SOB reported. No fevers. Objective - Exam Narrative Exam: Constitutional: Awake. Alert. No acute distress Head, Ears, Nose: Normocephalic, atraumatic. External ears, nose normal Eyes: Conjunctivae/corneas clear. No icterus. No ptosis. Neck: Supple, no meningeal signs Oral: no thrush or ulcers Cardiovascular: S1, S2 normal. Respiratory: Good air entry, clear to auscultation bilaterally GI: Soft, non-tender; bowel sounds normal. No peritoneal signs Musculoskeletal: No pedal edema, no cyanosis. Skin: faint maculopapular rash Hem/Lymphatic: No palpable cervical or supraclavicular nodes. No lymphangitis Psych: no agitation, calm Neurological: Awake, alert, following commands. Lines: Right femoral Trialysis catheter - Constitutional Vitals: Vital Signs Temp Pulse Resp BP Pulse Ox 97.6 F 82 20 170/80 96 11/17/18 05:22 11/17/18 05:22 11/17/18 05:22 11/17/18 05:22 11/17/18 08:05 Temperature -Last 24 Hours Temperature 97.6 F Temperature 98.4 F Temperature 98.5 F - Labs CBC & Chem 7: 11/16/18 07:43 11/17/18 05:58 Labs: Abnormal lab results 11/16/18 11/16/18 11/17/18 Range/Units 07:43 12:03 00:30 Seg Neuts % (Manual) 75.0 H (40.0-70.0) % Potassium (3.6-5.0) mmol/L BUN (7-17) mg/dL Creatinine (0.7-1.2) mg/dL Glucose (65-100) mg/dL POC Glucose 152 H 203 H (70-105) Calcium (8.4-10.2) mg/dL 11/17/18 11/17/18 11/17/18 Range/Units 05:26 05:58 07:50 Seg Neuts % (Manual) (40.0-70.0) % Potassium 3.5 L (3.6-5.0) mmol/L BUN 29 H (7-17) mg/dL Creatinine 5.6 H (0.7-1.2) mg/dL Glucose 202 H (65-100) mg/dL POC Glucose 216 H 214 H (70-105) Calcium 7.0 L (8.4-10.2) mg/dL
[2018-11-17] MEDS: DILAUDID IV PRN ×2 (14:16→22:42)
[2018-11-17] MEDS ORDERED: K-DUR PO ONE (15:15)
--- NOTE | 2018-11-17 17:42 | Progress Note ---
Assessment and Plan - Patient Problems (1) Hyperkalemia Current Visit: Yes Status: Acute Plan to address problem: Potassium improved. Follow-up potassium (2) ESRD (end stage renal disease) Current Visit: Yes Status: Acute Plan to address problem: Hemodialysis on a Thursday, and Thursday schedule. Arrange for outpatient dialysis (3) Hypertensive chronic kidney disease with stage 1 through stage 4 chronic kidney disease, or unspecified chronic kidney disease Current Visit: Yes Status: Acute Plan to address problem: Follow-up blood pressure on current medications (4) SIRS (systemic inflammatory response syndrome) Current Visit: Yes Status: Acute Plan to address problem: Fever of undetermined origin. Being followed up by infectious disease. (5) Thrombocytopenia Current Visit: Yes Status: Acute Plan to address problem: Etiology uncertain. ADAMSTS-13 pending. Hematology has been consulted. (6) Anemia in chronic illness Current Visit: Yes Status: Acute Plan to address problem: Give Erythropoetin on dialysis and follow-up hemoglobin (7) Type 2 diabetes mellitus with diabetic chronic kidney disease Current Visit: Yes Status: Chronic Qualifiers: Chronic kidney disease stage: stage 5, not on chronic dialysis Plan to address problem: Blood sugar management by primary attending Subjective Date of service: 11/17/18 Principal diagnosis: low plt Interval history: Patient seen lying in bed. She has no complaints. She feels better. She looks better each day Objective - Exam Narrative Exam: Middle-aged -[place] female lying in bed in no acute distress HEENT: NCAT, pink oral mucous membrane Neck: Supple, no venous distention CVS: S1S2 RRR with no murmur, rub or gallop Chest: Clear to auscultation Abdomen: Protuberant, soft, nontender, no organomegaly, bowel sounds are present Extremities: No edema Neuro: Awake, hemiparesis, slurred speech, improving - Vital Signs Vital signs: Vital Signs - 12hr 11/17/18 11/17/18 11/17/18 08:05 12:36 17:03 Temperature 98.3 F 98.2 F Pulse Rate 84 86 Respiratory 20 20 Rate Blood Pressure 111/75 147/77 O2 Sat by Pulse 96 100 100 Oximetry - Lab 11/16/18 07:43 11/17/18 05:58 Most recent lab results Calcium 7.0 mg/dL (8.4-10.2) L 11/17/18 05:58 Magnesium 1.80 mg/dL (1.7-2.3) 11/17/18 05:58 Medications & Allergies - Medications Allergies/Adverse Reactions: Allergies No Known Allergies Allergy (Verified 04/15/14 15:50) Home Medications: Home Medications Medication Instructions Recorded Confirmed Last Taken Type Docusate Sodium [Colace] 100 mg PO BID PRN #30 capsule 04/15/14 12/05/14 Unknown Rx HYDROcodone/APAP 5-325 [[place] 1 each PO Q6HR PRN #20 tablet 04/15/14 12/05/14 Unknown Rx 5/325] Polyethylene Glycol 3350 [Miralax] 17 gm PO DAILY PRN #1 bottle 04/15/14 12/05/14 Unknown Rx HYDROcodone/APAP 5-325 [[place] 1 - 2 each PO Q6HR PRN #14 tablet 12/05/14 Unknown Rx 5/325] Atorvastatin [Lipitor Tab] 20 mg PO QHS 11/11/18 11/11/18 Unknown History Gabapentin [Neurontin] 300 mg PO TID PRN 11/11/18 11/11/18 Unknown History Nystatin [Nystatin SUSP] 5 ml PO QID 11/11/18 11/11/18 Unknown History Pantoprazole [Protonix] 40 mg PO QDAY 11/11/18 11/11/18 Unknown History Promethazine [Phenergan] 25 mg PO Q6HR PRN 11/11/18 11/11/18 Unknown History Sodium Bicarbonate 325 mg PO BID 11/11/18 11/11/18 Unknown History amLODIPine 10 mg PO DAILY 11/11/18 11/11/18 Unknown History Active Medications: Generic Name Dose Route Start Last Admin Trade Name Freq PRN Reason Stop Dose Admin Acetaminophen 650 mg 11/09/18 19:38 11/10/18 15:17 Tylenol PO 650 mg Q4H PRN Administration Pain MILD(1-3)/Fever >100.5/FLORES Acetaminophen 650 mg 11/11/18 00:04 11/11/18 17:29 Tylenol [place] 650 mg Q4H PRN Administration Fever >101; Mild Pain (1-3) Lipase/Protease/Amylase 1 each 11/13/18 15:36 Pancrepema [place] 10,500 Unit FEEDTUBE PRN PRN For Clogged Feeding Tube Atorvastatin Calcium 40 mg 11/10/18 22:00 11/17/18 05:09 Lipitor PO Not Given QHS [facility] Docusate Sodium 100 mg 11/09/18 19:32 Colace PO BID PRN Constipation Epoetin Adonis 10,000 unit 11/11/18 08:00 11/16/18 19:00 Procrit SUB-Q 10,000 unit CONSTANTINO PRIYA Administration Hydralazine HCl 10 mg 11/13/18 08:56 11/13/18 14:05 Apresoline IV 10 mg Q4H PRN Administration BP > 160/105 Hydromorphone HCl 0.25 mg 11/09/18 19:38 11/17/18 14:16 Dilaudid IV 0.25 mg Q3H PRN Administration Pain, Moderate (4-6) Sodium Chloride 100 mls @ 999 mls/hr 11/11/18 11:09 Nacl 0.9% IV CONSTANTINO PRN Hypotension Insulin Human Lispro 0 unit 11/16/18 22:00 11/17/18 13:25 Humalog SUB-Q 4 unit ACHS [facility] Administration Protocol Ondansetron HCl 4 mg 11/09/18 19:38 11/15/18 06:48 Zofran IV 4 mg Q8H PRN Administration Nausea And Vomiting Polyethylene Glycol 17 gm 11/09/18 19:38 Miralax 3350 PO QDAY PRN Constipation Simple Syrup 15 ml 11/13/18 15:36 Simple Syrup FEEDTUBE PRN PRN Hypoglycemia Simple Syrup 30 ml 11/13/18 15:36 Simple Syrup FEEDTUBE PRN PRN Hypoglycemia Sodium Bicarbonate 325 mg 11/13/18 15:36 Sodium Bicarbonate FEEDTUBE PRN PRN For Clogged Feeding Tube Sodium Chloride 10 ml 11/09/18 22:00 11/17/18 13:26 Sodium Chloride Flush Syringe 10 Ml IV 10 ml BID PRIYA Administration Sodium Chloride 10 ml 11/09/18 19:38 11/15/18 06:50 Sodium Chloride Flush Syringe 10 Ml IV 10 ml PRN PRN Administration LINE FLUSH
--- NOTE | 2018-11-18 08:12 | Hem/Onc Progress Note ---
Assessment and Plan # Fever, rash, anemia, thrombocytopenia. # The patient's bilirubin is not elevated. LDH. Ferritin is elevated, that may be secondary to fever or inflammation. It was suspected that calcitriol or tartrazine may have a role in drug allergy. She was extensively investigated at [facility] and [facility]. # History of fever, history of abdominal pain. Radiology mentioned chronic pancreatitis. # As per the information, extensive investigation for fever has been done including echocardiogram, which was negative. # Renal impairment, on hemodialysis. # I had discussed with pathologist regarding the smear, which shows bandemia. For HLH, bone marrow biopsy may help. The patient's white cell count is not low. # [id number] has been ordered to evaluate for TTP in view of anemia and renal impairment; however, the smear did not have significant schistocytes. We will follow the trend and review. At this time based on information, the fever it appears that may not be infective in etiology, drug reaction is still a possibility. We will discuss with other specialists. 11/18 s/p BMBX - one of the differential is HLH for plt - transfusion support as needed rash - drying out on the arms we will await bmbx report - pt had fell off my list - I d/w RN - Patient Problems (1) Thrombocytopenia Current Visit: Yes Status: Acute Subjective Date of service: 11/18/18 Principal diagnosis: anemia - low plt Interval history: pt fell off my list - I d/w RN reg same pt says doing better Objective - Constitutional Vitals: Last Vital Signs Temp 98.6 F 11/18/18 05:26 Pulse 87 11/18/18 05:26 Resp 16 11/18/18 05:26 BP 155/65 11/18/18 05:26 Pulse Ox 100 11/18/18 05:26 Pain Intensity (0-10): denies any pain General appearance: no acute distress Performance status: 3-limited selfcare - EENT Eyes: EOM intact ENT: hearing intact Lymph node exam: negative cervical - Neck Neck: normal ROM - Respiratory Respiratory effort: Positive: normal Respiratory: bilateral: CTA - Cardiovascular Heart Sounds: Present: S1 & S2 Extremities: normal temperature - Gastrointestinal General gastrointestinal: Present: soft, non-tender Rectal Exam: deferred - Genitourinary Female genitourinary: Present: deferred - Integumentary Integumentary: warm - Musculoskeletal Musculoskeletal: generalized weakness - Neurologic Neurologic: moves all extremities - Labs Lab Results: Laboratory Results - last 24 hr 11/17/18 11/17/18 11/17/18 11:28 16:20 21:29 POC Glucose 255 H 162 H 146 H 11/18/18 07:11 POC Glucose 206 H Medications & Allergies - Medications Allergies/Adverse Reactions: Allergies No Known Allergies Allergy (Verified 04/15/14 15:50) Home Medications: Home Medications Medication Instructions Recorded Confirmed Last Taken Type Docusate Sodium [Colace] 100 mg PO BID PRN #30 capsule 04/15/14 11/18/18 Unknown Rx HYDROcodone/APAP 5-325 [[place] 1 each PO Q6HR PRN #20 tablet 04/15/14 11/18/18 Unknown Rx 5/325] Polyethylene Glycol 3350 [Miralax] 17 gm PO DAILY PRN #1 bottle 04/15/14 11/18/18 Unknown Rx HYDROcodone/APAP 5-325 [[place] 1 - 2 each PO Q6HR PRN #14 tablet 12/05/14 11/18/18 Unknown Rx 5/325] Atorvastatin [Lipitor Tab] 20 mg PO QHS 11/11/18 11/11/18 Unknown History Gabapentin [Neurontin] 300 mg PO TID PRN 11/11/18 11/11/18 Unknown History Nystatin [Nystatin SUSP] 5 ml PO QID 11/11/18 11/11/18 Unknown History Pantoprazole [Protonix] 40 mg PO QDAY 11/11/18 11/11/18 Unknown History Promethazine [Phenergan] 25 mg PO Q6HR PRN 11/11/18 11/11/18 Unknown History Sodium Bicarbonate 325 mg PO BID 11/11/18 11/11/18 Unknown History amLODIPine 10 mg PO DAILY 11/11/18 11/11/18 Unknown History Active Medications: Generic Name Dose Route Start Last Admin Trade Name Freq PRN Reason Stop Dose Admin Acetaminophen 650 mg 11/09/18 19:38 11/10/18 15:17 Tylenol PO 650 mg Q4H PRN Administration Pain MILD(1-3)/Fever >100.5/FLORES Acetaminophen 650 mg 11/11/18 00:04 11/11/18 17:29 Tylenol [place] 650 mg Q4H PRN Administration Fever >101; Mild Pain (1-3) Lipase/Protease/Amylase 1 each 11/13/18 15:36 Pancrepema [place] 10,500 Unit FEEDTUBE PRN PRN For Clogged Feeding Tube Atorvastatin Calcium 40 mg 11/10/18 22:00 11/17/18 22:42 Lipitor PO 40 mg QHS PRIYA Administration Docusate Sodium 100 mg 11/09/18 19:32 Colace PO BID PRN Constipation Epoetin Adonis 10,000 unit 11/11/18 08:00 11/16/18 19:00 Procrit SUB-Q 10,000 unit CONSTANTINO PRIYA Administration Hydralazine HCl 10 mg 11/13/18 08:56 11/13/18 14:05 Apresoline IV 10 mg Q4H PRN Administration BP > 160/105 Hydromorphone HCl 0.25 mg 11/09/18 19:38 11/17/18 22:42 Dilaudid IV 0.25 mg Q3H PRN Administration Pain, Moderate (4-6) Sodium Chloride 100 mls @ 999 mls/hr 11/11/18 11:09 Nacl 0.9% IV CONSTANTINO PRN Hypotension Insulin Human Lispro 0 unit 11/16/18 22:00 11/17/18 22:44 Humalog SUB-Q Not Given ACHS [facility] Protocol Ondansetron HCl 4 mg 11/09/18 19:38 11/15/18 06:48 Zofran IV 4 mg Q8H PRN Administration Nausea And Vomiting Polyethylene Glycol 17 gm 11/09/18 19:38 Miralax 3350 PO QDAY PRN Constipation Simple Syrup 15 ml 11/13/18 15:36 Simple Syrup FEEDTUBE PRN PRN Hypoglycemia Simple Syrup 30 ml 11/13/18 15:36 Simple Syrup FEEDTUBE PRN PRN Hypoglycemia Sodium Bicarbonate 325 mg 11/13/18 15:36 Sodium Bicarbonate FEEDTUBE PRN PRN For Clogged Feeding Tube Sodium Chloride 10 ml 11/09/18 22:00 11/17/18 22:44 Sodium Chloride Flush Syringe 10 Ml IV 10 ml BID PRIYA Administration Sodium Chloride 10 ml 11/09/18 19:38 11/15/18 06:50 Sodium Chloride Flush Syringe 10 Ml IV 10 ml PRN PRN Administration LINE FLUSH
[2018-11-18] MEDS: HumaLOG SUB-Q SCH ×4 (08:30→22:00)
[2018-11-18 08:51] LABS: Calcium 6.9 mg/dL (8.4-10.2); Hematocrit 23.7 % (30.3-42.9); Hemoglobin 7.5 gm/dl (10.1-14.3); Mean Corpuscular HGB Conc 32 % (30-34); Mean Corpuscular Volume 88 fl (79-97); Platelet Count 119 K/mm3 (140-440); Red Blood Count 2.68 M/mm3 (3.65-5.03); Red Cell Distribution Width 16.4 % (13.2-15.2)
[2018-11-18] MEDS: SODIUM CHLORIDE FLUSH SYRINGE 10 ML IV SCH ×2 (10:00→21:21)
--- NOTE | 2018-11-18 11:20 | Progress Note ---
Assessment and Plan Assessment and plan: The patient is a 63-year-old female with insulin-requiring diabetes, hypertension, COPD who has had 2 recent hospitalizations at [facility] and [facility] in the month of October 2018, admitted there due to generalized rash, body aches as well as fevers, along with a myriad of other complaints i ncluding right upper extremity weakness, chest pain. She was seen by infectious diseases, nephrology, neurology, cardiology as well as rheumatology. CT chest showed no acute findings, CT abdomen and pelvis showed findings of chronic pancreatitis. HIV was negative, echocardiogram showed no vegetations. Extensive workup for infectious process was negative, apparently as per the ID consult at [facility] her fevers were attributed to a possible drug reaction secondary to calcitriol or tartrazine. She was subsequently discharged home with recommendations to follow-up with her nephrology. Now presented to the emergency room showed at [facility] yesterday with complaints of fever, abdominal pain and right upper extremity numbness. Again, she was noted to have high fevers up to 103F. she also had some speech difficulties which apparently resolved. Was evaluated by neurology. Due to worsening creatinine, nephrology was consulted who recommended initiation of hemodialysis. Patient is a poor historian, currently having shaking chills due to fevers. Metabolic encephalopathy, likely due to uremia -Nephrology consulted, and currently on dialysis Upper extremity numbness - Patient had similar problems previously, worked up for CVA and was negative - Neurology consult appreciated Sepsis; fever of unknown origin; and has fever of 103 abx were dc on 11/17, improving ?Still disease - Patient has fever, rash and high ferritin level TTP? - Thrombocytopenia, fever, confusion and anemia - Hematology is consulted, bm bx recommended ESRD on HD - Nephrology is following Severe Anemia - transfused 2 units of blood and hemoglobin is stable Thrombocytopenia - Due to above DVT prophylaxis - SCDs because of severe thrombocytopenia Disposition - Transfer to the floor History Interval history: Review of systems Constitutional: No fevers, no malaise, no joint pains CVS: No chest pain, no orthopnea, no dyspnea on exertion, no pedal edema GI: No abdominal pain, no diarrhea, no vomiting, no constipation Respiratory: No shortness of breath, no wheezing, no coughing Hospitalist Physical - Physical exam Narrative exam: General.: Appears well, no distress, nontoxic HEENT: Moist mucous membranes, extraocular muscles intact, no lymphadenopathy Neck: supple Cardiac: S1-S2 heard Lungs: clear to auscultation bilaterally Abdomen: soft , nontender, nondistended, bowel sounds positive Extremities: no edema clubbing or cyanosis Skin: no rash or lesions Neurologic: no gross focal deficits Psych: calm, and cooperative - Constitutional Vitals: Temp Pulse Resp BP Pulse Ox 98.6 F 82 20 155/65 100 11/18/18 05:26 11/18/18 08:14 11/18/18 08:14 11/18/18 05:26 11/18/18 09:17 General appearance: Present: no acute distress, well-nourished, obese, disheveled Results - Labs CBC & Chem 7: 11/20/18 04:25 11/21/18 05:20 Labs: Laboratory Last Values WBC 10.8 K/mm3 (4.5-11.0) 11/18/18 07:55 RBC 2.68 M/mm3 (3.65-5.03) L 11/18/18 07:55 Hgb 7.5 gm/dl (10.1-14.3) L 11/18/18 07:55 Hct 23.7 % (30.3-42.9) L 11/18/18 07:55 MCV 88 fl (79-97) 11/18/18 07:55 MCH 28 pg (28-32) 11/18/18 07:55 MCHC 32 % (30-34) 11/18/18 07:55 RDW 16.4 % (13.2-15.2) H 11/18/18 07:55 Plt Count 119 K/mm3 (140-440) L 11/18/18 07:55 Lymph % (Auto) 26.8 % (13.4-35.0) 11/15/18 09:31 [place] % (Auto) [employer] 11/18/18 07:55 Eos % (Auto) 2.5 % (0.0-4.3) 11/16/18 07:43 Baso % (Auto) 0.7 % (0.0-1.8) 11/15/18 09:31 Lymph # 2.5 K/mm3 (1.2-5.4) 11/15/18 09:31 [place] # 1.7 K/mm3 (0.0-0.8) H 11/16/18 07:43 Eos # 0.3 K/mm3 (0.0-0.4) 11/16/18 07:43 Baso # 0.1 K/mm3 (0.0-0.1) 11/16/18 07:43 Add Manual Diff Complete 11/16/18 07:43 Total Counted 100 11/16/18 07:43 Seg Neutrophils % 54.9 % (40.0-70.0) 11/16/18 07:43 Seg Neuts % (Manual) 75.0 % (40.0-70.0) H 11/16/18 07:43 0 % 11/16/18 07:43 16.0 % (13.4-35.0) 11/16/18 07:43 Reactive Lymphs % (Man) 0 % 11/16/18 07:43 6.0 % (0.0-7.3) 11/16/18 07:43 1.0 % (0.0-4.3) 11/16/18 07:43 0 % (0.0-1.8) 11/16/18 07:43 2.0 % 11/16/18 07:43 0 % 11/16/18 07:43 0 % 11/16/18 07:43 0 % 11/16/18 07:43 Nucleated RBC % Not Reportable 11/16/18 07:43 Seg Neutrophils # 5.7 K/mm3 (1.8-7.7) 11/16/18 07:43 Seg Neutrophils # Man 7.5 K/mm3 (1.8-7.7) 11/16/18 07:43 Band Neutrophils # 0.0 K/mm3 11/16/18 07:43 1.6 K/mm3 (1.2-5.4) 11/16/18 07:43 Abs React Lymphs (Man) 0.0 K/mm3 11/16/18 07:43 0.6 K/mm3 (0.0-0.8) 11/16/18 07:43 0.1 K/mm3 (0.0-0.4) 11/16/18 07:43 0.0 K/mm3 (0.0-0.1) 11/16/18 07:43 0.2 K/mm3 11/16/18 07:43 0.0 K/mm3 11/16/18 07:43 0.0 K/mm3 11/16/18 07:43 Blast Cells # 0.0 K/mm3 11/16/18 07:43 WBC Morphology Not Reportable 11/16/18 07:43 Hypersegmented Neuts Not Reportable 11/16/18 07:43 Hyposegmented Neuts Not Reportable 11/16/18 07:43 Hypogranular Neuts Not Reportable 11/16/18 07:43 Not Reportable 11/16/18 07:43 Not Reportable 11/16/18 07:43 Not Reportable 11/16/18 07:43 Not Reportable 11/16/18 07:43 Not Reportable 11/16/18 07:43 Not Reportable 11/16/18 07:43 Consistent w auto 11/16/18 07:43 Not Reportable 11/16/18 07:43 Plt Clumps, EDTA Not Reportable 11/16/18 07:43 Not Reportable 11/16/18 07:43 Not Reportable 11/16/18 07:43 Not Reportable 11/16/18 07:43 Plt Morphology Comment Not Reportable 11/16/18 07:43 RBC Morphology Not Reportable 11/16/18 07:43 Dimorphic RBCs Not Reportable 11/16/18 07:43 Not Reportable 11/16/18 07:43 Not Reportable 11/16/18 07:43 Not Reportable 11/16/18 07:43 Few 11/16/18 07:43 Not Reportable 11/16/18 07:43 Not Reportable 11/16/18 07:43 Not Reportable 11/16/18 07:43 Not Reportable 11/16/18 07:43 Not Reportable 11/16/18 07:43 Rare 11/16/18 07:43 Not Reportable 11/16/18 07:43 Not Reportable 11/16/18 07:43 Not Reportable 11/16/18 07:43 Not Reportable 11/16/18 07:43 Not Reportable 11/16/18 07:43 Not Reportable 11/16/18 07:43 Not Reportable 11/16/18 07:43 Not Reportable 11/16/18 07:43 Not Reportable 11/16/18 07:43 Acanthocytes (Spur) Not Reportable 11/16/18 07:43 Rouleaux Not Reportable 11/16/18 07:43 Not Reportable 11/16/18 07:43 Not Reportable 11/16/18 07:43 Not Reportable 11/16/18 07:43 Not Reportable 11/16/18 07:43 Hem Pathologist Commnt No 11/16/18 07:43 PT 14.8 Sec. (12.2-14.9) 11/09/18 16:16 INR 1.09 (0.87-1.13) 11/09/18 16:16 APTT 44.5 Sec. (24.2-36.6) H 11/09/18 16:16 21.3 Sec. (15.1-19.6) H 11/09/18 16:16 Sodium 139 mmol/L (137-145) 11/18/18 07:55 Potassium 3.8 mmol/L (3.6-5.0) 11/18/18 07:55 Chloride 99.4 mmol/L (98-107) 11/18/18 07:55 Carbon Dioxide 25 mmol/L (22-30) 11/18/18 07:55 18 mmol/L 11/18/18 07:55 BUN 34 mg/dL (7-17) H 11/18/18 07:55 7.4 mg/dL (0.7-1.2) H 11/18/18 07:55 Estimated GFR 7 ml/min 11/18/18 07:55 5 % 11/18/18 07:55 Glucose 180 mg/dL (65-100) H 11/18/18 07:55 POC Glucose 206 (70-105) H 11/18/18 07:11 6.9 % (4-6) H 11/09/18 22:00 Lactic Acid 0.80 mmol/L (0.7-2.0) 11/10/18 08:10 Calcium 6.9 mg/dL (8.4-10.2) L 11/18/18 07:55 Magnesium 1.80 mg/dL (1.7-2.3) 11/18/18 07:55 Iron 36 ug/dL (37-170) L 11/09/18 16:16 TIBC 169 mcg/dL (250-450) L 11/09/18 16:16 % Saturation 21.30 % 11/09/18 16:16 128 mg/dl (192-382) L 11/09/18 16:16 > 2000.0 ng/mL (13.0-400.0) H 11/10/18 17:17 0.30 mg/dL (0.1-1.2) 11/15/18 09:31 AST 213 units/L (5-40) H 11/15/18 09:31 ALT 78 units/L (7-56) H 11/15/18 09:31 173 units/L (35-129) H 11/15/18 09:31 19.0 umol/L (25-60) L 11/09/18 16:16 93 units/L (30-135) 11/09/18 16:16 CK-MB (CK-2) < 1.0 ng/mL (0.0-4.0) 11/09/18 16:16 CK-MB (CK-2) Rel Index 1.0 (0-4) 11/09/18 16:16 0.017 ng/mL (0.00-0.029) 11/09/18 16:16 5.9 g/dL (6.3-8.2) L 11/15/18 09:31 2.3 g/dL (3.9-5) L 11/15/18 09:31 0.6 % 11/15/18 09:31 Triglycerides 298 mg/dL (2-149) H 11/10/18 08:05 Cholesterol 84 mg/dL (50-199) 11/10/18 08:05 7 mg/dL (50-130) L 11/10/18 08:05 8 mg/dL (40-59) L 11/10/18 08:05 10.50 % 11/10/18 08:05 13 units/L (13-60) 11/09/18 16:16 Vitamin B12 1628 pg/mL (211-911) H 11/13/18 04:33 9.97 ng/mL (7.3-26.0) 11/13/18 04:33 Yellow (Yellow) 11/10/18 01:08 Cloudy (Clear) 11/10/18 01:08 5.0 (5.0-7.0) 11/10/18 01:08 Ur Specific [place] 1.016 (1.003-1.030) 11/10/18 01:08 >500 mg/dL (Negative) 11/10/18 01:08 Neg mg/dL (Negative) 11/10/18 01:08 Neg mg/dL (Negative) 11/10/18 01:08 Sm (Negative) 11/10/18 01:08 Neg (Negative) 11/10/18 01:08 Ur Reducing Substances Not Reportable 11/10/18 01:08 Neg (Negative) 11/10/18 01:08 Not Reportable 11/10/18 01:08 < 2.0 mg/dL (<2.0) 11/10/18 01:08 Ur Leukocyte Esterase Neg (Negative) 11/10/18 01:08 7.0 /HPF (0.0-6.0) H 11/10/18 01:08 6.0 /HPF (0.0-6.0) 11/10/18 01:08 U Epithel Cells (Auto) 1.0 /HPF (0-13.0) 11/10/18 01:08 1+ /HPF (Negative) 11/10/18 01:08 2+ /HPF 11/10/18 01:08 Hyaline Casts 1 /LPF 11/10/18 01:08 3+ /HPF 11/10/18 01:08 Random Vancomycin 12.3 ug/mL (0-40.0) 11/12/18 04:45 Presumptive negative 11/10/18 01:08 Presumptive negative 11/10/18 01:08 Ur Barbiturates Screen Presumptive negative 11/10/18 01:08 Ur Phencyclidine Scrn Presumptive negative 11/10/18 01:08 Ur Amphetamines Screen Presumptive negative 11/10/18 01:08 U Benzodiazepines Scrn Presumptive negative 11/10/18 01:08 Presumptive negative 11/10/18 01:08 U Marijuana (THC) Screen Presumptive negative 11/10/18 01:08 Disclamer 11/10/18 01:08 Plasma/Serum Alcohol < 0.01 % (0-0.07) 11/09/18 16:16 161 mg/dL (83-193) 11/12/18 04:45 57 mg/dL (15-57) 11/12/18 04:45 Hepatitis A IgM Ab Non-reactive (NonReactive) 11/13/18 21:02 Hep Bs Antigen Non-reactive (Negative) 11/13/18 21:02 Hep B Core IgM Ab Non-reactive (NonReactive) 11/13/18 21:02 Non-reactive (NonReactive) 11/13/18 21:02 Flexitest 1 H 11/12/18 10:45 Blood Type A POSITIVE 11/11/18 07:29 Antibody Screen TNR 11/11/18 07:29 QUIANA Antibody Screen Negative 11/11/18 07:29 Crossmatch See Detail 11/11/18 07:29 Active Medications - Current Medications Current Medications: Generic Name Dose Route Start Last Admin Trade Name Freq PRN Reason Stop Dose Admin Acetaminophen 650 mg 11/09/18 19:38 11/10/18 15:17 Tylenol PO 650 mg Q4H PRN Administration Pain MILD(1-3)/Fever >100.5/FLORES Acetaminophen 650 mg 11/11/18 00:04 11/11/18 17:29 Tylenol [place] 650 mg Q4H PRN Administration Fever >101; Mild Pain (1-3) Lipase/Protease/Amylase 1 each 11/13/18 15:[address] 10,500 Unit FEEDTUBE PRN PRN For Clogged Feeding Tube Atorvastatin Calcium 40 mg 11/10/18 22:00 11/17/18 22:42 Lipitor PO 40 mg QHS PRIYA Administration Docusate Sodium 100 mg 11/09/18 19:32 Colace PO BID PRN Constipation Epoetin Adonis 10,000 unit 11/11/18 08:00 11/16/18 19:00 Procrit SUB-Q 10,000 unit CONSTANTINO PRIYA Administration Hydralazine HCl 10 mg 11/13/18 08:56 11/13/18 14:05 Apresoline IV 10 mg Q4H PRN Administration BP > 160/105 Hydromorphone HCl 0.25 mg 11/09/18 19:38 11/17/18 22:42 Dilaudid IV 0.25 mg Q3H PRN Administration Pain, Moderate (4-6) Sodium Chloride 100 mls @ 999 mls/hr 11/11/18 11:09 Nacl 0.9% IV CONSTANTINO PRN Hypotension Insulin Human Lispro 0 unit 11/16/18 22:00 11/18/18 08:30 Humalog SUB-Q 3 unit ACHS PRIYA Administration Protocol Ondansetron HCl 4 mg 11/09/18 19:38 11/15/18 06:48 Zofran IV 4 mg Q8H PRN Administration Nausea And Vomiting Polyethylene Glycol 17 gm 11/09/18 19:38 Miralax 3350 PO QDAY PRN Constipation Simple Syrup 15 ml 11/13/18 15:36 Simple Syrup FEEDTUBE PRN PRN Hypoglycemia Simple Syrup 30 ml 11/13/18 15:36 Simple Syrup FEEDTUBE PRN PRN Hypoglycemia Sodium Bicarbonate 325 mg 11/13/18 15:36 Sodium Bicarbonate FEEDTUBE PRN PRN For Clogged Feeding Tube Sodium Chloride 10 ml 11/09/18 22:00 11/17/18 22:44 Sodium Chloride Flush Syringe 10 Ml IV 10 ml BID PRIYA Administration Sodium Chloride 10 ml 11/09/18 19:38 11/15/18 06:50 Sodium Chloride Flush Syringe 10 Ml IV 10 ml PRN PRN Administration LINE FLUSH Nutrition/Malnutrition Assess - Dietary Evaluation Nutrition/Malnutrition Findings: Nutrition Notes Start: 11/13/18 15:25 Freq: Status: Active Protocol: Document 11/17/18 14:35 ЕКАТЕРИНА (Rec: 11/17/18 14:45 ЕКАТЕРИНА [email or web address]) Nutrition Notes Initial or Follow up Brief Note Current Diet Renal + Nepro Labs/Tests K 3.5 BG 202 BUN 29 Cr 5.6 Subjective/Other Information Pt reports "good" PO intake, despite documented intakes. Says she has not received Nepro though. Will continue to monitor. Nutrition Intervention Follow-Up By: 11/20/18 Additional Comments F/U: intakes (meals/ONS)
[2018-11-18 12:40] LABS: Anisocytosis Few; Band Neutrophils # (Manual) 0.2 K/mm3; Basophils % (Manual) 0 % (0.0-1.8); Eosinophils % (Manual) 0 % (0.0-4.3); Total Cells Counted 100
[2018-11-18 12:41] LABS: Platelet Estimate Consistent w Auto; Stomatocytes Few; Target Cells Few
--- NOTE | 2018-11-18 19:15 | Progress Note ---
Assessment and Plan - Patient Problems (1) Hyperkalemia Current Visit: Yes Status: Acute Plan to address problem: Potassium improved. Follow-up potassium (2) ESRD (end stage renal disease) Current Visit: Yes Status: Acute Plan to address problem: Continue Hemodialysis on a Thursday, and Thursday schedule. Arrange for outpatient dialysis (3) Hypertensive chronic kidney disease with stage 1 through stage 4 chronic kidney disease, or unspecified chronic kidney disease Current Visit: Yes Status: Acute Plan to address problem: Follow-up blood pressure on current medications (4) SIRS (systemic inflammatory response syndrome) Current Visit: Yes Status: Acute Plan to address problem: Fever of undetermined origin. Now off of antibiotics. Being followed up by infectious disease. (5) Thrombocytopenia Current Visit: Yes Status: Acute Plan to address problem: Etiology uncertain. ADAMSTS-13 pending. Hematology has been consulted. (6) Anemia in chronic illness Current Visit: Yes Status: Acute Plan to address problem: Give Erythropoetin on dialysis and follow-up hemoglobin (7) Type 2 diabetes mellitus with diabetic chronic kidney disease Current Visit: Yes Status: Chronic Qualifiers: Chronic kidney disease stage: stage 5, not on chronic dialysis Plan to address problem: Blood sugar management by primary attending Subjective Date of service: 11/18/18 Principal diagnosis: low plt Interval history: Patient seen lying in bed. She has no complaints. She feels better. She looks a bit sleepy this evening. She had dialysis earlier Objective - Exam Narrative Exam: Middle-aged -Eritre[place] female lying in bed in no acute distress HEENT: NCAT, pink oral mucous membrane Neck: Supple, no venous distention CVS: S1S2 RRR with no murmur, rub or gallop Chest: Clear to auscultation Abdomen: Protuberant, soft, nontender, no organomegaly, bowel sounds are present Extremities: No edema Neuro: Awake, hemiparesis, slurred speech, improving - Vital Signs Vital signs: Vital Signs - 12hr 11/18/18 11/18/18 11/18/18 08:14 09:17 10:30 Temperature 98.0 F Pulse Rate 80 Pulse Rate [ 82 From Monitor] Respiratory 20 18 Rate Blood Pressure 145/53 O2 Sat by Pulse 100 100 Oximetry 11/18/18 11/18/18 11/18/18 10:45 11:00 11:15 Temperature Pulse Rate 77 78 74 Pulse Rate [ From Monitor] Respiratory Rate Blood Pressure 154/79 129/68 143/76 O2 Sat by Pulse Oximetry 11/18/18 11/18/18 11/18/18 11:30 11:45 12:00 Temperature Pulse Rate 73 73 77 Pulse Rate [ From Monitor] Respiratory Rate Blood Pressure 138/70 137/74 156/79 O2 Sat by Pulse Oximetry 11/18/18 11/18/18 11/18/18 12:15 12:30 12:45 Temperature Pulse Rate 76 86 72 Pulse Rate [ From Monitor] Respiratory Rate Blood Pressure 143/71 122/83 151/73 O2 Sat by Pulse Oximetry 11/18/18 11/18/18 11/18/18 13:00 13:15 13:30 Temperature Pulse Rate 75 78 72 Pulse Rate [ From Monitor] Respiratory Rate Blood Pressure 138/69 121/66 135/69 O2 Sat by Pulse Oximetry 11/18/18 11/18/18 11/18/18 13:45 14:00 14:10 Temperature 98.0 F Pulse Rate 76 74 74 Pulse Rate [ From Monitor] Respiratory 18 Rate Blood Pressure 142/73 140/70 140/70 O2 Sat by Pulse Oximetry 11/18/18 17:07 Temperature 98.0 F Pulse Rate 78 Pulse Rate [ From Monitor] Respiratory 14 Rate Blood Pressure 168/78 O2 Sat by Pulse 100 Oximetry - Lab 11/18/18 07:55 11/18/18 07:55 Most recent lab results Calcium 6.9 mg/dL (8.4-10.2) L 11/18/18 07:55 Magnesium 1.80 mg/dL (1.7-2.3) 11/18/18 07:55 Medications & Allergies - Medications Allergies/Adverse Reactions: Allergies No Known Allergies Allergy (Verified 04/15/14 15:50) Home Medications: Home Medications Medication Instructions Recorded Confirmed Last Taken Type Docusate Sodium [Colace] 100 mg PO BID PRN #30 capsule 04/15/14 11/18/18 Unknown Rx HYDROcodone/APAP 5-325 [[place] 1 each PO Q6HR PRN #20 tablet 04/15/14 11/18/18 Unknown Rx 5/325] Polyethylene Glycol 3350 [Miralax] 17 gm PO DAILY PRN #1 bottle 04/15/14 11/18/18 Unknown Rx HYDROcodone/APAP 5-325 [[place] 1 - 2 each PO Q6HR PRN #14 tablet 12/05/14 11/18/18 Unknown Rx 5/325] Atorvastatin [Lipitor Tab] 20 mg PO QHS 11/11/18 11/11/18 Unknown History Gabapentin [Neurontin] 300 mg PO TID PRN 11/11/18 11/11/18 Unknown History Nystatin [Nystatin SUSP] 5 ml PO QID 11/11/18 11/11/18 Unknown History Pantoprazole [Protonix] 40 mg PO QDAY 11/11/18 11/11/18 Unknown History Promethazine [Phenergan] 25 mg PO Q6HR PRN 11/11/18 11/11/18 Unknown History Sodium Bicarbonate 325 mg PO BID 11/11/18 11/11/18 Unknown History amLODIPine 10 mg PO DAILY 11/11/18 11/11/18 Unknown History Active Medications: Generic Name Dose Route Start Last Admin Trade Name Freq PRN Reason Stop Dose Admin Acetaminophen 650 mg 11/09/18 19:38 11/10/18 15:17 Tylenol PO 650 mg Q4H PRN Administration Pain MILD(1-3)/Fever >100.5/FLORES Acetaminophen 650 mg 11/11/18 00:04 11/11/18 17:29 Tylenol [place] 650 mg Q4H PRN Administration Fever >101; Mild Pain (1-3) Lipase/Protease/Amylase 1 each 11/13/18 15:36 Pancreaze 10,500 Unit FEEDTUBE PRN PRN For Clogged Feeding Tube Atorvastatin Calcium 40 mg 11/10/18 22:00 11/17/18 22:42 Lipitor PO 40 mg QHS PRIYA Administration Docusate Sodium 100 mg 11/09/18 19:32 Colace PO BID PRN Constipation Epoetin Adonis 10,000 unit 11/11/18 08:00 11/16/18 19:00 Procrit SUB-Q 10,000 unit CONSTANTINO PRIYA Administration Hydralazine HCl 10 mg 11/13/18 08:56 11/13/18 14:05 Apresoline IV 10 mg Q4H PRN Administration BP > 160/105 Hydromorphone HCl 0.25 mg 11/09/18 19:38 11/17/18 22:42 Dilaudid IV 0.25 mg Q3H PRN Administration Pain, Moderate (4-6) Sodium Chloride 100 mls @ 999 mls/hr 11/11/18 11:09 Nacl 0.9% IV CONSTANTINO PRN Hypotension Insulin Human Lispro 0 unit 11/16/18 22:00 11/18/18 16:30 Humalog SUB-Q Not Given ACHS [facility] Protocol Ondansetron HCl 4 mg 11/09/18 19:38 11/15/18 06:48 Zofran IV 4 mg Q8H PRN Administration Nausea And Vomiting Polyethylene Glycol 17 gm 11/09/18 19:38 Miralax 3350 PO QDAY PRN Constipation Simple Syrup 15 ml 11/13/18 15:36 Simple Syrup FEEDTUBE PRN PRN Hypoglycemia Simple Syrup 30 ml 11/13/18 15:36 Simple Syrup FEEDTUBE PRN PRN Hypoglycemia Sodium Bicarbonate 325 mg 11/13/18 15:36 Sodium Bicarbonate FEEDTUBE PRN PRN For Clogged Feeding Tube Sodium Chloride 10 ml 11/09/18 22:00 11/18/18 10:00 Sodium Chloride Flush Syringe 10 Ml IV 10 ml BID PRIYA Administration Sodium Chloride 10 ml 11/09/18 19:38 11/15/18 06:50 Sodium Chloride Flush Syringe 10 Ml IV 10 ml PRN PRN Administration LINE FLUSH
[2018-11-18] MEDS ORDERED: NACL 0.9 (PRIMING MACHINE ONLY DIALYSIS) MC ONE (19:45)
[2018-11-18] MEDS: DILAUDID IV PRN (21:19)
--- NOTE | 2018-11-19 08:11 | Hem/Onc Progress Note ---
Assessment and Plan # Fever, rash, anemia, thrombocytopenia. # The patient's bilirubin is not elevated. LDH. Ferritin is elevated, that may be secondary to fever or inflammation. It was suspected that calcitriol or tartrazine may have a role in drug allergy. She was extensively investigated at [facility] and [facility]. # History of fever, history of abdominal pain. Radiology mentioned chronic pancreatitis. # As per the information, extensive investigation for fever has been done including echocardiogram, which was negative. # Renal impairment, on hemodialysis. # I had discussed with pathologist regarding the smear, which shows bandemia. For HLH, bone marrow biopsy may help. The patient's white cell count is not low. # [id number] has been ordered to evaluate for TTP in view of anemia and renal impairment; however, the smear did not have significant schistocytes. We will follow the trend and review. At this time based on information, the fever it appears that may not be infective in etiology, drug reaction is still a possibility. We will discuss with other specialists. s/p BMBX - one of the differential is HLH for plt - transfusion support as needed rash - drying out on the arms 11/19 reviewed bmbx report - this is being sent out for evaluation d/w nephrology - Patient Problems (1) Thrombocytopenia Current Visit: Yes Status: Acute Subjective Date of service: 11/19/18 Principal diagnosis: low plt - anemia Interval history: feeling better Objective - Constitutional Vitals: Last Vital Signs Temp 99.2 F 11/18/18 22:30 Pulse 85 11/19/18 01:06 Resp 16 11/18/18 22:30 BP 124/56 11/19/18 01:06 Pulse Ox 98 11/18/18 22:30 Pain Intensity (0-10): denies any pain General appearance: no acute distress Performance status: 3-limited selfcare - EENT Eyes: EOM intact ENT: hearing intact Lymph node exam: negative cervical - Neck Neck: normal ROM - Respiratory Respiratory effort: Positive: normal Respiratory: bilateral: CTA - Cardiovascular Heart Sounds: Present: S1 & S2 Extremities: normal temperature - Gastrointestinal General gastrointestinal: Present: soft, non-tender Rectal Exam: deferred - Genitourinary Female genitourinary: Present: deferred - Integumentary Integumentary: warm - Musculoskeletal Musculoskeletal: generalized weakness - Neurologic Neurologic: moves all extremities - Labs Lab Results: Laboratory Results - last 24 hr 11/18/18 11/18/18 11/18/18 07:55 07:55 17:31 WBC 10.8 RBC 2.68 L Hgb 7.5 L Hct 23.7 L MCV 88 MCH 28 MCHC 32 RDW 16.4 H Plt Count 119 L [place] % (Auto) [place] Add Manual Diff Complete Total Counted 100 Seg Neuts % (Manual) 69.0 Band Neutrophils % 2.0 Lymphocytes % (Manual) 17.0 Reactive Lymphs % (Man) 0 Monocytes % (Manual) 12.0 H Eosinophils % (Manual) 0 Basophils % (Manual) 0 Metamyelocytes % 0 Myelocytes % 0 Promyelocytes % 0 Blast Cells % 0 Nucleated RBC % Not Reportable Seg Neutrophils # Man 7.5 Band Neutrophils # 0.2 Lymphocytes # (Manual) 1.8 Abs React Lymphs (Man) 0.0 Monocytes # (Manual) 1.3 H Eosinophils # (Manual) 0.0 Basophils # (Manual) 0.0 Metamyelocytes # 0.0 Myelocytes # 0.0 Promyelocytes # 0.0 Blast Cells # 0.0 WBC Morphology Not Reportable Hypersegmented Neuts Not Reportable Hyposegmented Neuts Not Reportable Hypogranular Neuts Not Reportable Smudge Cells Not Reportable Toxic Granulation Not Reportable Toxic Vacuolation Not Reportable Dohle Bodies Not Reportable Pelger-Huet Anomaly Not Reportable Page Rods Not Reportable Platelet Estimate Consistent w auto Clumped Platelets Not Reportable Plt Clumps, EDTA Not Reportable Large Platelets Not Reportable Giant Platelets Not Reportable Platelet Satelliting Not Reportable Plt Morphology Comment Not Reportable RBC Morphology Not Reportable Dimorphic RBCs Not Reportable Polychromasia Not Reportable Hypochromasia Not Reportable Poikilocytosis Not Reportable Anisocytosis Few Microcytosis Not Reportable Macrocytosis Not Reportable Spherocytes Not Reportable Pappenheimer Bodies Not Reportable Sickle Cells Not Reportable Target Cells Few Tear Drop Cells Not Reportable Ovalocytes Not Reportable Stomatocytes Few Helmet Cells Not Reportable [place] Bodies Not Reportable [place] Rings Not Reportable [place] Cells Not Reportable Bite Cells Not Reportable Crenated Cell Not Reportable Elliptocytes Not Reportable Acanthocytes (Spur) Not Reportable Rouleaux Not Reportable Hemoglobin C Crystals Not Reportable Schistocytes Not Reportable Malaria parasites Not Reportable Edilberto Bodies Not Reportable Hem Pathologist Commnt No Sodium 139 Potassium 3.8 Chloride 99.4 Carbon Dioxide 25 Anion Gap 18 BUN 34 H Creatinine 7.4 H Estimated GFR 7 BUN/Creatinine Ratio 5 Glucose 180 H POC Glucose 165 H Calcium 6.9 L Magnesium 1.80 11/18/18 11/19/18 11/19/18 23:52 06:06 07:48 WBC RBC Hgb Hct MCV MCH MCHC RDW Plt Count [place] % (Auto) Add Manual Diff Total Counted Seg Neuts % (Manual) Band Neutrophils % Lymphocytes % (Manual) Reactive Lymphs % (Man) Monocytes % (Manual) Eosinophils % (Manual) Basophils % (Manual) Metamyelocytes % Myelocytes % Promyelocytes % Blast Cells % Nucleated RBC % Seg Neutrophils # Man Band Neutrophils # Lymphocytes # (Manual) Abs React Lymphs (Man) Monocytes # (Manual) Eosinophils # (Manual) Basophils # (Manual) Metamyelocytes # Myelocytes # Promyelocytes # Blast Cells # WBC Morphology Hypersegmented Neuts Hyposegmented Neuts Hypogranular Neuts Smudge Cells Toxic Granulation Toxic Vacuolation Dohle Bodies Pelger-Huet Anomaly Page Rods Platelet Estimate Clumped Platelets Plt Clumps, EDTA Large Platelets Giant Platelets Platelet Satelliting Plt Morphology Comment RBC Morphology Dimorphic RBCs Polychromasia Hypochromasia Poikilocytosis Anisocytosis Microcytosis Macrocytosis Spherocytes Pappenheimer Bodies Sickle Cells Target Cells Tear Drop Cells Ovalocytes Stomatocytes Helmet Cells [place] Bodies [place] Rings Karis Cells Bite Cells Crenated Cell Elliptocytes Acanthocytes (Spur) Rouleaux Hemoglobin C Crystals Schistocytes Malaria parasites Edilberto Bodies Hem Pathologist Commnt Sodium Potassium Chloride Carbon Dioxide Anion Gap BUN Creatinine Estimated GFR BUN/Creatinine Ratio Glucose POC Glucose 144 H 199 H 182 H Calcium Magnesium Medications & Allergies - Medications Allergies/Adverse Reactions: Allergies No Known Allergies Allergy (Verified 04/15/14 15:50) Home Medications: Home Medications Medication Instructions Recorded Confirmed Last Taken Type Docusate Sodium [Colace] 100 mg PO BID PRN #30 capsule 04/15/14 11/18/18 Unknown Rx HYDROcodone/APAP 5-325 [[place] 1 each PO Q6HR PRN #20 tablet 04/15/14 11/18/18 Unknown Rx 5/325] Polyethylene Glycol 3350 [Miralax] 17 gm PO DAILY PRN #1 bottle 04/15/14 11/18/18 Unknown Rx HYDROcodone/APAP 5-325 [[place] 1 - 2 each PO Q6HR PRN #14 tablet 12/05/14 11/18/18 Unknown Rx 5/325] Atorvastatin [Lipitor Tab] 20 mg PO QHS 11/11/18 11/11/18 Unknown History Gabapentin [Neurontin] 300 mg PO TID PRN 11/11/18 11/11/18 Unknown History Pantoprazole [Protonix] 40 mg PO QDAY 11/11/18 11/11/18 Unknown History RX: Nystatin [Nystatin SUSP] 5 ml PO QID 11/11/18 11/11/18 Unknown History RX: Promethazine [Phenergan] 25 mg PO Q6HR PRN 11/11/18 11/11/18 Unknown History RX: Sodium Bicarbonate 325 mg PO BID 11/11/18 11/11/18 Unknown History amLODIPine 10 mg PO DAILY 11/11/18 11/11/18 Unknown History Active Medications: Generic Name Dose Route Start Last Admin Trade Name Freq PRN Reason Stop Dose Admin Acetaminophen 650 mg 11/09/18 19:38 11/10/18 15:17 Tylenol PO 650 mg Q4H PRN Administration Pain MILD(1-3)/Fever >100.5/FLORES Acetaminophen 650 mg 11/11/18 00:04 11/11/18 17:29 Tylenol [place] 650 mg Q4H PRN Administration Fever >101; Mild Pain (1-3) Lipase/Protease/Amylase 1 each 11/13/18 15:[address] 10,500 Unit FEEDTUBE PRN PRN For Clogged Feeding Tube Atorvastatin Calcium 40 mg 11/10/18 22:00 11/18/18 21:19 Lipitor PO 40 mg QHS PRIYA Administration Docusate Sodium 100 mg 11/09/18 19:32 Colace PO BID PRN Constipation Epoetin Adonis 10,000 unit 11/11/18 08:00 11/16/18 19:00 Procrit SUB-Q 10,000 unit CONSTANTINO PRIYA Administration Hydralazine HCl 10 mg 11/13/18 08:56 11/13/18 14:05 Apresoline IV 10 mg Q4H PRN Administration BP > 160/105 Hydromorphone HCl 0.25 mg 11/09/18 19:38 11/18/18 21:19 Dilaudid IV 0.25 mg Q3H PRN Administration Pain, Moderate (4-6) Sodium Chloride 100 mls @ 999 mls/hr 11/11/18 11:09 Nacl 0.9% IV CONSTANTINO PRN Hypotension Insulin Human Lispro 0 unit 11/16/18 22:00 11/18/18 22:00 Humalog SUB-Q Not Given ACHS [facility] Protocol Ondansetron HCl 4 mg 11/09/18 19:38 11/15/18 06:48 Zofran IV 4 mg Q8H PRN Administration Nausea And Vomiting Polyethylene Glycol 17 gm 11/09/18 19:38 Miralax 3350 PO QDAY PRN Constipation Simple Syrup 15 ml 11/13/18 15:36 Simple Syrup FEEDTUBE PRN PRN Hypoglycemia Simple Syrup 30 ml 11/13/18 15:36 Simple Syrup FEEDTUBE PRN PRN Hypoglycemia Sodium Bicarbonate 325 mg 11/13/18 15:36 Sodium Bicarbonate FEEDTUBE PRN PRN For Clogged Feeding Tube Sodium Chloride 10 ml 11/09/18 22:00 11/18/18 21:21 Sodium Chloride Flush Syringe 10 Ml IV 10 ml BID PRIYA Administration Sodium Chloride 10 ml 11/09/18 19:38 11/15/18 06:50 Sodium Chloride Flush Syringe 10 Ml IV 10 ml PRN PRN Administration LINE FLUSH
--- NOTE | 2018-11-19 08:44 | Progress Note ---
Assessment and Plan - Patient Problems (1) Hyperkalemia Current Visit: Yes Status: Acute Plan to address problem: Potassium improved. (2) ESRD (end stage renal disease) Current Visit: Yes Status: Acute Plan to address problem: Continue Hemodialysis on a Thursday, and Thursday schedule. Arrange for outpatient dialysis (3) Hypertensive chronic kidney disease with stage 1 through stage 4 chronic kidney disease, or unspecified chronic kidney disease Current Visit: Yes Status: Acute Plan to address problem: Follow-up blood pressure on current medications (4) SIRS (systemic inflammatory response syndrome) Current Visit: Yes Status: Acute Plan to address problem: Fever of undetermined origin. Now off of antibiotics. Being followed up by infectious disease. (5) Thrombocytopenia Current Visit: Yes Status: Acute Plan to address problem: Etiology uncertain. ADAMSTS-13 pending. Hematology has been consulted. (6) Anemia in chronic illness Current Visit: Yes Status: Acute Plan to address problem: Give Erythropoetin on dialysis and follow-up hemoglobin (7) Type 2 diabetes mellitus with diabetic chronic kidney disease Current Visit: Yes Status: Chronic Qualifiers: Chronic kidney disease stage: stage 5, not on chronic dialysis Plan to address problem: Blood sugar management by primary attending Subjective Date of service: 11/19/18 Principal diagnosis: anemia - low plt Interval history: Patient seen lying in bed. She has no complaints. She feels better. She wants to go home Objective - Exam Narrative Exam: Middle-aged -[place] female lying in bed in no acute distress HEENT: NCAT, pink oral mucous membrane Neck: Supple, no venous distention CVS: S1S2 RRR with no murmur, rub or gallop Chest: Clear to auscultation Abdomen: Protuberant, soft, nontender, no organomegaly, bowel sounds are present Extremities: No edema Neuro: Awake, hemiparesis, slurred speech, improving - Vital Signs Vital signs: Vital Signs - 12hr 11/18/18 11/18/18 11/19/18 22:00 22:30 01:06 Temperature 99.2 F Pulse Rate 88 85 Pulse Rate [ 88 Left Radial] Respiratory 16 16 Rate Blood Pressure 189/76 Blood Pressure 124/56 [Left] O2 Sat by Pulse 2 L 98 Oximetry - Lab 11/18/18 07:55 11/19/18 10:57 Most recent lab results Calcium 6.9 mg/dL (8.4-10.2) L 11/18/18 07:55 Magnesium 1.80 mg/dL (1.7-2.3) 11/18/18 07:55 Medications & Allergies - Medications Allergies/Adverse Reactions: Allergies No Known Allergies Allergy (Verified 04/15/14 15:50) Home Medications: Home Medications Medication Instructions Recorded Confirmed Last Taken Type Docusate Sodium [Colace] 100 mg PO BID PRN #30 capsule 04/15/14 11/18/18 Unknown Rx HYDROcodone/APAP 5-325 [[place] 1 each PO Q6HR PRN #20 tablet 04/15/14 11/18/18 Unknown Rx 5/325] Polyethylene Glycol 3350 [Miralax] 17 gm PO DAILY PRN #1 bottle 04/15/14 11/18/18 Unknown Rx HYDROcodone/APAP 5-325 [[place] 1 - 2 each PO Q6HR PRN #14 tablet 12/05/14 11/18/18 Unknown Rx 5/325] Atorvastatin [Lipitor Tab] 20 mg PO QHS 11/11/18 11/11/18 Unknown History Gabapentin [Neurontin] 300 mg PO TID PRN 11/11/18 11/11/18 Unknown History Nystatin [Nystatin SUSP] 5 ml PO QID 11/11/18 11/11/18 Unknown History Pantoprazole [Protonix] 40 mg PO QDAY 11/11/18 11/11/18 Unknown History Promethazine [Phenergan] 25 mg PO Q6HR PRN 11/11/18 11/11/18 Unknown History Sodium Bicarbonate 325 mg PO BID 11/11/18 11/11/18 Unknown History amLODIPine 10 mg PO DAILY 11/11/18 11/11/18 Unknown History Active Medications: Generic Name Dose Route Start Last Admin Trade Name Freq PRN Reason Stop Dose Admin Acetaminophen 650 mg 11/09/18 19:38 11/10/18 15:17 Tylenol PO 650 mg Q4H PRN Administration Pain MILD(1-3)/Fever >100.5/FLORES Acetaminophen 650 mg 11/11/18 00:04 11/11/18 17:29 Tylenol [place] 650 mg Q4H PRN Administration Fever >101; Mild Pain (1-3) Lipase/Protease/Amylase 1 each 11/13/18 15:36 [place] 10,500 Unit FEEDTUBE PRN PRN For Clogged Feeding Tube Atorvastatin Calcium 40 mg 11/10/18 22:00 11/18/18 21:19 Lipitor PO 40 mg QHS PRIYA Administration Docusate Sodium 100 mg 11/09/18 19:32 Colace PO BID PRN Constipation Epoetin Adonis 10,000 unit 11/11/18 08:00 11/16/18 19:00 Procrit SUB-Q 10,000 unit CONSTANTINO PRIYA Administration Hydralazine HCl 10 mg 11/13/18 08:56 11/13/18 14:05 Apresoline IV 10 mg Q4H PRN Administration BP > 160/105 Hydromorphone HCl 0.25 mg 11/09/18 19:38 11/18/18 21:19 Dilaudid IV 0.25 mg Q3H PRN Administration Pain, Moderate (4-6) Sodium Chloride 100 mls @ 999 mls/hr 11/11/18 11:09 Nacl 0.9% IV CONSTANTINO PRN Hypotension Insulin Human Lispro 0 unit 11/16/18 22:00 11/18/18 22:00 Humalog SUB-Q Not Given ACHS [facility] Protocol Ondansetron HCl 4 mg 11/09/18 19:38 11/15/18 06:48 Zofran IV 4 mg Q8H PRN Administration Nausea And Vomiting Polyethylene Glycol 17 gm 11/09/18 19:38 Miralax 3350 PO QDAY PRN Constipation Simple Syrup 15 ml 11/13/18 15:36 Simple Syrup FEEDTUBE PRN PRN Hypoglycemia Simple Syrup 30 ml 11/13/18 15:36 Simple Syrup FEEDTUBE PRN PRN Hypoglycemia Sodium Bicarbonate 325 mg 11/13/18 15:36 Sodium Bicarbonate FEEDTUBE PRN PRN For Clogged Feeding Tube Sodium Chloride 10 ml 11/09/18 22:00 11/18/18 21:21 Sodium Chloride Flush Syringe 10 Ml IV 10 ml BID PRIYA Administration Sodium Chloride 10 ml 11/09/18 19:38 11/15/18 06:50 Sodium Chloride Flush Syringe 10 Ml IV 10 ml PRN PRN Administration LINE FLUSH
[2018-11-19] MEDS: HumaLOG SUB-Q SCH ×4 (11:08→22:38)
[2018-11-19] MEDS: SODIUM CHLORIDE FLUSH SYRINGE 10 ML IV SCH ×2 (11:09→21:02)
[2018-11-19 11:41] LABS: Calcium 7.3 mg/dL (8.4-10.2)
--- NOTE | 2018-11-19 11:45 | Progress Note ---
Assessment and Plan Assessment and plan: The patient is a 63-year-old female with insulin-requiring diabetes, hypertension, COPD who has had 2 recent hospitalizations at [facility] and [facility] in the month of October 2018, admitted there due to generalized rash, body aches as well as fevers, along with a myriad of other complaints i ncluding right upper extremity weakness, chest pain. She was seen by infectious diseases, nephrology, neurology, cardiology as well as rheumatology. CT chest showed no acute findings, CT abdomen and pelvis showed findings of chronic pancreatitis. HIV was negative, echocardiogram showed no vegetations. Extensive workup for infectious process was negative, apparently as per the ID consult at [facility] her fevers were attributed to a possible drug reaction secondary to calcitriol or tartrazine. She was subsequently discharged home with recommendations to follow-up with her nephrology. Now presented to the emergency room showed at [facility] yesterday with complaints of fever, abdominal pain and right upper extremity numbness. Again, she was noted to have high fevers up to 103F. she also had some speech difficulties which apparently resolved. Was evaluated by neurology. Due to worsening creatinine, nephrology was consulted who recommended initiation of hemodialysis. Patient is a poor historian, currently having shaking chills due to fevers. Metabolic encephalopathy, likely due to uremia -Nephrology consulted, and currently on dialysis Upper extremity numbness - Patient had similar problems previously, worked up for CVA and was negative - Neurology consult appreciated Sepsis; fever of unknown origin; and has fever of 103 abx were dc on 11/17, improving ?Still disease - Patient has fever, rash and high ferritin level TTP? Thrombocytopenia, Severe Anemia fup BM bx result, was done on 11/16 -- transfused 2 units of blood and hemoglobin is stable ESRD on HD - Nephrology is following DVT prophylaxis - SCDs because of severe thrombocytopenia Disposition - Transfer to the floor History Interval history: Review of systems Constitutional: No fevers, no malaise, no joint pains CVS: No chest pain, no orthopnea, no dyspnea on exertion, no pedal edema GI: No abdominal pain, no diarrhea, no vomiting, no constipation Respiratory: No shortness of breath, no wheezing, no coughing Hospitalist Physical - Physical exam Narrative exam: General.: Appears well, no distress, nontoxic HEENT: Moist mucous membranes, extraocular muscles intact, no lymphadenopathy Neck: supple Cardiac: S1-S2 heard Lungs: clear to auscultation bilaterally Abdomen: soft , nontender, nondistended, bowel sounds positive Extremities: no edema clubbing or cyanosis Skin: no rash or lesions Neurologic: no gross focal deficits Psych: calm, and cooperative - Constitutional Vitals: Temp Pulse Resp BP Pulse Ox 99.2 F 85 16 124/56 98 11/18/18 22:30 11/19/18 01:06 11/18/18 22:30 11/19/18 01:06 11/18/18 22:30 General appearance: Present: no acute distress, well-nourished, obese, disheveled Results - Labs CBC & Chem 7: 11/20/18 04:25 11/21/18 05:20 Labs: Laboratory Last Values WBC 10.8 K/mm3 (4.5-11.0) 11/18/18 07:55 RBC 2.68 M/mm3 (3.65-5.03) L 11/18/18 07:55 Hgb 7.5 gm/dl (10.1-14.3) L 11/18/18 07:55 Hct 23.7 % (30.3-42.9) L 11/18/18 07:55 MCV 88 fl (79-97) 11/18/18 07:55 MCH 28 pg (28-32) 11/18/18 07:55 MCHC 32 % (30-34) 11/18/18 07:55 RDW 16.4 % (13.2-15.2) H 11/18/18 07:55 Plt Count 119 K/mm3 (140-440) L 11/18/18 07:55 Lymph % (Auto) 26.8 % (13.4-35.0) 11/15/18 09:31 [place] % (Auto) Director Trade 11/18/18 07:55 Eos % (Auto) 2.5 % (0.0-4.3) 11/16/18 07:43 Baso % (Auto) 0.7 % (0.0-1.8) 11/15/18 09:31 Lymph # 2.5 K/mm3 (1.2-5.4) 11/15/18 09:31 [place] # 1.7 K/mm3 (0.0-0.8) H 11/16/18 07:43 Eos # 0.3 K/mm3 (0.0-0.4) 11/16/18 07:43 Baso # 0.1 K/mm3 (0.0-0.1) 11/16/18 07:43 Add Manual Diff Complete 11/18/18 07:55 Total Counted 100 11/18/18 07:55 Seg Neutrophils % 54.9 % (40.0-70.0) 11/16/18 07:43 Seg Neuts % (Manual) 69.0 % (40.0-70.0) 11/18/18 07:55 2.0 % 11/18/18 07:55 17.0 % (13.4-35.0) 11/18/18 07:55 Reactive Lymphs % (Man) 0 % 11/18/18 07:55 12.0 % (0.0-7.3) H 11/18/18 07:55 0 % (0.0-4.3) 11/18/18 07:55 0 % (0.0-1.8) 11/18/18 07:55 0 % 11/18/18 07:55 0 % 11/18/18 07:55 0 % 11/18/18 07:55 0 % 11/18/18 07:55 Nucleated RBC % Not Reportable 11/18/18 07:55 Seg Neutrophils # 5.7 K/mm3 (1.8-7.7) 11/16/18 07:43 Seg Neutrophils # Man 7.5 K/mm3 (1.8-7.7) 11/18/18 07:55 Band Neutrophils # 0.2 K/mm3 11/18/18 07:55 1.8 K/mm3 (1.2-5.4) 11/18/18 07:55 Abs React Lymphs (Man) 0.0 K/mm3 11/18/18 07:55 1.3 K/mm3 (0.0-0.8) H 11/18/18 07:55 0.0 K/mm3 (0.0-0.4) 11/18/18 07:55 0.0 K/mm3 (0.0-0.1) 11/18/18 07:55 0.0 K/mm3 11/18/18 07:55 0.0 K/mm3 11/18/18 07:55 0.0 K/mm3 11/18/18 07:55 Blast Cells # 0.0 K/mm3 11/18/18 07:55 WBC Morphology Not Reportable 11/18/18 07:55 Hypersegmented Neuts Not Reportable 11/18/18 07:55 Hyposegmented Neuts Not Reportable 11/18/18 07:55 Hypogranular Neuts Not Reportable 11/18/18 07:55 Not Reportable 11/18/18 07:55 Not Reportable 11/18/18 07:55 Not Reportable 11/18/18 07:55 Not Reportable 11/18/18 07:55 Not Reportable 11/18/18 07:55 Not Reportable 11/18/18 07:55 Consistent w auto 11/18/18 07:55 Not Reportable 11/18/18 07:55 Plt Clumps, EDTA Not Reportable 11/18/18 07:55 Not Reportable 11/18/18 07:55 Not Reportable 11/18/18 07:55 Not Reportable 11/18/18 07:55 Plt Morphology Comment Not Reportable 11/18/18 07:55 RBC Morphology Not Reportable 11/18/18 07:55 Dimorphic RBCs Not Reportable 11/18/18 07:55 Not Reportable 11/18/18 07:55 Not Reportable 11/18/18 07:55 Not Reportable 11/18/18 07:55 Few 11/18/18 07:55 Not Reportable 11/18/18 07:55 Not Reportable 11/18/18 07:55 Not Reportable 11/18/18 07:55 Not Reportable 11/18/18 07:55 Not Reportable 11/18/18 07:55 Few 11/18/18 07:55 Not Reportable 11/18/18 07:55 Not Reportable 11/18/18 07:55 Few 11/18/18 07:55 Not Reportable 11/18/18 07:55 Not Reportable 11/18/18 07:55 Not Reportable 11/18/18 07:55 Not Reportable 11/18/18 07:55 Not Reportable 11/18/18 07:55 Not Reportable 11/18/18 07:55 Not Reportable 11/18/18 07:55 Acanthocytes (Spur) Not Reportable 11/18/18 07:55 Rouleaux Not Reportable 11/18/18 07:55 Not Reportable 11/18/18 07:55 Not Reportable 11/18/18 07:55 Not Reportable 11/18/18 07:55 Not Reportable 11/18/18 07:55 Hem Pathologist Commnt No 11/18/18 07:55 PT 14.8 Sec. (12.2-14.9) 11/09/18 16:16 INR 1.09 (0.87-1.13) 11/09/18 16:16 APTT 44.5 Sec. (24.2-36.6) H 11/09/18 16:16 21.3 Sec. (15.1-19.6) H 11/09/18 16:16 Sodium 140 mmol/L (137-145) 11/19/18 10:57 Potassium 3.6 mmol/L (3.6-5.0) 11/19/18 10:57 Chloride 98.8 mmol/L (98-107) 11/19/18 10:57 Carbon Dioxide 26 mmol/L (22-30) 11/19/18 10:57 19 mmol/L 11/19/18 10:57 BUN 14 mg/dL (7-17) 11/19/18 10:57 5.3 mg/dL (0.7-1.2) H 11/19/18 10:57 Estimated GFR 10 ml/min 11/19/18 10:57 3 % 11/19/18 10:57 Glucose 177 mg/dL (65-100) H 11/19/18 10:57 POC Glucose 191 (70-105) H 11/19/18 11:22 6.9 % (4-6) H 11/09/18 22:00 Lactic Acid 0.80 mmol/L (0.7-2.0) 11/10/18 08:10 Calcium 7.3 mg/dL (8.4-10.2) L 11/19/18 10:57 Magnesium 1.60 mg/dL (1.7-2.3) L 11/19/18 10:57 Iron 36 ug/dL (37-170) L 11/09/18 16:16 TIBC 169 mcg/dL (250-450) L 11/09/18 16:16 % Saturation 21.30 % 11/09/18 16:16 128 mg/dl (192-382) L 11/09/18 16:16 > 2000.0 ng/mL (13.0-400.0) H 11/10/18 17:17 0.30 mg/dL (0.1-1.2) 11/15/18 09:31 AST 213 units/L (5-40) H 11/15/18 09:31 ALT 78 units/L (7-56) H 11/15/18 09:31 173 units/L (35-129) H 11/15/18 09:31 19.0 umol/L (25-60) L 11/09/18 16:16 93 units/L (30-135) 11/09/18 16:16 CK-MB (CK-2) < 1.0 ng/mL (0.0-4.0) 11/09/18 16:16 CK-MB (CK-2) Rel Index 1.0 (0-4) 11/09/18 16:16 0.017 ng/mL (0.00-0.029) 11/09/18 16:16 5.9 g/dL (6.3-8.2) L 11/15/18 09:31 2.3 g/dL (3.9-5) L 11/15/18 09:31 0.6 % 11/15/18 09:31 Triglycerides 298 mg/dL (2-149) H 11/10/18 08:05 Cholesterol 84 mg/dL (50-199) 11/10/18 08:05 7 mg/dL (50-130) L 11/10/18 08:05 8 mg/dL (40-59) L 11/10/18 08:05 10.50 % 11/10/18 08:05 13 units/L (13-60) 11/09/18 16:16 Vitamin B12 1628 pg/mL (211-911) H 11/13/18 04:33 9.97 ng/mL (7.3-26.0) 11/13/18 04:33 Yellow (Yellow) 11/10/18 01:08 Cloudy (Clear) 11/10/18 01:08 5.0 (5.0-7.0) 11/10/18 01:08 Ur Specific [place] 1.016 (1.003-1.030) 11/10/18 01:08 >500 mg/dL (Negative) 11/10/18 01:08 Neg mg/dL (Negative) 11/10/18 01:08 Neg mg/dL (Negative) 11/10/18 01:08 Sm (Negative) 11/10/18 01:08 Neg (Negative) 11/10/18 01:08 Ur Reducing Substances Not Reportable 11/10/18 01:08 Neg (Negative) 11/10/18 01:08 Not Reportable 11/10/18 01:08 < 2.0 mg/dL (<2.0) 11/10/18 01:08 Ur Leukocyte Esterase Neg (Negative) 11/10/18 01:08 7.0 /HPF (0.0-6.0) H 11/10/18 01:08 6.0 /HPF (0.0-6.0) 11/10/18 01:08 U Epithel Cells (Auto) 1.0 /HPF (0-13.0) 11/10/18 01:08 1+ /HPF (Negative) 11/10/18 01:08 2+ /HPF 11/10/18 01:08 Hyaline Casts 1 /LPF 11/10/18 01:08 3+ /HPF 11/10/18 01:08 Random Vancomycin 12.3 ug/mL (0-40.0) 11/12/18 04:45 Presumptive negative 11/10/18 01:08 Presumptive negative 11/10/18 01:08 Ur Barbiturates Screen Presumptive negative 11/10/18 01:08 Ur Phencyclidine Scrn Presumptive negative 11/10/18 01:08 Ur Amphetamines Screen Presumptive negative 11/10/18 01:08 U Benzodiazepines Scrn Presumptive negative 11/10/18 01:08 Presumptive negative 11/10/18 01:08 U Marijuana (THC) Screen Presumptive negative 11/10/18 01:08 Disclamer 11/10/18 01:08 Plasma/Serum Alcohol < 0.01 % (0-0.07) 11/09/18 16:16 161 mg/dL (83-193) 11/12/18 04:45 57 mg/dL (15-57) 11/12/18 04:45 Hepatitis A IgM Ab Non-reactive (NonReactive) 11/13/18 21:02 Hep Bs Antigen Non-reactive (Negative) 11/13/18 21:02 Hep B Core IgM Ab Non-reactive (NonReactive) 11/13/18 21:02 Non-reactive (NonReactive) 11/13/18 21:02 Flexitest 1 H 11/12/18 10:45 Blood Type A POSITIVE 11/11/18 07:29 Antibody Screen TNR 11/11/18 07:29 QUIANA Antibody Screen Negative 11/11/18 07:29 Crossmatch See Detail 11/11/18 07:29 Active Medications - Current Medications Current Medications: Generic Name Dose Route Start Last Admin Trade Name Freq PRN Reason Stop Dose Admin Acetaminophen 650 mg 11/09/18 19:38 11/10/18 15:17 Tylenol PO 650 mg Q4H PRN Administration Pain MILD(1-3)/Fever >100.5/FLORES Acetaminophen 650 mg 11/11/18 00:04 11/11/18 17:29 Tylenol MI 650 mg Q4H PRN Administration Fever >101; Mild Pain (1-3) Lipase/Protease/Amylase 1 each 11/13/18 15:[address] 10,500 Unit FEEDTUBE PRN PRN For Clogged Feeding Tube Atorvastatin Calcium 40 mg 11/10/18 22:00 11/18/18 21:19 Lipitor PO 40 mg QHS PRIYA Administration Docusate Sodium 100 mg 11/09/18 19:32 Colace PO BID PRN Constipation Epoetin Adonis 10,000 unit 11/11/18 08:00 11/16/18 19:00 Procrit SUB-Q 10,000 unit CONSTANTINO PRIYA Administration Hydralazine HCl 10 mg 11/13/18 08:56 11/13/18 14:05 Apresoline IV 10 mg Q4H PRN Administration BP > 160/105 Hydromorphone HCl 0.25 mg 11/09/18 19:38 11/18/18 21:19 Dilaudid IV 0.25 mg Q3H PRN Administration Pain, Moderate (4-6) Sodium Chloride 100 mls @ 999 mls/hr 11/11/18 11:09 Nacl 0.9% IV CONSTANTINO PRN Hypotension Insulin Human Lispro 0 unit 11/16/18 22:00 11/19/18 11:08 Humalog SUB-Q Not Given ACHS [facility] Protocol Ondansetron HCl 4 mg 11/09/18 19:38 11/15/18 06:48 Zofran IV 4 mg Q8H PRN Administration Nausea And Vomiting Polyethylene Glycol 17 gm 11/09/18 19:38 Miralax 3350 PO QDAY PRN Constipation Simple Syrup 15 ml 11/13/18 15:36 Simple Syrup FEEDTUBE PRN PRN Hypoglycemia Simple Syrup 30 ml 11/13/18 15:36 Simple Syrup FEEDTUBE PRN PRN Hypoglycemia Sodium Bicarbonate 325 mg 11/13/18 15:36 Sodium Bicarbonate FEEDTUBE PRN PRN For Clogged Feeding Tube Sodium Chloride 10 ml 11/09/18 22:00 11/19/18 11:09 Sodium Chloride Flush Syringe 10 Ml IV Not Given BID PRIYA Sodium Chloride 10 ml 11/09/18 19:38 11/15/18 06:50 Sodium Chloride Flush Syringe 10 Ml IV 10 ml PRN PRN Administration LINE FLUSH Nutrition/Malnutrition Assess - Dietary Evaluation Nutrition/Malnutrition Findings: Nutrition Notes Start: 11/13/18 15:25 Freq: Status: Active Protocol: Document 11/17/18 14:35 ЕКАТЕРИНА (Rec: 11/17/18 14:45 ЕКАТЕРИНА [id number]) Nutrition Notes Initial or Follow up Brief Note Current Diet Renal + Nepro Labs/Tests K 3.5 BG 202 BUN 29 Cr 5.6 Subjective/Other Information Pt reports "good" PO intake, despite documented intakes. Says she has not received Nepro though. Will continue to monitor. Nutrition Intervention Follow-Up By: 11/20/18 Additional Comments F/U: intakes (meals/ONS)
[2018-11-19] MEDS: PERCOCET 5/325 PO PRN ×2 (12:43→18:43)
[2018-11-20 05:14] LABS: Basophils # (Auto) 0.1 K/mm3 (0.0-0.1); Basophils % (Auto) 0.6 % (0.0-1.8); Eosinophils # (Auto) 0.1 K/mm3 (0.0-0.4); Eosinophils % (Auto) 0.6 % (0.0-4.3); Hematocrit 24.3 % (30.3-42.9); Hemoglobin 7.8 gm/dl (10.1-14.3); Lymphocytes # (Auto) 2.1 K/mm3 (1.2-5.4); Lymphocytes % (Auto) 17.6 % (13.4-35.0); Mean Corpuscular HGB Conc 32 % (30-34); Mean Corpuscular Volume 86 fl (79-97); Monocytes # (Auto) 1.9 K/mm3 (0.0-0.8); Platelet Count 157 K/mm3 (140-440); Red Blood Count 2.81 M/mm3 (3.65-5.03); Red Cell Distribution Width 16.4 % (13.2-15.2)
[2018-11-20 05:26] LABS: Calcium 7.5 mg/dL (8.4-10.2)
[2018-11-20] MEDS: HumaLOG SUB-Q SCH ×4 (07:30→22:15)
[2018-11-20] MEDS ORDERED: NACL 0.9 (PRIMING MACHINE ONLY DIALYSIS) MC ONE (10:59)
--- NOTE | 2018-11-20 12:39 | Discharge Summary ---
Providers - Providers Date of Admission: 11/09/18 19:39 Attending physician: JAQUELIN ALMANZA MD 11/09/18 19:38 Consult to Physician [CONS] Routine Comment: Consulting Provider: ROBIN HERNÁNDEZ Physician Instructions: Reason For Exam: ESRD 11/10/18 06:38 Consult to Physician [CONS] Routine Comment: Consulting Provider: ZULEMA SONG Physician Instructions: Reason For Exam: Fever 11/10/18 08:31 Occupational Therapy Evaluate and Treat [CONS] Urgent Comment: Reason For Exam: rt side weak/cva work-up Physical Therapy Evaluation and Treat [CONS] Routine Comment: Reason For Exam: rt side weak/cva work-up 11/10/18 09:39 Consult to Physician [CONS] Routine Comment: Consulting Provider: CLARISSA SALVADOR Physician Instructions: Reason For Exam: permcath placement 11/10/18 09:49 Consult to Physician [CONS] Routine Comment: Consulting Provider: DREW EGAN Physician Instructions: Reason For Exam: AMS, ?TIA 11/11/18 11:34 Consult to Physician [CONS] Routine Comment: Dr. Jacques has already been notified Consulting Provider: JOSIE JACQUES Physician Instructions: Reason For Exam: Concern for HLH vs TTP 11/13/18 14:01 Consult to Dietitian/Nutrition [CONS] Routine Physician Instructions: Reason For Exam: Reason for Consult: Write/Manage Tube Feeding 11/14/18 12:26 Consult to Case Management [CONS] Routine Services Needed at Discharge: Other Notified:: copy left for cm Comment:: Arrange outpatient dialysis at [facility] 11/14/18 16:00 Speech Therapy Evaluation and Treat [CONS] Routine Reason For Exam: check swallowing fuction 11/16/18 08:01 Consult to Interventional Radiology [CONS] Routine Consulting Provider: KAIN ROWELL Reason For Exam: bone marrow bx Place consult to:: DR. ROWELL Notified:: OFFICE Phone number called:: [phone] Was contact made?: Yes If yes, spoke with:: THOMAS Time called:: 10:27 Comment:: LAYO NOTIFIED 11/19/18 07:58 Consult to Physician [CONS] Routine Comment: Consulting Provider: JOSIE JACQUES Physician Instructions: Reason For Exam: ANEMIA Hospitalization Condition: Serious Hospital course: The patient is a 63-year-old female with insulin-requiring diabetes, hypertension, COPD who has had 2 recent hospitalizations at [facility] and [facility] in the month of October 2018, admitted there due to generalized rash, body aches as well as fevers, along with a myriad of other complaints including right upper extremity weakness, chest pain. She was seen by infectious diseases, nephrology, neurology, cardiology as well as rheumatology. CT chest showed no acute findings, CT abdomen and pelvis showed findings of chronic pancreatitis. HIV was negative, echocardiogram showed no vegetations. Extensive workup for infectious process was negative, apparently as per the ID consult at [facility] her fevers were attributed to a possible drug reaction secondary to calcitriol or tartrazine. She was subsequently discharged home with recommendations to follow-up with her nephrology. Now presented to the emergency room showed at [facility] yesterday with complaints of fever, abdominal pain and right upper extremity numbness. Again, she was noted to have high fevers up to 103F. she also had some speech difficulties which apparently resolved. Was evaluated by neurology. Due to worsening creatinine, nephrology was consulted who recommended initiation of hemodialysis. Patient is a poor historian, currently having shaking chills due to fevers. Metabolic encephalopathy, likely due to uremia -Nephrology consulted, and currently on dialysis, resolved Upper extremity numbness - Patient had similar problems previously, worked up for CVA and was negative - Neurology consult appreciated Sepsis; fever of unknown origin; and has fever of 103 she was rx with abx per ID, abx were dc on 11/17, improving ?Still disease - Patient has fever, rash and high ferritin level, therefore was suspected, outpatient rheum fup TTP? Thrombocytopenia, Severe Anemia fup BM bx result, was done on 11/16 -- transfused 2 units of blood and hemoglobin is stable fup with Dr jacques as outpatient CHRISTOPHER leading to ESRD on HD - Nephrology is following, cont HD upon dc Disposition: [id number]-06 HOME UNDER HOME [facility] Time spent for discharge: 33 mins Core Measure Documentation - Palliative Care Palliative Care/ Comfort Measures: Not Applicable - Core Measures Any of the following diagnoses?: none Exam - Constitutional Vitals: Temp Pulse Resp BP Pulse Ox 98.7 F 85 20 146/70 100 11/20/18 04:51 11/19/18 22:55 11/20/18 04:51 11/20/18 04:51 11/19/18 22:55 General appearance: Present: no acute distress, well-nourished - EENT Eyes: Present: PERRL ENT: hearing intact, clear oral mucosa - Neck Neck: Present: supple, normal ROM - Respiratory Respiratory effort: normal Respiratory: bilateral: CTA - Cardiovascular Heart Sounds: Present: S1 & S2. Absent: rub, click - Extremities Extremities: pulses symmetrical, No edema Peripheral Pulses: within normal limits - Abdominal General gastrointestinal: Present: soft, non-tender, non-distended, normal bowel sounds Female genitourinary: Present: normal - Integumentary Integumentary: Present: clear, warm, dry - Musculoskeletal Musculoskeletal: gait normal, strength equal bilaterally - Psychiatric Psychiatric: appropriate mood/affect, intact judgment & insight - Neurologic Neurologic: CNII-XII intact, moves all extremities Plan Follow up with: TED CEDENO [Other] - 3-5 Days Prescriptions: HYDROcodone/APAP 5-325 [Provencal 5-325 mg TAB] 1 each PO Q6HR PRN #20 tablet PRN Reason: Pain
[2018-11-20] MEDS: PROCRIT SUB-Q SCH (13:49)
--- NOTE | 2018-11-20 14:17 | Progress Note ---
Assessment and Plan Assessment and plan: The patient is a 63-year-old female with insulin-requiring diabetes, hypertension, COPD who has had 2 recent hospitalizations at [facility] and [facility] in the month of October 2018, admitted there due to generalized rash, body aches as well as fevers, along with a myriad of other complaints i ncluding right upper extremity weakness, chest pain. She was seen by infectious diseases, nephrology, neurology, cardiology as well as rheumatology. CT chest showed no acute findings, CT abdomen and pelvis showed findings of chronic pancreatitis. HIV was negative, echocardiogram showed no vegetations. Extensive workup for infectious process was negative, apparently as per the ID consult at [facility] her fevers were attributed to a possible drug reaction secondary to calcitriol or tartrazine. She was subsequently discharged home with recommendations to follow-up with her nephrology. Now presented to the emergency room showed at [facility] yesterday with complaints of fever, abdominal pain and right upper extremity numbness. Again, she was noted to have high fevers up to 103F. she also had some speech difficulties which apparently resolved. Was evaluated by neurology. Due to worsening creatinine, nephrology was consulted who recommended initiation of hemodialysis. Patient is a poor historian, currently having shaking chills due to fevers. Metabolic encephalopathy, likely due to uremia -Nephrology consulted, and currently on dialysis Upper extremity numbness - Patient had similar problems previously, worked up for CVA and was negative - Neurology consult appreciated Sepsis; fever of unknown origin; and has fever of 103 abx were dc on 11/17, improving ?Still disease - Patient has fever, rash and high ferritin level TTP? Thrombocytopenia, Severe Anemia fup BM bx result, was done on 11/16 -- transfused 2 units of blood and hemoglobin is stable ESRD on HD - Nephrology is following DVT prophylaxis - SCDs because of severe thrombocytopenia Disposition - Transfer to the floor History Interval history: Review of systems Constitutional: No fevers, no malaise, no joint pains CVS: No chest pain, no orthopnea, no dyspnea on exertion, no pedal edema GI: No abdominal pain, no diarrhea, no vomiting, no constipation Respiratory: No shortness of breath, no wheezing, no coughing Hospitalist Physical - Physical exam Narrative exam: General.: Appears well, no distress, nontoxic HEENT: Moist mucous membranes, extraocular muscles intact, no lymphadenopathy Neck: supple Cardiac: S1-S2 heard Lungs: clear to auscultation bilaterally Abdomen: soft , nontender, nondistended, bowel sounds positive Extremities: no edema clubbing or cyanosis Skin: no rash or lesions Neurologic: no gross focal deficits Psych: calm, and cooperative - Constitutional Vitals: Temp Pulse Resp BP Pulse Ox 98.2 F 86 18 131/75 100 11/20/18 10:40 11/20/18 13:45 11/20/18 10:40 11/20/18 13:45 11/19/18 22:55 General appearance: Present: no acute distress, well-nourished Results - Labs CBC & Chem 7: 11/20/18 04:25 11/21/18 05:20 Labs: Laboratory Last Values WBC 12.2 K/mm3 (4.5-11.0) H 11/20/18 04:25 RBC 2.81 M/mm3 (3.65-5.03) L 11/20/18 04:25 Hgb 7.8 gm/dl (10.1-14.3) L 11/20/18 04:25 Hct 24.3 % (30.3-42.9) L 11/20/18 04:25 MCV 86 fl (79-97) 11/20/18 04:25 MCH 28 pg (28-32) 11/20/18 04:25 MCHC 32 % (30-34) 11/20/18 04:25 RDW 16.4 % (13.2-15.2) H 11/20/18 04:25 Plt Count 157 K/mm3 (140-440) 11/20/18 04:25 Lymph % (Auto) 17.6 % (13.4-35.0) 11/20/18 04:25 [place] % (Auto) 16.0 % (0.0-7.3) H 11/20/18 04:25 Eos % (Auto) 0.6 % (0.0-4.3) 11/20/18 04:25 Baso % (Auto) 0.6 % (0.0-1.8) 11/20/18 04:25 Lymph # 2.1 K/mm3 (1.2-5.4) 11/20/18 04:25 [place] # 1.9 K/mm3 (0.0-0.8) H 11/20/18 04:25 Eos # 0.1 K/mm3 (0.0-0.4) 11/20/18 04:25 Baso # 0.1 K/mm3 (0.0-0.1) 11/20/18 04:25 Add Manual Diff Complete 11/18/18 07:55 Total Counted 100 11/18/18 07:55 Seg Neutrophils % 65.2 % (40.0-70.0) 11/20/18 04:25 Seg Neuts % (Manual) 69.0 % (40.0-70.0) 11/18/18 07:55 2.0 % 11/18/18 07:55 17.0 % (13.4-35.0) 11/18/18 07:55 Reactive Lymphs % (Man) 0 % 11/18/18 07:55 12.0 % (0.0-7.3) H 11/18/18 07:55 0 % (0.0-4.3) 11/18/18 07:55 0 % (0.0-1.8) 11/18/18 07:55 0 % 11/18/18 07:55 0 % 11/18/18 07:55 0 % 11/18/18 07:55 0 % 11/18/18 07:55 Nucleated RBC % Not Reportable 11/18/18 07:55 Seg Neutrophils # 7.9 K/mm3 (1.8-7.7) H 11/20/18 04:25 Seg Neutrophils # Man 7.5 K/mm3 (1.8-7.7) 11/18/18 07:55 Band Neutrophils # 0.2 K/mm3 11/18/18 07:55 1.8 K/mm3 (1.2-5.4) 11/18/18 07:55 Abs React Lymphs (Man) 0.0 K/mm3 11/18/18 07:55 1.3 K/mm3 (0.0-0.8) H 11/18/18 07:55 0.0 K/mm3 (0.0-0.4) 11/18/18 07:55 0.0 K/mm3 (0.0-0.1) 11/18/18 07:55 0.0 K/mm3 11/18/18 07:55 0.0 K/mm3 11/18/18 07:55 0.0 K/mm3 11/18/18 07:55 Blast Cells # 0.0 K/mm3 11/18/18 07:55 WBC Morphology Not Reportable 11/18/18 07:55 Hypersegmented Neuts Not Reportable 11/18/18 07:55 Hyposegmented Neuts Not Reportable 11/18/18 07:55 Hypogranular Neuts Not Reportable 11/18/18 07:55 Not Reportable 11/18/18 07:55 Not Reportable 11/18/18 07:55 Not Reportable 11/18/18 07:55 Not Reportable 11/18/18 07:55 Not Reportable 11/18/18 07:55 Not Reportable 11/18/18 07:55 Consistent w auto 11/18/18 07:55 Not Reportable 11/18/18 07:55 Plt Clumps, EDTA Not Reportable 11/18/18 07:55 Not Reportable 11/18/18 07:55 Not Reportable 11/18/18 07:55 Not Reportable 11/18/18 07:55 Plt Morphology Comment Not Reportable 11/18/18 07:55 RBC Morphology Not Reportable 11/18/18 07:55 Dimorphic RBCs Not Reportable 11/18/18 07:55 Not Reportable 11/18/18 07:55 Not Reportable 11/18/18 07:55 Not Reportable 11/18/18 07:55 Few 11/18/18 07:55 Not Reportable 11/18/18 07:55 Not Reportable 11/18/18 07:55 Not Reportable 11/18/18 07:55 Not Reportable 11/18/18 07:55 Not Reportable 11/18/18 07:55 Few 11/18/18 07:55 Not Reportable 11/18/18 07:55 Not Reportable 11/18/18 07:55 Few 11/18/18 07:55 Not Reportable 11/18/18 07:55 Not Reportable 11/18/18 07:55 Not Reportable 11/18/18 07:55 Not Reportable 11/18/18 07:55 Not Reportable 11/18/18 07:55 Not Reportable 11/18/18 07:55 Not Reportable 11/18/18 07:55 Acanthocytes (Spur) Not Reportable 11/18/18 07:55 Rouleaux Not Reportable 11/18/18 07:55 Not Reportable 11/18/18 07:55 Not Reportable 11/18/18 07:55 Not Reportable 11/18/18 07:55 Not Reportable 11/18/18 07:55 Hem Pathologist Commnt No 11/18/18 07:55 PT 14.8 Sec. (12.2-14.9) 11/09/18 16:16 INR 1.09 (0.87-1.13) 11/09/18 16:16 APTT 44.5 Sec. (24.2-36.6) H 11/09/18 16:16 21.3 Sec. (15.1-19.6) H 11/09/18 16:16 Sodium 142 mmol/L (137-145) 11/20/18 04:25 Potassium 3.7 mmol/L (3.6-5.0) 11/20/18 04:25 Chloride 101.1 mmol/L (98-107) 11/20/18 04:25 Carbon Dioxide 26 mmol/L (22-30) 11/20/18 04:25 19 mmol/L 11/20/18 04:25 BUN 19 mg/dL (7-17) H 11/20/18 04:25 6.5 mg/dL (0.7-1.2) H 11/20/18 04:25 Estimated GFR 8 ml/min 11/20/18 04:25 3 % 11/20/18 04:25 Glucose 127 mg/dL (65-100) H 11/20/18 04:25 POC Glucose 159 (70-105) H 11/20/18 07:55 6.9 % (4-6) H 11/09/18 22:00 Lactic Acid 0.80 mmol/L (0.7-2.0) 11/10/18 08:10 Calcium 7.5 mg/dL (8.4-10.2) L 11/20/18 04:25 Magnesium 1.70 mg/dL (1.7-2.3) 11/20/18 04:25 Iron 36 ug/dL (37-170) L 11/09/18 16:16 TIBC 169 mcg/dL (250-450) L 11/09/18 16:16 % Saturation 21.30 % 11/09/18 16:16 128 mg/dl (192-382) L 11/09/18 16:16 > 2000.0 ng/mL (13.0-400.0) H 11/10/18 17:17 0.30 mg/dL (0.1-1.2) 11/15/18 09:31 AST 213 units/L (5-40) H 11/15/18 09:31 ALT 78 units/L (7-56) H 11/15/18 09:31 173 units/L (35-129) H 11/15/18 09:31 19.0 umol/L (25-60) L 11/09/18 16:16 93 units/L (30-135) 11/09/18 16:16 CK-MB (CK-2) < 1.0 ng/mL (0.0-4.0) 11/09/18 16:16 CK-MB (CK-2) Rel Index 1.0 (0-4) 11/09/18 16:16 0.017 ng/mL (0.00-0.029) 11/09/18 16:16 5.9 g/dL (6.3-8.2) L 11/15/18 09:31 2.3 g/dL (3.9-5) L 11/15/18 09:31 0.6 % 11/15/18 09:31 Triglycerides 298 mg/dL (2-149) H 11/10/18 08:05 Cholesterol 84 mg/dL (50-199) 11/10/18 08:05 7 mg/dL (50-130) L 11/10/18 08:05 8 mg/dL (40-59) L 11/10/18 08:05 10.50 % 11/10/18 08:05 13 units/L (13-60) 11/09/18 16:16 Vitamin B12 1628 pg/mL (211-911) H 11/13/18 04:33 9.97 ng/mL (7.3-26.0) 11/13/18 04:33 Yellow (Yellow) 11/10/18 01:08 Cloudy (Clear) 11/10/18 01:08 5.0 (5.0-7.0) 11/10/18 01:08 Ur Specific [place] 1.016 (1.003-1.030) 11/10/18 01:08 >500 mg/dL (Negative) 11/10/18 01:08 Neg mg/dL (Negative) 11/10/18 01:08 Neg mg/dL (Negative) 11/10/18 01:08 Sm (Negative) 11/10/18 01:08 Neg (Negative) 11/10/18 01:08 Ur Reducing Substances Not Reportable 11/10/18 01:08 Neg (Negative) 11/10/18 01:08 Not Reportable 11/10/18 01:08 < 2.0 mg/dL (<2.0) 11/10/18 01:08 Ur Leukocyte Esterase Neg (Negative) 11/10/18 01:08 7.0 /HPF (0.0-6.0) H 11/10/18 01:08 6.0 /HPF (0.0-6.0) 11/10/18 01:08 U Epithel Cells (Auto) 1.0 /HPF (0-13.0) 11/10/18 01:08 1+ /HPF (Negative) 11/10/18 01:08 2+ /HPF 11/10/18 01:08 Hyaline Casts 1 /LPF 11/10/18 01:08 3+ /HPF 11/10/18 01:08 Random Vancomycin 12.3 ug/mL (0-40.0) 11/12/18 04:45 Presumptive negative 11/10/18 01:08 Presumptive negative 11/10/18 01:08 Ur Barbiturates Screen Presumptive negative 11/10/18 01:08 Ur Phencyclidine Scrn Presumptive negative 11/10/18 01:08 Ur Amphetamines Screen Presumptive negative 11/10/18 01:08 U Benzodiazepines Scrn Presumptive negative 11/10/18 01:08 Presumptive negative 11/10/18 01:08 U Marijuana (THC) Screen Presumptive negative 11/10/18 01:08 Disclamer 11/10/18 01:08 Plasma/Serum Alcohol < 0.01 % (0-0.07) 11/09/18 16:16 161 mg/dL (83-193) 11/12/18 04:45 57 mg/dL (15-57) 11/12/18 04:45 Hepatitis A IgM Ab Non-reactive (NonReactive) 11/13/18 21:02 Hep Bs Antigen Non-reactive (Negative) 11/13/18 21:02 Hep B Core IgM Ab Non-reactive (NonReactive) 11/13/18 21:02 Non-reactive (NonReactive) 11/13/18 21:02 Flexitest 1 H 11/12/18 10:45 Blood Type A POSITIVE 11/11/18 07:29 Antibody Screen TNR 11/11/18 07:29 QUIANA Antibody Screen Negative 11/11/18 07:29 Crossmatch See Detail 11/11/18 07:29 Active Medications - Current Medications Current Medications: Generic Name Dose Route Start Last Admin Trade Name Freq PRN Reason Stop Dose Admin Acetaminophen 650 mg 11/09/18 19:38 11/10/18 15:17 Tylenol PO 650 mg Q4H PRN Administration Pain MILD(1-3)/Fever >100.5/FLORES Acetaminophen 650 mg 11/11/18 00:04 11/11/18 17:29 Tylenol [place] 650 mg Q4H PRN Administration Fever >101; Mild Pain (1-3) Lipase/Protease/Amylase 1 each 11/13/18 15:[address] 10,500 Unit FEEDTUBE PRN PRN For Clogged Feeding Tube Atorvastatin Calcium 40 mg 11/10/18 22:00 11/19/18 21:02 Lipitor PO 40 mg QHS PRIYA Administration Docusate Sodium 100 mg 11/09/18 19:32 Colace PO BID PRN Constipation Epoetin Adonis 10,000 unit 11/11/18 08:00 11/20/18 13:49 Procrit SUB-Q 10,000 unit CONSTANTINO PRIYA Administration Hydralazine HCl 10 mg 11/13/18 08:56 11/13/18 14:05 Apresoline IV 10 mg Q4H PRN Administration BP > 160/105 Sodium Chloride 100 mls @ 999 mls/hr 11/11/18 11:09 Nacl 0.9% IV CONSTANTINO PRN Hypotension Insulin Human Lispro 0 unit 11/16/18 22:00 11/20/18 07:30 Humalog SUB-Q Not Given ACHS [facility] Protocol Ondansetron HCl 4 mg 11/09/18 19:38 11/15/18 06:48 Zofran IV 4 mg Q8H PRN Administration Nausea And Vomiting Oxycodone/Acetaminophen 1 tab 11/19/18 12:12 11/19/18 18:43 Percocet 5/325 PO 1 tab Q6H PRN Administration Pain, Moderate (4-6) Polyethylene Glycol 17 gm 11/09/18 19:38 Miralax 3350 PO QDAY PRN Constipation Simple Syrup 15 ml 11/13/18 15:36 Simple Syrup FEEDTUBE PRN PRN Hypoglycemia Simple Syrup 30 ml 11/13/18 15:36 Simple Syrup FEEDTUBE PRN PRN Hypoglycemia Sodium Bicarbonate 325 mg 11/13/18 15:36 Sodium Bicarbonate FEEDTUBE PRN PRN For Clogged Feeding Tube Sodium Chloride 10 ml 11/09/18 22:00 11/19/18 21:02 Sodium Chloride Flush Syringe 10 Ml IV 10 ml BID PRIYA Administration Sodium Chloride 10 ml 11/09/18 19:38 11/15/18 06:50 Sodium Chloride Flush Syringe 10 Ml IV 10 ml PRN PRN Administration LINE FLUSH Nutrition/Malnutrition Assess - Dietary Evaluation Nutrition/Malnutrition Findings: Nutrition Notes Start: 11/13/18 15:25 Freq: Status: Active Protocol: Document 11/20/18 13:12 ЕКАТЕРИНА (Rec: 11/20/18 13:14 ЕКАТЕРИНА [email or web address]) Nutrition Notes Initial or Follow up Brief Note Subjective/Other Information No PO intakes documented since last assessment. Pt not in room at time of visit (12:27). Pt awaiting placement. Nutrition Intervention Follow-Up By: 11/23/18 Additional Comments F/U: intakes
--- NOTE | 2018-11-20 15:10 | Progress Note ---
Assessment and Plan - Patient Problems (1) ESRD (end stage renal disease) Current Visit: Yes Status: Acute Plan to address problem: will place permacath thursday Subjective Date of service: 11/20/18 Principal diagnosis: low plt - anemia Interval history: just notified of need to place permacath and remove femoral vascath. will arrange for placement thursday. Objective - Exam Narrative Exam: r femoral vascath sit ok - Constitutional Vitals: Vital Signs - 12hr 11/20/18 11/20/18 11/20/18 04:51 10:40 10:45 Temperature 98.7 F 98.2 F Pulse Rate 80 78 Respiratory 20 18 Rate Blood Pressure 146/70 152/78 154/82 11/20/18 11/20/18 11/20/18 11:00 11:15 11:30 Temperature Pulse Rate 77 80 87 Respiratory Rate Blood Pressure 168/83 148/79 155/79 11/20/18 11/20/18 11/20/18 11:45 12:00 12:15 Temperature Pulse Rate 82 84 86 Respiratory Rate Blood Pressure 155/83 137/75 148/79 11/20/18 11/20/18 11/20/18 12:30 12:45 13:00 Temperature Pulse Rate 82 86 89 Respiratory Rate Blood Pressure 156/80 153/80 132/74 11/20/18 11/20/18 11/20/18 13:15 13:30 13:45 Temperature Pulse Rate 89 89 86 Respiratory Rate Blood Pressure 133/74 129/82 131/75 - Labs CBC & Chem 7: 11/20/18 04:25 11/20/18 04:25 Labs: Abnormal lab results 11/19/18 11/19/18 11/20/18 Range/Units 16:17 22:03 04:25 WBC 12.2 H (4.5-11.0) K/mm3 RBC 2.81 L (3.65-5.03) M/mm3 Hgb 7.8 L (10.1-14.3) gm/dl Hct 24.3 L (30.3-42.9) % RDW 16.4 H (13.2-15.2) % [place] % (Auto) 16.0 H (0.0-7.3) % [place] # 1.9 H (0.0-0.8) K/mm3 Seg Neutrophils # 7.9 H (1.8-7.7) K/mm3 BUN (7-17) mg/dL Creatinine (0.7-1.2) mg/dL Glucose (65-100) mg/dL POC Glucose 120 H 110 H (70-105) Calcium (8.4-10.2) mg/dL 11/20/18 11/20/18 Range/Units 04:25 07:55 WBC (4.5-11.0) K/mm3 RBC (3.65-5.03) M/mm3 Hgb (10.1-14.3) gm/dl Hct (30.3-42.9) % RDW (13.2-15.2) % [place] % (Auto) (0.0-7.3) % [place] # (0.0-0.8) K/mm3 Seg Neutrophils # (1.8-7.7) K/mm3 BUN 19 H (7-17) mg/dL Creatinine 6.5 H (0.7-1.2) mg/dL Glucose 127 H (65-100) mg/dL POC Glucose 159 H (70-105) Calcium 7.5 L (8.4-10.2) mg/dL Medications & Allergies - Medications Allergies/Adverse Reactions: Allergies No Known Allergies Allergy (Verified 04/15/14 15:50) Home Medications: Home Medications Medication Instructions Recorded Confirmed Last Taken Type Docusate Sodium [Colace CAP] 100 mg PO BID PRN #30 capsule 04/15/14 11/18/18 Unknown Rx Polyethylene Glycol 3350 [Miralax] 17 gm PO DAILY PRN #1 bottle 04/15/14 11/18/18 Unknown Rx Atorvastatin [Lipitor] 20 mg PO QHS 11/11/18 11/11/18 Unknown History Gabapentin [Neurontin] 300 mg PO TID PRN 11/11/18 11/11/18 Unknown History Pantoprazole [Protonix TAB] 40 mg PO QDAY 11/11/18 11/11/18 Unknown History Promethazine [Phenergan] 25 mg PO Q6HR PRN 11/11/18 11/11/18 Unknown History Sodium Bicarbonate 325 mg PO BID 11/11/18 11/11/18 Unknown History amLODIPine 10 mg PO DAILY 11/11/18 11/11/18 Unknown History HYDROcodone/APAP 5-325 [[place] 1 each PO Q6HR PRN #20 tablet 11/20/18 Unknown Rx 5-325 mg TAB] Active Medications: Generic Name Dose Route Start Last Admin Trade Name Freq PRN Reason Stop Dose Admin Acetaminophen 650 mg 11/09/18 19:38 11/10/18 15:17 Tylenol PO 650 mg Q4H PRN Administration Pain MILD(1-3)/Fever >100.5/FLORES Acetaminophen 650 mg 11/11/18 00:04 11/11/18 17:29 Tylenol [place] 650 mg Q4H PRN Administration Fever >101; Mild Pain (1-3) Lipase/Protease/Amylase 1 each 11/13/18 15:[address] 10,500 Unit FEEDTUBE PRN PRN For Clogged Feeding Tube Atorvastatin Calcium 40 mg 11/10/18 22:00 11/19/18 21:02 Lipitor PO 40 mg QHS PRIYA Administration Docusate Sodium 100 mg 11/09/18 19:32 Colace PO BID PRN Constipation Epoetin Adonis 10,000 unit 11/11/18 08:00 11/20/18 13:49 Procrit SUB-Q 10,000 unit CONSTANTINO PRIYA Administration Hydralazine HCl 10 mg 11/13/18 08:56 11/13/18 14:05 Apresoline IV 10 mg Q4H PRN Administration BP > 160/105 Sodium Chloride 100 mls @ 999 mls/hr 11/11/18 11:09 Nacl 0.9% IV CONSTANTINO PRN Hypotension Insulin Human Lispro 0 unit 11/16/18 22:00 11/20/18 07:30 Humalog SUB-Q Not Given ACHS [facility] Protocol Ondansetron HCl 4 mg 11/09/18 19:38 11/15/18 06:48 Zofran IV 4 mg Q8H PRN Administration Nausea And Vomiting Oxycodone/Acetaminophen 1 tab 11/19/18 12:12 11/19/18 18:43 Percocet 5/325 PO 1 tab Q6H PRN Administration Pain, Moderate (4-6) Polyethylene Glycol 17 gm 11/09/18 19:38 Miralax 3350 PO QDAY PRN Constipation Simple Syrup 15 ml 11/13/18 15:36 Simple Syrup FEEDTUBE PRN PRN Hypoglycemia Simple Syrup 30 ml 11/13/18 15:36 Simple Syrup FEEDTUBE PRN PRN Hypoglycemia Sodium Bicarbonate 325 mg 11/13/18 15:36 Sodium Bicarbonate FEEDTUBE PRN PRN For Clogged Feeding Tube Sodium Chloride 10 ml 11/09/18 22:00 11/19/18 21:02 Sodium Chloride Flush Syringe 10 Ml IV 10 ml BID PRIYA Administration Sodium Chloride 10 ml 11/09/18 19:38 11/15/18 06:50 Sodium Chloride Flush Syringe 10 Ml IV 10 ml PRN PRN Administration LINE FLUSH
--- NOTE | 2018-11-20 15:19 | Hem/Onc Progress Note ---
Assessment and Plan # Fever, rash, anemia, thrombocytopenia. # The patient's bilirubin is not elevated. LDH. Ferritin is elevated, that may be secondary to fever or inflammation. It was suspected that calcitriol or tartrazine may have a role in drug allergy. She was extensively investigated at [facility] and [facility]. # History of fever, history of abdominal pain. Radiology mentioned chronic pancreatitis. # As per the information, extensive investigation for fever has been done including echocardiogram, which was negative. # Renal impairment, on hemodialysis. # I had discussed with pathologist regarding the smear, which shows bandemia. For HLH, bone marrow biopsy may help. The patient's white cell count is not low. # [id number] has been ordered to evaluate for TTP in view of anemia and renal impairment; however, the smear did not have significant schistocytes. We will follow the trend and review. At this time based on information, the fever it appears that may not be infective in etiology, drug reaction is still a possibility. We will discuss with other specialists. s/p BMBX - one of the differential is HLH for plt - transfusion support as needed rash - drying out on the arms 11/20 reviewed bmbx report - this is being sent out for evaluation pt more alert plt normal still anemic - Patient Problems (1) Thrombocytopenia Current Visit: Yes Status: Acute Subjective Date of service: 11/20/18 Principal diagnosis: anemia Interval history: feeling better Objective - Constitutional Vitals: Last Vital Signs Temp 98.2 F 11/20/18 10:40 Pulse 86 11/20/18 13:45 Resp 18 11/20/18 10:40 BP 131/75 11/20/18 13:45 Pulse Ox 100 11/19/18 22:55 Pain Intensity (0-10): denies any pain General appearance: no acute distress Performance status: 3-limited selfcare - EENT Eyes: EOM intact ENT: hearing intact Lymph node exam: negative cervical - Neck Neck: normal ROM - Respiratory Respiratory effort: Positive: normal Respiratory: bilateral: CTA - Cardiovascular Heart Sounds: Present: S1 & S2 Extremities: normal temperature - Gastrointestinal General gastrointestinal: Present: soft, non-tender Rectal Exam: deferred - Genitourinary Female genitourinary: Present: deferred - Integumentary Integumentary: warm - Musculoskeletal Musculoskeletal: generalized weakness - Neurologic Neurologic: moves all extremities - Labs Lab Results: Laboratory Results - last 24 hr 11/19/18 11/19/18 11/20/18 16:17 22:03 04:25 WBC 12.2 H RBC 2.81 L Hgb 7.8 L Hct 24.3 L MCV 86 MCH 28 MCHC 32 RDW 16.4 H Plt Count 157 Lymph % (Auto) 17.6 [place] % (Auto) 16.0 H Eos % (Auto) 0.6 Baso % (Auto) 0.6 Lymph # 2.1 [place] # 1.9 H Eos # 0.1 Baso # 0.1 Seg Neutrophils % 65.2 Seg Neutrophils # 7.9 H Sodium Potassium Chloride Carbon Dioxide Anion Gap BUN Creatinine Estimated GFR BUN/Creatinine Ratio Glucose POC Glucose 120 H 110 H Calcium Magnesium 11/20/18 11/20/18 04:25 07:55 WBC RBC Hgb Hct MCV MCH MCHC RDW Plt Count Lymph % (Auto) [place] % (Auto) Eos % (Auto) Baso % (Auto) Lymph # [place] # Eos # Baso # Seg Neutrophils % Seg Neutrophils # Sodium 142 Potassium 3.7 Chloride 101.1 Carbon Dioxide 26 Anion Gap 19 BUN 19 H Creatinine 6.5 H Estimated GFR 8 BUN/Creatinine Ratio 3 Glucose 127 H POC Glucose 159 H Calcium 7.5 L Magnesium 1.70 Medications & Allergies - Medications Allergies/Adverse Reactions: Allergies No Known Allergies Allergy (Verified 04/15/14 15:50) Home Medications: Home Medications Medication Instructions Recorded Confirmed Last Taken Type Docusate Sodium [Colace CAP] 100 mg PO BID PRN #30 capsule 04/15/14 11/18/18 Unknown Rx Polyethylene Glycol 3350 [Miralax] 17 gm PO DAILY PRN #1 bottle 04/15/14 Unknown Rx Atorvastatin [Lipitor] 20 mg PO QHS 11/11/18 11/11/18 Unknown History Gabapentin [Neurontin] 300 mg PO TID PRN 11/11/18 11/11/18 Unknown History Pantoprazole [Protonix TAB] 40 mg PO QDAY 11/11/18 11/11/18 Unknown History Promethazine [Phenergan] 25 mg PO Q6HR PRN 11/11/18 11/11/18 Unknown History Sodium Bicarbonate 325 mg PO BID 11/11/18 11/11/18 Unknown History amLODIPine 10 mg PO DAILY 11/11/18 11/11/18 Unknown History HYDROcodone/APAP 5-325 [[place] 1 each PO Q6HR PRN #20 tablet 11/20/18 Unknown Rx 5-325 mg TAB] Active Medications: Generic Name Dose Route Start Last Admin Trade Name Freq PRN Reason Stop Dose Admin Acetaminophen 650 mg 11/09/18 19:38 11/10/18 15:17 Tylenol PO 650 mg Q4H PRN Administration Pain MILD(1-3)/Fever >100.5/FLORES Acetaminophen 650 mg 11/11/18 00:04 11/11/18 17:29 Tylenol [place] 650 mg Q4H PRN Administration Fever >101; Mild Pain (1-3) Lipase/Protease/Amylase 1 each 11/13/18 15:36 Pancreaze 10,500 Unit FEEDTUBE PRN PRN For Clogged Feeding Tube Atorvastatin Calcium 40 mg 11/10/18 22:00 11/19/18 21:02 Lipitor PO 40 mg QHS PRIYA Administration Docusate Sodium 100 mg 11/09/18 19:32 Colace PO BID PRN Constipation Epoetin Adonis 10,000 unit 11/11/18 08:00 11/20/18 13:49 Procrit SUB-Q 10,000 unit CONSTANTINO PRIYA Administration Hydralazine HCl 10 mg 11/13/18 08:56 11/13/18 14:05 Apresoline IV 10 mg Q4H PRN Administration BP > 160/105 Sodium Chloride 100 mls @ 999 mls/hr 11/11/18 11:09 Nacl 0.9% IV CONSTANTINO PRN Hypotension Insulin Human Lispro 0 unit 11/16/18 22:00 11/20/18 07:30 Humalog SUB-Q Not Given [facility] Protocol Ondansetron HCl 4 mg 11/09/18 19:38 11/15/18 06:48 Zofran IV 4 mg Q8H PRN Administration Nausea And Vomiting Oxycodone/Acetaminophen 1 tab 11/19/18 12:12 11/19/18 18:43 Percocet 5/325 PO 1 tab Q6H PRN Administration Pain, Moderate (4-6) Polyethylene Glycol 17 gm 11/09/18 19:38 Miralax 3350 PO QDAY PRN Constipation Simple Syrup 15 ml 11/13/18 15:36 Simple Syrup FEEDTUBE PRN PRN Hypoglycemia Simple Syrup 30 ml 11/13/18 15:36 Simple Syrup FEEDTUBE PRN PRN Hypoglycemia Sodium Bicarbonate 325 mg 11/13/18 15:36 Sodium Bicarbonate FEEDTUBE PRN PRN For Clogged Feeding Tube Sodium Chloride 10 ml 11/09/18 22:00 11/19/18 21:02 Sodium Chloride Flush Syringe 10 Ml IV 10 ml BID PRIYA Administration Sodium Chloride 10 ml 11/09/18 19:38 11/15/18 06:50 Sodium Chloride Flush Syringe 10 Ml IV 10 ml PRN PRN Administration LINE FLUSH
[2018-11-20] MEDS: SODIUM CHLORIDE FLUSH SYRINGE 10 ML IV SCH ×2 (20:11→22:17)
[2018-11-20] MEDS: PERCOCET 5/325 PO PRN (21:00)
[2018-11-21 06:20] LABS: Calcium 7.5 mg/dL (8.4-10.2)
--- NOTE | 2018-11-21 06:52 | Progress Note ---
Assessment and Plan - Patient Problems (1) Hyperkalemia Current Visit: Yes Status: Acute Plan to address problem: secondary to advanced CKD, corrected with HD. cont 2gk renal diet. (2) ESRD (end stage renal disease) Current Visit: Yes Status: Acute Plan to address problem: Continue Hemodialysis on a Thursday, and Thursday schedule. Arrange for outpatient dialysis. Pt requires permcath placement prior to discharge, tentatively arranged for Thursday AM. (3) Type 2 diabetes mellitus with diabetic chronic kidney disease Current Visit: Yes Status: Chronic Qualifiers: Chronic kidney disease stage: stage 5, not on chronic dialysis Plan to address problem: glucose control as per primary attending (4) Hypertensive chronic kidney disease with stage 1 through stage 4 chronic kidney disease, or unspecified chronic kidney disease Current Visit: Yes Status: Acute Plan to address problem: Follow-up blood pressure on current medications (5) Anemia in chronic illness Current Visit: Yes Status: Acute Plan to address problem: cont EPO on HD (6) SIRS (systemic inflammatory response syndrome) Current Visit: Yes Status: Acute Plan to address problem: Fever of undetermined origin. Now off of antibiotics. Being followed up by infectious disease (7) Thrombocytopenia Current Visit: Yes Status: Acute Plan to address problem: Etiology uncertain. ADAMSTS-13 pending. Hematology has been consulted. Subjective Date of service: 11/21/18 Principal diagnosis: low plt - anemia Interval history: pt is awake, alert, in no acute respiratory distress. Could not see patient yesterday, since pt was fallen off the list and I assumed that she was di scharged. Pt however still has femoral vascath and needs permcath placement prior to discharge. Objective - Vital Signs Vital signs: Vital Signs - 12hr 11/20/18 23:47 Temperature 98.0 F Pulse Rate 91 H Respiratory 18 Rate Blood Pressure 143/68 O2 Sat by Pulse 98 Oximetry - General Appearance General appearance: well-developed, well-nourished, appears stated age EENT: ATNC, PERRL, mucous membranes moist Neck: no JVD Respiratory: Present: Clear to Ascultation Cardiology: regular, S1S2 Gastrointestinal: normoactive bowel sounds Integumentary: no rash, other (no edema ) Neurologic: no focal deficit, alert and oriented x3, strength 5/5, CN 3-12 intact Psychiatric: mood/affect appropriate, cooperative - Lab 11/20/18 04:25 11/21/18 05:20 Most recent lab results Calcium 7.5 mg/dL (8.4-10.2) L 11/21/18 05:20 Magnesium 1.60 mg/dL (1.7-2.3) L 11/21/18 05:20 Medications & Allergies - Medications Allergies/Adverse Reactions: Allergies No Known Allergies Allergy (Verified 04/15/14 15:50) Home Medications: Home Medications Medication Instructions Recorded Confirmed Last Taken Type Docusate Sodium [Colace CAP] 100 mg PO BID PRN #30 capsule 04/15/14 11/18/18 Unknown Rx Polyethylene Glycol 3350 [Miralax] 17 gm PO DAILY PRN #1 bottle 04/15/14 11/18/18 Unknown Rx Atorvastatin [Lipitor] 20 mg PO QHS 11/11/18 11/11/18 Unknown History Gabapentin [Neurontin] 300 mg PO TID PRN 11/11/18 11/11/18 Unknown History Pantoprazole [Protonix TAB] 40 mg PO QDAY 11/11/18 11/11/18 Unknown History Promethazine [Phenergan] 25 mg PO Q6HR PRN 11/11/18 11/11/18 Unknown History Sodium Bicarbonate 325 mg PO BID 11/11/18 11/11/18 Unknown History amLODIPine 10 mg PO DAILY 11/11/18 11/11/18 Unknown History HYDROcodone/APAP 5-325 [Home 1 each PO Q6HR PRN #20 tablet 11/20/18 Unknown Rx 5-325 mg TAB] Active Medications: Generic Name Dose Route Start Last Admin Trade Name Jesusq PRN Reason Stop Dose Admin Acetaminophen 650 mg 11/09/18 19:38 11/10/18 15:17 Tylenol PO 650 mg Q4H PRN Administration Pain MILD(1-3)/Fever >100.5/FLORES Acetaminophen 650 mg 11/11/18 00:04 11/11/18 17:29 Tylenol [place] 650 mg Q4H PRN Administration Fever >101; Mild Pain (1-3) Lipase/Protease/Amylase 1 each 11/13/18 15:36 Pancrepema Hull 10,500 Unit FEEDTUBE PRN PRN For Clogged Feeding Tube Atorvastatin Calcium 40 mg 11/10/18 22:00 11/20/18 22:16 Lipitor PO 40 mg QHS PRIYA Administration Docusate Sodium 100 mg 11/09/18 19:32 Colace PO BID PRN Constipation Epoetin Adonis 10,000 unit 11/11/18 08:00 11/20/18 13:49 Procrit SUB-Q 10,000 unit CONSTANTINO PRIYA Administration Hydralazine HCl 10 mg 11/13/18 08:56 11/13/18 14:05 Apresoline IV 10 mg Q4H PRN Administration BP > 160/105 Sodium Chloride 100 mls @ 999 mls/hr 11/11/18 11:09 Nacl 0.9% IV CONSTANTINO PRN Hypotension Insulin Human Lispro 0 unit 11/16/18 22:00 11/20/18 22:15 Humalog SUB-Q Not Given ACHS [facility] Protocol Ondansetron HCl 4 mg 11/09/18 19:38 11/15/18 06:48 Zofran IV 4 mg Q8H PRN Administration Nausea And Vomiting Oxycodone/Acetaminophen 1 tab 11/19/18 12:12 11/20/18 21:00 Percocet 5/325 PO 1 tab Q6H PRN Administration Pain, Moderate (4-6) Polyethylene Glycol 17 gm 11/09/18 19:38 Miralax 3350 PO QDAY PRN Constipation Simple Syrup 15 ml 11/13/18 15:36 Simple Syrup FEEDTUBE PRN PRN Hypoglycemia Simple Syrup 30 ml 11/13/18 15:36 Simple Syrup FEEDTUBE PRN PRN Hypoglycemia Sodium Bicarbonate 325 mg 11/13/18 15:36 Sodium Bicarbonate FEEDTUBE PRN PRN For Clogged Feeding Tube Sodium Chloride 10 ml 11/09/18 22:00 11/20/18 22:17 Sodium Chloride Flush Syringe 10 Ml IV 10 ml BID PRIYA Administration Sodium Chloride 10 ml 11/09/18 19:38 11/15/18 06:50 Sodium Chloride Flush Syringe 10 Ml IV 10 ml PRN PRN Administration LINE FLUSH
[2018-11-21] MEDS: HumaLOG SUB-Q SCH ×2 (09:00→14:46)
[2018-11-21] MEDS ORDERED: VERSED ONE (10:13)
[2018-11-21] MEDS ORDERED: NACL 0.9% 250ML 250 ML ONE (10:14)
[2018-11-21] MEDS ORDERED: SUBLIMAZE ONE (10:14)
[2018-11-21] MEDS ORDERED: HEPARIN/NS 5000 UNIT/500ML(CATH LAB) 500 ML IR ONE (10:27)
[2018-11-21] MEDS: HEPARIN/NS 5000 UNIT/500ML(CATH LAB) 500 ML IR ONE ×2 (10:29→10:37)
[2018-11-21] MEDS: XYLOCAINE 2% INFILTRATI ONE ×2 (10:31→10:42)
[2018-11-21] MEDS: HEPARIN 10,000 UNITS/10 ML ONE ×3 (10:38→10:42)
[2018-11-21] MEDS ORDERED: ANCEF/STERILE WATER 2 GM/20 ML 2 GM/20 ML SYRINGE IV ONE (10:40)
--- NOTE | 2018-11-21 10:55 | Post Operative Note ---
Pre-op diagnosis: ESRD Post-op diagnosis: same Findings: permacath in good postition,ready for use Procedure: insertion of permacath, right IJV, ultrasound, flouro Anesthesia: other (mod sedation [id number]) Surgeon: CLARISSA SALVADOR Estimated blood loss: none Pathology: none Condition: stable Disposition: floor
[2018-11-21 12:00] VITALS: BP 149/76
[2018-11-21] MEDS: PERCOCET 5/325 PO PRN (12:00)
== END 2018-11-21 17:14 | disposition home health service (06) | DRG 871 ==
LOC: ED 15:22 → 4A 19:39 → CC1 11-10 11:42 → 3A 11-13 21:26
PROVIDERS: ADMIT Internal Medicine; ATTEND Internal Medicine
PROC: 5A1D70Z Performance of Urinary Filtration, Intermittent, Less than 6 Hours Per Day (ICD-10-PCS; 2018-11-10)
PROC: 06HM33Z Insertion of Infusion Device into Right Femoral Vein, Percutaneous Approach (ICD-10-PCS; 2018-11-10)
PROC: B54BZZA Ultrasonography of Right Lower Extremity Veins, Guidance (ICD-10-PCS; 2018-11-10)
PROC: 30233N1 Transfusion of Nonautologous Red Blood Cells into Peripheral Vein, Percutaneous Approach (ICD-10-PCS; principal; 2018-11-11)
PROC: 5A1D70Z Performance of Urinary Filtration, Intermittent, Less than 6 Hours Per Day (ICD-10-PCS; 2018-11-11)
PROC: 5A1D70Z Performance of Urinary Filtration, Intermittent, Less than 6 Hours Per Day (ICD-10-PCS; 2018-11-13)
PROC: 5A1D70Z Performance of Urinary Filtration, Intermittent, Less than 6 Hours Per Day (ICD-10-PCS; 2018-11-16)
PROC: 07DR3ZX Extraction of Iliac Bone Marrow, Percutaneous Approach, Diagnostic (ICD-10-PCS; 2018-11-16)
PROC: 5A1D70Z Performance of Urinary Filtration, Intermittent, Less than 6 Hours Per Day (ICD-10-PCS; 2018-11-18)
PROC: 5A1D70Z Performance of Urinary Filtration, Intermittent, Less than 6 Hours Per Day (ICD-10-PCS; 2018-11-20)
PROC: 0JH63XZ Insertion of Tunneled Vascular Access Device into Chest Subcutaneous Tissue and Fascia, Percutaneous Approach (ICD-10-PCS; 2018-11-21)
PROC: 05HM33Z Insertion of Infusion Device into Right Internal Jugular Vein, Percutaneous Approach (ICD-10-PCS; 2018-11-21)
PROC: B5131ZA Fluoroscopy of Right Jugular Veins using Low Osmolar Contrast, Guidance (ICD-10-PCS; 2018-11-21)
PROC: B543ZZA Ultrasonography of Right Jugular Veins, Guidance (ICD-10-PCS; 2018-11-21)
DX: A41.9 Sepsis, unspecified organism (principal); N18.6 End stage renal disease; G93.41 Metabolic encephalopathy; E43 Unspecified severe protein-calorie malnutrition; E87.5 Hyperkalemia; I12.0 Hypertensive chronic kidney disease with stage 5 chronic kidney disease or end stage renal disease; E11.22 Type 2 diabetes mellitus with diabetic chronic kidney disease; E87.1 Hypo-osmolality and hyponatremia; K21.9 Gastro-esophageal reflux disease without esophagitis; J44.9 Chronic obstructive pulmonary disease, unspecified; N17.9 Acute kidney failure, unspecified; M54.12 Radiculopathy, cervical region; D63.1 Anemia in chronic kidney disease; K86.1 Other chronic pancreatitis; D69.6 Thrombocytopenia, unspecified; M06.1 Adult-onset Still's disease; K59.00 Constipation, unspecified; Z87.891 Personal history of nicotine dependence; Z90.49 Acquired absence of other specified parts of digestive tract; Z99.2 Dependence on renal dialysis; Z68.29 Body mass index [BMI] 29.0-29.9, adult
CPT/HCPCS: 36415; 36558; 38222; 70450; 70551; 71046; 74018; 74019; 74176; 76705; 76937; 77001; 80048; 80053; 80061; 80074; 80202; 80307; 80320; 81001; 82140; 82550; 82553; 82607; 82728; 82747; 82962; 83036; 83550; 83690; 83735; 84484; 85007; 85014; 85018; 85025; 85097; 85610; 85670; 85730; 86160; 86850; 86900; 86901; 86920; 87040; 87086; 87103; 87116; 88161; 88184; 88185; 88230; 88291; 88305; 88311; 88313; 93005; 93010; 93306; 93880; 94760; 96365; G0378; A9270-GY; C1750; G0480; J0360; J0610; J0690; J0692; J0885; J1170; J1644; J1815; J2250; J2405; J2543; J3010; J3246; J3370; J3475; J3480; J7030; J7040; J7050; P9016

== ENCOUNTER 2018-12-07 16:33 | Inpatient (IN) | payer MEDICAID ==
[2018-12-07] MEDS ORDERED: ZOFRAN IV ONE (17:19)
--- NOTE | 2018-12-07 17:23 | Emergency Department Report ---
ED General Adult HPI - General Chief complaint: Medical Clearance Stated complaint: FEVER Time Seen by Provider: 12/07/18 17:07 Source: patient, EMS (ems notes not available at time of chart dictation), RN notes reviewed, old records reviewed Mode of arrival: Stretcher Limitations: No Limitations - History of Present Illness Initial comments: This is a 63-year-old female. Her primary care doctor is Dr. Koenig Renal: Dr Alexander Past medical history, end-stage renal disease, on dialysis, reportedly Thursday, was sick, Thursday, last dialysis session was this past Thursday, today is Thursday. Past medical history also includes diabetes, hypertension, COPD, recent extensive evaluations for acute febrile illness. may also have a history of still's disease (supposed to follow up with outpatient rhem), and ttp patient presents to the ER today for medical clearance. She reports that she feels weak, and has shortness of breath for 2 days. The shortness of breath is exertional. She also describes decreased appetite, and not being able to eat. She reports that when she eats, she throws up. Today, she threw up twice, nonbloody, nonbilious. She denies headache, neck pain, chest pain, abdominal pain, urinary symptoms, focal extremity weakness, numbness, and has no documented fevers. Shortness of breath is intermittent, decreased appetite is constant, nausea and vomiting typically are associated with attempting to eat. -: Gradual, days(s) Severity scale (0 -10): 0 Consistency: intermittent Improves with: other Worsens with: other - Related Data Home Medications Medication Instructions Recorded Confirmed Last Taken Carvedilol [Coreg] 6.25 mg PO BID 12/07/18 12/07/18 Unknown Insulin Degludec [Tresiba 25 units SUB-Q DAILY 12/07/18 12/07/18 Unknown Flextouch U-100] amLODIPine [Norvasc] 10 mg PO DAILY 12/07/18 12/07/18 Unknown tiZANidine [Zanaflex 4mg TAB] 4 mg PO TID PRN 12/07/18 12/07/18 Unknown traMADol [Ultram] 50 mg PO TID PRN 12/07/18 12/07/18 Unknown Allergies Allergy/AdvReac Type Severity Reaction Status Date / Time No Known Allergies Allergy Verified 04/15/14 15:50 ED Review of Systems ROS: Stated complaint: FEVER Other details as noted in HPI Constitutional: malaise, weakness. denies: fever Eyes: denies: eye discharge ENT: denies: epistaxis Respiratory: shortness of breath. denies: cough Cardiovascular: denies: chest pain, syncope Gastrointestinal: denies: nausea, vomiting Genitourinary: denies: dysuria Musculoskeletal: arthralgia Skin: denies: lesions Neurological: weakness Hematological/Lymphatic: denies: easy bleeding ED Past Medical Hx - Past Medical History Hx Hypertension: Yes Hx Congestive Heart Failure: No Hx Diabetes: Yes Hx GERD: Yes Hx Renal Disease: Yes (CKD stage 4, no dialysis.) Hx Asthma: Yes Hx COPD: Yes Additional medical history: sleep apnea - Surgical History Hx Cholecystectomy: Yes Additional Surgical History: c section - Social History Smoking Status: Never Smoker - Medications Home Medications: Home Medications Medication Instructions Recorded Confirmed Last Taken Type Carvedilol [Coreg] 6.25 mg PO BID 12/07/18 12/07/18 Unknown History Insulin Degludec [Tresiba 25 units SUB-Q DAILY 12/07/18 12/07/18 Unknown History Flextouch U-100] amLODIPine [Norvasc] 10 mg PO DAILY 12/07/18 12/07/18 Unknown History tiZANidine [Zanaflex 4mg TAB] 4 mg PO TID PRN 12/07/18 12/07/18 Unknown History traMADol [Ultram] 50 mg PO TID PRN 12/07/18 12/07/18 Unknown History ED Physical Exam - General Limitations: No Limitations General appearance: alert, in no apparent distress - Head Head exam: Present: atraumatic, normocephalic - Eye Eye exam: Present: normal appearance, EOMI. Absent: nystagmus - ENT ENT exam: Present: normal exam, normal orophraynx, mucous membranes moist, normal external ear exam - Neck Neck exam: Present: normal inspection, full ROM. Absent: tenderness, meningismus - Respiratory Respiratory exam: Present: normal lung sounds bilaterally. Absent: respiratory distress - Cardiovascular Cardiovascular Exam: Present: regular rate, normal rhythm, normal heart sounds. Absent: bradycardia, tachycardia, irregular rhythm, systolic murmur, diastolic murmur, rubs, gallop - GI/Abdominal GI/Abdominal exam: Present: soft. Absent: distended, tenderness, guarding, puls atile mass - Extremities Exam Extremities exam: Present: normal inspection, full ROM, other (2+ pulses noted in the bilateral upper, lower extremities. Compartments soft. No long bony tenderness. The pelvis is stable.). Absent: calf tenderness - Back Exam Back exam: Present: normal inspection, full ROM. Absent: tenderness, CVA tenderness (R), CVA tenderness (L), paraspinal tenderness, vertebral tenderness - Neurological Exam Neurological exam: Present: alert, oriented X3, other (Extraocular movements intact. Tongue midline. No facial droop. Facial sensation intact to light touch in the V1, V2, V3 distribution bilaterally. 5 and 5 strength in 4 extremities.. Sensation is intact to light touch in 4 extremities.). Absent: motor sensory deficit - Psychiatric Psychiatric exam: Present: normal affect, normal mood - Skin Skin exam: Present: warm, dry, intact, normal color. Absent: rash ED Course Vital Signs 12/07/18 12/07/18 12/07/18 17:12 17:22 17:25 Temperature 97.8 F 98.9 F Pulse Rate 79 81 Respiratory 20 18 18 Rate Blood Pressure 143/79 Blood Pressure 142/88 135/74 [Left] O2 Sat by Pulse 99 92 94 Oximetry 12/07/18 12/07/18 12/07/18 17:26 17:30 18:00 Temperature Pulse Rate 78 81 Respiratory 18 15 18 Rate Blood Pressure 143/79 143/79 Blood Pressure [Left] O2 Sat by Pulse 94 91 95 Oximetry 12/07/18 12/07/18 12/07/18 18:30 19:00 19:30 Temperature Pulse Rate 78 76 84 Respiratory 17 14 13 Rate Blood Pressure 143/79 143/79 Blood Pressure [Left] O2 Sat by Pulse 91 96 95 Oximetry 12/07/18 12/07/18 12/07/18 20:00 20:30 21:00 Temperature Pulse Rate 72 75 80 Respiratory 13 14 12 Rate Blood Pressure 146/75 146/75 150/85 Blood Pressure [Left] O2 Sat by Pulse 99 98 95 Oximetry 12/07/18 12/07/18 12/07/18 21:30 22:00 22:30 Temperature Pulse Rate 78 77 71 Respiratory 13 15 17 Rate Blood Pressure 150/85 147/82 147/82 Blood Pressure [Left] O2 Sat by Pulse 99 98 100 Oximetry 12/07/18 12/07/18 12/07/18 22:40 22:50 23:00 Temperature Pulse Rate 76 73 73 Respiratory 17 17 15 Rate Blood Pressure 147/82 147/82 147/77 Blood Pressure [Left] O2 Sat by Pulse 96 95 96 Oximetry 12/07/18 23:34 Temperature 98.7 F Pulse Rate 76 Respiratory 20 Rate Blood Pressure 146/74 Blood Pressure [Left] O2 Sat by Pulse 95 Oximetry - Reevaluation(s) Reevaluation #1: 12/07/18 18:11 Differential diagnosis, including not limited to: GERD, gastritis, hiatal he rnia, pneumonia, , acute coronary syndrome, urinary tract infection, abdominal obstruction Assessment and plan: 63-year-old female with multiple complaints, including shortness of breath, nausea, decreased appetite, and not eating for 2 days. In the emergency room, she is afebrile with reassuring vital signs. She refuses rectal temperature. She refuses straight catheterization. We will treat her symptoms. So far, nursing team unable to obtain IV access. Phlebotomy unable to obtain laboratory studies. She is currently in CT scan at this moment. 12/07/18 19:16 Reevaluation #2: 12/07/18 19:16 CT scan suggests bilateral pneumonia. X-ray of the chest suggest interstitial edema. Suspect combination of both, and I think a pulmonary embolism is unlikely. 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 IV access established myself without difficulty. Reevaluation #3: 12/07/18 19:24 Discussed with nephrology, Dr. Champion, who will follow in consultation. Reevaluation #4: 12/07/18 19:27 Patient refusing straight cath and refusing IV in hand. Please note that her refusal of medical care has been to a delay in disposition. Reevaluation #5: 12/07/18 19:58 Dr Hurley to follow up on labs and contact medical team to arrange admission - EJ/Peripheral Line Neck L Time Out Performed: Yes Indications: nurses unable to establis, multiple IV sites needed Skin Cleansed in Sterile Fashion: Yes Size: 20 Dressing Placed: Tegaderm Patient Tolerated Procedure: well ED Medical Decision Making - Lab Data Result diagrams: 12/08/18 07:05 12/08/18 07:05 Vital Signs 12/07/18 12/07/18 12/07/18 17:12 17:22 17:25 Temperature 97.8 F 98.9 F Pulse Rate 79 81 Respiratory 20 18 18 Rate Blood Pressure 143/79 Blood Pressure 142/88 135/74 [Left] O2 Sat by Pulse 99 92 94 Oximetry 12/07/18 17:26 Temperature Pulse Rate Respiratory 18 Rate Blood Pressure Blood Pressure [Left] O2 Sat by Pulse 94 Oximetry - EKG Data -: EKG Interpreted by Or EKG shows normal: sinus rhythm Rate: normal - Radiology Data Radiology results: pending, report reviewed, image reviewed Print Report Referring Physician: MELBA REYNOSO Patient Name: MERCEDEZ SOTO Date of : 1955 Sex: Female Report Date: 2018-12-07 Report Status: Finalized Findings [facility] [address] [place] [address] Cat Scan Report Signed Patient: MERCEDEZ SOTO MR#: [id number] : 1955 Acct:[id number] Age/Sex: 63 / F ADM Date: 12/07/18 Loc: ED Attending Dr: Ordering Physician: MELBA REYNOSO MD Date of Service: 12/07/18 Procedure(s): CT abdomen pelvis wo con Accession Number(s): [id number] cc: MELBA REYNOSO MD CT abdomen pelvis wo con INDICATION / CLINICAL INFORMATION: Loss of appetite with nausea and vomiting. Shortness of breath. TECHNIQUE: All CT scans at this location are performed using CT dose reduction for ALARA by means of automated exposure control. COMPARISON: 11/09/2018. FINDINGS: ABDOMEN: The gallbladder is surgically absent. Changes of chronic calcific pancreatitis are again noted. There is no evidence of acute pancreatitis. The liver, bile ducts, spleen, adrenal glands, kidneys and bowel are normal. No adenopathy is seen. There is mild, patchy groundglass parenchymal disease and minimal consolidation/centrilobular nodularity in both lower lobes, new since the prior exam. PELVIS: The distal ureters and urinary bladder are normal. There is a mild amount of free fluid in the pelvis. The uterus and adnexal regions are unremarkable. A normal appendix is present and there is no evidence of diverticulitis. I do not identify a hernia. There is partial fusion of both SI joints. Erosive changes involving the right SI joint are stable. No fluid adjacent to the SI joint is seen IMPRESSION: 1. Interval development of patchy bilateral lower lobe pneumonia. 2. There is no evidence of acute intra-abdominal disease. Signer Name: Williams Rosado MD Signed: 12/07/2018 5:30 PM Workstation Name: [id number] Print Report Referring Physician: MELBA REYNOSO Patient Name: MERCEDEZ SOTO Date of : 1955 Sex: Female Report Date: 2018-12-07 Report Status: Finalized Findings [facility] [address] [place] [address] XRay Report Signed Patient: MERCEDEZ SOTO MR#: [id number] : 1955 Acct:[id number] Age/Sex: 63 / F ADM Date: 12/07/18 Loc: ED Attending Dr: Nemesio gibbs Physician: MELBA REYNOSO MD Date of Service: 12/07/18 Procedure(s): XR chest 1V ap Accession Number(s): [id number] cc: MELBA REYNOSO MD Fluoro Time In Minutes: CHEST 1 VIEW 6:42 PM INDICATION / CLINICAL INFORMATION: Dyspnea. Ill for 3 days. COMPARISON: None available. FINDINGS: SUPPORT DEVICES: There is a right jugular CVL with the tip overlying the mid to upper right atrium. HEART / MEDIASTINUM: The heart size is normal. There is mild prominence of the central pulmonary vessels. LUNGS / PLEURA: Interstitial lung markings are mildly increased diffusely. The patient is rotated to the right. No pneumothorax. ADDITIONAL FINDINGS: No significant additional findings. IMPRESSION: Mild diffuse interstitial edema. Signer Name: Williams Rosado MD Signed: 12/07/2018 6:06 PM Workstation Name: [id number] Transcribed By: REF Dictated By: JOSE POWELL MD Electronically Authenticated By: JOSE POWELL MD Signed Date/Time: 12/07/18 9261 Critical care attestation.: If time is entered above; I have spent that time in minutes in the direct care of this critically ill patient, excluding procedure time. ED Disposition Clinical Impression: Pneumonia, ESRD (end stage renal disease) Disposition: DC-09 OP ADMIT IP TO THIS HOSP Is pt being admited?: Yes Does the pt Need Aspirin: No Condition: Fair
--- NOTE | 2018-12-07 18:34 | Cat Scan Report ---
CT abdomen pelvis wo con INDICATION / CLINICAL INFORMATION: Loss of appetite with nausea and vomiting. Shortness of breath. TECHNIQUE: All CT scans at this location are performed using CT dose reduction for ALARA by means of automated e xposure control. COMPARISON: 11/09/2018. FINDINGS: ABDOMEN: The gallbladder is surgically absent. Changes of chronic calcific pancreatitis are again not ed. There is no evidence of acute pancreatitis. The liver, bile ducts, spleen, adrenal glands, kidney s and bowel are normal. No adenopathy is seen. There is mild, patchy groundglass parenchymal disease and minimal consolidation/centrilobular nodularity in both lower lobes, new since the prior exam. PELVIS: The distal ureters and urinary bladder are normal. There is a mild amount of free fluid in th e pelvis. The uterus and adnexal regions are unremarkable. A normal appendix is present and there is no evidence of diverticulitis. I do not identify a hernia. There is partial fusion of both SI joints. Erosive changes involving the right SI joint are stable. No fluid adjacent to the SI joint is seen IMPRESSION: 1. Interval development of patchy bilateral lower lobe pneumonia. 2. There is no evidence of acute intra-abdominal disease. Signer Name: Williams Rosado MD Signed: 12/07/2018 5:30 PM Workstation Name: [id number]
--- NOTE | 2018-12-07 19:10 | XRay Report ---
CHEST 1 VIEW 6:42 PM INDICATION / CLINICAL INFORMATION: Dyspnea. Ill for 3 days. COMPARISON: None available. FINDINGS: SUPPORT DEVICES: There is a right jugular CVL with the tip overlying the mid to upper right atrium. HEART / MEDIASTINUM: The heart size is normal. There is mild prominence of the central pulmonary vess els. LUNGS / PLEURA: Interstitial lung markings are mildly increased diffusely. The patient is rotated to the right. No pneumothorax. ADDITIONAL FINDINGS: No significant additional findings. IMPRESSION: Mild diffuse interstitial edema. Signer Name: Williams Rosado MD Signed: 12/07/2018 6:06 PM Workstation Name: [id number]
[2018-12-07] MEDS ORDERED: LEVAQUIN 500MG/100ML 500 MG/100 ML BAG IV ONE (19:16)
[2018-12-07 19:49] LABS: Basophils # (Auto) 0.1 K/mm3 (0.0-0.1); Basophils % (Auto) 1.5 % (0.0-1.8); Eosinophils # (Auto) 0.2 K/mm3 (0.0-0.4); Eosinophils % (Auto) 4.4 % (0.0-4.3); Hematocrit 21.9 % (30.3-42.9); Hemoglobin 7.1 gm/dl (10.1-14.3); Lymphocytes # (Auto) 1.2 K/mm3 (1.2-5.4); Lymphocytes % (Auto) 32.4 % (13.4-35.0); Mean Corpuscular HGB Conc 32 % (30-34); Mean Corpuscular Volume 83 fl (79-97); Monocytes # (Auto) 0.2 K/mm3 (0.0-0.8); Monocytes % (Auto) 6.4 % (0.0-7.3); Red Blood Count 2.63 M/mm3 (3.65-5.03); Red Cell Distribution Width 17.8 % (13.2-15.2)
[2018-12-07 19:50] LABS: Platelet Count 67 K/mm3 (140-440)
[2018-12-07 20:05] LABS: Albumin 2.2 g/dL (3.9-5); Calcium 6.9 mg/dL (8.4-10.2)
[2018-12-07 21:08] LABS: Chol/HDL Ratio 14.42 %
[2018-12-07] MEDS ORDERED: TYLENOL PO PRN (22:00)
[2018-12-07] MEDS ORDERED: ZOFRAN IV PRN (22:00)
[2018-12-07] MEDS ORDERED: PERCOCET 5/325 PO PRN (22:00)
[2018-12-07] MEDS ORDERED: SODIUM CHLORIDE FLUSH SYRINGE 10 ML IV PRN (22:00)
[2018-12-07] MEDS ORDERED: PROVENTIL IH PRN (22:00)
[2018-12-07] MEDS ORDERED: ZANAFLEX PO PRN (22:02)
[2018-12-07] MEDS ORDERED: D50W (25GM) Syringe IV PRN (22:28)
--- NOTE | 2018-12-07 22:34 | History and Physical Report ---
History of Present Illness Date of examination: 12/07/18 Date of admission: 12/07/2018 Chief complaint: Shortness of breath, cough History of present illness: 63-year-old -Danish female with history of ESRD on HD T//S, COPD, DM, HTN, GERD who presents to [facility] ED with complaints of intermittent shortness of breath, decreased appetite, nausea, emesis for the past 2 days. Pt states that she has been experiencing SOB with exertion for the past 2 days. She also complains of decreased appetite, nausea, and vomiting. Pt states that when she attempts to eat she throws up. She admits to cough but denies sputum production. Pt has upcoming appointment with cartoonist special effects for suspicion of still's disease and TTP. Dr. Alexander is her Cigarette Tipper. Denies: chest pain, Hemoptysis, hematemesis, sputum production, headache, or recent sick contact Past History Past Medical History: COPD, diabetes, ESRD (on HD T//S), GERD, hypertension Past Surgical History: Social history: lives with family Family history: no significant family history Medications and Allergies Allergies Allergy/AdvReac Type Severity Reaction Status Date / Time No Known Allergies Allergy Verified 04/15/14 15:50 Home Medications Medication Instructions Recorded Confirmed Last Taken Type Carvedilol [Coreg] 6.25 mg PO BID 12/07/18 12/07/18 Unknown History Insulin Degludec [Tresiba 25 units SUB-Q DAILY 12/07/18 12/07/18 Unknown History Flextouch U-100] amLODIPine [Norvasc] 10 mg PO DAILY 12/07/18 12/07/18 Unknown History tiZANidine [Zanaflex 4mg TAB] 4 mg PO TID PRN 12/07/18 12/07/18 Unknown History traMADol [Ultram] 50 mg PO TID PRN 12/07/18 12/07/18 Unknown History Active Meds: Active Medications Acetaminophen (Tylenol) 650 mg PO Q4H PRN PRN Reason: Pain MILD(1-3)/Fever >100.5/FLORES Albuterol (Proventil) 2.5 mg IH Q3HRT PRN PRN Reason: Shortness Of Breath Albuterol/Ipratropium (Duoneb *Not For Prn Use*) 1 ampul IH Q6HRT [facility] Amlodipine Besylate (Norvasc) 10 mg PO DAILY [facility] Budesonide (Pulmicort) 0.5 mg IH Q12HRT [facility] Carvedilol (Coreg) 6.25 mg PO BID [facility] Docusate Sodium (Colace) 100 mg PO BID [facility] Heparin Sodium (Porcine) (Heparin) 5,000 unit SUB-Q Q12HR [facility] Cefepime HCl (Maxipime/Ns 1 Gm/100 Ml) 1 gm in 100 mls @ 200 mls/hr IV Q8HR [facility]; Protocol Ondansetron HCl (Zofran) 4 mg IV Q8H PRN PRN Reason: Nausea And Vomiting Oxycodone/Acetaminophen (Percocet 5/325) 1 tab PO Q6H PRN PRN Reason: Pain, Moderate (4-6) Sodium Chloride (Sodium Chloride Flush Syringe 10 Ml) 10 ml IV BID PRIYA Sodium Chloride (Sodium Chloride Flush Syringe 10 Ml) 10 ml IV PRN PRN PRN Reason: LINE FLUSH Tizanidine HCl (Zanaflex) 4 mg PO TID PRN PRN Reason: Muscle Spasm Review of Systems All systems: negative (reviewed and no additional remarkable complaints except as noted below) Constitutional: poor appetite Respiratory: shortness of breath, dyspnea on exertion Gastrointestinal: nausea, vomiting Exam - Physical Exam Narrative exam: Physical exam General appearance: Present: No acute distress, drowsy but arousable, oriented 3, well-developed -Danish adult female - EENT Eyes: Present: PERRL, EOM intact ENT: hearing intact, poor dentition - Neck Neck: Present: supple, normal ROM - Respiratory Respiratory effort: Non-labored Respiratory: bilateral: diminished (bases) - Cardiovascular Heart rate: 74 (bpm) Rhythm: Sinus rhythm Heart Sounds: Present: S1 & S2. Absent: rub, click - Extremities Extremities: no ischemia, pulses intact, - Peripheral Assessment Peripheral Pulses: within normal limits - Abdominal General gastrointestinal: soft, non-tender, normal bowel sounds - Integumentary Integumentary: Present: warm, dry - Musculoskeletal Musculoskeletal: generalized weakness, able to move all extremities - Psychiatric Psychiatric: cooperative - Constitutional Vitals: Temp Pulse Resp BP Pulse Ox 98.9 F 75 14 146/75 98 12/07/18 17:25 12/07/18 20:30 12/07/18 20:30 12/07/18 20:30 12/07/18 20:30 Results - Labs CBC & Chem 7: 12/07/18 19:30 12/07/18 19:30 Labs: Laboratory Last Values WBC 3.6 K/mm3 (4.5-11.0) L 12/07/18 19:30 RBC 2.63 M/mm3 (3.65-5.03) L 12/07/18 19:30 Hgb 7.1 gm/dl (10.1-14.3) L 12/07/18 19:30 Hct 21.9 % (30.3-42.9) L 12/07/18 19:30 MCV 83 fl (79-97) 12/07/18 19: MCH 27 pg (28-32) L 12/07/18 19: MCHC 32 % (30-34) 12/07/18 19: RDW 17.8 % (13.2-15.2) H 12/07/18 19:30 Plt Count 67 K/mm3 (140-440) L 12/07/18 19:30 Lymph % (Auto) 32.4 % (13.4-35.0) 12/07/18 19:30 [place] % (Auto) 6.4 % (0.0-7.3) 12/07/18 19: Eos % (Auto) 4.4 % (0.0-4.3) H 12/07/18 19:30 Baso % (Auto) 1.5 % (0.0-1.8) 12/07/18 19:30 Lymph # 1.2 K/mm3 (1.2-5.4) 12/07/18 19:30 [place] # 0.2 K/mm3 (0.0-0.8) 12/07/18 19:30 Eos # 0.2 K/mm3 (0.0-0.4) 12/07/18 19: Baso # 0.1 K/mm3 (0.0-0.1) 12/07/18 19:30 Seg Neutrophils % 55.3 % (40.0-70.0) 12/07/18 19:30 Seg Neutrophils # 2.0 K/mm3 (1.8-7.7) 12/07/18 19:30 Sodium 136 mmol/L (137-145) L 12/07/18 19:30 Potassium 3.6 mmol/L (3.6-5.0) 12/07/18 19:30 Chloride 97.2 mmol/L (98-107) L 12/07/18 19:30 Carbon Dioxide 25 mmol/L (22-30) 12/07/18 19:30 17 mmol/L 12/07/18 19:30 BUN 48 mg/dL (7-17) H 12/07/18 19:30 8.5 mg/dL (0.7-1.2) H 12/07/18 19:30 Estimated GFR 6 ml/min 12/07/18 19:30 6 % 12/07/18 19:30 Glucose 123 mg/dL (65-100) H 12/07/18 19:30 Lactic Acid 0.80 mmol/L (0.7-2.0) 12/07/18 Unknown Calcium 6.9 mg/dL (8.4-10.2) L 12/07/18 19:30 Magnesium 1.90 mg/dL (1.7-2.3) 12/07/18 19:30 0.40 mg/dL (0.1-1.2) 12/07/18 19:30 AST 110 units/L (5-40) H 12/07/18 19:30 ALT 20 units/L (7-56) 12/07/18 19:30 119 units/L (35-129) 12/07/18 19:30 66 units/L (30-135) 12/07/18 19:30 0.106 ng/mL (0.00-0.029) H* 12/07/18 19:30 5.2 g/dL (6.3-8.2) L 12/07/18 19:30 2.2 g/dL (3.9-5) L 12/07/18 19:30 0.7 % 12/07/18 19:30 Triglycerides 365 mg/dL (2-149) H 12/07/18 19:30 Cholesterol 101 mg/dL (50-199) 12/07/18 19:30 13 mg/dL (50-130) L 12/07/18 19:30 7 mg/dL (40-59) L 12/07/18 19:30 14.42 % 12/07/18 19:30 Salicylates < 0.3 mg/dL (2.8-20.0) L 12/07/18 19:30 Acetaminophen < 5.0 ug/mL (10.0-30.0) L 12/07/18 19:30 - Imaging and Cardiology EKG: image reviewed (74 beats per minute, sinus rhythm) Chest x-ray: report reviewed (Mild diffuse interstitial edema. ), image reviewed Imaging and Cardiology: CT Abd/Pelvis: IMPRESSION: 1. Interval development of patchy bilateral lower lobe pneumonia. 2. There is no evidence of acute intra-abdominal disease. Assessment and Plan Assessment and plan: 63-year-old -Danish female with history of ESRD on HD T//S, COPD, DM, HTN, GERD who presents to [facility] ED with complaints of intermittent shortness of breath, decreased appetite, nausea, and emesis for the past [address] abdomen and pelvis showed bilateral lower lobe pneumonia. Will admit to [facility] unit. Bilateral lower lobe pneumonia Elevated troponin-likely secondary to ESRD ??Acute gastroenteritis ESRD on HD T/T/S Hypertension DM GERD COPD Moderate- severe malnutrition HLD Plan: Continue supportive care Start cefepime 1 g every 24 hours and vancomycin ID consulted Slight elevation in Troponin 0.106: will trend troponin Cardiology Consulted Nephrology consult HD management Avoid nephro toxic agents, adjust medications per renal dosing Monitor BP Resume home antihypertensive meds:Norvasc 10 mg daily, Coreg 6.2 mg twice a day POC BG Monitoring SSI insulin Start scheduled nebs and Pulmicort, albuterol when necessary Protonix 40mg daily Consult dietitian Manage nausea and encourage oral intake Start Lipitor 40 qhs DVT PPX on Heparin Advance Directives: No VTE prophylaxis?: Chemical Plan of care discussed with patient/family: Yes
[2018-12-07] MEDS: COLACE PO SCH (22:48)
[2018-12-07] MEDS: SODIUM CHLORIDE FLUSH SYRINGE 10 ML IV SCH (22:49)
[2018-12-07] MEDS: HEPARIN SUB-Q SCH (22:49)
[2018-12-07] MEDS ORDERED: VANCOMYCIN PHARMACY TO DOSE IV SCH (23:00)
[2018-12-08] MEDS ORDERED: VANCOMYCIN 1,750 MG in NACL 0.9% 500 ML 500 ML IV ONE
[2018-12-08] MEDS ORDERED: DUONEB *Not for PRN Use IH SCH (02:00)
[2018-12-08] MEDS ORDERED: MAXIPIME/NS 1 GM/100 ML 1 GM/100 ML BAG IV SCH ×2 (06:00→18:00)
[2018-12-08] MEDS ORDERED: NACL 0.9% 100 ML IV PRN (07:27)
[2018-12-08] MEDS: HumaLOG SUB-Q SCH ×3 (07:30→17:54)
[2018-12-08 07:48] LABS: Basophils % (Auto) 1.1 % (0.0-1.8); Eosinophils # (Auto) 0.2 K/mm3 (0.0-0.4); Eosinophils % (Auto) 6.1 % (0.0-4.3); Hematocrit 23.4 % (30.3-42.9); Hemoglobin 7.8 gm/dl (10.1-14.3); Lymphocytes # (Auto) 0.8 K/mm3 (1.2-5.4); Lymphocytes % (Auto) 19.6 % (13.4-35.0); Mean Corpuscular HGB Conc 33 % (30-34); Mean Corpuscular Volume 84 fl (79-97); Monocytes # (Auto) 0.2 K/mm3 (0.0-0.8); Monocytes % (Auto) 5.7 % (0.0-7.3)
[2018-12-08 07:53] LABS: Platelet Count 77 K/mm3 (140-440)
[2018-12-08] MEDS: PULMICORT IH SCH ×2 (08:16→19:54)
[2018-12-08] MEDS: DUONEB *Not for PRN Use IH SCH ×3 (08:16→19:54)
--- NOTE | 2018-12-08 09:40 | Consultation ---
History of Present Illness - Reason for Consult Consult date: 12/08/18 PNA Requesting physician: JAQUELIN ALMANZA - History of Present Illness This patient is a 63-year-old female with a past medical history of diabetes, hypertension, COPD, ESRD on HD T/TH/S and GERD, known to ID from a previous admission on 11/10/18 with Sepsis/FUO. No leukocytosis. Blood cultures negative. Fungal blood culture negative. Ferritin >2000. Bone marrow no growth. Tick borne serology negative. Anemia, throbocytopenia worsening. Hematology was consulted.. Bone marrow biopsy was done 11/16/18. and was being sent out for evaluation..She has also had had 2 recent hospitalization at [facility] and [facility] in the month of October 2018, admitted there due to generalized rash, body aches, fevers, right upper extremity weakness and chest pain .She was seen by infectious diseases, nephrology, neurology, cardiology as well as rheumatology. Extensive workup for infectious process was negative, apparently as per the ID consult at [facility] her fevers were attributed to a possible drug reaction secondary to calcitriol or tartrazine. She was subsequen tly discharged home with recommendations to follow-up with nephrology. She now presents to the ED on 12/07/18 with complaints of intermittent SOB, decreased appetite, nausea, emesis for the past 2 days. She admits to cough but denies sputum production. She reported an upcoming appointment with a vitamin manager for suspicion of still's disease and TTP. On admission WBC 3.6, Creatinine 8.5, lactic acid 0.80, Temperature 98.7, HR 79, CXR shows interstitial lung markings are mildly increased diffusely. no pneumothorax. Abdomen and Pelvis CT show interval development of patchy bilateral lower lobe pneumonia. No evidence of acute intra-abdominal disease.. Blood cultures are in progress. Past History Past Medical History: COPD, diabetes, ESRD (on HD T/T/S), GERD, hypertension Past Surgical History: Social history: lives with family Family history: no significant family history Medications and Allergies Allergies Allergy/AdvReac Type Severity Reaction Status Date / Time No Known Allergies Allergy Verified 04/15/14 15:50 Home Medications Medication Instructions Recorded Confirmed Last Taken Type Carvedilol [Coreg] 6.25 mg PO BID 12/07/18 12/07/18 Unknown History Insulin Degludec [Tresiba 25 units SUB-Q DAILY 12/07/18 12/07/18 Unknown History Flextouch U-100] amLODIPine [Norvasc] 10 mg PO DAILY 12/07/18 12/07/18 Unknown History tiZANidine [Zanaflex 4mg TAB] 4 mg PO TID PRN 12/07/18 12/07/18 Unknown History traMADol [Ultram] 50 mg PO TID PRN 12/07/18 12/07/18 Unknown History Active Meds: Active Medications Acetaminophen (Tylenol) 650 mg PO Q4H PRN PRN Reason: Pain MILD(1-3)/Fever >100.5/FLORES Albuterol (Proventil) 2.5 mg IH Q3HRT PRN PRN Reason: Shortness Of Breath Albuterol/Ipratropium (Duoneb *Not For Prn Use*) 1 ampul IH TIDRT [facility] Last Admin: 12/08/18 08:16 Dose: 1 ampul Documented by: Amlodipine Besylate (Norvasc) 10 mg PO DAILY [facility] Atorvastatin Calcium (Lipitor) 40 mg PO QHS [facility] Budesonide (Pulmicort) 0.5 mg IH Q12HRT [facility] Last Admin: 12/08/18 08:16 Dose: 0.5 mg Documented by: Carvedilol (Coreg) 6.25 mg PO BID [facility] Dextrose (D50w (25gm) Syringe) 50 ml IV PRN PRN PRN Reason: Hypoglycemia Docusate Sodium (Colace) 100 mg PO BID [facility] Last Admin: 12/07/18 22:48 Dose: Not Given Documented by: Heparin Sodium (Porcine) (Heparin) 5,000 unit SUB-Q Q12HR [facility] Last Admin: 12/07/18 22:49 Dose: Not Given Documented by: Hydromorphone HCl (Dilaudid) 0.25 mg IV Q3H PRN PRN Reason: Pain , Severe (7-10) Stop: 12/09/18 23:08 Cefepime HCl (Maxipime/Ns 1 Gm/100 Ml) 1 gm in 100 mls @ 200 mls/hr IV Q24H [facility]; Protocol Last Admin: 12/08/18 06:33 Dose: 200 mls/hr Documented by: Sodium Chloride (Nacl 0.9%) 100 mls @ 999 mls/hr IV CONST[facility]INO PRN PRN Reason: Hypotension Insulin Human Lispro (Humalog) 0 unit SUB-Q ACHS [facility]; Protocol Ondansetron HCl (Zofran) 4 mg IV Q8H PRN PRN Reason: Nausea And Vomiting Oxycodone/Acetaminophen (Percocet 5/325) 1 tab PO Q6H PRN PRN Reason: Pain, Moderate (4-6) Pantoprazole Sodium (Protonix) 40 mg PO QDAY [facility] Pantoprazole Sodium (Protonix) 40 mg IV QDAY [facility] Stop: 12/10/18 10:01 Sodium Chloride (Sodium Chloride Flush Syringe 10 Ml) 10 ml IV BID [facility] Last Admin: 12/07/18 22:49 Dose: 10 ml Documented by: Sodium Chloride (Sodium Chloride Flush Syringe 10 Ml) 10 ml IV PRN PRN PRN Reason: LINE FLUSH Tizanidine HCl (Zanaflex) 4 mg PO TID PRN PRN Reason: Muscle Spasm Physical Examination - Constitutional Vitals: Vital Signs Temp Pulse Resp BP Pulse Ox 98.7 F 78 18 146/75 93 12/08/18 05:48 12/08/18 08:28 12/08/18 08:28 12/08/18 05:48 12/08/18 05:48 Temperature -Last 24 Hours Temperature 98.7 F Temperature 98.7 F Temperature 98.9 F Temperature 97.8 F Results - Labs CBC & Chem 7: 12/08/18 07:05 12/08/18 07:05 Labs: Abnormal lab results 12/07/18 12/07/18 12/07/18 Range/Units 19:30 19:30 19:30 WBC 3.6 L (4.5-11.0) K/mm3 RBC 2.63 L (3.65-5.03) M/mm3 Hgb 7.1 L (10.1-14.3) gm/dl Hct 21.9 L (30.3-42.9) % MCH 27 L (28-32) pg RDW 17.8 H (13.2-15.2) % Plt Count 67 L (140-440) K/mm3 Eos % (Auto) 4.4 H (0.0-4.3) % Lymph # (1.2-5.4) K/mm3 Sodium 136 L (137-145) mmol/L Chloride 97.2 L (98-107) mmol/L BUN 48 H (7-17) mg/dL Creatinine 8.5 H (0.7-1.2) mg/dL Glucose 123 H (65-100) mg/dL POC Glucose (70-105) Calcium 6.9 L (8.4-10.2) mg/dL AST 110 H (5-40) units/L Troponin T 0.106 H* (0.00-0.029) ng/mL Total Protein 5.2 L (6.3-8.2) g/dL Albumin 2.2 L (3.9-5) g/dL Triglycerides 365 H (2-149) mg/dL LDL Cholesterol Direct 13 L (50-130) mg/dL HDL Cholesterol 7 L (40-59) mg/dL Salicylates < 0.3 L (2.8-20.0) mg/dL Acetaminophen (10.0-30.0) ug/mL 12/07/18 12/08/18 12/08/18 Range/Units 19:30 07:05 07:05 WBC 3.9 L (4.5-11.0) K/mm3 RBC 2.80 L (3.65-5.03) M/mm3 Hgb 7.8 L (10.1-14.3) gm/dl Hct 23.4 L (30.3-42.9) % MCH (28-32) pg RDW 18.0 H (13.2-15.2) % Plt Count 77 L (140-440) K/mm3 Eos % (Auto) 6.1 H (0.0-4.3) % Lymph # 0.8 L (1.2-5.4) K/mm3 Sodium 136 L (137-145) mmol/L Chloride 95.3 L (98-107) mmol/L BUN 51 H (7-17) mg/dL Creatinine 8.7 H (0.7-1.2) mg/dL Glucose 114 H (65-100) mg/dL POC Glucose (70-105) Calcium 7.0 L (8.4-10.2) mg/dL AST (5-40) units/L Troponin T (0.00-0.029) ng/mL Total Protein (6.3-8.2) g/dL Albumin (3.9-5) g/dL Triglycerides (2-149) mg/dL LDL Cholesterol Direct (50-130) mg/dL HDL Cholesterol (40-59) mg/dL Salicylates (2.8-20.0) mg/dL Acetaminophen < 5.0 L (10.0-30.0) ug/mL 12/08/18 Range/Units 08:00 WBC (4.5-11.0) K/mm3 RBC (3.65-5.03) M/mm3 Hgb (10.1-14.3) gm/dl Hct (30.3-42.9) % MCH (28-32) pg RDW (13.2-15.2) % Plt Count (140-440) K/mm3 Eos % (Auto) (0.0-4.3) % Lymph # (1.2-5.4) K/mm3 Sodium (137-145) mmol/L Chloride (98-107) mmol/L BUN (7-17) mg/dL Creatinine (0.7-1.2) mg/dL Glucose (65-100) mg/dL POC Glucose 124 H (70-105) Calcium (8.4-10.2) mg/dL AST (5-40) units/L Troponin T (0.00-0.029) ng/mL Total Protein (6.3-8.2) g/dL Albumin (3.9-5) g/dL Triglycerides (2-149) mg/dL LDL Cholesterol Direct (50-130) mg/dL HDL Cholesterol (40-59) mg/dL Salicylates (2.8-20.0) mg/dL Acetaminophen (10.0-30.0) ug/mL - Imaging and Cardiology Chest x-ray: report reviewed (Interstitial lung markings are mildly increased diffusely. No pneumothorax.) CT scan - abdomen: report reviewed (nterval development of patcy bilateral lower lobe pnuemonia. No evidence of acute intra-abdominial disease) Assessment and Plan Cultures: 12/07/18 Blood: in progress A/P: a 63-year-old female with a past medical history of diabetes, hypertension, COPD, ESRD on HD / and GERD, known to ID from a previous admission on 11/10/18 with Sepsis/FUO. Now admitted with : 1. Bilateral Lobe pneumonia: Abdomen and pelvis CT shows bilateral lower lobe pnuemonia,. Complaints of nausea and emesis last 2 days. + cough no sputum production. No fever. no leukocytosis. Blood cultures in progress.. No infectious process . Currently being treated with Vancomycin and Cefepime.. 2. ESRD on HD: Antibiotics renally adjusted. Neprology following 3. DM: uncontrolled. recommend tight glycemic contol 4. Elevated troponin: Recommendations: -Discontinue Cefepime and Vancomycin renally adjusted -follow-up blood cultures [facility] M: [phone] O:[phone]
--- NOTE | 2018-12-08 10:31 | Progress Note ---
Assessment and Plan Assessment and plan: 63-year-old -Luxembour[place] female with history of ESRD on HD T//S, COPD, DM, HTN, GERD who presents to [facility] with complaints of intermittent shortness of breath, decreased appetite, nausea, and emesis for the past [address] abdomen and pelvis showed bilateral lower lobe pneumonia. Will admit to [facility] unit. Bilateral lower lobe pneumonia - Patient is on IV cefepime and vancomycin - ID consulted - We'll follow blood culture Elevated troponin-likely secondary to ESRD - Cardiology consulted Abdomen pain - Symptomatic management ESRD on HD T/T/S - Nephrology consulted and will get dialysis Hypertension - Continue Norvasc and Coreg DM - Sliding scale insulin, Accu-Chek, ADA diet GERD - On Protonix COPD - Continue nebs and Pulmicort and albuterol when necessary Moderate- severe malnutrition - Dietary consult HLD - Continue Lipitor DVT PPX on Heparin History Interval history: Patient was seen and this morning, patient is complaining shortness of breath. Hospitalist Physical - Physical exam Narrative exam: Not in cardiopulmonary distress. The patient is obese. Vital signs as documented. Head exam is unremarkable. No scleral icterus . Neck is without jugular venous distension, thyromegaly, or carotid bruits. Lungs are clear to auscultation. Cardiac exam reveals regular rate and Rhythm. Abdominal exam reveals normal bowel sounds, no masses, no organomegaly and no aortic enlargement. Extremities are nonedematous and both femoral and pedal pulses are normal. 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 No focal weakness. - Constitutional Vitals: Temp Pulse Resp BP Pulse Ox 98.7 F 78 18 146/75 93 12/08/18 05:48 12/08/18 08:28 12/08/18 08:28 12/08/18 05:48 12/08/18 05:48 Results - Labs CBC & Chem 7: 12/08/18 07:05 12/08/18 07:05 Labs: Laboratory Last Values WBC 3.9 K/mm3 (4.5-11.0) L 12/08/18 07:05 RBC 2.80 M/mm3 (3.65-5.03) L 12/08/18 07:05 Hgb 7.8 gm/dl (10.1-14.3) L 12/08/18 07:05 Hct 23.4 % (30.3-42.9) L 12/08/18 07:05 MCV 84 fl (79-97) 12/08/18 07:05 MCH 28 pg (28-32) 12/08/18 07:05 MCHC 33 % (30-34) 12/08/18 07:05 RDW 18.0 % (13.2-15.2) H 12/08/18 07:05 Plt Count 77 K/mm3 (140-440) L 12/08/18 07:05 Lymph % (Auto) 19.6 % (13.4-35.0) 12/08/18 07:05 [place] % (Auto) 5.7 % (0.0-7.3) 12/08/18 07:05 Eos % (Auto) 6.1 % (0.0-4.3) H 12/08/18 07:05 Baso % (Auto) 1.1 % (0.0-1.8) 12/08/18 07:05 Lymph # 0.8 K/mm3 (1.2-5.4) L 12/08/18 07:05 [place] # 0.2 K/mm3 (0.0-0.8) 12/08/18 07:05 Eos # 0.2 K/mm3 (0.0-0.4) 12/08/18 07:05 Baso # 0.0 K/mm3 (0.0-0.1) 12/08/18 07:05 Seg Neutrophils % 67.5 % (40.0-70.0) 12/08/18 07:05 Seg Neutrophils # 2.6 K/mm3 (1.8-7.7) 12/08/18 07:05 Sodium 136 mmol/L (137-145) L 12/08/18 07:05 Potassium 3.7 mmol/L (3.6-5.0) 12/08/18 07:05 Chloride 95.3 mmol/L (98-107) L 12/08/18 07:05 Carbon Dioxide 23 mmol/L (22-30) 12/08/18 07:05 21 mmol/L 12/08/18 07:05 BUN 51 mg/dL (7-17) H 12/08/18 07:05 8.7 mg/dL (0.7-1.2) H 12/08/18 07:05 Estimated GFR 6 ml/min 12/08/18 07:05 6 % 12/08/18 07:05 Glucose 114 mg/dL (65-100) H 12/08/18 07:05 POC Glucose 124 (70-105) H 12/08/18 08:00 Lactic Acid 0.80 mmol/L (0.7-2.0) 12/07/18 Unknown Calcium 7.0 mg/dL (8.4-10.2) L 12/08/18 07:05 Magnesium 1.90 mg/dL (1.7-2.3) 12/07/18 19:30 0.40 mg/dL (0.1-1.2) 12/07/18 19:30 AST 110 units/L (5-40) H 12/07/18 19:30 ALT 20 units/L (7-56) 12/07/18 19:30 119 units/L (35-129) 12/07/18 19:30 66 units/L (30-135) 12/07/18 19:30 0.106 ng/mL (0.00-0.029) H* 12/07/18 19:30 5.2 g/dL (6.3-8.2) L 12/07/18 19:30 2.2 g/dL (3.9-5) L 12/07/18 19:30 0.7 % 12/07/18 19:30 Triglycerides 365 mg/dL (2-149) H 12/07/18 19:30 Cholesterol 101 mg/dL (50-199) 12/07/18 19:30 13 mg/dL (50-130) L 12/07/18 19:30 7 mg/dL (40-59) L 12/07/18 19:30 14.42 % 12/07/18 19:30 Salicylates < 0.3 mg/dL (2.8-20.0) L 12/07/18 19:30 Acetaminophen < 5.0 ug/mL (10.0-30.0) L 12/07/18 19:30 Active Medications - Current Medications Current Medications: Generic Name Dose Route Start Last Admin Trade Name Freq PRN Reason Stop Dose Admin Acetaminophen 650 mg 12/07/18 22:00 Tylenol PO Q4H PRN Pain MILD(1-3)/Fever >100.5/FLORES Albuterol 2.5 mg 12/07/18 22:00 Proventil IH Q3HRT PRN Shortness Of Breath Albuterol/Ipratropium 1 ampul 12/08/18 08:00 12/08/18 08:16 Duoneb *Not For Prn Use* IH 1 ampul TIDRT [facility] Administration Amlodipine Besylate 10 mg 12/08/18 10:00 Norvasc PO DAILY [facility] Atorvastatin Calcium 40 mg 12/08/18 22:00 Lipitor PO QHS [facility] Budesonide 0.5 mg 12/08/18 08:00 12/08/18 08:16 Pulmicort IH 0.5 mg Q12HRT [facility] Administration Carvedilol 6.25 mg 12/08/18 10:00 Coreg PO BID [facility] Dextrose 50 ml 12/07/18 22:28 D50w (25gm) Syringe IV PRN PRN Hypoglycemia Docusate Sodium 100 mg 12/07/18 22:00 12/07/18 22:48 Colace PO Not Given BID [facility] Heparin Sodium (Porcine) 5,000 unit 12/07/18 22:00 12/07/18 22:49 Heparin SUB-Q Not Given Q12HR [facility] Hydromorphone HCl 0.25 mg 12/07/18 23:09 Dilaudid IV 12/09/18 23:08 Q3H PRN Pain , Severe (7-10) Cefepime HCl 1 gm in 100 mls @ 200 mls/hr 12/08/18 06:00 12/08/18 06:33 Maxipime/Ns 1 Gm/100 Ml IV 200 mls/hr Q24H [facility] Administration Protocol Sodium Chloride 100 mls @ 999 mls/hr 12/08/18 07:27 Nacl 0.9% IV [facility] PRN Hypotension Insulin Human Lispro 0 unit 12/08/18 07:30 Humalog SUB-Q ACHS [facility] Protocol Ondansetron HCl 4 mg 12/07/18 22:00 Zofran IV Q8H PRN Nausea And Vomiting Oxycodone/Acetaminophen 1 tab 12/07/18 22:00 Percocet 5/325 PO Q6H PRN Pain, Moderate (4-6) Pantoprazole Sodium 40 mg 12/11/18 10:00 Protonix PO QDAY [facility] Pantoprazole Sodium 40 mg 12/08/18 10:00 Protonix IV 12/10/18 10:01 QDAY PRI[facility] Sodium Chloride 10 ml 12/07/18 22:00 12/07/18 22:49 Sodium Chloride Flush Syringe 10 Ml IV 10 ml BID [facility] Administration Sodium Chloride 10 ml 12/07/18 22:00 Sodium Chloride Flush Syringe 10 Ml IV PRN PRN LINE FLUSH Tizanidine HCl 4 mg 12/07/18 22:02 Zanaflex PO TID PRN Muscle Spasm
--- NOTE | 2018-12-08 10:50 | Consultation ---
<MARISOL JANE - Last Filed: 12/08/18 10:54> History of Present Illness Consult date: 12/08/18 Consult reason: elevated troponin History of present illness: This is a 63-year old woman with a history of ESRD on dialysis, anemia, diabetes and hypertension who was brought to this hospital with report of not feeling well. CT scan reports interval development of patchy bilateral lower lobe pneumonia. A cardiac consultation has been requested for elevation of troponin. Initial labs shows multiple metabolic abnormalities including a WBC of 3.6, Platelets of 67,000 with an H&H of 7.1/21.9. Troponin of 0.106 likely in the setting of renal failure, creatinine of 8.5. ECG is sinus rhythm, no acute ischemic changes. Patient denies shortness of breath and chest pain but reports intermittent dizziness. She admits one missed dialysis session. There is no lower extremity edema. An echocardiogram done within the last month reports a normal left ventricular systolic function, well preserved ejection fraction 55-60%. In 2014, she underwent a stress thallium test that reports diaphragmatic attenuation, no reversible ischemia. Past History Past Medical History: COPD, diabetes, ESRD, GERD, hypertension Past Surgical History: Social history: lives with family Family history: no significant family history Medications and Allergies Allergies Allergy/AdvReac Type Severity Reaction Status Date / Time No Known Allergies Allergy Verified 04/15/14 15:50 Home Medications Medication Instructions Recorded Confirmed Last Taken Type Carvedilol [Coreg] 6.25 mg PO BID 12/07/18 12/07/18 Unknown History Insulin Degludec [Tresiba 25 units SUB-Q DAILY 12/07/18 12/07/18 Unknown History Flextouch U-100] amLODIPine [Norvasc] 10 mg PO DAILY 12/07/18 12/07/18 Unknown History tiZANidine [Zanaflex 4mg TAB] 4 mg PO TID PRN 12/07/18 12/07/18 Unknown History traMADol [Ultram] 50 mg PO TID PRN 12/07/18 12/07/18 Unknown History Active Meds: Active Medications Acetaminophen (Tylenol) 650 mg PO Q4H PRN PRN Reason: Pain MILD(1-3)/Fever >100.5/FLORES Albuterol (Proventil) 2.5 mg IH Q3HRT PRN PRN Reason: Shortness Of Breath Albuterol/Ipratropium (Duoneb *Not For Prn Use*) 1 ampul IH TIDRT [facility] Last Admin: 12/08/18 08:16 Dose: 1 ampul Documented by: Amlodipine Besylate (Norvasc) 10 mg PO DAILY [facility] Atorvastatin Calcium (Lipitor) 40 mg PO QHS [facility] Budesonide (Pulmicort) 0.5 mg IH Q12HRT [facility] Last Admin: 12/08/18 08:16 Dose: 0.5 mg Documented by: Carvedilol (Coreg) 6.25 mg PO BID [facility] Dextrose (D50w (25gm) Syringe) 50 ml IV PRN PRN PRN Reason: Hypoglycemia Docusate Sodium (Colace) 100 mg PO BID [facility] Last Admin: 12/07/18 22:48 Dose: Not Given Documented by: Heparin Sodium (Porcine) (Heparin) 5,000 unit SUB-Q Q12HR [facility] Last Admin: 12/07/18 22:49 Dose: Not Given Documented by: Hydromorphone HCl (Dilaudid) 0.25 mg IV Q3H PRN PRN Reason: Pain , Severe (7-10) Stop: 12/09/18 23:08 Cefepime HCl (Maxipime/Ns 1 Gm/100 Ml) 1 gm in 100 mls @ 200 mls/hr IV Q24H [facility]; Protocol Last Admin: 12/08/18 06:33 Dose: 200 mls/hr Documented by: Sodium Chloride (Nacl 0.9%) 100 mls @ 999 mls/hr IV CONSTANTINO PRN PRN Reason: Hypotension Insulin Human Lispro (Humalog) 0 unit SUB-Q ACHS [facility]; Protocol Ondansetron HCl (Zofran) 4 mg IV Q8H PRN PRN Reason: Nausea And Vomiting Oxycodone/Acetaminophen (Percocet 5/325) 1 tab PO Q6H PRN PRN Reason: Pain, Moderate (4-6) Pantoprazole Sodium (Protonix) 40 mg PO QDAY [facility] Pantoprazole Sodium (Protonix) 40 mg IV QDAY [facility] Stop: 12/10/18 10:01 Sodium Chloride (Sodium Chloride Flush Syringe 10 Ml) 10 ml IV BID [facility] Last Admin: 12/07/18 22:49 Dose: 10 ml Documented by: Sodium Chloride (Sodium Chloride Flush Syringe 10 Ml) 10 ml IV PRN PRN PRN Reason: LINE FLUSH Tizanidine HCl (Zanaflex) 4 mg PO TID PRN PRN Reason: Muscle Spasm Physical Examination Vital Signs Temp Resp BP Pulse Ox 97.8 F 20 142/88 99 12/07/18 17:12 12/07/18 17:12 12/07/18 17:12 12/07/18 17:12 General appearance: no acute distress HEENT: Positive: PERRL Neck: Positive: trachea midline Cardiac: Positive: Reg Rate and Rhythm Lungs: Positive: Decreased Breath Sounds Neuro: Positive: Grossly Intact Extremities: Absent: edema Results 12/08/18 07:05 12/08/18 07:05 Cardiac Enzymes 12/07/18 Range/Units 19:30 AST 110 H (5-40) units/L Lipids 12/07/18 Range/Units 19:30 Triglycerides 365 H (2-149) mg/dL Cholesterol 101 (50-199) mg/dL HDL Cholesterol 7 L (40-59) mg/dL Cholesterol/HDL Ratio 14.42 % CBC 12/07/18 12/08/18 Range/Units 19:30 07:05 WBC 3.6 L 3.9 L (4.5-11.0) K/mm3 RBC 2.63 L 2.80 L (3.65-5.03) M/mm3 Hgb 7.1 L 7.8 L (10.1-14.3) gm/dl Hct 21.9 L 23.4 L (30.3-42.9) % Plt Count 67 L 77 L (140-440) K/mm3 Lymph # 1.2 0.8 L (1.2-5.4) K/mm3 Edgar # 0.2 0.2 (0.0-0.8) K/mm3 Eos # 0.2 0.2 (0.0-0.4) K/mm3 Baso # 0.1 0.0 (0.0-0.1) K/mm3 Comprehensive Metabolic Panel 12/07/18 12/08/18 Range/Units 19:30 07:05 Sodium 136 L 136 L (137-145) mmol/L Potassium 3.6 3.7 (3.6-5.0) mmol/L Chloride 97.2 L 95.3 L (98-107) mmol/L Carbon Dioxide 25 23 (22-30) mmol/L BUN 48 H 51 H (7-17) mg/dL Creatinine 8.5 H 8.7 H (0.7-1.2) mg/dL Glucose 123 H 114 H (65-100) mg/dL Calcium 6.9 L 7.0 L (8.4-10.2) mg/dL AST 110 H (5-40) units/L ALT 20 (7-56) units/L Alkaline Phosphatase 119 (35-129) units/L Total Protein 5.2 L (6.3-8.2) g/dL Albumin 2.2 L (3.9-5) g/dL Assessment and Plan Pneumonia Thrombocytopenia Anemia ESRD on dialysis Hypertension Diabetes Elevated troponin likely in the setting of renal failure patient denies chest pain Normal LVEF 55-60% by echo 11/2018 Stress thallium test done 08/2014 reports diaphragmatic attenuation, no reversible ischemia. No further cardiac workup indicated. We will pursue a conservative cardiac management. <MELBA VÁZQUEZ - Last Filed: 12/08/18 23:55> Medications and Allergies Active Meds: Active Medications Acetaminophen (Tylenol) 650 mg PO Q4H PRN PRN Reason: Pain MILD(1-3)/Fever >100.5/FLORES Albuterol (Proventil) 2.5 mg IH Q3HRT PRN PRN Reason: Shortness Of Breath Amlodipine Besylate (Norvasc) 10 mg PO DAILY [facility] Last Admin: 12/08/18 14:55 Dose: 10 mg Documented by: Atorvastatin Calcium (Lipitor) 40 mg PO QHS [facility] Last Admin: 12/08/18 21:37 Dose: 40 mg Documented by: Budesonide (Pulmicort) 0.5 mg IH Q12HRT [facility] Last Admin: 12/08/18 19:54 Dose: 0.5 mg Documented by: Carvedilol (Coreg) 6.25 mg PO BID [facility] Last Admin: 12/08/18 21:38 Dose: 6.25 mg Documented by: Dextrose (D50w (25gm) Syringe) 50 ml IV PRN PRN PRN Reason: Hypoglycemia Diphenhydramine HCl (Benadryl) 25 mg PO Q6H PRN PRN Reason: Itching Last Admin: 12/08/18 21:38 Dose: 25 mg Documented by: Docusate Sodium (Colace) 100 mg PO BID [facility] Last Admin: 12/08/18 21:38 Dose: 100 mg Documented by: Epoetin Adonis (Procrit) 10,000 unit SUB-Q CONSTANTINO [facility] Heparin Sodium (Porcine) (Heparin) 5,000 unit SUB-Q Q12HR [facility] Last Admin: 12/08/18 21:38 Dose: 5,000 unit Documented by: Hydromorphone HCl (Dilaudid) 0.25 mg IV Q3H PRN PRN Reason: Pain , Severe (7-10) Stop: 12/09/18 23:08 Last Admin: 12/08/18 19:03 Dose: 0.25 mg Documented by: Sodium Chloride (Nacl 0.9%) 100 mls @ 999 mls/hr IV CONSTANTINO PRN PRN Reason: Hypotension Cefepime HCl (Maxipime/Ns 1 Gm/100 Ml) 1 gm in 100 mls @ 200 mls/hr IV QPM [facility]; Protocol Last Admin: 12/08/18 17:54 Dose: 200 mls/hr Documented by: Insulin Human Lispro (Humalog) 0 unit SUB-Q ACHS [facility]; Protocol Last Admin: 12/08/18 17:54 Dose: 2 unit Documented by: Ondansetron HCl (Zofran) 4 mg IV Q8H PRN PRN Reason: Nausea And Vomiting Oxycodone/Acetaminophen (Percocet 5/325) 1 tab PO Q6H PRN PRN Reason: Pain, Moderate (4-6) Pantoprazole Sodium (Protonix) 40 mg PO QDAY [facility] Pantoprazole Sodium (Protonix) 40 mg IV QDAY [facility] Stop: 12/10/18 10:01 Last Admin: 12/08/18 14:54 Dose: 40 mg Documented by: Sodium Chloride (Sodium Chloride Flush Syringe 10 Ml) 10 ml IV BID [facility] Last Admin: 12/08/18 21:39 Dose: 10 ml Documented by: Sodium Chloride (Sodium Chloride Flush Syringe 10 Ml) 10 ml IV PRN PRN PRN Reason: LINE FLUSH Tizanidine HCl (Zanaflex) 4 mg PO TID PRN PRN Reason: Muscle Spasm Physical Examination Vital Signs Temp Resp BP Pulse Ox 97.8 F 20 142/88 99 12/07/18 17:12 12/07/18 17:12 12/07/18 17:12 12/07/18 17:12 Results 12/08/18 07:05 12/08/18 07:05 CBC 12/08/18 Range/Units 07:05 WBC 3.9 L (4.5-11.0) K/mm3 RBC 2.80 L (3.65-5.03) M/mm3 Hgb 7.8 L (10.1-14.3) gm/dl Hct 23.4 L (30.3-42.9) % Plt Count 77 L (140-440) K/mm3 Lymph # 0.8 L (1.2-5.4) K/mm3 Edgar # 0.2 (0.0-0.8) K/mm3 Eos # 0.2 (0.0-0.4) K/mm3 Baso # 0.0 (0.0-0.1) K/mm3 Comprehensive Metabolic Panel 12/08/18 Range/Units 07:05 Sodium 136 L (137-145) mmol/L Potassium 3.7 (3.6-5.0) mmol/L Chloride 95.3 L (98-107) mmol/L Carbon Dioxide 23 (22-30) mmol/L BUN 51 H (7-17) mg/dL Creatinine 8.7 H (0.7-1.2) mg/dL Glucose 114 H (65-100) mg/dL Calcium 7.0 L (8.4-10.2) mg/dL Assessment and Plan I have seen and evaluated the patient and agree with the assessment and plan.
--- NOTE | 2018-12-08 11:12 | Consultation ---
History of Present Illness - Reason for Consult Consult date: 12/08/18 end stage renal disease Requesting physician: JAQUELIN ALMANZA - History of Present Illness This is a 63 yo AA F with past medical history of COPD, DM, HTN, GERD, ESRD on HD on MWF schedule, who presents to [facility] ED with complaints of intermittent shortness of breath, dyspnea on exertion, productive cough, decreased appetite, nausea, generalized weakness for the last few days. in ER CXR showed mild diffuse interstitial edema, CT A/P showed patchy b/l lower lobe PNA, without acute intraabdominal findings. Pt is admitted for IV ABX treatment. Renal consult is requested for management of ESRD/HD. Pt pt is on MWF schedule at [facility], states that she was compliant with her HD treatments. Past History Past Medical History: COPD, diabetes, ESRD (on HD T/T/S), GERD, hypertension Past Surgical History: Social history: lives with family Family history: no significant family history Medications and Allergies Allergies Allergy/AdvReac Type Severity Reaction Status Date / Time No Known Allergies Allergy Verified 04/15/14 15:50 Home Medications Medication Instructions Recorded Confirmed Last Taken Type Carvedilol [Coreg] 6.25 mg PO BID 12/07/18 12/07/18 Unknown History Insulin Degludec [Tresiba 25 units SUB-Q DAILY 12/07/18 12/07/18 Unknown History Flextouch U-100] amLODIPine [Norvasc] 10 mg PO DAILY 12/07/18 12/07/18 Unknown History tiZANidine [Zanaflex 4mg TAB] 4 mg PO TID PRN 12/07/18 12/07/18 Unknown History traMADol [Ultram] 50 mg PO TID PRN 12/07/18 12/07/18 Unknown History Active Meds: Active Medications Acetaminophen (Tylenol) 650 mg PO Q4H PRN PRN Reason: Pain MILD(1-3)/Fever >100.5/FLORES Albuterol (Proventil) 2.5 mg IH Q3HRT PRN PRN Reason: Shortness Of Breath Albuterol/Ipratropium (Duoneb *Not For Prn Use*) 1 ampul IH TIDRT [facility] Last Admin: 12/08/18 08:16 Dose: 1 ampul Documented by: Amlodipine Besylate (Norvasc) 10 mg PO DAILY [facility] Atorvastatin Calcium (Lipitor) 40 mg PO QHS [facility] Budesonide (Pulmicort) 0.5 mg IH Q12HRT [facility] Last Admin: 12/08/18 08:16 Dose: 0.5 mg Documented by: Carvedilol (Coreg) 6.25 mg PO BID [facility] Dextrose (D50w (25gm) Syringe) 50 ml IV PRN PRN PRN Reason: Hypoglycemia Docusate Sodium (Colace) 100 mg PO BID [facility] Last Admin: 12/07/18 22:48 Dose: Not Given Documented by: Heparin Sodium (Porcine) (Heparin) 5,000 unit SUB-Q Q12HR [facility] Last Admin: 12/07/18 22:49 Dose: Not Given Documented by: Hydromorphone HCl (Dilaudid) 0.25 mg IV Q3H PRN PRN Reason: Pain , Severe (7-10) Stop: 12/09/18 23:08 Cefepime HCl (Maxipime/Ns 1 Gm/100 Ml) 1 gm in 100 mls @ 200 mls/hr IV Q24H [facility]; Protocol Last Admin: 12/08/18 06:33 Dose: 200 mls/hr Documented by: Sodium Chloride (Nacl 0.9%) 100 mls @ 999 mls/hr IV CONSTANTINO PRN PRN Reason: Hypotension Insulin Human Lispro (Humalog) 0 unit SUB-Q ACHS [facility]; Protocol Ondansetron HCl (Zofran) 4 mg IV Q8H PRN PRN Reason: Nausea And Vomiting Oxycodone/Acetaminophen (Percocet 5/325) 1 tab PO Q6H PRN PRN Reason: Pain, Moderate (4-6) Pantoprazole Sodium (Protonix) 40 mg PO QDAY [facility] Pantoprazole Sodium (Protonix) 40 mg IV QDAY [facility] Stop: 12/10/18 10:01 Sodium Chloride (Sodium Chloride Flush Syringe 10 Ml) 10 ml IV BID [facility] Last Admin: 12/07/18 22:49 Dose: 10 ml Documented by: Sodium Chloride (Sodium Chloride Flush Syringe 10 Ml) 10 ml IV PRN PRN PRN Reason: LINE FLUSH Tizanidine HCl (Zanaflex) 4 mg PO TID PRN PRN Reason: Muscle Spasm Review of Systems All systems: negative Constitutional: fatigue, weakness, malaise, poor appetite Cardiovascular: shortness of breath, dyspnea on exertion Respiratory: cough with sputum Exam - Vital Signs Vital signs: Vital Signs Temp Resp BP Pulse Ox 97.8 F 20 142/88 99 12/07/18 17:12 12/07/18 17:12 12/07/18 17:12 12/07/18 17:12 - General Appearance General appearance: well-developed, well-nourished, appears stated age EENT: ATNC, PERRL, mucous membranes moist Neck: Present: neck supple Respiratory: Decreased Breath Sounds Heart: regular, S1S2 Gastrointestinal: Present: normoactive bowel sounds Integumentary: no rash, other (no edema ) Neurologic: no focal deficit, alert and oriented x3, strength 5/5, CN 3-12 intact Psychiatric: mood/affect appropriate, cooperative Results - Lab Results 12/08/18 07:05 12/08/18 07:05 Most recent lab results Calcium 7.0 mg/dL (8.4-10.2) L 12/08/18 07:05 Magnesium 1.90 mg/dL (1.7-2.3) 12/07/18 19:30 Assessment and Plan - Patient Problems (1) Pneumonia Current Visit: Yes Status: Acute Plan to address problem: ABX treatment as per ID recommendations, on vanco/cefepime, to dose for HD (2) ESRD (end stage renal disease) Current Visit: Yes Status: Acute Plan to address problem: Arranged HD for today with target UF 2-3L in view of pulmonary edema on CXR/CT, cont HD on MWF schedule (3) Hypertensive chronic kidney disease with stage 5 chronic kidney disease or end stage renal disease Current Visit: Yes Status: Acute Plan to address problem: resume home BP meds. Will monitor BP after fluid removal with HD and adjust BP meds accordingly (4) Type 2 diabetes mellitus with diabetic chronic kidney disease Current Visit: No Status: Chronic Qualifiers: Chronic kidney disease stage: stage 5, not on chronic dialysis Plan to address problem: glucose control as per primary attending (5) Anemia in chronic illness Current Visit: No Status: Acute Plan to address problem: cont EPO with HD. (6) Thrombocytopenia Current Visit: No Status: Acute
[2018-12-08] MEDS: COREG PO SCH ×2 (12:00→21:38)
[2018-12-08] MEDS ORDERED: PROCRIT SUB-Q SCH (12:00)
[2018-12-08] MEDS: HEPARIN SUB-Q SCH ×2 (12:00→21:38)
[2018-12-08] MEDS: SODIUM CHLORIDE FLUSH SYRINGE 10 ML IV SCH ×2 (12:00→21:39)
[2018-12-08] MEDS: COLACE PO SCH ×2 (12:00→21:38)
[2018-12-08] MEDS: DILAUDID IV PRN ×2 (13:21→19:03)
[2018-12-08] MEDS: PROTONIX IV SCH (14:54)
[2018-12-08] MEDS: NORVASC PO SCH (14:55)
--- NOTE | 2018-12-08 15:03 | Consultation ---
History of Present Illness - Reason for Consult Consult date: 12/08/18 Pneumonia Requesting physician: JAQUELIN BARAJAS - History of Present Illness The patient is a 63-year-old female with ESRD on hemodialysis, COPD, diabetes, hypertension, gastroesophageal reflux disease. She is well known to me from her recent hospitalization due to fever of unclear etiology and a rash. She had an extensive infectious disease workup at that time which was negative. CT chest, abdomen pelvis negative for infection, HIV negative, TTE negative for vegetations, blood cultures negative, tick borne work up negative, got empiric abx as well as therapeutic Doxycycline trial. ESR elevated at 124, CRP also elevated at 19.60, GRACE negative, RF <15. She also had elevated ferritin (>200 0), a possibility of HLH versus Adult Still's was entertained. Patient underwent a bone marrow biopsy by hematology recs - showed hypercellular marrow, no malignancy or other specific findings. Her fever resolved with initiation of HD and she was discharged home with recs to follow up with rheumatology. She was now readmitted to the emergency room after she presented yesterday with complaints of some shortness of breath, nausea and vomiting for the past 2 days. She also has been having a few loose stools. She had no fever at home and hence was recommended to come to the ER. She reports compliance with dialysis. She denies any cough or sputum production. She has been afebrile here. Wrist x-ray showed no evidence of pneumonia. CT abdomen and pelvis showed possibility of pneumonia in the lower lung cuts. She was empirically started on antibiotics. Infectious diseases was consulted due to possible pneumonia. Currently, she feels well, denies any complaints. According to RN, patient had another episode of diarrhea while at dialysis today. 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 Review of Systems: General: fevers at home. no fevers,chills or rigors here HEENT: no new visual disturbance Respiratory: No cough, sputum, hemoptysis. SOB + but improved Cardiovascular: No chest pain, syncope Gastrointestinal: + nausea, vomiting and diarrhea Genitourinary: No dysuria or hematuria Musculoskeletal: No new or worsening neck pain or back pain Neurologic: No headaches, seizures Hematologic: No easy bruising or bleeding Endocrine: No night sweats or acute weight loss Skin: negative for rash, jaundice Psychiatric: No suicidal or homicidal ideation Past History Past Medical History: COPD, diabetes, ESRD (on HD T/T/S), GERD, hypertension Past Surgical History: Social history: lives with family Family history: no significant family history Medications and Allergies Allergies Allergy/AdvReac Type Severity Reaction Status Date / Time No Known Allergies Allergy Verified 04/15/14 15:50 Home Medications Medication Instructions Recorded Confirmed Last Taken Type Carvedilol [Coreg] 6.25 mg PO BID 12/07/18 12/07/18 Unknown History Insulin Degludec [Tresiba 25 units SUB-Q DAILY 12/07/18 12/07/18 Unknown History Flextouch U-100] amLODIPine [Norvasc] 10 mg PO DAILY 12/07/18 12/07/18 Unknown History tiZANidine [Zanaflex 4mg TAB] 4 mg PO TID PRN 12/07/18 12/07/18 Unknown History traMADol [Ultram] 50 mg PO TID PRN 12/07/18 12/07/18 Unknown History Active Meds: Active Medications Acetaminophen (Tylenol) 650 mg PO Q4H PRN PRN Reason: Pain MILD(1-3)/Fever >100.5/FLORES Albuterol (Proventil) 2.5 mg IH Q3HRT PRN PRN Reason: Shortness Of Breath Albuterol/Ipratropium (Duoneb *Not For Prn Use*) 1 ampul IH TIDRT [facility] Last Admin: 12/08/18 13:26 Dose: 1 ampul Documented by: Amlodipine Besylate (Norvasc) 10 mg PO DAILY [facility] Last Admin: 12/08/18 14:55 Dose: 10 mg Documented by: Atorvastatin Calcium (Lipitor) 40 mg PO QHS [facility] Budesonide (Pulmicort) 0.5 mg IH Q12HRT [facility] Last Admin: 12/08/18 08:16 Dose: 0.5 mg Documented by: Carvedilol (Coreg) 6.25 mg PO BID [facility] Last Admin: 12/08/18 12:00 Dose: Not Given Documented by: Dextrose (D50w (25gm) Syringe) 50 ml IV PRN PRN PRN Reason: Hypoglycemia Docusate Sodium (Colace) 100 mg PO BID [facility] Last Admin: 12/08/18 12:00 Dose: Not Given Documented by: Epoetin Adonis (Procrit) 10,000 unit SUB-Q CONSTANTINO [facility] Heparin Sodium (Porcine) (Heparin) 5,000 unit SUB-Q Q12HR [facility] Last Admin: 12/08/18 12:00 Dose: Not Given Documented by: Hydromorphone HCl (Dilaudid) 0.25 mg IV Q3H PRN PRN Reason: Pain , Severe (7-10) Stop: 12/09/18 23:08 Last Admin: 12/08/18 13:21 Dose: 0.25 mg Documented by: Sodium Chloride (Nacl 0.9%) 100 mls @ 999 mls/hr IV CONSTANTINO PRN PRN Reason: Hypotension Cefepime HCl (Maxipime/Ns 1 Gm/100 Ml) 1 gm in 100 mls @ 200 mls/hr IV QPM [facility]; Protocol Insulin Human Lispro (Humalog) 0 unit SUB-Q ACHS [facility]; Protocol Last Admin: 12/08/18 11:30 Dose: Not Given Documented by: Ondansetron HCl (Zofran) 4 mg IV Q8H PRN PRN Reason: Nausea And Vomiting Oxycodone/Acetaminophen (Percocet 5/325) 1 tab PO Q6H PRN PRN Reason: Pain, Moderate (4-6) Pantoprazole Sodium (Protonix) 40 mg PO QDAY [facility] Pantoprazole Sodium (Protonix) 40 mg IV QDAY [facility] Stop: 12/10/18 10:01 Last Admin: 12/08/18 14:54 Dose: 40 mg Documented by: Sodium Chloride (Sodium Chloride Flush Syringe 10 Ml) 10 ml IV BID [facility] Last Admin: 12/08/18 12:00 Dose: Not Given Documented by: Sodium Chloride (Sodium Chloride Flush Syringe 10 Ml) 10 ml IV PRN PRN PRN Reason: LINE FLUSH Tizanidine HCl (Zanaflex) 4 mg PO TID PRN PRN Reason: Muscle Spasm Physical Examination - Physical Exam Narrative exam: Physical Exam: Constitutional: Alert, cooperative. No acute distress Head, Ears, Nose: Normocephalic, atraumatic. External ears, nose normal Eyes: Conjunctivae/corneas clear. No icterus. No ptosis. Neck: Supple, no meningeal signs Oral: dentition fair, no thrush Cardiovascular: S1, S2 normal. Respiratory: Good air entry, clear to auscultation bilaterally GI: Soft, non-tender; bowel sounds normal. No peritoneal signs Musculoskeletal: No pedal edema, no cyanosis. R subclavian HD cath site c/d/i Skin: No rash or abscess Hem/Lymphatic: No palpable cervical or supraclavicular nodes. No lymphangitis Psych: Mood ok. Affect normal Neurological: Awake, alert, oriented. No gross abnormality - Constitutional Vitals: Vital Signs Temp Pulse Resp BP Pulse Ox 98.7 F 79 19 146/75 93 12/08/18 05:48 12/08/18 13:40 12/08/18 13:40 12/08/18 05:48 12/08/18 05:48 Temperature -Last 24 Hours Temperature 98.7 F Temperature 98.7 F Temperature 98.9 F Temperature 97.8 F Results - Labs CBC & Chem 7: 12/08/18 07:05 12/08/18 07:05 Labs: Abnormal lab results 12/07/18 12/07/18 12/07/18 Range/Units 19:30 19:30 19:30 WBC 3.6 L (4.5-11.0) K/mm3 RBC 2.63 L (3.65-5.03) M/mm3 Hgb 7.1 L (10.1-14.3) gm/dl Hct 21.9 L (30.3-42.9) % MCH 27 L (28-32) pg RDW 17.8 H (13.2-15.2) % Plt Count 67 L (140-440) K/mm3 Eos % (Auto) 4.4 H (0.0-4.3) % Lymph # (1.2-5.4) K/mm3 Sodium 136 L (137-145) mmol/L Chloride 97.2 L (98-107) mmol/L BUN 48 H (7-17) mg/dL Creatinine 8.5 H (0.7-1.2) mg/dL Glucose 123 H (65-100) mg/dL POC Glucose (70-105) Calcium 6.9 L (8.4-10.2) mg/dL AST 110 H (5-40) units/L Troponin T 0.106 H* (0.00-0.029) ng/mL Total Protein 5.2 L (6.3-8.2) g/dL Albumin 2.2 L (3.9-5) g/dL Triglycerides 365 H (2-149) mg/dL LDL Cholesterol Direct 13 L (50-130) mg/dL HDL Cholesterol 7 L (40-59) mg/dL Salicylates < 0.3 L (2.8-20.0) mg/dL Acetaminophen (10.0-30.0) ug/mL 12/07/18 12/08/18 12/08/18 Range/Units 19:30 07:05 07:05 WBC 3.9 L (4.5-11.0) K/mm3 RBC 2.80 L (3.65-5.03) M/mm3 Hgb 7.8 L (10.1-14.3) gm/dl Hct 23.4 L (30.3-42.9) % MCH (28-32) pg RDW 18.0 H (13.2-15.2) % Plt Count 77 L (140-440) K/mm3 Eos % (Auto) 6.1 H (0.0-4.3) % Lymph # 0.8 L (1.2-5.4) K/mm3 Sodium 136 L (137-145) mmol/L Chloride 95.3 L (98-107) mmol/L BUN 51 H (7-17) mg/dL Creatinine 8.7 H (0.7-1.2) mg/dL Glucose 114 H (65-100) mg/dL POC Glucose (70-105) Calcium 7.0 L (8.4-10.2) mg/dL AST (5-40) units/L Troponin T 0.074 H D (0.00-0.029) ng/mL Total Protein (6.3-8.2) g/dL Albumin (3.9-5) g/dL Triglycerides (2-149) mg/dL LDL Cholesterol Direct (50-130) mg/dL HDL Cholesterol (40-59) mg/dL Salicylates (2.8-20.0) mg/dL Acetaminophen < 5.0 L (10.0-30.0) ug/mL 12/08/18 Range/Units 08:00 WBC (4.5-11.0) K/mm3 RBC (3.65-5.03) M/mm3 Hgb (10.1-14.3) gm/dl Hct (30.3-42.9) % MCH (28-32) pg RDW (13.2-15.2) % Plt Count (140-440) K/mm3 Eos % (Auto) (0.0-4.3) % Lymph # (1.2-5.4) K/mm3 Sodium (137-145) mmol/L Chloride (98-107) mmol/L BUN (7-17) mg/dL Creatinine (0.7-1.2) mg/dL Glucose (65-100) mg/dL POC Glucose 124 H (70-105) Calcium (8.4-10.2) mg/dL AST (5-40) units/L Troponin T (0.00-0.029) ng/mL Total Protein (6.3-8.2) g/dL Albumin (3.9-5) g/dL Triglycerides (2-149) mg/dL LDL Cholesterol Direct (50-130) mg/dL HDL Cholesterol (40-59) mg/dL Salicylates (2.8-20.0) mg/dL Acetaminophen (10.0-30.0) ug/mL - Imaging and Cardiology Chest x-ray: report reviewed, image reviewed (mild interstitial edema) CT scan - chest: report reviewed, image reviewed (subtle bibasilar opacities, no air bronchograms seen) Assessment and Plan Cultures: 12/07/2018 blood culture: In progress A/P: 63-year-old female with ESRD on hemodialysis, COPD, diabetes, hypertension, gastroesophageal reflux disease. She is well known to me from her recent hospitalization due to fever of unclear etiology and a rash. Now with: 1) Fever: rule out bacteremia due to indwelling HD catheter. She had an extensive infectious disease workup during her prior hospitalization which was negative. CT chest, abdomen pelvis negative for infection, HIV negative, TTE negative for vegetations, blood cultures negative, tick borne work up negative, got empiric abx as well as therapeutic Doxycycline trial. ESR elevated at 124, CRP also elevated at 19.60, GRACE negative, RF <15. She also had elevated ferritin (>2000), a possibility of HLH versus Adult Still's was entertained. Patient underwent a bone marrow biopsy by hematology recs - showed hypercellular marrow, no malignancy or other specific findings. 2) Diarrhea: check C.diff. She has received several abx in the recent past. 3) ?Pneumonia: no cough or sputum production. CT images reviewed, very subtle b/l opacities, could be inflammatory or fluid. Clinically, does not appear to have pneumonia. 4) Pancytopenia: WBC, Hb and platelets are low. Recheck ferritin. Suspect some underlying autoimmune process. She has not followed up with Rheumatology yet. 5) DM-2: insulin requiring. 6) ESRD: on dialysis. Nephrology following. Renally dosed abx. Recs: ferritin ordered monitor CBC given pancytopenia empiric Cefepime and Vancomycin for now. Rule out bacteremia if no fevers and blood cultures negative at 48 hours, would d/c abx C.diff ordered, discussed with RN D/W Dr. Barajas. Simone Bagley MD, FACP [facility] ([facility]) C: [phone] O: [phone] F: [phone]
[2018-12-08] MEDS ORDERED: NACL 0.9 (PRIMING MACHINE ONLY DIALYSIS) MC ONE (16:50)
[2018-12-08 19:48] LABS: Bacteria,Urine 2+ /HPF (Negative); Bilirubin,Urine NEG (Negative); Blood,Urine NEG (Negative); Color,Urine Yellow (Yellow); Urobilinogen,Urine < 2.0 mg/dL (<2.0)
[2018-12-08 19:51] LABS: Protein,Urine >500 mg/dL (Negative)
[2018-12-08] MEDS ORDERED: BENADRYL PO PRN (20:23)
[2018-12-09] MEDS: HumaLOG SUB-Q SCH ×2 (00:43→07:59)
[2018-12-09 05:36] VITALS: BP 130/70
[2018-12-09 06:15] LABS: Basophils % (Auto) 1.3 % (0.0-1.8); Eosinophils # (Auto) 0.1 K/mm3 (0.0-0.4); Eosinophils % (Auto) 4.1 % (0.0-4.3); Hematocrit 21.8 % (30.3-42.9); Hemoglobin 7.2 gm/dl (10.1-14.3); Lymphocytes # (Auto) 1.1 K/mm3 (1.2-5.4); Lymphocytes % (Auto) 45.7 % (13.4-35.0); Mean Corpuscular HGB Conc 33 % (30-34); Mean Corpuscular Volume 84 fl (79-97); Monocytes # (Auto) 0.3 K/mm3 (0.0-0.8); Monocytes % (Auto) 11.9 % (0.0-7.3); Red Blood Count 2.61 M/mm3 (3.65-5.03)
[2018-12-09 06:17] LABS: Platelet Count 77 K/mm3 (140-440)
--- NOTE | 2018-12-09 08:01 | Progress Note ---
Assessment and Plan - Patient Problems (1) ESRD (end stage renal disease) Current Visit: Yes Status: Chronic Plan to address problem: Continue on inpatient Thursday schedule for hemodialysis. No acute dialysis needs at this time today. (2) Hypertensive chronic kidney disease with stage 5 chronic kidney disease or end stage renal disease Current Visit: Yes Status: Chronic Plan to address problem: Continue on current home antihypertensive regimen. We will continue to monitor closely. (3) Pneumonia Current Visit: Yes Status: Acute Plan to address problem: Antibiotic treatment per ID recommendations. To be dosed for her decreased renal clearance. (4) Anemia in chronic illness Current Visit: No Status: Acute Plan to address problem: RON therapy with hemodialysis. (5) Type 2 diabetes mellitus with diabetic chronic kidney disease Current Visit: No Status: Chronic Qualifiers: Chronic kidney disease stage: stage 5, not on chronic dialysis Plan to address problem: Diabetes management per primary team. Subjective Date of service: 12/09/18 Interval history: No acute issues overnight. Patient tolerated dialysis yesterday well without any acute issues. Labs reviewed. Objective - Vital Signs Vital signs: Vital Signs - 12hr 12/08/18 12/08/18 12/08/18 20:05 21:34 21:38 Temperature 99.2 F Pulse Rate 95 H 95 H Pulse Rate [ 86 Posterior Bilateral Throughout] Respiratory 18 Rate Respiratory 16 Rate [Posterior Bilateral Throughout] Blood Pressure 119/60 119/60 O2 Sat by Pulse 97 Oximetry 12/08/18 12/09/18 23:24 04:33 Temperature 98.5 F 97.5 F L Pulse Rate 89 72 Pulse Rate [ Posterior Bilateral Throughout] Respiratory 16 20 Rate Respiratory Rate [Posterior Bilateral Throughout] Blood Pressure 130/64 130/70 O2 Sat by Pulse 97 99 Oximetry - General Appearance General appearance: well-nourished, appears stated age EENT: ATNC, PERRL Neck: no JVD, no thyromegaly Respiratory: Present: Clear to Ascultation Cardiology: regular, S1S2 Gastrointestinal: normal, normoactive bowel sounds Integumentary: no rash, warm and dry Neurologic: no focal deficit, no asterixis Psychiatric: mood/affect appropriate, cooperative - Lab 12/09/18 05:47 12/08/18 07:05 Most recent lab results Calcium 7.0 mg/dL (8.4-10.2) L 12/08/18 07:05 Magnesium 1.90 mg/dL (1.7-2.3) 12/07/18 19:30 - Imaging Chest x-ray: report reviewed - Allied health notes Allied health notes reviewed: nursing Medications & Allergies - Medications Allergies/Adverse Reactions: Allergies No Known Allergies Allergy (Verified 04/15/14 15:50) Home Medications: Home Medications Medication Instructions Recorded Confirmed Last Taken Type Carvedilol [Coreg] 6.25 mg PO BID 12/07/18 12/07/18 Unknown History Insulin Degludec [Tresiba 25 units SUB-Q DAILY 12/07/18 12/07/18 Unknown History Flextouch U-100] amLODIPine [Norvasc] 10 mg PO DAILY 12/07/18 12/07/18 Unknown History tiZANidine [Zanaflex 4mg TAB] 4 mg PO TID PRN 12/07/18 12/07/18 Unknown History traMADol [Ultram] 50 mg PO TID PRN 12/07/18 12/07/18 Unknown History Active Medications: Generic Name Dose Route Start Last Admin Trade Name Freq PRN Reason Stop Dose Admin Acetaminophen 650 mg 12/07/18 22:00 Tylenol PO Q4H PRN Pain MILD(1-3)/Fever >100.5/FLORES Albuterol 2.5 mg 12/07/18 22:00 Proventil IH Q3HRT PRN Shortness Of Breath Amlodipine Besylate 10 mg 12/08/18 10:00 12/08/18 14:55 Norvasc PO 10 mg DAILY PRIYA Administration Atorvastatin Calcium 40 mg 12/08/18 22:00 12/08/18 21:37 Lipitor PO 40 mg QHS PRIYA Administration Budesonide 0.5 mg 12/08/18 08:00 12/08/18 19:54 Pulmicort IH 0.5 mg Q12HRT PRIYA Administration Carvedilol 6.25 mg 12/08/18 10:00 12/08/18 21:38 Coreg PO 6.25 mg BID PRIYA Administration Dextrose 50 ml 12/07/18 22:28 D50w (25gm) Syringe IV PRN PRN Hypoglycemia Diphenhydramine HCl 25 mg 12/08/18 20:23 12/08/18 21:38 Benadryl PO 25 mg Q6H PRN Administration Itching Docusate Sodium 100 mg 12/07/18 22:00 12/08/18 21:38 Colace PO 100 mg BID PRIYA Administration Epoetin Adonis 10,000 unit 12/08/18 12:00 Procrit SUB-Q CONSTANTINO [facility] Heparin Sodium (Porcine) 5,000 unit 12/07/18 22:00 12/08/18 21:38 Heparin SUB-Q 5,000 unit Q12HR [facility] Administration Hydromorphone HCl 0.25 mg 12/07/18 23:09 12/08/18 19:03 Dilaudid IV 12/09/18 23:08 0.25 mg Q3H PRN Administration Pain , Severe (7-10) Sodium Chloride 100 mls @ 999 mls/hr 12/08/18 07:27 Nacl 0.9% IV CONSTANTINO PRN Hypotension Cefepime HCl 1 gm in 100 mls @ 200 mls/hr 12/08/18 18:00 12/08/18 17:54 Maxipime/Ns 1 Gm/100 Ml IV 200 mls/hr QPM PRI[facility] Administration Protocol Insulin Human Lispro 0 unit 12/08/18 07:30 12/09/18 00:43 Humalog SUB-Q 2 unit ACHS [facility] Administration Protocol Ondansetron HCl 4 mg 12/07/18 22:00 Zofran IV Q8H PRN Nausea And Vomiting Oxycodone/Acetaminophen 1 tab 12/07/18 22:00 Percocet 5/325 PO Q6H PRN Pain, Moderate (4-6) Pantoprazole Sodium 40 mg 12/11/18 10:00 Protonix PO QDAY PRI[facility] Pantoprazole Sodium 40 mg 12/08/18 10:00 12/08/18 14:54 Protonix IV 12/10/18 10:01 40 mg QDAY PRIYA Administration Sodium Chloride 10 ml 12/07/18 22:00 12/08/18 21:39 Sodium Chloride Flush Syringe 10 Ml IV 10 ml BID PRIYA Administration Sodium Chloride 10 ml 12/07/18 22:00 Sodium Chloride Flush Syringe 10 Ml IV PRN PRN LINE FLUSH Tizanidine HCl 4 mg 12/07/18 22:02 Zanaflex PO TID PRN Muscle Spasm
[2018-12-09] MEDS: PULMICORT IH SCH (08:17)
--- NOTE | 2018-12-09 08:49 | Discharge Summary ---
Providers - Providers Date of Admission: 12/07/18 22:00 Date of discharge: 12/09/18 Attending physician: CHELLY CREWS MD 12/07/18 17:19 Consult to Physician [CONS] Urgent Comment: Dr. Horn spoke with Dr. Champion @ [id number] Consulting Provider: RAVEN ALEXANDER Physician Instructions: Reason For Exam: esrd known to you 12/07/18 23:42 Consult to Physician [CONS] Routine Comment: Consulting Provider: EDGAR ABRAMS Physician Instructions: Reason For Exam: elevated trop Consult to Physician [CONS] Routine Comment: Consulting Provider: SIMON BYRNE Physician Instructions: Reason For Exam: pna 12/08/18 00:03 Consult to Dietitian/Nutrition [CONS] Routine Physician Instructions: Reason For Exam: Reason for Consult: Malnutrition [facility] Reason for admission: fever, SOB Condition: Stable Hospital course: 63-year-old -Armenian female with history of ESRD on HD T//, COPD, DM, HTN, GERD who presents to [facility] ED with complaints of intermittent shortness of breath, decreased appetite, nausea, emesis for the past 2 days. Pt states that she has been experiencing SOB with exertion for the past 2 days. She also complains of decreased appetite, nausea, and vomiting. Pt states that when she attempts to eat she throws up. She admits to cough but denies sputum production. Pt has upcoming appointment with scale mechanic for suspicion of still's disease and TTP. Dr. Alexander is her Senior Customer Service Representative. Patient was admitted to the floor for the management of suspected pneumonia patient was started with IV cefepime and vancomycin. Blood cultures were negative so far, fever subsided. ID evaluated the patient and doesn't think the patient does infection and discontinued the IV antibiotics. The fever is due to her still's disease which is going to see a scale mechanic as an O/P. patient is hemodynamically stable. Patient was seen by cardiology and recommended no further workup. Patient was seen by pipelaying fitter and get dialysis as scheduled. Patient was doing well and asking to be discharged. Patient discharged home. 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 The patient is obese. Vital signs as documented. Head exam is unremarkable. No scleral icterus . Neck is without jugular venous distension, thyromegaly, or carotid bruits. Lungs are clear to auscultation. Cardiac exam reveals regular rate and Rhythm. Abdominal exam reveals normal bowel sounds, no masses, no organomegaly and no aortic enlargement. Extremities are nonedematous and both femoral and pedal pulses are normal. BOX CUTTER: Alert and oriented 3. No focal weakness. - Constitutional Vitals: Temp Pulse Resp BP Pulse Ox 97.5 F L 72 20 130/70 99 12/09/18 04:33 12/09/18 04:33 12/09/18 04:33 12/09/18 04:12/09/18 04:33 Plan Activity: no restrictions Weight Bearing Status: Full Weight Bearing Diet: low salt, diabetic, renal Follow up with: DANGELO PABLO MD [Primary Care Provider] - 3-5 Days MALIA ANGEL MD [Staff Physician] - 7 Days
--- NOTE | 2018-12-09 09:27 | Progress Note ---
Assessment and Plan 1. Essential hypertension 2. End-stage renal disease 3. Type 2 diabetes mellitus 4. Anemia of chronic disease 5. COPD Plan. Cardiac-[place] stable nonspecific troponin elevation secondary to end-stage renal disease no further cardiac workup Subjective Date of service: 12/09/18 Interval history: No cardiac symptoms. Objective Vital Signs Temp Pulse Pulse Resp Resp BP Pulse Ox 12/09/18 04:33 97.5 F L 72 20 130/70 99 12/08/18 23:24 98.5 F 89 16 130/64 97 12/08/18 21:38 95 H 119/60 12/08/18 21:34 99.2 F 95 H 18 119/60 97 12/08/18 20:05 86 16 12/08/18 19:55 84 16 12/08/18 16:52 98.8 F 83 16 131/71 97 12/08/18 13:40 79 19 12/08/18 13:29 77 18 12/08/18 12:45 98.0 F 80 18 145/77 12/08/18 12:30 82 120/64 12/08/18 12:15 82 142/74 12/08/18 12:00 84 110/70 12/08/18 11:45 86 115/68 12/08/18 11:30 98 H 117/70 12/08/18 11:15 97 H 133/76 12/08/18 11:00 105 H 123/83 12/08/18 10:45 92 H 138/72 12/08/18 10:30 108 H 142/80 12/08/18 10:15 107 H 122/81 12/08/18 10:00 121 H 115/78 12/08/18 09:45 89 150/87 12/08/18 09:30 89 129/83 - Physical Examination General: Appears Well, No Apparent Distress HEENT: Positive: PERRL Neck: Positive: neck supple. Negative: JVD/HJR Cardiac: Positive: Regular Rate, S1/S2, PMI, Laterally Displaced Lungs: Positive: clear to auscultation, No Wheeze, Rales, Rhonchi Neuro: Positive: Grossly Intact Abdomen: Positive: Unremarkable, Active Bowel Sounds Extremities: Absent: edema - Labs and Meds CBC 12/09/18 Range/Units 05:47 WBC 2.4 L (4.5-11.0) K/mm3 RBC 2.61 L (3.65-5.03) M/mm3 Hgb 7.2 L (10.1-14.3) gm/dl Hct 21.8 L (30.3-42.9) % Plt Count 77 L (140-440) K/mm3 Lymph # 1.1 L (1.2-5.4) K/mm3 Rains # 0.3 (0.0-0.8) K/mm3 Eos # 0.1 (0.0-0.4) K/mm3 Baso # 0.0 (0.0-0.1) K/mm3 - Imaging and Cardiology EKG: image reviewed (74 beats per minute, sinus rhythm) - Allied health notes Allied health notes reviewed: nursing
[2018-12-09] MEDS: COLACE PO SCH (10:55)
[2018-12-09] MEDS: COREG PO SCH (10:55)
[2018-12-09] MEDS: PROTONIX IV SCH (10:55)
[2018-12-09] MEDS: HEPARIN SUB-Q SCH (10:55)
[2018-12-09] MEDS: NORVASC PO SCH (10:55)
[2018-12-09] MEDS: SODIUM CHLORIDE FLUSH SYRINGE 10 ML IV SCH (10:56)
[2018-12-10] MEDS ORDERED: VANCOMYCIN/NS 1 GM/250 ML 1 GM/250 ML BAG IV SCH (22:00)
[2018-12-11] MEDS ORDERED: PROTONIX PO SCH (10:00)
== END 2018-12-09 11:40 | disposition home health service (06) | DRG 545 ==
LOC: ED 16:33 → 3A 22:00
PROVIDERS: ADMIT Internal Medicine; ATTEND Internal Medicine
PROC: 5A1D70Z Performance of Urinary Filtration, Intermittent, Less than 6 Hours Per Day (ICD-10-PCS; principal; 2018-12-08)
DX: M06.1 Adult-onset Still's disease (principal); N18.6 End stage renal disease; E43 Unspecified severe protein-calorie malnutrition; M31.1 Thrombotic microangiopathy; D63.1 Anemia in chronic kidney disease; J44.0 Chronic obstructive pulmonary disease with (acute) lower respiratory infection; E78.5 Hyperlipidemia, unspecified; G47.30 Sleep apnea, unspecified; E11.22 Type 2 diabetes mellitus with diabetic chronic kidney disease; D61.818 Other pancytopenia; K21.9 Gastro-esophageal reflux disease without esophagitis; I12.0 Hypertensive chronic kidney disease with stage 5 chronic kidney disease or end stage renal disease; Z79.899 Other long term (current) drug therapy; Z99.2 Dependence on renal dialysis; Z68.31 Body mass index [BMI] 31.0-31.9, adult; Z79.4 Long term (current) use of insulin; Z90.49 Acquired absence of other specified parts of digestive tract
CPT/HCPCS: 36415; 71045; 74176; 80048; 80053; 80061; 80202; 80320; 81001; 82140; 82550; 82728; 82962; 83735; 84484; 85025; 87040; 87086; 87493; 93005; 93010; 94640; G0378; A9270-GY; C9113; G0480; J0692; J1170; J1644; J1815; J1956; J2405; J3370; J7030; J7040

== ENCOUNTER 2019-03-08 07:21 | Day surgery (SDC) | payer MEDICARE ==
[~2019-03-08 07:21] MED LIST: MIDAZOLAM 2 MG/2 ML INJ IV NR; SODIUM CHLORIDE 0.9% 1000 ML 1,000 ML IV SCH; ceFAZolin/Water 2 GM/20 ML 2 GM/20 ML SYRINGE IV NR
[2019-03-08] MEDS ORDERED: fentaNYL 100 MCG/2 ML INJ ONE (07:36)
[2019-03-08] MEDS ORDERED: fentaNYL 100 MCG/2 ML INJ IV PRN (07:37)
[2019-03-08] MEDS ORDERED: PROPOFOL 200 MG/20 ML VIAL IV ONE (07:37)
[2019-03-08] MEDS ORDERED: ONDANSETRON 4 MG/2 ML INJ IV PRN (07:37)
--- NOTE | 2019-03-08 07:41 | Anesthesia Day of Surgery ---
Anesthesia Day of Surgery - Day of Surgery Patient Examined: Yes Patient H&P Reviewed: Yes Patient is NPO: Yes Beta Blockers: Yes
[2019-03-08] MEDS ORDERED: LIDOCAINE MPF (2%) 20 MG/1 ML VIAL 5 ML ONE (07:44)
--- NOTE | 2019-03-08 07:47 | Anesthesia Consultation ---
Anesthesia Consult and Med Hx Date of service: 03/08/19 - Airway Anesthetic Teeth Evaluation: Dentures, Edentulous ROM Head & Neck: Adequate Mental/Hyoid Distance: Adequate Mallampati Class: Class II Intubation Access Assessment: Good - Pre-Operative Health Status ASA Pre-Surgery Classification: ASA3 Proposed Anesthetic Plan: General - Pulmonary Hx Asthma: Yes COPD: Yes Hx Sleep Apnea: Yes - Cardiovascular System Hx Hypertension: Yes (States NST in October and OK per pt) - Central Nervous System CVA: Yes Hx Back Pain: Yes Hx Psychiatric Problems: No - Gastrointestinal Hx Gastroesophageal Reflux Disease: Yes - Endocrine Hx Renal Disease: Yes Hx End Stage Renal Disease: Yes (Last HD yesterday) Hx Non-Insulin Dependent Diabetes: Yes - Other Systems Hx Cancer: No
[2019-03-08] MEDS ORDERED: LIDOCAINE (1%) 10 MG/1 ML VIAL 20 ML MDV ONE (07:49)
[2019-03-08] MEDS ORDERED: BUPIVACAINE/PF (0.5%) 5 MG/1 ML 30 ML VIAL INFILTRATI ONE ×3 (07:49→14:45)
[2019-03-08] MEDS ORDERED: PROTAMINE SULFATE 50 MG/5 ML INJ ONE (07:49)
[2019-03-08] MEDS ORDERED: SODIUM CHLORIDE P/F VIAL 10 ML 10 ML ONE (07:50)
[2019-03-08] MEDS ORDERED: SODIUM CHLORIDE 0.9% 500 ML 500 ML ONE (07:50)
[2019-03-08] MEDS ORDERED: HEPARIN 10,000 UNITS/10 ML VIAL ONE (07:50)
[2019-03-08] MEDS ORDERED: rifAMPin 600 MG VIAL ONE (07:50)
[2019-03-08] MEDS ORDERED: SODIUM BICARBONATE 2 MEQ/2 ML SYRINGE ONE (07:51)
[2019-03-08] MEDS ORDERED: NITROGLYCERIN SYRINGE 6 ML ONE ×2 (07:52→07:54)
[2019-03-08] MEDS ORDERED: D5W/0.45% NACL 1,000 ML IV ONE (07:57)
[2019-03-08] MEDS ORDERED: INSULIN REGULAR, HUMAN 100 UNITS/1 ML SUB-Q NR ×2 (08:03→09:02)
[2019-03-08] MEDS ORDERED: carvediloL 6.25 MG TAB PO NR (08:12)
[2019-03-08 08:24] LABS: Calcium 8.6 mg/dL (8.4-10.2)
[2019-03-08] MEDS ORDERED: DEXTROSE 50% IN WATER (25GM) 50 ML SYRINGE IV SCH ×2 (11:10→11:52)
[2019-03-08] MEDS ORDERED: DEXTROSE 50% IN WATER (25GM) 50 ML SYRINGE IV ONE ×2 (11:12→12:13)
[2019-03-08] MEDS ORDERED: D5W/0.9% NACL 1,000 ML IV ONE (11:14)
[2019-03-08] MEDS ORDERED: POTASSIUM CHLORIDE 10 MEQ 0 MEQ/0 ML BAG IV ONE (11:28)
[2019-03-08] MEDS ORDERED: D5W/0.9% NACL 1,000 ML IV SCH (11:37)
[2019-03-08] MEDS ORDERED: DEXTROSE 50% IN WATER (25GM) 50 ML SYRINGE IV NR (13:04)
[2019-03-08] MEDS ORDERED: dexAMETHasone 4 MG/ML VIAL IV ONE (13:29)
[2019-03-08] MEDS ORDERED: HEPARIN 10,000 UNITS/10 ML VIAL IV ONE (14:45)
[2019-03-08] MEDS ORDERED: SODIUM CHLORIDE 0.9% 500 ML IVPB IRRIGATION ONE (14:45)
[2019-03-08] MEDS ORDERED: SODIUM CHLORIDE 0.9% IRR 1,000 ML BOTTLE IR ONE (14:45)
[2019-03-08] MEDS ORDERED: ONDANSETRON 4 MG/2 ML INJ ONE (16:23)
--- NOTE | 2019-03-08 16:42 | Short Stay Summary ---
Short Stay Documentation Date of service: 03/08/19 Narrative H&P: See H&P - History H&P: obtained from office - Allergies and Medications Current Medications: Allergies No Known Allergies Allergy (Verified 04/15/14 15:50) Home Medications Medication Instructions Recorded Confirmed Last Taken Type Carvedilol [Coreg] 6.25 mg PO BID 12/07/18 03/08/19 03/07/19 21:00 History Insulin Degludec [Tresiba 25 units SUB-Q DAILY 12/07/18 03/08/19 03/07/19 09:00 History Flextouch U-100] amLODIPine [Norvasc] 10 mg PO DAILY 12/07/18 03/08/19 03/07/19 19:00 History tiZANidine [Zanaflex 4mg TAB] 4 mg PO TID PRN 12/07/18 03/08/19 03/07/19 21:00 History traMADol [Ultram 50 MG tab] 50 mg PO TID PRN 12/07/18 03/08/19 03/07/19 09:00 History Active Medications Fentanyl (Sublimaze) 50 mcg IV Q5MIN PRN PRN Reason: Pain , Severe (7-10) Stop: 03/08/19 22:00 Cefazolin Sodium (Ancef/Sterile Water 2 Gm/20 Ml) 2 gm in 20 mls @ 80 mls/hr IV PREOP NR; Protocol Stop: 03/08/19 23:59 Dextrose/Sodium Chloride (D5ns) 1,000 mls @ 42 mls/hr IV DIRECT PRIYA Stop: 03/08/19 23:59 Last Admin: 03/08/19 11:15 Dose: 42 mls/hr Documented by: Midazolam HCl (Versed) 2 mg IV PREOP NR Stop: 03/08/19 21:00 Ondansetron HCl (Zofran) 4 mg IV ONCE PRN PRN Reason: Nausea And Vomiting - Brief post op/procedure progress note Date of procedure: 03/15/19 Pre-op diagnosis: End-Stage Renal Disease Post-op diagnosis: same Procedure: Creation of Left Brachiocephalic AV Fistula Anesthesia: local, other (LMA) Surgeon: GUEVARA BERRIOS Estimated blood loss: minimal Pathology: none Condition: stable - Disposition Condition at discharge: Good Disposition: DC-01 TO HOME OR SELFCARE Short Stay Discharge Plan Activity: other (no heavy lifting left arm) Wound: open to air, keep clean and dry, other (okay to wash the wound with soap and water but do not soak in water) Follow up with: DANGELO PABLO MD [Primary Care Provider] - 14 Days Prescriptions: HYDROcodone/APAP 7.5-325 [[place] 7.5/325] 1 each PO Q6HR PRN #40 tablet PRN Reason: Pain
--- NOTE | 2019-03-08 16:44 | Operative Report ---
Operative Report Operative Report: Date of procedure: 03/08/2019 Pre-operative diagnosis: End-Stage Renal Disease Post-operative diagnosis: End-Stage Renal Disease Procedure(s): Creation of Left Brachial Artery to Cephalic Vein Arteriovenous Fistula Surgeon: Dyllan Moreira MD Sanitation Director: None Anesthesia: Local/LMA EBL: Minimal Counts: Correct Complications: None Condition: Stable Findings: Successful creation of left brachiocephalic arteriovenous fistula with palpable thrill at the completion of the case. Specimen: None Indications: The patient is a 63-year-old female with history of residual disease who is on hemodialysis through a right internal jugular permacath. She is in need of long-term dialysis access and had adequate vein for creation of an AV fistula. She was given the risks, benefits, and alternative procedures and consented to procedure. Description of Procedure: The patient was brought to the operating room and laid in supine position after general endotracheal anesthesia was administered the patient was prepped and draped in normal sterile fashion. After anesthetizing the skin a transverse i ncision was created just below the antecubital crease. Dissection was carried down to the the cephalic vein using sharp dissection. The vein was dissected out both proximally and distally and suture ligated and divided distally. I then ran a 3 Chantal proximally in the vein, to ensure patency of the vein. Then flushed the vein with heparinized saline and flow was controlled with a bulldog clamp. I then dissected out the brachial artery through this incision circumferentially both proximal and distal and controlled the artery with vessel loops. I then placed the vessel loops on tension controlling the flow through the artery and created an arteriotomy using an 11 blade and King scissors. I created an end to side anastomosis between the cephalic vein and brachial artery using a 6-0 Prolene in running fashion. Prior to completing the anastomosis I flushed the artery both proximally and distally and then advanced a 3 Chantal proximally to break the spasm in the artery. I then completed the anastomosis and removed all vessel loops allowing flow into the fistula which had an excellent thrill. I achieved hemostasis with a combination of direct pressure and electrocautery. Once hemostasis was achieved I anesthetized the wound with Marcaine. I then closed the wound in 2 layers and 3-0 Vicryl in a running fashion to close the deep dermal layer and 4-0 Monocryl in a running fashion in the subcuticular layer. I dressed the wound with Surgicel. The patient tolerated the procedure well, all sponge needle and instrument counts were correct. The patient was taken to recovery in stable condition.
[2019-03-08 18:50] VITALS: BP 174/87
--- NOTE | 2019-03-08 22:40 | Post Anesthesia Evaluation ---
- Post Anesthesia Evaluation Patient Participated: Yes Airway Patent: Yes Stable Respiratory Function: Yes Nausea/Vomiting: No Temp > 96.8F: Yes Pain Manageable: Yes Adequeate Hydration: Yes Anesthesia Complications: No Block Receding Appropriately: Not Applicable Patient on Ventilator: No
== END 2019-03-08 07:22 | disposition home or self-care (01) ==
LOC: OR 07:21
PROVIDERS: ATTEND Surgery Vascular Surgery
DX: I12.0 Hypertensive chronic kidney disease with stage 5 chronic kidney disease or end stage renal disease (principal); E11.22 Type 2 diabetes mellitus with diabetic chronic kidney disease; N18.6 End stage renal disease; D63.8 Anemia in other chronic diseases classified elsewhere; J44.9 Chronic obstructive pulmonary disease, unspecified; E66.9 Obesity, unspecified; D69.6 Thrombocytopenia, unspecified; G47.30 Sleep apnea, unspecified; K21.9 Gastro-esophageal reflux disease without esophagitis; Z79.899 Other long term (current) drug therapy; Z79.4 Long term (current) use of insulin; Z68.28 Body mass index [BMI] 28.0-28.9, adult; Z90.49 Acquired absence of other specified parts of digestive tract; Z98.890 Other specified postprocedural states; Z91.81 History of falling; Z86.73 Personal history of transient ischemic attack (TIA), and cerebral infarction without residual deficits
CPT/HCPCS: 36415; 36821; 80048; 82803; 82962; C1757; C1768; J0690; J1100; J1644; J2405; J2704; J3010; J3490; J7030; J7040; J7042; J1815; J2720; J3480

== ENCOUNTER 2019-03-10 03:34 | Emergency (ER) | payer MEDICARE ==
[2019-03-10] MEDS ORDERED: DEXTROSE 50% IN WATER (25GM) 50 ML SYRINGE IV ONE ×2 (04:12→04:44)
[2019-03-10 05:01] LABS: Calcium 8.2 mg/dL (8.4-10.2)
--- NOTE | 2019-03-10 05:29 | Emergency Department Report ---
ED Altered Mental Status HPI - General Chief Complaint: Hypoglycemia Stated Complaint: LOW BLOOD SUGAR Time Seen by Provider: 03/10/19 04:02 Source: EMS Mode of arrival: Stretcher Limitations: No Limitations - History of Present Illness Initial Comments: Ms. Emery is a 63 yo female with hx of ESRD HD //, COPD, CVA, DM, Still's Disease who presents with deceraese responsiveness. BG 55 initally. Received dextrose with improvement of mental status. Ms. Emery denies any discomfort. She was unaware of being ill. MD Complaint: decreased responsiveness -: unknown Severity: severe Consistency of Symptoms: unknown Context: diabetes Associated Symptoms: denies other symptoms - Related Data Home Medications Medication Instructions Recorded Confirmed Last Taken Carvedilol [Coreg] 6.25 mg PO BID 12/07/18 03/08/19 03/07/19 21:00 Insulin Degludec [Tresiba 25 units SUB-Q DAILY 12/07/18 03/08/19 03/07/19 09:00 Flextouch U-100] amLODIPine [Norvasc] 10 mg PO DAILY 12/07/18 03/08/19 03/07/19 19:00 tiZANidine [Zanaflex 4mg TAB] 4 mg PO TID PRN 12/07/18 03/08/19 03/07/19 21:00 traMADol [Ultram 50 MG tab] 50 mg PO TID PRN 12/07/18 03/08/19 03/07/19 09:00 Previous Rx's Medication Instructions Recorded Last Taken Type HYDROcodone/APAP 7.5-325 [[place] 1 each PO Q6HR PRN #40 tablet 03/08/19 Unknown Rx 7.5/325] Allergies Allergy/AdvReac Type Severity Reaction Status Date / Time No Known Allergies Allergy Verified 04/15/14 15:50 ED Review of Systems ROS: Stated complaint: LOW BLOOD SUGAR Other details as noted in HPI Comment: All other systems reviewed and negative Constitutional: denies: fever, malaise Respiratory: denies: orthopnea Cardiovascular: denies: chest pain ED Past Medical Hx - Past Medical History Previous Medical History?: Yes Hx Hypertension: Yes (States NST in October and [place] per pt) Hx Diabetes: Yes Hx GERD: Yes Hx Renal Disease: Yes Hx Asthma: Yes Hx COPD: Yes Additional medical history: sleep apnea - Surgical History Past Surgical History?: Yes Hx Cholecystectomy: Yes Additional Surgical History: c section - Social History Smoking Status: Never Smoker - Medications Home Medications: Home Medications Medication Instructions Recorded Confirmed Last Taken Type Carvedilol [Coreg] 6.25 mg PO BID 12/07/18 03/08/19 03/07/19 21:00 History Insulin Degludec [Tresiba 25 units SUB-Q DAILY 12/07/18 03/08/19 03/07/19 09:00 History Flextouch U-100] amLODIPine [Norvasc] 10 mg PO DAILY 12/07/18 03/08/19 03/07/19 19:00 History tiZANidine [Zanaflex 4mg TAB] 4 mg PO TID PRN 12/07/18 03/08/19 03/07/19 21:00 History traMADol [Ultram 50 MG tab] 50 mg PO TID PRN 12/07/18 03/08/19 03/07/19 09:00 History HYDROcodone/APAP 7.5-325 [[place] 1 each PO Q6HR PRN #40 tablet 03/08/19 Unknown Rx 7.5/325] ED Physical Exam - General Limitations: No Limitations General appearance: alert, in no apparent distress, other (sleeping but arousable) - Head Head exam: Present: atraumatic, normocephalic - Eye Eye exam: Present: normal appearance. Absent: scleral icterus, conjunctival injection - ENT ENT exam: Present: mucous membranes moist - Neck Neck exam: Present: normal inspection, full ROM - Respiratory Respiratory exam: Present: normal lung sounds bilaterally. Absent: respiratory distress, wheezes, rales, rhonchi - Cardiovascular Cardiovascular Exam: Present: regular rate, normal rhythm, normal heart sounds. Absent: systolic murmur, diastolic murmur, rubs, gallop - GI/Abdominal GI/Abdominal exam: Present: soft, normal bowel sounds. Absent: distended, tenderness, guarding, rebound - Extremities Exam Extremities exam: Present: normal inspection - Neurological Exam Neurological exam: Present: alert, oriented X3, other (GOMEZ x 4) - Psychiatric Psychiatric exam: Present: normal affect, normal mood - Skin Skin exam: Present: warm, dry, intact, normal color. Absent: rash ED Course Vital Signs 03/10/19 03/10/19 03/10/19 04:15 04:30 08:02 Temperature 98.4 F 97.4 F L Pulse Rate 69 79 Respiratory 9 L 15 Rate Blood Pressure 119/77 Blood Pressure 152/91 [Right] O2 Sat by Pulse 100 100 Oximetry 03/10/19 08:15 Temperature 97.4 F L Pulse Rate 79 Respiratory 15 Rate Blood Pressure Blood Pressure 152/91 [Right] O2 Sat by Pulse 100 Oximetry - Lab Data Result diagrams: 03/10/19 04:19 Lab Results 03/10/19 03/10/19 03/10/19 Range/Units 04:14 04:19 04:31 Sodium 126 L (137-145) mmol/L Potassium 3.8 (3.6-5.0) mmol/L Chloride 88.1 L (98-107) mmol/L Carbon Dioxide 21 L (22-30) mmol/L Anion Gap 21 mmol/L BUN 38 H (7-17) mg/dL Creatinine 8.1 H (0.7-1.2) mg/dL Estimated GFR 6 ml/min BUN/Creatinine Ratio 5 % Glucose 181 H (65-100) mg/dL POC Glucose 115 H 211 H (70-105) Calcium 8.2 L (8.4-10.2) mg/dL 03/10/19 Range/Units 08:07 Sodium (137-145) mmol/L Potassium (3.6-5.0) mmol/L Chloride (98-107) mmol/L Carbon Dioxide (22-30) mmol/L Anion Gap mmol/L BUN (7-17) mg/dL Creatinine (0.7-1.2) mg/dL Estimated GFR ml/min BUN/Creatinine Ratio % Glucose (65-100) mg/dL POC Glucose 168 H (70-105) Calcium (8.4-10.2) mg/dL - Medical Decision Making Mrs. Emery presents with decreased responsiveness with mild hypoglycemia in the field. She is awake and alert in the ED. She will need to eat prior to discharge. I discussed hyponatremia/hypochloremia discovered on chemistry with pecan sheller Dr. Champion. Patient's primary pecan sheller Dr. Alexander. Dr. Champion agreed that patient can be discharged to f/u at dialysis today if she is able to eat and tolerate PO. Patient is arousable with provide hx. HOwever, she desires to sleep at this time. Will allow her to sleep, monitor accuchecks. Dc once she eats meal. My colleague will determine final disposition Critical care attestation.: If time is entered above; I have spent that time in minutes in the direct care of this critically ill patient, excluding procedure time. ED Disposition Clinical Impression: Hypoglycemia, Decreased responsiveness, ESRD (end stage renal disease), Hyponatremia Disposition: DC-01 TO HOME OR SELFCARE Is pt being admited?: No Does the pt Need Aspirin: No Condition: Stable Instructions: Diabetic Hypoglycemia (ED) Referrals: DANGELO PABLO MD [Primary Care Provider] - 3-5 Days
[2019-03-10 08:03] VITALS: BP 152/91
[2019-03-10] MEDS ORDERED: ACETAMINOPHEN 325 MG TAB PO ONE (08:12)
== END 2019-03-10 08:15 | disposition home or self-care (01) ==
LOC: ED 03:34
DX: E13.22 Other specified diabetes mellitus with diabetic chronic kidney disease (principal); I12.0 Hypertensive chronic kidney disease with stage 5 chronic kidney disease or end stage renal disease; N18.6 End stage renal disease; Z99.2 Dependence on renal dialysis; Z79.4 Long term (current) use of insulin; E11.649 Type 2 diabetes mellitus with hypoglycemia without coma; J44.9 Chronic obstructive pulmonary disease, unspecified; K21.9 Gastro-esophageal reflux disease without esophagitis; Z90.49 Acquired absence of other specified parts of digestive tract; Z79.899 Other long term (current) drug therapy
CPT/HCPCS: 36415; 80048; 82962; 96374

== ENCOUNTER 2019-03-28 11:51 | Inpatient (IN) | payer MEDICARE ==
[~2019-03-28 11:51] MED LIST changes: -MIDAZOLAM 2 MG/2 ML INJ IV NR; +NACL 0.9% 1000 ML 1,000 ML IV SCH; -SODIUM CHLORIDE 0.9% 1000 ML 1,000 ML IV SCH; -ceFAZolin/Water 2 GM/20 ML 2 GM/20 ML SYRINGE IV NR
[2019-03-28] MEDS ORDERED: SUBLIMAZE IV PRN ×3 (12:52→17:26)
--- NOTE | 2019-03-28 12:52 | Anesthesia Consultation ---
Anesthesia Consult and Med Hx Date of service: 03/28/19 - Airway Anesthetic Teeth Evaluation: Edentulous ROM Head & Neck: Adequate Mental/Hyoid Distance: Inadequate Mallampati Class: Class II Intubation Access Assessment: Probably Good (previous easy LMA 3) - Pulmonary Exam CTA: Yes - Cardiac Exam Cardiac Exam: RRR - Pre-Operative Health Status ASA Pre-Surgery Classification: ASA4 Proposed Anesthetic Plan: General, MAC - Pre-Anesthesia Comment Pre-Anesthesia Comments: GA vs MAC pending discussion with surgeon regard extent of intended procedure. - Pulmonary Hx Smoking: Yes Hx Asthma: Yes COPD: Yes Hx Sleep Apnea: Yes - Cardiovascular System Hx Hypertension: Yes (took antihypertensives this morning) Hx Heart Attack/AMI: No - Central Nervous System CVA: Yes Hx Back Pain: Yes - Gastrointestinal Hx Gastroesophageal Reflux Disease: Yes (asymptomatic today) - Endocrine Hx End Stage Renal Disease: Yes (last HD 03/25/19) Hx Liver Disease: No Hx Non-Insulin Dependent Diabetes: Yes - Hematic Hx Anemia: Yes - Additional Comments Anesthesia Medical History Comments: No hx anesthetic complications.
--- NOTE | 2019-03-28 12:52 | Anesthesia Day of Surgery ---
Anesthesia Day of Surgery - Day of Surgery Patient Examined: Yes Patient H&P Reviewed: Yes Patient is NPO: Yes
[2019-03-28] MEDS ORDERED: MARCAINE 0.5% INFILTRATI ONE ×2 (12:53→16:40)
[2019-03-28] MEDS ORDERED: HEPARIN 10,000 UNITS/10 ML ONE (12:53)
[2019-03-28] MEDS ORDERED: PROTAMINE SULFATE ONE (12:54)
[2019-03-28] MEDS ORDERED: NACL 0.9% 500 ML 500 ML ONE (12:54)
[2019-03-28] MEDS ORDERED: RIFADIN ONE (12:54)
[2019-03-28] MEDS ORDERED: NACL P/F VIAL (10 ML) 10 ML ONE (12:54)
[2019-03-28] MEDS ORDERED: HumuLIN R IV SCH (13:05)
[2019-03-28] MEDS ORDERED: HumuLIN R ONE (13:09)
[2019-03-28] MEDS ORDERED: SUBLIMAZE ONE (13:30)
[2019-03-28] MEDS ORDERED: DIPRIVAN 10 MG/ML IV ONE (13:30)
[2019-03-28] MEDS ORDERED: XYLOCAINE MPF 2% ONE (14:49)
[2019-03-28] MEDS ORDERED: PHENYLEPHRINE/NS Syringe 1,000 MCG/10 ML IV ONE (15:23)
[2019-03-28] MEDS ORDERED: HEPARIN 10,000 UNITS/10 ML IV ONE (15:31)
[2019-03-28] MEDS ORDERED: RIFADIN IR ONE (15:53)
[2019-03-28] MEDS ORDERED: NACL 0.9% IR ONE (15:53)
[2019-03-28] MEDS ORDERED: ANCEF/STERILE WATER 2 GM/20 ML IV NR (16:00)
[2019-03-28] MEDS ORDERED: MORPHINE IV PRN (17:10)
[2019-03-28] MEDS ORDERED: ZOFRAN IV PRN ×2 (17:10→17:26)
[2019-03-28] MEDS ORDERED: D50W (25GM) Syringe IV PRN (17:10)
[2019-03-28] MEDS ORDERED: TYLENOL PO PRN (17:10)
[2019-03-28] MEDS ORDERED: SODIUM CHLORIDE FLUSH SYRINGE 10 ML IV PRN (17:10)
--- NOTE | 2019-03-28 17:10 | Operative Report ---
Operative Report Operative Report: Date of Procedure: 03/28/2019 Pre-operative Diagnosis: Complications of Dialysis Access Post-operative Diagnosis: Same Procedure(s): 1. Revision of Left Brachiocephalic Arteriovenous Fistula with Open Thrombectomy or 4 Chantal And Revision of Arterial Anastomosis with Bovine Patch Angioplasty Surgeon: Dyllan Moreira M.D. Crematory Operator: None Anesthesia: Local/MAC EBL: 100 mL Counts: Correct Complications: None Condition: Stable Findings: The fistula was bleeding from the proximal vein that had perforated from angioplasty during his fistulogram performed earlier during the day. Specimen: None Indication: The patient is a 63-year-old female who had a fistulogram with angioplasty performed as an outpatient procedure and had a perforation of the vein. She complained of pain associated with the perforation although the extravasation was contained as a pseudoaneurysm. The decision was made to explore the wound and repair of the area of extravasation for control of pain. She was given the risks, benefits, and alternative procedures and consented to the procedure. Description of Procedure: The patient was brought to the operating room and laid in supine position. After she was adequately sedated her left arm was prepped and draped in normal sterile fashion. A template was used to reopen her previous incision below the antecubital crease and upon opening the deep dermal layer there was arterial bleeding noted that was controlled with manual pressure on the proximal brachial artery. Curved Mayos were used to continue opening the incision and upon exploring the fistula it was noted that the patient was bleeding from the vein just distal to the arterial anastomosis. Pressure was held on the anastomosis and the area of perforation was controlled with a 6-0 Prolene in running fashion. There was no thrill appreciated in the fistula so an 11 blade was used to create a venotomy and upon opening the fistula a 3 Chantal was advanced towards the venous outflow and thrombus was withdrawn from the fistula. This was done until venous backflow was noted. The vein was then flushed with heparinized saline and then the Chantal was passed into the arterial anastomosis and a small amount of thrombus was withdrawn and there was excellent arterial inflow. I then closed the venotomy with a 6-0 Prolene however there was still none inadequate thrill appreciated so I dissected the distal brachial artery and clamped this with an angled DeBakey clamp and then created a longitudinal venotomy extending from the toe of the anastomosis past the point of previous perforation. I used a 3 Chantal with a three-way stopcock to control the flow in the proximal brachial artery. I then used a bovine pericardial patch and closed the venotomy using a 6-0 Prolene in running fashion closed the venotomy. Prior to closing the venotomy I removed the DeBakey clamp and 3 Chantal and f lushed fistula with heparinized saline. I then completed the closure and palpated the fistula which had a palpable thrill. Hemostasis within the wound was achieved with a combination of Quick Clot and FloSeal. Once hemostasis was achieved I anesthetized the wound with 0.5% Marcaine and then closed the wound in 2 layers using a 3-0 Vicryl and running fashion the deep dermal layer and a 4-0 Monocryl in a running fashion subcuticular layer and then dressed the wound with Dermabond. The patient tolerated the procedure well. All sponge, needle, and instrument counts were correct. The patient was taken to the recovery area in stable condition.
[2019-03-28] MEDS ORDERED: D50W (25GM) Syringe IV ONE ×2 (17:11→17:24)
[2019-03-28] MEDS ORDERED: DILAUDID ONE (17:13)
[2019-03-28] MEDS ORDERED: NORCO 7.5/325 PO PRN (17:14)
[2019-03-28] MEDS ORDERED: ZANAFLEX PO PRN (17:15)
[2019-03-28] MEDS ORDERED: ULTRAM PO PRN (17:15)
[2019-03-28] MEDS: DILAUDID IV PRN ×2 (17:15→17:30)
[2019-03-28] MEDS ORDERED: NACL 0.9% 100 ML IV PRN (17:22)
[2019-03-28] MEDS ORDERED: PROCRIT IV PRN (17:24)
[2019-03-28] MEDS ORDERED: HumuLIN R SUB-Q SCH (18:00)
[2019-03-28 19:04] LABS: Hepatitis B Surface Antigen Non-Reactive (Negative); Hepatitis C Virus Antibody Non-Reactive (NonReactive)
[2019-03-28] MEDS ORDERED: NACL 0.9 (PRIMING MACHINE ONLY DIALYSIS) MC ONE (19:53)
[2019-03-28] MEDS ORDERED: COREG PO SCH (22:00)
[2019-03-28] MEDS ORDERED: SODIUM CHLORIDE FLUSH SYRINGE 10 ML IV SCH (22:00)
[2019-03-28 23:21] VITALS: BP 177/86
== END 2019-03-28 23:10 | disposition left against medical advice (07) | DRG 907 ==
LOC: OR 11:51 → 3A 17:10
PROVIDERS: ADMIT Surgery Vascular Surgery; ATTEND Surgery Vascular Surgery
PROC: 03C80ZZ Extirpation of Matter from Left Brachial Artery, Open Approach (ICD-10-PCS; principal; 2019-03-28)
PROC: 05CF0ZZ Extirpation of Matter from Left Cephalic Vein, Open Approach (ICD-10-PCS; 2019-03-28)
PROC: 05U Upper Veins, Supplement (ICD-10-PCS; 2019-03-28)
PROC: 05QF0ZZ Repair Left Cephalic Vein, Open Approach (ICD-10-PCS; 2019-03-28)
PROC: 5A1D70Z Performance of Urinary Filtration, Intermittent, Less than 6 Hours Per Day (ICD-10-PCS; 2019-03-28)
DX: I97.618 Postprocedural hemorrhage of a circulatory system organ or structure following other circulatory system procedure (principal); N18.6 End stage renal disease; T82.868A Thrombosis due to vascular prosthetic devices, implants and grafts, initial encounter; I12.0 Hypertensive chronic kidney disease with stage 5 chronic kidney disease or end stage renal disease; T82.838A Hemorrhage due to vascular prosthetic devices, implants and grafts, initial encounter; K21.9 Gastro-esophageal reflux disease without esophagitis; J44.9 Chronic obstructive pulmonary disease, unspecified; F17.200 Nicotine dependence, unspecified, uncomplicated; E11.22 Type 2 diabetes mellitus with diabetic chronic kidney disease; Y83.2 Surgical operation with anastomosis, bypass or graft as the cause of abnormal reaction of the patient, or of later complication, without mention of misadventure at the time of the procedure; Y92.098 Other place in other non-institutional residence as the place of occurrence of the external cause; Z79.84 Long term (current) use of oral hypoglycemic drugs
CPT/HCPCS: 36415; 80074; 82803; 82962; G0378; C1757; C1768; J0690; J0885; J1170; J1644; J1815; J2370; J2704; J2720; J3010; J3490; J7030; J7040

== ENCOUNTER 2019-04-26 08:57 | Day surgery (SDC) | payer MEDICARE ==
[~2019-04-26 08:57] MED LIST changes: -NACL 0.9% 1000 ML 1,000 ML IV SCH; +ceFAZolin/Water 2 GM/20 ML 2 GM/20 ML SYRINGE IV NR
--- NOTE | 2019-04-26 09:35 | Anesthesia Day of Surgery ---
Anesthesia Day of Surgery - Day of Surgery Patient Examined: Yes Patient H&P Reviewed: Yes Patient is NPO: Yes
--- NOTE | 2019-04-26 09:35 | Anesthesia Consultation ---
Anesthesia Consult and Med Hx Date of service: 04/26/19 - Airway Anesthetic Teeth Evaluation: Dentures ROM Head & Neck: Adequate Mental/Hyoid Distance: Adequate Mallampati Class: Class II Intubation Access Assessment: Good - Pulmonary Exam CTA: Yes - Cardiac Exam Cardiac Exam: RRR - Pre-Operative Health Status ASA Pre-Surgery Classification: ASA3 Proposed Anesthetic Plan: General (DM, ESRD, HTN , ex smoker for GA) - Pulmonary Hx Smoking: Yes Hx Asthma: Yes COPD: Yes Hx Sleep Apnea: Yes - Cardiovascular System Hx Hypertension: Yes - Central Nervous System CVA: Yes Hx Back Pain: Yes Hx Psychiatric Problems: No - Gastrointestinal Hx Gastroesophageal Reflux Disease: Yes (asymptomatic today) - Endocrine Hx Renal Disease: Yes Hx End Stage Renal Disease: Yes Hx Non-Insulin Dependent Diabetes: Yes - Hematic Hx Anemia: Yes - Other Systems Hx Cancer: No
[2019-04-26] MEDS ORDERED: LACTATED RINGERS 1,000 ML IV SCH (10:00)
[2019-04-26] MEDS ORDERED: SODIUM CHLORIDE 0.9% 1000 ML 1,000 ML ONE (10:00)
[2019-04-26] MEDS ORDERED: MIDAZOLAM 2 MG/2 ML INJ IV NR (10:00)
--- NOTE | 2019-04-26 10:03 | Short Stay Summary ---
Short Stay Documentation Date of service: 04/26/19 Narrative H&P: The patient is a 63 year old female with a history of end-stage renal disease was currently on hemodialysis through a right internal jugular permacath. She had a creation of a left brachiocephalic arteriovenous fistula that despite revision has failed to mature and thrombosed. She is in need of long-term dialysis access and requires creation of a left arm arteriovenous graft. She has no complaints at this time. - History H&P: dictated Past Medical History: COPD, diabetes, dialysis, ESRD, heart failure, hypertension Past Surgical History: , Other (Creation of Left Brachiocephalic AVF, revision of left AVF) Social history: no significant social history - Allergies and Medications Current Medications: Allergies No Known Allergies Allergy (Verified 04/22/19 10:51) Home Medications Medication Instructions Recorded Confirmed Last Taken Type Insulin Degludec (Nf) [Tresiba 25 units SUB-Q DAILY 12/07/18 04/22/19 03/27/19 History Flextouch U-100 (Nf)] amLODIPine 10 mg PO DAILY 12/07/18 04/22/19 03/28/19 07:00 History carvediloL [Coreg] 6.25 mg PO BID 12/07/18 04/22/19 03/28/19 07:00 History tiZANidine [Zanaflex 4mg TAB] 4 mg PO TID PRN 12/07/18 04/22/19 03/27/19 History traMADoL [Ultram 50 MG tab] 50 mg PO TID PRN 12/07/18 04/22/19 03/27/19 History HYDROcodone/APAP 7.5-325 [[place] 1 each PO Q6HR PRN #40 tablet 03/08/19 04/22/19 03/27/19 Rx 7.5/325] Active Medications Cefazolin Sodium (Ancef/Sterile Water 2 Gm/20 Ml) 2 gm in 20 mls @ 80 mls/hr IV PREOP NR; Protocol Stop: 04/26/19 23:59 Lactated Ringer's (Lactated Ringers) 1,000 mls @ 75 mls/hr IV DIRECT PRIYA Midazolam HCl (Versed) 2 mg IV PREOP NR Stop: 04/26/19 23:59 - Physical exam General appearance: no acute distress Lungs: Clear to auscultation Breasts: deferred Heart: Regular rate Gastrointestinal: normal Extremities: no ischemia, pulses intact, abnormal (Left AVF without pulse or thrill, incision is well healed) - Brief post op/procedure progress note Date of procedure: 04/26/19 Pre-op diagnosis: Complications of Dialysis Access Post-op diagnosis: same Procedure: Creation of Left Brachial Artery to Axillary Vein Arteriovenous Graft With 6 mm Bovine Artegraft Anesthesia: local, other (LMA) Surgeon: GUEVARA BERRIOS Estimated blood loss: minimal Pathology: none Condition: stable - Disposition Condition at discharge: Good Disposition: DC-01 TO HOME OR SELFCARE Short Stay Discharge Plan Activity: other (no heavy lifting with left arm) Wound: open to air, keep clean and dry, other (okay to wash the wound with soap and water but do not soak in water) Follow up with: GUEVARA BERRIOS MD [Staff Physician] - 14 Days Prescriptions: HYDROcodone/APAP 7.5-325 [[place] 7.5-325 mg TAB] 1 each PO Q6HR PRN #40 tablet PRN Reason: Pain
[2019-04-26] MEDS ORDERED: SODIUM CHLORIDE 0.9% 500 ML 500 ML ONE (10:05)
[2019-04-26] MEDS ORDERED: BUPIVACAINE/PF (0.5%) 5 MG/1 ML 30 ML VIAL INFILTRATI ONE (10:05)
[2019-04-26] MEDS ORDERED: HEPARIN 10,000 UNITS/10 ML VIAL ONE (10:05)
[2019-04-26] MEDS ORDERED: rifAMPin 600 MG VIAL ONE (10:09)
[2019-04-26] MEDS ORDERED: SODIUM CHLORIDE 0.9% 250ML 250 ML ONE (10:09)
[2019-04-26] MEDS ORDERED: HYDROmorphone 1 MG/1 ML INJ ONE ×2 (10:27→13:16)
[2019-04-26] MEDS ORDERED: PROPOFOL 200 MG/20 ML VIAL IV ONE (10:28)
[2019-04-26] MEDS ORDERED: LIDOCAINE MPF (2%) 20 MG/1 ML VIAL 5 ML ONE (10:32)
[2019-04-26] MEDS ORDERED: SODIUM CHLORIDE P/F VIAL 10 ML 10 ML ONE (10:58)
[2019-04-26] MEDS ORDERED: SODIUM CHLORIDE 0.9% 1000 ML 1,000 ML IV SCH (11:00)
[2019-04-26] MEDS ORDERED: SODIUM CHLORIDE 0.9% 250 ML IVPB IV ONE (11:28)
[2019-04-26] MEDS ORDERED: SODIUM CHLORIDE 0.9% 500 ML IVPB IV ONE (11:28)
[2019-04-26] MEDS ORDERED: HEPARIN 10,000 UNITS/10 ML VIAL IV ONE ×2 (11:28)
[2019-04-26] MEDS ORDERED: SODIUM CHLORIDE 0.9% IRR 1,000 ML BOTTLE IR ONE (11:28)
[2019-04-26] MEDS ORDERED: ONDANSETRON 4 MG/2 ML INJ ONE (12:55)
--- NOTE | 2019-04-26 13:01 | Operative Report ---
Operative Report Operative Report: Date of procedure: 04/26/2019 Pre-operative diagnosis: Complications of Dialysis Access Post-operative diagnosis: Same Procedure(s): 1. Creation of Left Brachial Artery to Axillary Vein AV Graft with 6 mm Bovine Artegraft Surgeon: Dyllan Moreira MD Security Analyst: None Anesthesia: General Endotracheal Anesthesia EBL: Minimal Counts: Correct Complications: None Condition: Stable Findings: Successful Creation of Left Arm AV Graft Specimen: None Indication: The patient is a 63-year-old female with history of end-stage renal disease with a previous creation of left brachiocephalic arteriovenous fistula. The fistula has failed to mature and eventually thrombosed. She is in need of long-term d ialysis access and has no adequate veins for creation of an AV fistula in her left arm so she requires creation of an AV graft. She was given the risk, benefits, and alternative procedures and consented to the procedure. Description of Procedure: The patient was brought to the operating room and laid in supine position after general endotracheal anesthesia was achieved the left arm was prepped and draped in normal sterile fashion. A longitudinal incision was made on the medial aspect of the arm just proximal to the antecubital crease and carried down to the brachial artery using sharp dissection. The brachial artery was dissected out circumferentially both proximally and distally and controlled with vessel loops. A second incision was created in longitudinal fashion on the medial a spect of the arm just distal to the axillary crease and carried down to the axillary vein using sharp dissection. Axillary vein was dissected out circumferentially and controlled with a vessel loop. I then used a Kayli-Wick tunneler to tunnel from the brachial artery incision to the axillary vein incision and then pulled a 6 mm bovine graft through the tunnel. I infused with heparinized saline to ensure that it was not twisted or kinked. I put the brachial artery vessel loops on tension controlling the flow and then created an arteriotomy using an 11 blade and King scissors. I beveled the graft and created an end-to-side anastomosis using 6-0 Prolene running fashion. I clamped the graft just proximal to the anastomosis and then released the vessel loops restoring flow in the brachial artery. I placed quick clot in incision to achieve hemostasis. I cut the proximal end of the graft to the appropriate length and beveled the graft in preparation for a venous anastomosis. I contr olled the axillary vein a Satinsky clamp and created a venotomy using an 11 blade and King scissors. I created an end to side anastomosis using a 6-0 Prolene in running fashion. Prior to completing the anastomosis I flushed the graft to ensure there was no thrombus and then completed the anastamosis. I released all clamps allowing flow into the AV graft which had a palpable thrill. I packed the wound with quick clot to achieve hemostasis. I anesthetized both wounds with 0.5% Marcaine and then closed both wounds in 2 layers using 3-0 Vicryl in running fashion in the deep dermal layer and 4-0 Monocryl in running fashion the subcuticular layer. I dressed both wounds witht Dermabond. The patient tolerated the procedure well all sponge needle and instrument counts were correct the patient was taken to recovery in stable condition.
[2019-04-26] MEDS ORDERED: HYDROmorphone 1 MG/1 ML INJ IV PRN (13:19)
[2019-04-26] MEDS ORDERED: HYDROcodone/ACETAMINOPHEN 7.5-325MG TAB PO PRN (13:27)
[2019-04-26 14:29] VITALS: BP 162/78
== END 2019-04-26 08:58 | disposition home or self-care (01) ==
LOC: OR 08:57
PROVIDERS: ATTEND Surgery Vascular Surgery
DX: T82.898A Other specified complication of vascular prosthetic devices, implants and grafts, initial encounter (principal); I13.2 Hypertensive heart and chronic kidney disease with heart failure and with stage 5 chronic kidney disease, or end stage renal disease; E11.22 Type 2 diabetes mellitus with diabetic chronic kidney disease; N18.6 End stage renal disease; I50.9 Heart failure, unspecified; G47.30 Sleep apnea, unspecified; K21.9 Gastro-esophageal reflux disease without esophagitis; J44.9 Chronic obstructive pulmonary disease, unspecified; E66.2 Morbid (severe) obesity with alveolar hypoventilation; J18.9 Pneumonia, unspecified organism; D69.6 Thrombocytopenia, unspecified; Z99.2 Dependence on renal dialysis; Z98.891 History of uterine scar from previous surgery; Z79.4 Long term (current) use of insulin; Z79.899 Other long term (current) drug therapy; Z68.28 Body mass index [BMI] 28.0-28.9, adult; Z91.81 History of falling; Z86.73 Personal history of transient ischemic attack (TIA), and cerebral infarction without residual deficits; Y83.8 Other surgical procedures as the cause of abnormal reaction of the patient, or of later complication, without mention of misadventure at the time of the procedure; Y92.89 Other specified places as the place of occurrence of the external cause
CPT/HCPCS: 36830; 82803; 82962; C1768; J0690; J1170; J1644; J2250; J2405; J2704; J3490; J7030; J7040; J7050; J7120

== ENCOUNTER 2020-02-15 08:38 | Emergency (ER) | payer MEDICARE ==
[2020-02-15] MEDS ORDERED: DEXTROSE 50% IN WATER (25GM) 50 ML SYRINGE IV ONE ×2 (09:03→09:06)
--- NOTE | 2020-02-15 10:31 | Emergency Department Report ---
HPI - General Chief Complaint: Hypoglycemia Time Seen by Provider: 02/15/20 09:12 - HPI HPI: This is a 64-year-old -[place] female presents to the emergency department by EMS from a dialysis center after she was found to have a blood sugar of 27 while getting dialysis. The patient became unresponsive except to painful stimuli. She was given some sugar, oral glucose, and transported to our facility. The patient was still found to have a [id number] glucose less than 40 and was given yet another D50. Now, at this time, the patient is awake and alert and has no complaints. ED Past Medical Hx - Past Medical History Hx Hypertension: Yes Hx Diabetes: Yes Hx GERD: Yes Hx Renal Disease: Yes Hx Asthma: Yes Hx COPD: Yes Additional medical history: sleep apnea - Surgical History Hx Cholecystectomy: Yes Additional Surgical History: c section - Social History Smoking Status: Unknown if ever smoked - Medications Home Medications: Home Medications Medication Instructions Recorded Confirmed Last Taken Type Insulin Degludec (Nf) [Tresiba 25 units SUB-Q DAILY 12/07/18 04/26/19 04/25/19 10:00 History Flextouch U-100 (Nf)] amLODIPine 10 mg PO DAILY 12/07/18 04/26/19 04/25/19 19:00 History carvediloL [Coreg] 6.25 mg PO BID 12/07/18 04/26/19 04/25/19 19:00 History tiZANidine [Zanaflex 4mg TAB] 4 mg PO TID PRN 12/07/18 04/26/19 04/24/19 19:00 History traMADoL [Ultram 50 MG tab] 50 mg PO TID PRN 12/07/18 04/26/19 04/19/19 08:00 History HYDROcodone/APAP 7.5-325 [Whitlash 1 each PO Q6HR PRN #40 tablet 04/26/19 Unknown Rx 7.5-325 mg TAB] ED Review of Systems ROS: Stated complaint: LOW BLOOD SUGAR Other details as noted in HPI Comment: All other systems reviewed and negative Constitutional: denies: chills, fever Eyes: denies: eye pain, vision change ENT: denies: ear pain, throat pain Respiratory: denies: cough, shortness of breath Cardiovascular: denies: chest pain, palpitations Gastrointestinal: denies: abdominal pain, vomiting Genitourinary: denies: dysuria, discharge Musculoskeletal: denies: back pain, arthralgia Skin: denies: rash, lesions Neurological: confusion. denies: headache Physical Exam - Physical Exam Vital Signs: Vital Signs 02/15/20 02/15/20 08:43 08:47 Pulse Rate 100 H 94 H Respiratory 16 16 Rate Blood Pressure 136/72 Blood Pressure 136/86 [Right] O2 Sat by Pulse 94 Oximetry Physical Exam: GENERAL: The patient is well-developed well-nourished. HENT: Normocephalic. Atraumatic. Patient has moist mucous membranes. EYES: Extraocular motions are intact. NECK: Supple. Trachea is midline. CHEST/LUNGS: Clear to auscultation. There is no respiratory distress noted. HEART/CARDIOVASCULAR: Regular. There is no tachycardia. There is no murmur. ABDOMEN: Abdomen is soft, nontender. Patient has normal bowel sounds. There is no abdominal distention. SKIN: Skin is warm and dry. NEURO: The patient is awake, alert, and oriented. The patient is cooperative. The patient has no focal neurologic deficits. Normal speech. MUSCULOSKELETAL: There is no tenderness or deformity. ED Course Vital Signs 02/15/20 02/15/20 08:43 08:47 Pulse Rate 100 H 94 H Respiratory 16 16 Rate Blood Pressure 136/72 Blood Pressure 136/86 [Right] O2 Sat by Pulse 94 Oximetry - Reevaluation(s) Reevaluation #1: 02/15/20 13:44 Lab Results 02/15/20 02/15/20 02/15/20 Range/Units 08:56 09:36 10:16 WBC (4.5-11.0) K/mm3 RBC (3.65-5.03) M/mm3 Hgb (10.1-14.3) gm/dl Hct (30.3-42.9) % MCV (79-97) fl MCH (28-32) pg MCHC (30-34) % RDW (13.2-15.2) % Plt Count (140-440) K/mm3 Lymph % (Auto) (13.4-35.0) % [place] % (Auto) (0.0-7.3) % Eos % (Auto) (0.0-4.3) % Baso % (Auto) (0.0-1.8) % Lymph # (1.2-5.4) K/mm3 [place] # (0.0-0.8) K/mm3 Eos # (0.0-0.4) K/mm3 Baso # (0.0-0.1) K/mm3 Seg Neutrophils % (40.0-70.0) % Seg Neutrophils # (1.8-7.7) K/mm3 Sodium 136 L (137-145) mmol/L Potassium 3.0 L (3.6-5.0) mmol/L Chloride 99.6 (98-107) mmol/L Carbon Dioxide 24 (22-30) mmol/L Anion Gap 15 mmol/L BUN 13 (7-17) mg/dL Creatinine 3.8 H (0.6-1.2) mg/dL Estimated GFR 15 ml/min BUN/Creatinine Ratio 3 % Glucose 64 L (65-100) mg/dL POC Glucose < 40 L 126 H (70-105) Calcium 8.7 (8.4-10.2) mg/dL Total Bilirubin 0.40 (0.1-1.2) mg/dL AST 26 (5-40) units/L ALT 29 (7-56) units/L Alkaline Phosphatase 143 H (35-129) units/L Ammonia (25-60) umol/L Total Protein 6.4 (6.3-8.2) g/dL Albumin 3.0 L (3.9-5) g/dL Albumin/Globulin Ratio 0.9 % TSH (0.270-4.200) mlU/mL Plasma/Serum Alcohol (0-0.07) % 02/15/20 02/15/20 02/15/20 Range/Units 10:16 10:16 10:17 WBC (4.5-11.0) K/mm3 RBC (3.65-5.03) M/mm3 Hgb (10.1-14.3) gm/dl Hct (30.3-42.9) % MCV (79-97) fl MCH (28-32) pg MCHC (30-34) % RDW (13.2-15.2) % Plt Count (140-440) K/mm3 Lymph % (Auto) (13.4-35.0) % [place] % (Auto) (0.0-7.3) % Eos % (Auto) (0.0-4.3) % Baso % (Auto) (0.0-1.8) % Lymph # (1.2-5.4) K/mm3 [place] # (0.0-0.8) K/mm3 Eos # (0.0-0.4) K/mm3 Baso # (0.0-0.1) K/mm3 Seg Neutrophils % (40.0-70.0) % Seg Neutrophils # (1.8-7.7) K/mm3 Sodium (137-145) mmol/L Potassium (3.6-5.0) mmol/L Chloride (98-107) mmol/L Carbon Dioxide (22-30) mmol/L Anion Gap mmol/L BUN (7-17) mg/dL Creatinine (0.6-1.2) mg/dL Estimated GFR ml/min BUN/Creatinine Ratio % Glucose (65-100) mg/dL POC Glucose (70-105) Calcium (8.4-10.2) mg/dL Total Bilirubin (0.1-1.2) mg/dL AST (5-40) units/L ALT (7-56) units/L Alkaline Phosphatase (35-129) units/L Ammonia 29.0 (25-60) umol/L Total Protein (6.3-8.2) g/dL Albumin (3.9-5) g/dL Albumin/Globulin Ratio % TSH 3.270 (0.270-4.200) mlU/mL Plasma/Serum Alcohol < 0.01 (0-0.07) % 02/15/20 02/15/20 02/15/20 Range/Units 10:21 10:38 11:14 WBC 5.0 (4.5-11.0) K/mm3 RBC 3.77 (3.65-5.03) M/mm3 Hgb 11.3 (10.1-14.3) gm/dl Hct 33.9 (30.3-42.9) % MCV 90 (79-97) fl MCH 30 (28-32) pg MCHC 33 (30-34) % RDW 17.6 H (13.2-15.2) % Plt Count 94 L (140-440) K/mm3 Lymph % (Auto) 23.6 (13.4-35.0) % [place] % (Auto) 9.9 H (0.0-7.3) % Eos % (Auto) 1.2 (0.0-4.3) % Baso % (Auto) 0.9 (0.0-1.8) % Lymph # 1.2 (1.2-5.4) K/mm3 [place] # 0.5 (0.0-0.8) K/mm3 Eos # 0.1 (0.0-0.4) K/mm3 Baso # 0.0 (0.0-0.1) K/mm3 Seg Neutrophils % 64.4 (40.0-70.0) % Seg Neutrophils # 3.2 (1.8-7.7) K/mm3 Sodium (137-145) mmol/L Potassium (3.6-5.0) mmol/L Chloride (98-107) mmol/L Carbon Dioxide (22-30) mmol/L Anion Gap mmol/L BUN (7-17) mg/dL Creatinine (0.6-1.2) mg/dL Estimated GFR ml/min BUN/Creatinine Ratio % Glucose (65-100) mg/dL POC Glucose 68 L 111 H (70-105) Calcium (8.4-10.2) mg/dL Total Bilirubin (0.1-1.2) mg/dL AST (5-40) units/L ALT (7-56) units/L Alkaline Phosphatase (35-129) units/L Ammonia (25-60) umol/L Total Protein (6.3-8.2) g/dL Albumin (3.9-5) g/dL Albumin/Globulin Ratio % TSH (0.270-4.200) mlU/mL Plasma/Serum Alcohol (0-0.07) % 02/15/20 Range/Units 13:23 WBC (4.5-11.0) K/mm3 RBC (3.65-5.03) M/mm3 Hgb (10.1-14.3) gm/dl Hct (30.3-42.9) % MCV (79-97) fl MCH (28-32) pg MCHC (30-34) % RDW (13.2-15.2) % Plt Count (140-440) K/mm3 Lymph % (Auto) (13.4-35.0) % [place] % (Auto) (0.0-7.3) % Eos % (Auto) (0.0-4.3) % Baso % (Auto) (0.0-1.8) % Lymph # (1.2-5.4) K/mm3 [place] # (0.0-0.8) K/mm3 Eos # (0.0-0.4) K/mm3 Baso # (0.0-0.1) K/mm3 Seg Neutrophils % (40.0-70.0) % Seg Neutrophils # (1.8-7.7) K/mm3 Sodium (137-145) mmol/L Potassium (3.6-5.0) mmol/L Chloride (98-107) mmol/L Carbon Dioxide (22-30) mmol/L Anion Gap mmol/L BUN (7-17) mg/dL Creatinine (0.6-1.2) mg/dL Estimated GFR ml/min BUN/Creatinine Ratio % Glucose (65-100) mg/dL POC Glucose 136 H (70-105) Calcium (8.4-10.2) mg/dL Total Bilirubin (0.1-1.2) mg/dL AST (5-40) units/L ALT (7-56) units/L Alkaline Phosphatase (35-129) units/L Ammonia (25-60) umol/L Total Protein (6.3-8.2) g/dL Albumin (3.9-5) g/dL Albumin/Globulin Ratio % TSH (0.270-4.200) mlU/mL Plasma/Serum Alcohol (0-0.07) % - Consultations Consultation #1: 02/15/20 13:44 I spoke to the patient's rn traveling, Dr. Alexander, who agrees that the hypoglycemia may have been secondary to the dialysis and that she completed her dialysis, and that the patient is safe for discharge home from a nephrology standpoint. ED Medical Decision Making - Lab Data Result diagrams: 02/15/20 10:21 02/15/20 10:16 - EKG Data -: EKG Interpreted by Me EKG shows normal: sinus rhythm (PACs), axis, intervals (Prolonged TX interval, prolonged QT and QTc interval), QRS complexes (Low voltage), ST-T waves Rate: normal - EKG Data When compared to previous EKG there are: previous EKG unavailable Interpretation: other (Sinus rhythm with PACs, normal axis, prolonged TX, QT and QTc intervals, low voltage QRS, no ST elevation TN) - Medical Decision Making This patient presents to the emergency department after having a hypoglycemic episode after finishing dialysis. She had a blood sugar of 27 and was given some oral glucose. She was still less than 40 when she arrived here and was given another amp of D50 and went up to about 100. She was then given something to eat. At this point the patient became awake, alert, oriented and has no complaints. EKG shows prolonged TX, QT and QTc intervals but otherwise no morphology consistent with ST elevation TN. She has labs that shows mild hypokalemia with potassium of 3, and renal insufficiency consistent with her end-stage renal disease. Patient's vital signs have been reassuring throughout her ED course including being afebrile. She has been reevaluated multiple times over multiple hours and has remained awake, alert, oriented and there has been no drop in her blood sugar. I spoke with nephrology who agrees with the plan for discharge to home. She will return to the ER with any worsening of her symptoms or with any acute distress. Critical Care Time: No Critical care attestation.: If time is entered above; I have spent that time in minutes in the direct care of this critically ill patient, excluding procedure time. ED Disposition Clinical Impression: ESRD on dialysis, ESRD needing dialysis, Hypoglycemia Disposition: DC-01 TO HOME OR SELFCARE Is pt being admited?: No Condition: Stable Instructions: Non-diabetic Hypoglycemia (ED), End-Stage Kidney Disease (ED) Additional Instructions: Please follow-up with your primary care physician and rn traveling. Continue with your normal dialysis regimen. Return to the emergency department with any worsening of your symptoms or with any acute distress. Referrals: ROBY KLINE MD [Primary Care Provider] - 3-5 Days RAVEN ALEXANDER MD [Staff Physician] - 3-5 Days Time of Disposition: 12:08
[2020-02-15 10:58] LABS: Basophils % (Auto) 0.9 % (0.0-1.8); Eosinophils # (Auto) 0.1 K/mm3 (0.0-0.4); Eosinophils % (Auto) 1.2 % (0.0-4.3); Hematocrit 33.9 % (30.3-42.9); Hemoglobin 11.3 gm/dl (10.1-14.3); Lymphocytes # (Auto) 1.2 K/mm3 (1.2-5.4); Lymphocytes % (Auto) 23.6 % (13.4-35.0); Mean Corpuscular HGB Conc 33 % (30-34); Mean Corpuscular Volume 90 fl (79-97); Monocytes # (Auto) 0.5 K/mm3 (0.0-0.8); Monocytes % (Auto) 9.9 % (0.0-7.3); Red Blood Count 3.77 M/mm3 (3.65-5.03); Red Cell Distribution Width 17.6 % (13.2-15.2)
[2020-02-15 10:59] LABS: Platelet Count 94 K/mm3 (140-440)
[2020-02-15 11:13] LABS: Calcium 8.7 mg/dL (8.4-10.2)
[2020-02-15 14:11] VITALS: BP 170/100
== END 2020-02-15 14:10 | disposition home or self-care (01) ==
LOC: ED 08:38
DX: I12.0 Hypertensive chronic kidney disease with stage 5 chronic kidney disease or end stage renal disease (principal); N18.6 End stage renal disease; E11.649 Type 2 diabetes mellitus with hypoglycemia without coma; E11.22 Type 2 diabetes mellitus with diabetic chronic kidney disease; K21.9 Gastro-esophageal reflux disease without esophagitis; J44.9 Chronic obstructive pulmonary disease, unspecified; Z79.899 Other long term (current) drug therapy; Z90.49 Acquired absence of other specified parts of digestive tract; Z98.890 Other specified postprocedural states; Z99.2 Dependence on renal dialysis
CPT/HCPCS: 36415; 80053; 80320; 82140; 82962; 84443; 85025; 93005; 96374; G0480